=== PATIENT | male | born 1975 | race Caucasian/White ===

== ENCOUNTER 2020-05-14 18:03 | Inpatient (IN) | payer OTHER, SELFPAY ==
--- NOTE | ~2020-05-14 | US_ITS ---
EXAMINATION: US abdomen limited EXAM DATE: 05/15/2020 10:44 INDICATION: Abnormal CT scan. Elevated liver enzymes. TECHNIQUE: Multiple grayscale and Doppler images of the abdomen right upper quadrant were obtained (b y a technologist who performed the scan) and subsequently reviewed. Correlation is made to CT abdomen pelvis from 05/14/2020. FINDINGS: The pancreatic head and body are normal in appearance. The pancreatic tail is not visualized. There is hepatomegaly and hepatic steatosis. There are no focal liver lesions identified. There is no e vidence of intrahepatic biliary duct dilation. Portal venous flow was seen in the hepatopedal, andrae l direction and has normal Doppler waveform. No right-sided hydronephrosis. Common bile duct measures 4 mm, which is normal. The gallbladder wall is normal in thickness, with ex pected amount of distention. No sonographic evidence of pericholecystic fluid. There is no cholelit hiases. Technologist performing exam reports patient did not demonstrate sonographic Dickson's sign. Please note that this sign is less reliable in patients who have received pain medication. IMPRESSION: 1. Hepatomegaly. Hepatic steatosis. Reviewed, dictated and finalized at location B. F CRNA
--- NOTE | ~2020-05-14 | XR_ITS ---
EXAMINATION: XR chest 1V portable 05/14/2020 18:47 INDICATION: Shortness of breath, fever and Covid exposure PROCEDURE: AP portable chest COMPARISON: No prior studies for comparison. FINDINGS: The lungs are clear. The cardiomediastinal silhouette is within normal limits. There are no pleural effusions. There is no pneumothorax suspected. IMPRESSION: 1: NO ACUTE CARDIOPULMONARY DISEASE. Reviewed, dictated and finalized at location A. T SPRAYER
--- NOTE | ~2020-05-14 | XR_ITS ---
EXAMINATION: XR abdomen/kub 1V DATE: 05/15/2020 16:18 INDICATION: Abdominal pain and distention. TECHNIQUE: A supine view of the abdomen was obtained. COMPARISON: CT abdomen and pelvis 05/14/2020 FINDINGS: There are no dilated loops of bowel. There is a paucity of stool in the colon. IMPRESSION: 1. Normal bowel gas pattern. Reviewed, dictated and finalized at location A. OLOGY PHYSICIAN ASSISTANT
--- NOTE | ~2020-05-14 | CT_ITS ---
EXAMINATION: CT abdomen pelvis w con DATE: 05/14/2020 19:50 INDICATION: Abdomen pain. Dizziness. Fever. Weakness. TECHNIQUE: Computed tomography (CT) of the abdomen and pelvis was performed with 100 cc Omnipaque 350 intravenous contrast. The dose-length product was 838.13 mGy-cm. Automated exposure control and iterative reconstruction technique were employed. COMPARISON: None. FINDINGS: Lung bases are unremarkable. Heart size normal. No significant pleural or pericardial effus ion. There is hepatomegaly with fatty infiltration of the liver. The spleen, pancreas, adrenal glands and kidneys are unremarkable. Gallbladder is present. There is mild thickening of the sigmoid colon with adjacent mild inflammation, suspicious for acute d iverticulitis. No evidence for perforation or abscess. No significant vascular abnormality. No lympha denopathy. No free air or significant free fluid. No acute osseous abnormality. There is avascular ne crosis of the femoral heads bilaterally. IMPRESSION: 1. Probable mild acute uncomplicated sigmoid diverticulitis. 2: Hepatomegaly with fatty infiltration of the liver. 3: Bilateral avascular necrosis of the femoral heads. Reviewed, dictated and finalized at location A. TIONS OPERATOR
--- NOTE | ~2020-05-14 | XR_ITS ---
EXAMINATION: XR chest 1V portable EXAM DATE: 05/17/2020 11:00 INDICATION: Possible COVID pneumonia. Shortness of breath and fever. TECHNIQUE: Portable AP frontal chest x-ray was obtained. Comparison is made to prior examination from 05/14/2020. FINDINGS: Suspect small amount of ill-defined bibasilar acute airspace disease, new compared to previ ous study. Could be COVID pneumonia. No pneumothorax or pleural effusion. Cardiomediastinal silhouett e is normal. There are no osseous abnormalities identified. IMPRESSION: Probable developing small amount of ill-defined basilar pneumonia. Reviewed, dictated and finalized at location B. SPECIALIST
[2020-05-14 18:02] VITALS: BP 94/53; PULSE 92; RESP 18; TEMP 37.3; O2SAT 95
--- NOTE | 2020-05-14 18:13 | ECG_ITS ---
Measurements Intervals [place] Rate: 88 P: 51 [place]: 132 QRS: 43 QRSD: 96 T: 245 QT: 351 QTc: 426 Interpretive Statements SINUS RHYTHM POSSIBLE LEFT ATRIAL ENLARGEMENT ST-T WAVE ABNORMALITY IN DIFFUSE LEADS- CONSIDER ISCHEMIA BASELINE ARTIFACT- III, AVL ABNORMAL ECG Electronically Signed On 05-14-2020 18:59:15 [employer] by Alvino Draper D.O.
[2020-05-14 18:14] VITALS: PULSE 89
[2020-05-14 18:27] LABS: Basophils Percent Auto 0.2 % (0.2-1.2); Eosinophils Percent Auto 0.1 % (0-4.4); Hematocrit 29.3 % (42.0-52.0); Hemoglobin 10.3 g/dL (14.0-18.0); Immature Granulocyte Absolute 0.05 K/mm3 (0.00-0.031); Immature Granulocyte Percent A 0.6 % (0-0.5); Lymphocytes Absolute Auto 0.82 K/mm3 (0.9-3.2); Lymphocytes Percent Auto 9.7 % (18.3-44.2); Mean Corpuscular HGB Conc 35.2 g/dl (32-36); Mean Corpuscular Hemoglobin 34.6 pg (26-34); Mean Corpuscular Volume 98.3 fl (80-100); Mean Platelet Volume 9.5 fl (7.4-10.4); Monocytes Absolute Auto 0.3 K/mm3 (0.1-0.6); Monocytes Percent Auto 3.3 % (2.6-8.5); Neutrophils Absolute Auto 7.3 K/mm3 (1.3-6.7); Neutrophils Percent Auto 86.1 % (45.5-73.1); Nucleated Red Blood Cells Absolute Auto 0.1 K/mm3 (0.0-0.012); Nucleated Red Blood Cells Perc 0.6 % (0.0-0.2); Platelet Count Result 104 k/mm3 (150-375); Red Blood Count 2.98 M/mm3 (4.6-6.20); Red Cell Distribution Width 15.1 % (11.5-14.5); White Blood Count 8.5 K/mm3 (4.5-10.0)
[2020-05-14] MEDS: SODIUM CHLORIDE 0.9% IV 1,000 ML 999 ML IV CONT (18:33)
--- NOTE | 2020-05-14 18:35 | PC.NURSE ---
pt states unable to provide urine sample, fluids infusing, given urinal, pt declined straight cath at this time
[2020-05-14 18:45] LABS: Alanine Aminotransferase 39 U/L (4-50); Albumin Level 3.6 g/dL (3.5-5.1); Alkaline Phosphatase 163 U/L (38-126); Anion Gap 30 mmol/L (8-16); Aspartate Amino Transferase 87 U/L (17-59); Blood Urea Nitrogen 21 mg/dL (9-20); Carbon Dioxide 35 mmol/L (22-30); Chloride 67 mmol/L (98-107); Estimated CRCL calculation 75 ml/min; Estimated Glomerular Filt Rate > 60; Glucose 75 mg/dL (75-110); Potassium < 2.0 mmol/L (3.4-5.0); Sodium 132 mmol/L (137-145)
[2020-05-14 18:45] LABS: Alveolar/Arterial O2 Gradient 40.4 mmHg; Base Excess ABG 7.8 mEq/l (+/-2.0); Carboxyhemoglobin 8.2 % THb (0-2.0); Fractional Inspired Oxygen 21 %; Oxygen Saturation ABG 94.5 % (95.0-100.0); Oxyhemoglobin 84.7 % THb (90.0-100.0); PCO2 ABG 38.1 mmHg (35.0-45.0); PO2 ABG 63.7 mmHg (80.0-100.0); PO2 FiO2 Ratio Arterial Blood 3.03 %; Reduced Hemoglobin 7.1 %THb (0-5.0); Total Hemoglobin 10.9 g/dL (12.0-18.0)
[2020-05-14 18:47] LABS: Device ROOM AIR; Modified Allen's Test Pass; Site Drawn RIGHT RADIAL; pH ABG 7.528 (7.350-7.450)
--- NOTE | 2020-05-14 18:57 | ED.GENADULT ---
HPI - General Adult General Chief complaint: Weakness <SWETA Diaz Last Filed: 05/14/20 20:51> Stated complaint: SOB,Nausea <SWETA Diaz Last Filed: 05/14/20 20:51> Time Seen by Provider: 05/14/20 18:23 <SWETA Diaz Last Filed: 05/14/20 20:51> Source: patient and EMS <SWETA Diaz Last Filed: 05/14/20 20:51> Mode of arrival: EMS <SWETA Diaz Last Filed: 05/14/20 20:51> Limitations: no limitations <SWETA Diaz Last Filed: 05/14/20 20:51> History of Present Illness HPI narrative: Patient is a 45-year-old male who presents to emergency department for evaluation of multiple complaints that have been present for 1 week patient has had a cough shortness of breath chest pain headache coupled with multiple episodes of liquid stool and emesis that have worsened over the last several days patient denies sick contacts at home patient has not taken anything for his symptoms patient presents today due to not improving and worsening through the course of the illness denies similar occurrence in the past has not been seen for this complaint denies rectal bleeding or melena. Patient notes that his symptoms began with GI upset which has been the persistent symptom. Patient notes that his cough seems like a smoker's cough despite that it is not productive like it normally is. Patient notes chest discomfort intermittently with shortness of breath with activity for the last 2 days. Patient notes rectal pain and irritation from all of the diarrhea that he has had. Patient also notes multiple episodes of emesis over the last 4 days and has been unable to tolerate p.o. intake at this point <SWETA Diaz Last Filed: 05/14/20 20:51> Related Data Home medications: Home Medications Medication Instructions Recorded Confirmed albuterol mcg INHALATION 05/14/20 05/14/20 fluticasone furoate [Arnuity 1 inh INHALATION DAILY 05/14/20 05/14/20 Ellipta] gabapentin 400 mg PO TID 05/14/20 05/14/20 losartan 50 mg PO DAILY 05/14/20 05/14/20 metoprolol tartrate 25 mg PO DAILY 05/14/20 05/14/20 sertraline 25 mg PO DAILY 05/14/20 05/14/20 <Howard Quevedo PA-C - Last Filed: 05/14/20 20:51> Allergies/adverse reactions: Allergies Allergy/AdvReac Type Severity Reaction Status Date / Time salmeterol Allergy Hives Verified 05/14/20 18:09 <Howard Quevedo PA-C - Last Filed: 05/14/20 20:51> Review of Systems Review of Systems: All systems reviewed & are unremarkable except as noted in HPI and below <Howard Quevedo PA-C - Last Filed: 05/14/20 20:51> PMFSH Past Medical History Medical History: Medical History (Updated 05/14/20 @ 21:17 by Felipe Ryder MD) Asthma H/O: HTN (hypertension) Peripheral neuropathy <SWETA Diaz Last Filed: 05/14/20 20:51> Social History Social History: Social History Smoking status: Current every day smoker Gender identity (if verbalized by the patient): Female <Howard Quevedo PA-C - Last Filed: 05/14/20 20:51> Exam Narrative: Exam Narrative: GENERAL: Well-appearing, well-nourished, and in no acute distress. HEAD: Normocephalic, atraumatic. EYES: PERRLA and EOMI. scleral icterus ENT: Nares clear, no rhinorrhea or epistaxis. Mucous membranes moist. CHEST: Clear to auscultation. No respiratory distress. No wheezes rales or rhonchi HEART: Regular rate and rhythm. No murmur heard. Normal peripheral pulses. ABDOMEN: Soft, generalized tenderness of the abdomen no rebound or guarding,distended, normal active bowel sounds. Patient with perirectal irritation EXTREMITIES: Normal range of motion. No edema. SKIN: Warm, dry, no rash. NEURO: No focal deficits. Alert and oriented x3. Cranial nerves II through XII grossly intact PSYCH: Normal mood and affect. <Howard Quevedo PA-C - Last Filed:
[2020-05-14] MEDS: FAMOTIDINE 20 MG/2 ML VIAL IV PUSH (19:25)
[2020-05-14] MEDS: ONDANSETRON INJ 4 MG/2 ML VIAL IV PUSH (19:28)
[2020-05-14] MEDS: LACTATED RINGERS 1,000 ML 999 ML IV CONT (19:28)
[2020-05-14] MEDS: PANTOPRAZOLE SODIUM IV 40 MG VIAL IV PUSH (19:29)
[2020-05-14 19:30] VITALS: BP 140/62; PULSE 91; RESP 12; O2SAT 94
--- NOTE | 2020-05-14 19:46 | PC.NURSE ---
Assumed care of Pt. Report from LINO Wilson
[2020-05-14 19:50] LABS: Lipase 414 U/L (23-300); Magnesium 1.7 mg/dL (1.6-2.3)
[2020-05-14 19:52] LABS: Prothrombin Time 13.4 Seconds (11.1-14.7)
[2020-05-14 19:55] LABS: Partial Thromboplastin Time 28.1 SECONDS (22.3-36.8)
[2020-05-14 19:59] LABS: Troponin I 0.016 ng/mL (0.000-0.034)
[2020-05-14 20:05] LABS: Alanine Aminotransferase 40 U/L (4-50); Albumin Level 3.5 g/dL (3.5-5.1); Alkaline Phosphatase 158 U/L (38-126); Anion Gap 28 mmol/L (8-16); Aspartate Amino Transferase 88 U/L (17-59); Bilirubin,Total 4.9 mg/dL (0.2-1.3); Blood Urea Nitrogen 21 mg/dL (9-20); CRP 7.8 mg/dL (<1.0); Calcium 7.8 mg/dL (8.4-10.2); Carbon Dioxide 35 mmol/L (22-30); Chloride 68 mmol/L (98-107); Estimated CRCL calculation 75 ml/min; Estimated Glomerular Filt Rate > 60; Glucose 68 mg/dL (75-110); Potassium < 2.0 mmol/L (3.4-5.0); Sodium 131 mmol/L (137-145)
--- NOTE | 2020-05-14 20:15 | ECG_ITS ---
Measurements Intervals [place] Rate: 93 P: 74 [place]: 139 QRS: 42 QRSD: 100 T: 177 QT: 385 QTc: 480 Interpretive Statements SINUS RHYTHM POSSIBLE LEFT ATRIAL ENLARGEMENT BORDERLINE ST-T WAVE ABNORMALITY- DIFFUSE LEADS BORDERLINE ECG Electronically Signed On 05-15-2020 6:52:58 [employer]IC[employer] by Alvino Draper D.O.
[2020-05-14] MEDS: POTASSIUM CHLORIDE 20 MEQ PACKET (FOR LIQUID) 40 MEQ PO (20:23)
[2020-05-14 20:24] LABS: Lactic Acid Reflex 14.8 mmol/L (0.7-2.1)
--- NOTE | 2020-05-14 20:30 | PC.NURSE ---
Pt. states he cannot urinate at this time.
--- NOTE | 2020-05-14 20:42 | PM.IMHP ---
H&P: HPI History of Present Illness Date/Time: 05/14/20 20:42 Chief Complaint: Nausea and vomiting for over a week. Narrative: This is a 45 year old male with known history of HTN and peripheral neuropathy who presented to the hospital with a complaint of 1.5 weeks of feeling sick. He describes having LLQ abdominal pain, nausea, vomiting, and diarrhea. Over the past 4 days his nausea and vomting has become severe and he hasn't been able to keep down any food or fluids. He has had a poorly productive cough which he believes is attributed to his smoking. Associated symptoms included exertional chest discomfort and dyspnea. His girlfiend had contact with someone who was COVID-19 positive. The patient underwent evaluation in the ER and found to have a serum potassium < 2.0. He was also found to be severely septic with a lactic acid of 14.8, anion gap of 28, and dehydrated. CT Abd/pelvis demonstrated mild acute uncomplicated sigmoid diverticulitis. The patient was swabbed for COVID-19, treated with IV fluids and IV antibiotics in the ER. On my encounter with him he is only complaining of dull LLQ abd pain. He tolerated oral potassium replacement. No other complaints. Review of Systems Review of Systems: All systems reviewed & are unremarkable except as noted in HPI and below PMFSH Past Medical History Medical History Asthma H/O: HTN (hypertension) Peripheral neuropathy Family History Family History Other Unknown family medical history Social History Social History Smoking packs per day: 1 Smoking cigarettes per day: 20.0 Years smoked: 30 Smoking pack-years: 30.00 Smoking status: Current every day smoker Tobacco type: cigarettes Alcohol intake: never Substance use: never Gender identity (if verbalized by the patient): Male Spiritual care concerns: No Comments Past surgical history is reviewed and noncontributory. Meds Home Medications and Allergies Home Medications Medication Instructions Recorded Confirmed Type albuterol 90 mcg INHALATION Q4-6H 05/14/20 05/14/20 History fluticasone furoate [Arnuity 1 inh INHALATION DAILY 05/14/20 05/14/20 History Ellipta] gabapentin 400 mg PO QID 05/14/20 05/14/20 History losartan 25 mg PO DAILY 05/14/20 05/14/20 History metoprolol tartrate 25 mg PO DAILY 05/14/20 05/14/20 History sertraline 25 mg PO DAILY 05/14/20 05/14/20 History Allergies Allergy/AdvReac Type Severity Reaction Status Date / Time salmeterol Allergy Hives Verified 05/14/20 18:09 Vital Signs Vital Signs - 24 hr 05/14/20 18:02 05/14/20 18:14 05/14/20 19:30 Temperature 37.3 C Pulse Rate 92 89 91 Respiratory Rate 18 12 Blood Pressure 94/53 L 140/62 Pulse Oximetry 95 94 Exam Const: General: cooperative, no acute distress, alert and awake Nutritional Appearance: well nourished Orientation/consciousness: patient oriented x3 HENMT: Head: normal to inspection General nose exam: Normal external nose present Face and sinus: normal facial exam Mouth: Yes Normal oral and palatal mucosa present and Yes oropharynx normal Eyes: Pupils: Equal, round and reactive pupils present EOM: EOMs intact bilaterally Neck: Neck: supple and no JVD Thyroid: thyroid normal Lymphatic: lymphadenopathy not noted Chest: Other: No chest wall tenderness Resp: Effort & Inspection: normal respiratory effort Auscultation: clear to auscultation bilaterally Cardio: Rate: regular rate Rhythm: regular rhythm Heart sounds: no murmurs GI: Inspection: normal to inspection GI Palp: Yes abdominal tenderness (LLQ++ ) Auscultation: normal bowel sounds Skin: General skin exam: normal color and no rashes or lesions noted Neuro: General: patient oriented x3 Cranial nerves: Yes CN's II-XII intact bilaterally and Yes Equal, round
[2020-05-14] MEDS: SODIUM CHLORIDE 0.9% IV 1,000 ML 100 ML IV CONT (21:18)
[2020-05-14 21:20] LABS: Immature Reticulocyte Fraction 5.3 % (3.0-15.9); Reticulocyte Hemoglobin Conten 36.7 pg (28.2-35.7); Reticulocyte Percent 0.84 % (0.7-4.3); Reticulocytes Absolute 0.03 B/L (32.2-175.7)
[2020-05-14 21:47] LABS: Add Urine Microscopic? YES; Appearance Urine Clear (Clear); Bacteria Urine Trace /hpf; Bilirubin Urine Negative (Negative); Blood Urine Negative (Negative); Color Urine Amber (Yellow); Glucose Urine UA Negative (Negative); Hyaline Casts Urine 20-29 /lpf; Ketones Urine 1+ mg/dL (Negative); Leukocyte Esterase Ur Negative LEU/UL (Negative); Mucus Urine Rare /lpf; Nitrate Urine Negative (Negative); Protein Urine 2+ mg/dL (Negative); RBC Urine 0-2 /hpf (0-2); Squamous Epithelial Cell Urine Rare /hpf (Few); WBC Urine 0-3 /hpf
[2020-05-14 21:51] LABS: Specific Grav Ur 1.036 (1.001-1.035)
[2020-05-14 22:00] VITALS: BP 124/57; PULSE 88; RESP 12; O2SAT 94
[2020-05-14 22:06] LABS: Reflex Lactic Acid Yes or No Add Lactic
[2020-05-14 22:30] VITALS: BP 112/62; PULSE 95; RESP 20; TEMP 37.1; O2SAT 97; BMI 27.6
[2020-05-14 22:49] VITALS: BMI 27.6
[2020-05-14 23:12] LABS: Glucose Point of Care 100 (65-105)
[2020-05-14 23:52] LABS: Lactic Acid 8.9 mmol/L (0.7-2.1)
[2020-05-14 23:53] LABS: Iron 174 ug/dL (49-181)
[2020-05-14 23:55] LABS: Troponin I 0.014 ng/mL (0.000-0.034)
[2020-05-14 23:56] LABS: Bilirubin Direct 1.3 mg/dL (0-0.3); Lactate Dehydrogenase 739 U/L (313-618)
[2020-05-15] VITALS (17 sets, daily range): BP systolic 138–159; BP diastolic 43–73; PULSE 82–97; RESP 18–23; TEMP 36.2–36.9; O2SAT 90–98; BMI 27.6
[2020-05-15 00:02] LABS: Percent Iron Saturation 87 % (20-50)
[2020-05-15 00:04] LABS: Transferrin 134 mg/dL (206-381)
[2020-05-15] MEDS: SODIUM CHLORIDE 0.9% IV 1,000 ML 125 ML IV CONT ×3 (00:08→16:07)
[2020-05-15 00:25] LABS: Thyroid Stimulating Hormone Reflex 0.994 uIU/mL (0.465-4.68)
[2020-05-15 00:47] LABS: Folic Acid 3.6 ng/mL (2.76->20)
[2020-05-15 02:18] LABS: Troponin I 0.012 ng/mL (0.000-0.034)
[2020-05-15 03:16] LABS: Ferritin > 2000.00 ng/mL (17.9-464)
[2020-05-15 04:49] LABS: Basophils Percent Auto 0.2 % (0.2-1.2); Eosinophils Percent Auto 0.2 % (0-4.4); Hematocrit 25.7 % (42.0-52.0); Hemoglobin 8.9 g/dL (14.0-18.0); Immature Granulocyte Absolute 0.06 K/mm3 (0.00-0.031); Immature Granulocyte Percent A 0.9 % (0-0.5); Lymphocytes Absolute Auto 1.14 K/mm3 (0.9-3.2); Lymphocytes Percent Auto 17.4 % (18.3-44.2); Mean Corpuscular HGB Conc 34.6 g/dl (32-36); Mean Corpuscular Hemoglobin 34.5 pg (26-34); Mean Corpuscular Volume 99.6 fl (80-100); Mean Platelet Volume 10.4 fl (7.4-10.4); Monocytes Absolute Auto 0.2 K/mm3 (0.1-0.6); Monocytes Percent Auto 3.7 % (2.6-8.5); Neutrophils Absolute Auto 5.1 K/mm3 (1.3-6.7); Neutrophils Percent Auto 77.6 % (45.5-73.1); Nucleated Red Blood Cells Perc 0.5 % (0.0-0.2); Platelet Count Result 78 k/mm3 (150-375); Red Blood Count 2.58 M/mm3 (4.6-6.20); White Blood Count 6.5 K/mm3 (4.5-10.0)
[2020-05-15 05:15] LABS: Anion Gap 14 mmol/L (8-16); Blood Urea Nitrogen 20 mg/dL (9-20); Carbon Dioxide 39 mmol/L (22-30); Chloride 79 mmol/L (98-107); Estimated CRCL calculation 82 ml/min; Estimated Glomerular Filt Rate > 60; Glucose 88 mg/dL (75-110); Magnesium 1.6 mg/dL (1.6-2.3); Potassium < 2.0 mmol/L (3.4-5.0); Sodium 132 mmol/L (137-145)
[2020-05-15 05:50] LABS: Hepatitis B Surface Antigen Negative (Negative)
[2020-05-15 05:56] LABS: HAV RESULT Negative (Negative); Hepatitis B Core IgM Result Negative (Negative)
[2020-05-15 06:07] LABS: Hepatitis C Virus Antibody Negative (Negative)
[2020-05-15 06:26] LABS: Prothrombin Time 13.7 Seconds (11.1-14.7)
[2020-05-15 06:28] LABS: Partial Thromboplastin Time 24.1 SECONDS (22.3-36.8)
[2020-05-15] MEDS: PANTOPRAZOLE SODIUM IV 40 MG VIAL IV PUSH ×2 (08:03→21:59)
[2020-05-15] MEDS: FAMOTIDINE 20 MG/2 ML VIAL IV PUSH ×2 (08:03→21:59)
[2020-05-15 09:20] LABS: Hematocrit 25.1 % (42.0-52.0); Hemoglobin 8.6 g/dL (14.0-18.0)
[2020-05-15] MEDS: POTASSIUM CHLORIDE 20 MEQ PACKET (FOR LIQUID) 40 MEQ PO (10:24)
[2020-05-15 13:16] LABS: Hematocrit 27.2 % (42.0-52.0); Hemoglobin 9.5 g/dL (14.0-18.0)
[2020-05-15 13:37] LABS: Magnesium 1.7 mg/dL (1.6-2.3); Potassium 2.2 mmol/L (3.4-5.0)
[2020-05-15] MEDS: ALBUTEROL SULFATE (*SP) AEROSOL 1 PUFF 2 PUFF INHALATION ×2 (14:22→22:00)
[2020-05-15 15:14] LABS: Hematocrit 26.4 % (42.0-52.0); Hemoglobin 9.1 g/dL (14.0-18.0)
--- NOTE | 2020-05-15 15:54 | PM.IMPN ---
Progress Note: A&P Assessment and Plan (1) Severe sepsis: Code(s): A41.9 - Sepsis, unspecified organism; R65.20 - Severe sepsis without septic shock Status: Acute Assessment and Plan: Patient meets criteria for severe sepsis in the setting of acute diverticulitis with elevated lactic acid, hypotension 94/53, low-grade fever at 99.1 on arrival, and hypoxia requiring 2 L of oxygen via nasal cannula. Blood cultures were taken and pending Started IV antibiotics for diverticulitis Vital signs are much improved today Continue monitoring vitals. (2) Diverticulitis: Code(s): K57.92 - Diverticulitis of intestine, part unspecified, without perforation or abscess without bleeding Status: Acute Assessment and Plan: Acute diverticulitis to the sigmoid colon as stated on CT scan of abdomen which is most likely the cause of his nausea/vomiting/diarrhea Patient's pain is improving today Continue with IV antibiotics P.r.n. pain control Continue monitoring patient's symptoms (3) Metabolic alkalosis: Code(s): E87.3 - Alkalosis Status: Acute Assessment and Plan: Patient had acute metabolic alkalosis pH of 7.528, elevated HC03, and normal CO2 -cause could be from severe sepsis, versus dehydration versus hypochloremic alkalosis from vomiting and diarrhea. Patient is well compensated at this time We are giving him IV fluids for hydration and replenishing his electrolytes Continue monitoring his electrolytes (4) Acute dehydration: Code(s): E86.0 - Dehydration Status: Acute Assessment and Plan: The patient was noted to be acutely dehydrated on arrival due to sepsis criteria from acute diverticulitis and symptoms of nausea/vomiting/diarrhea Patient has been given IV fluids with improvement of his blood pressure and symptoms. Continue monitoring his volume status and slowly advance diet as tolerated. (5) Normocytic anemia: Code(s): D64.9 - Anemia, unspecified Status: Acute Assessment and Plan: The patient came in with Normocytic anemia, unsure of his baseline labs in the past. Could be secondary to possible COVID, patients often have pancytopenia. Will do further workup. He received IV fluid hydration due to severe dehydration which brought his H&H slightly ill lower today. He has no acute signs of GI bleeding but will check a stool occult since he has diverticulitis Patient had normal vitamin B12 and folic acid levels. Continue monitoring H&H. Transfuse as needed. (6) Thrombocytopenia: Code(s): D69.6 - Thrombocytopenia, unspecified Status: Acute Assessment and Plan: Patient came in with thrombocytopenia with a platelet count of 104. Could be secondary to COVID will do further workup. Platelets decreased again today to 78. Monitor platelets, transfuse prn. (7) Hypokalemia: Code(s): E87.6 - Hypokalemia Status: Acute Assessment and Plan: Severe hypokalemia likely secondary to vomiting and diarrhea for the past 4 days. This morning was 2.0. Someone today moody being given. Repeat this afternoon was 2.2, will give another 60 mEq of potassium. Continue potassium replacement. Monitor potassium. (8) Hypoglycemia: Code(s): E16.2 - Hypoglycemia, unspecified Status: Acute Assessment and Plan: Glucose was 68 on arrival. Glucose has been stable but he has been NPO. He has no history of diabetes. Will continue checking Accuchecks ACHS, hypoglycemic protocol. (9) Hyperbilirubinemia: Code(s): E80.6 - Other disorders of
[2020-05-15] MEDS: POTASSIUM CHLORIDE 20 MEQ PACKET (FOR LIQUID) 60 MEQ PO (16:04)
[2020-05-15 19:18] LABS: SARS-CoV-2 RNA PCR Negative
[2020-05-15 20:01] LABS: Hematocrit 25.7 % (42.0-52.0); Hemoglobin 8.9 g/dL (14.0-18.0)
[2020-05-15 20:22] LABS: Magnesium 1.6 mg/dL (1.6-2.3); Potassium 2.2 mmol/L (3.4-5.0)
[2020-05-15] MEDS: MELATONIN 3 MG TABLET PO (21:59)
[2020-05-15] MEDS: NICOTINE (*PBKC) 21 MG PATCH 1 PATCH TRANSDERM (21:59)
[2020-05-15] MEDS: FLUTICASONE PROP 44 MCG (*SP) 10.6 GM 2 PUFF INHALATION (22:00)
[2020-05-16] VITALS (20 sets, daily range): BP systolic 125–163; BP diastolic 57–78; PULSE 88–107; RESP 18–24; TEMP 35.8–36.6; O2SAT 88–98
[2020-05-16 04:43] LABS: Basophils Percent Auto 0.2 % (0.2-1.2); Eosinophils Percent Auto 0.2 % (0-4.4); Hematocrit 23.6 % (42.0-52.0); Hemoglobin 8.2 g/dL (14.0-18.0); Immature Granulocyte Absolute 0.03 K/mm3 (0.00-0.031); Immature Granulocyte Percent A 0.6 % (0-0.5); Immature Platelet Fraction Pct 4.6 % (0.9-11.2); Lymphocytes Absolute Auto 0.87 K/mm3 (0.9-3.2); Lymphocytes Percent Auto 18.6 % (18.3-44.2); Mean Corpuscular HGB Conc 34.7 g/dl (32-36); Mean Corpuscular Hemoglobin 34.7 pg (26-34); Monocytes Absolute Auto 0.1 K/mm3 (0.1-0.6); Monocytes Percent Auto 2.1 % (2.6-8.5); Neutrophils Absolute Auto 3.7 K/mm3 (1.3-6.7); Neutrophils Percent Auto 78.3 % (45.5-73.1); Nucleated Red Blood Cells Perc 0.4 % (0.0-0.2); Platelet Count Result 65 k/mm3 (150-375); Red Blood Count 2.36 M/mm3 (4.6-6.20); Red Cell Distribution Width 14.7 % (11.5-14.5); White Blood Count 4.7 K/mm3 (4.5-10.0)
[2020-05-16 05:14] LABS: Lactic Acid Reflex 4.9 mmol/L (0.7-2.1)
[2020-05-16 05:17] LABS: Alanine Aminotransferase 43 U/L (4-50); Albumin Level 2.8 g/dL (3.5-5.1); Alkaline Phosphatase 125 U/L (38-126); Anion Gap 8 mmol/L (8-16); Aspartate Amino Transferase 104 U/L (17-59); Bilirubin Direct 1.7 mg/dL (0-0.3); Bilirubin,Total 4.2 mg/dL (0.2-1.3); Blood Urea Nitrogen 14 mg/dL (9-20); CRP 8.3 mg/dL (<1.0); Calcium 7.4 mg/dL (8.4-10.2); Carbon Dioxide 38 mmol/L (22-30); Chloride 87 mmol/L (98-107); Estimated CRCL calculation 156 ml/min; Estimated Glomerular Filt Rate > 60; Glucose 105 mg/dL (75-110); Lactate Dehydrogenase 984 U/L (313-618); Lipase 844 U/L (23-300); Magnesium 1.6 mg/dL (1.6-2.3); Potassium 2.3 mmol/L (3.4-5.0); Sodium 133 mmol/L (137-145)
[2020-05-16] MEDS: SODIUM CHLORIDE 0.9% IV 1,000 ML 100 ML IV CONT (05:27)
[2020-05-16 07:38] LABS: Reflex Lactic Acid Yes or No Add Lactic
[2020-05-16] MEDS: FAMOTIDINE 20 MG/2 ML VIAL IV PUSH ×2 (08:17→21:01)
[2020-05-16] MEDS: ENOXAPARIN 40 MG/0.4 ML SYRINGE SUB-Q (08:17)
[2020-05-16] MEDS: PANTOPRAZOLE SODIUM IV 40 MG VIAL IV PUSH ×2 (08:17→21:01)
[2020-05-16] MEDS: NICOTINE (*PBKC) 21 MG PATCH 1 PATCH TRANSDERM (08:19)
[2020-05-16] MEDS: FLUTICASONE PROP 44 MCG (*SP) 10.6 GM 2 PUFF INHALATION ×2 (08:21→21:00)
[2020-05-16] MEDS: MAGNESIUM SULF 2 GM/WATER 50ML 2 GM/50 ML BAG IVPB (08:49)
[2020-05-16] MEDS: POTASSIUM CHLORIDE 20 MEQ PACKET (FOR LIQUID) 60 MEQ PO ×2 (08:50→14:45)
[2020-05-16 09:40] LABS: Influenza Control Positive
[2020-05-16 09:46] LABS: Lactic Acid 4.9 mmol/L (0.7-2.1)
[2020-05-16 13:23] LABS: Potassium 2.6 mmol/L (3.4-5.0)
--- NOTE | 2020-05-16 13:55 | PM.DS ---
DS: Summary Time Spent with Patient Time attestation: Total time spent providing and/or coordinating discharge services: DS: Data Data Completed and Pending Completed studies during hospitalization: Pending at discharge 05/14/20 21:06 Consult to Pathologist [PTH] Routine Labs on day of discharge: Labs from last 24 hours 05/16/20 05/16/20 05/16/20 12:49 09:15 09:04 WBC RBC Hgb Hct MCV MCH MCHC RDW Plt Count MPV Immature Gran % (Auto) Neut % (Auto) Lymph % (Auto) [place] % (Auto) Eos % (Auto) Baso % (Auto) Lymph # (Auto) [place] # (Auto) Eos # (Auto) Baso # (Auto) Abs Immat Gran (auto) Absolute Neuts (auto) Absolute Nucleated RBC Nucleated RBC % % Immature Plt Fraction Sodium Potassium 2.6 L* Chloride Carbon Dioxide Anion Gap BUN Creatinine Estim Creat Clear Calc Estimated GFR Glucose Lactic Acid 4.9 H* Calcium Magnesium 2.0 Ferritin Total Bilirubin Direct Bilirubin AST ALT Alkaline Phosphatase Lactate Dehydrogenase C-Reactive Protein Total Protein Albumin Lipase Influenza Types A,B Ag SARS-CoV-2 RNA (RT-PCR) Pending 05/16/20 05/16/20 05/16/20 09:04 04:31 04:31 WBC RBC Hgb Hct MCV MCH MCHC RDW Plt Count MPV Immature Gran % (Auto) Neut % (Auto) Lymph % (Auto) [place] % (Auto) Eos % (Auto) Baso % (Auto) Lymph # (Auto) [place] # (Auto) Eos # (Auto) Baso # (Auto) Abs Immat Gran (auto) Absolute Neuts (auto) Absolute Nucleated RBC Nucleated RBC % % Immature Plt Fraction Sodium Potassium Chloride Carbon Dioxide Anion Gap BUN Creatinine Estim Creat Clear Calc Estimated GFR Glucose Lactic Acid 4.9 H* Calcium Magnesium Ferritin 1900.00 H Total Bilirubin Direct Bilirubin AST ALT Alkaline Phosphatase Lactate Dehydrogenase C-Reactive Protein Total Protein Albumin Lipase Influenza Types A,B Ag Negative SARS-CoV-2 RNA (RT-PCR) 05/16/20 05/16/20 05/15/20 04:31 04:31 19:55 WBC 4.7 RBC 2.36 L Hgb 8.2 L Hct 23.6 L MCV 100.0 MCH 34.7 H MCHC 34.7 RDW 14.7 H Plt Count 65 L MPV 9.0 Immature Gran % (Auto) 0.6 H Neut % (Auto) 78.3 H Lymph % (Auto) 18.6 [place] % (Auto) 2.1 L Eos % (Auto) 0.2 Baso % (Auto) 0.2 Lymph # (Auto) 0.87 L [place] # (Auto) 0.1 Eos # (Auto) 0.0 Baso # (Auto) 0.0 Abs Immat Gran (auto) 0.03 Absolute Neuts (auto) 3.7 Absolute Nucleated RBC 0.0 Nucleated RBC % 0.4 H % Immature Plt Fraction 4.6 Sodium 133 L Potassium 2.3 L* 2.2 L* Chloride 87 L Carbon Dioxide 38 H Anion Gap 8 BUN 14 D Creatinine 0.50 L Estim Creat Clear Calc 156 Estimated GFR > 60 Glucose 105 Lactic Acid Calcium 7.4 L Magnesium 1.6 1.6 Ferritin Total Bilirubin 4.2 H Direct Bilirubin 1.7 H AST 104 H ALT 43 Alkaline Phosphatase 125 Lactate Dehydrogenase 984 H C-Reactive Protein 8.3 H Total Protein 5.0 L Albumin 2.8 L Lipase 844 H Influenza Types A,B Ag SARS-CoV-2 RNA (RT-PCR) 05/15/20 05/15/20 05/14/20 19:55 15:07 18:37 WBC RBC Hgb 8.9 L 9.1 L Hct 25.7 L 26.4 L MCV MCH MCHC RDW Plt Count MPV Immature Gran % (Auto) Neut % (Auto) Lymph % (Auto) [place] % (Auto) Eos % (Auto) Baso % (Auto) Lymph # (Auto) [place] # (Auto) Eos # (Auto) Baso # (Auto) Abs Immat Gran (auto) Absolute Neuts (auto) Absolute Nucleated RBC Nucleated RBC % % Immature Plt Fraction Sodium Potassium Chloride Carbon Dioxide Anion Gap BUN Creatinine Estim Creat Clear Calc Estimated GFR Glucose Lactic Acid Calcium Magnesium
--- NOTE | 2020-05-16 13:57 | PM.IMPN ---
Progress Note: A&P Assessment and Plan (1) Severe sepsis: Code(s): A41.9 - Sepsis, unspecified organism; R65.20 - Severe sepsis without septic shock Status: Acute Assessment and Plan: Patient meets criteria for severe sepsis in the setting of acute diverticulitis with elevated lactic acid, hypotension 94/53, low-grade fever at 99.1 on arrival, and hypoxia requiring 2 L of oxygen via nasal cannula. Blood cultures were taken and are negative to date. Continue IV antibiotics for diverticulitis Vital signs are much improved today Continue monitoring vitals. (2) Diverticulitis: Code(s): K57.92 - Diverticulitis of intestine, part unspecified, without perforation or abscess without bleeding Status: Acute Assessment and Plan: Acute diverticulitis to the sigmoid colon as stated on CT scan of abdomen which is most likely the cause of his nausea/vomiting/diarrhea Patient's pain is improving today Continue with IV antibiotics P.r.n. pain control Continue monitoring patient's symptoms (3) Acute dehydration: Code(s): E86.0 - Dehydration Status: Acute Assessment and Plan: The patient was noted to be acutely dehydrated on arrival due to sepsis criteria from acute diverticulitis and symptoms of nausea/vomiting/diarrhea Patient has been given IV fluids with improvement of his blood pressure and symptoms. Vitals are stable but his lactic acid is still elevated at 4.9. Continue IV fluid hydration. Continue monitoring his volume status and slowly advance diet as tolerated. (4) Normocytic anemia: Code(s): D64.9 - Anemia, unspecified Status: Acute Assessment and Plan: Likely multifactorial. r/o hemolysis, ETOH related, nutritional. The patient came in with Normocytic anemia, unsure of his baseline labs in the past. Could be secondary to possible COVID, patients often have pancytopenia. He received IV fluid hydration due to severe dehydration which brought his H&H slightly ill lower today. He has no acute signs of GI bleeding but will check a stool occult since he has diverticulitis Patient had normal vitamin B12 and folic acid levels. Continue monitoring H&H. Transfuse as needed. (5) Thrombocytopenia: Code(s): D69.6 - Thrombocytopenia, unspecified Status: Acute Assessment and Plan: Monitor platelets, transfuse prn. Consider that this may be secondary to chronic alcoholism. Patient came in with thrombocytopenia with a platelet count of 104. Could be secondary to COVID will do further workup. Platelets decreased again today to 65,000. Monitor platelets, transfuse prn. (6) Hypokalemia: Code(s): E87.6 - Hypokalemia Status: Acute Assessment and Plan: Severe hypokalemia likely secondary to vomiting and diarrhea for the past 4 days. Continue potassium replacement. Monitor potassium. Telemetry. Severe hypokalemia likely secondary to vomiting and diarrhea for the past 4 days. This morning was 2.2. Replacement given and improved to 2.6. Continue replacing until within normal range. Mag is normal today. Continue potassium replacement. Monitor potassium. (7) Hypoglycemia: Code(s): E16.2 - Hypoglycemia, unspecified Status: Acute Assessment and Plan: Accuchecks, hypoglycemic protocol. Glucose was 105 on arrival. Glucose has been stable but he has been NPO. He has no history of diabetes. Will continue checking Accuchecks ACHS, hypoglycemic protocol. (8) Hyperbilirubinemia: Code(s): E80.6 - Other disorders of bilirubin metabolism Status: Acute Assessment
[2020-05-16] MEDS: MAG HYDROX/AL HYDROX/SIMETH 30 ML UDC PO (14:35)
[2020-05-16 17:00] LABS: Glucose Point of Care 141 (65-105)
[2020-05-16 17:16] LABS: SARS-CoV-2 RNA PCR Negative
[2020-05-16] MEDS: GABAPENTIN 400 MG CAPSULE PO ×2 (17:25→20:59)
[2020-05-16 19:10] LABS: Hematocrit 25.2 % (42.0-52.0); Hemoglobin 8.9 g/dL (14.0-18.0)
[2020-05-16 19:17] LABS: Potassium 3.3 mmol/L (3.4-5.0)
[2020-05-16] MEDS: MELATONIN 3 MG TABLET PO (20:59)
[2020-05-16] MEDS: ALBUTEROL SULFATE (*SP) AEROSOL 1 PUFF 2 PUFF INHALATION (21:04)
[2020-05-16] MEDS: PHENYLEPH/SHARK OIL/MO/PETROL CREAM 26 GM 1 APPLIC RECTAL (21:09)
[2020-05-16] MEDS: SODIUM CHLORIDE NASAL GEL 14.1 GM 1 APPLIC NASAL (21:09)
[2020-05-16 21:13] LABS: IFOB Positive Control Positive; Immunochemical Fecal Occult Bl Negative (N)
[2020-05-16] MEDS: SODIUM CHLORIDE 0.9% IV 1,000 ML 70 ML IV CONT (21:42)
[2020-05-17] VITALS (17 sets, daily range): BP systolic 113–144; BP diastolic 52–71; PULSE 2–97; RESP 12–22; TEMP 35.8–36.6; O2SAT 91–99
[2020-05-17] MEDS: ALBUTEROL SULFATE (*SP) AEROSOL 1 PUFF 2 PUFF INHALATION ×2 (04:28→20:50)
[2020-05-17 05:21] LABS: Basophils Percent Auto 0.2 % (0.2-1.2); Eosinophils Percent Auto 0.6 % (0-4.4); Hematocrit 23.9 % (42.0-52.0); Hemoglobin 8.3 g/dL (14.0-18.0); Immature Granulocyte Absolute 0.05 K/mm3 (0.00-0.031); Immature Granulocyte Percent A 1.1 % (0-0.5); Immature Platelet Fraction Pct 6.9 % (0.9-11.2); Lymphocytes Absolute Auto 0.93 K/mm3 (0.9-3.2); Lymphocytes Percent Auto 19.9 % (18.3-44.2); Mean Corpuscular HGB Conc 34.7 g/dl (32-36); Mean Corpuscular Hemoglobin 33.6 pg (26-34); Mean Corpuscular Volume 96.8 fl (80-100); Mean Platelet Volume 9.9 fl (7.4-10.4); Monocytes Absolute Auto 0.1 K/mm3 (0.1-0.6); Monocytes Percent Auto 1.3 % (2.6-8.5); Neutrophils Absolute Auto 3.6 K/mm3 (1.3-6.7); Neutrophils Percent Auto 76.9 % (45.5-73.1); Nucleated Red Blood Cells Perc 0.4 % (0.0-0.2); Platelet Count Result 56 k/mm3 (150-375); Red Blood Count 2.47 M/mm3 (4.6-6.20); Red Cell Distribution Width 14.5 % (11.5-14.5); White Blood Count 4.7 K/mm3 (4.5-10.0)
[2020-05-17 06:11] LABS: Alanine Aminotransferase 58 U/L (4-50); Albumin Level 3.2 g/dL (3.5-5.1); Alkaline Phosphatase 177 U/L (38-126); Anion Gap 5 mmol/L (8-16); Aspartate Amino Transferase 145 U/L (17-59); Bilirubin,Total 4.7 mg/dL (0.2-1.3); Blood Urea Nitrogen 8 mg/dL (9-20); CRP 8.1 mg/dL (<1.0); Calcium 8.1 mg/dL (8.4-10.2); Carbon Dioxide 39 mmol/L (22-30); Chloride 89 mmol/L (98-107); Estimated CRCL calculation 189 ml/min; Estimated Glomerular Filt Rate > 60; Glucose 122 mg/dL (75-110); Lactate Dehydrogenase 1188 U/L (313-618); Lipase 939 U/L (23-300); Magnesium 1.9 mg/dL (1.6-2.3); Sodium 133 mmol/L (137-145)
[2020-05-17 06:13] LABS: Potassium 2.7 mmol/L (3.4-5.0)
[2020-05-17] MEDS: GABAPENTIN 400 MG CAPSULE PO ×4 (08:21→20:50)
[2020-05-17] MEDS: FAMOTIDINE 20 MG/2 ML VIAL IV PUSH ×2 (08:22→20:49)
[2020-05-17] MEDS: PANTOPRAZOLE SODIUM IV 40 MG VIAL IV PUSH ×2 (08:24→20:49)
[2020-05-17 09:30] LABS: Ferritin > 2000.00 ng/mL (17.9-464)
[2020-05-17] MEDS: POTASSIUM CHLORIDE 20 MEQ PACKET (FOR LIQUID) 40 MEQ PO ×2 (10:20→16:11)
[2020-05-17] MEDS: METOPROLOL TARTRATE 25 MG TABLET PO (10:20)
[2020-05-17] MEDS: NICOTINE (*PBKC) 21 MG PATCH 1 PATCH TRANSDERM (10:21)
[2020-05-17] MEDS: FLUTICASONE PROP 44 MCG (*SP) 10.6 GM 2 PUFF INHALATION ×2 (10:21→20:50)
[2020-05-17] MEDS: SALINE 0.65% NAS SOLN 44 ML BTL 1 SPRAY NASAL (14:47)
[2020-05-17 15:36] LABS: Magnesium 1.9 mg/dL (1.6-2.3); Potassium 3.4 mmol/L (3.4-5.0)
--- NOTE | 2020-05-17 16:31 | PM.IMPN ---
Progress Note: A&P Assessment and Plan (1) Suspected COVID-19 virus infection: Code(s): Z20.822 - Contact with and (suspected) exposure to COVID-19 Status: Acute Assessment and Plan: The patient's girlfriend who he lives with tested positive for COVID 05/10/20 and he lives with her. He then began developing symptoms of dry cough, congestion, shortness of breath, body aches. Patient's COVID test has been negative x2 Patient has been hypoxic since arrival requiring 2 L of oxygen and he is down to 1 L of oxygen here. He tried to take his oxygen off for about 30 minutes and he became hypoxic 84% and so he has remained on 1 L of oxygen. Repeat chest x-ray on 05/17/2020 shows possible bibasilar pneumonia. The patient's labs that are normally obtained for COVID, ferritin, LDH, CRP have all been elevated but he also has an acute infection with diverticulitis. The patient is otherwise feeling better today and will continue monitoring his symptoms. Due to his hypoxia I will start him on dexamethasone Continue monitoring.Continue supportive care. Continue droplet isolation. (2) Severe sepsis: Code(s): A41.9 - Sepsis, unspecified organism; R65.20 - Severe sepsis without septic shock Status: Acute Assessment and Plan: Patient meets criteria for severe sepsis in the setting of acute diverticulitis with elevated lactic acid, hypotension 94/53, low-grade fever at 99.1 on arrival, and hypoxia requiring 2 L of oxygen via nasal cannula. Blood cultures were taken and are negative to date. Continue IV antibiotics for diverticulitis Vital signs are much improved today, still on 1 L via nasal cannula due to most likely COVID Continue monitoring vitals. (3) Diverticulitis: Code(s): K57.92 - Diverticulitis of intestine, part unspecified, without perforation or abscess without bleeding Status: Acute Assessment and Plan: Acute diverticulitis to the sigmoid colon as stated on CT scan of abdomen which is most likely the cause of his nausea/vomiting/diarrhea Patient's pain is improving today Continue with IV antibiotics P.r.n. pain control Continue monitoring patient's symptoms (4) Acute dehydration: Code(s): E86.0 - Dehydration Status: Acute Assessment and Plan: The patient was noted to be acutely dehydrated on arrival due to sepsis criteria from acute diverticulitis and symptoms of nausea/vomiting/diarrhea Patient has been given IV fluids with improvement of his blood pressure and symptoms. Vitals are stable but his lactic acid is still elevated at 4.9. Will recheck again. Continue IV fluid hydration. Continue monitoring his volume status and slowly advance diet as tolerated. (5) Normocytic anemia: Code(s): D64.9 - Anemia, unspecified Status: Acute Assessment and Plan: Likely multifactorial. r/o hemolysis, ETOH related, nutritional. The patient came in with Normocytic anemia, unsure of his baseline labs in the past. Could be secondary to possible COVID, patients often have pancytopenia. He received IV fluid hydration due to severe dehydration which brought his H&H slightly ill lower today. He has no acute signs of GI bleeding but will check a stool occult since he has diverticulitis Patient had normal vitamin B12 and folic acid levels. Continue monitoring H&H. Transfuse as needed. (6) Thrombocytopenia: Code(s): D69.6 - Thrombocytopenia, unspecified Status: Acute Assessment and Plan: Monitor platelets, transfuse prn. Consider that this may be secondary to chronic liver issues from alcoholism versus viral from COVID. Patient came in with thrombocytopenia with a platelet count of 104. Could be se
[2020-05-17] MEDS: DEXAMETHASONE SOD PHOS INJ 4 MG/ML VIAL 6 MG IV PUSH (17:47)
[2020-05-17] MEDS: SODIUM CHLORIDE 0.9% IV 1,000 ML 70 ML IV CONT (17:47)
[2020-05-17] MEDS: SERTRALINE HCL 25 MG TABLET PO (20:49)
[2020-05-17] MEDS: MELATONIN 3 MG TABLET PO (20:49)
[2020-05-17] MEDS: PHENYLEPH/SHARK OIL/MO/PETROL CREAM 26 GM 1 APPLIC RECTAL (20:50)
[2020-05-17] MEDS: SODIUM CHLORIDE NASAL GEL 14.1 GM 1 APPLIC NASAL (20:50)
[2020-05-17] MEDS: LOSARTAN POTASSIUM 25 MG TABLET PO (20:50)
[2020-05-18] VITALS (15 sets, daily range): BP systolic 120–146; BP diastolic 53–73; PULSE 85–110; RESP 18–20; TEMP 35.8–36.5; O2SAT 92–100
[2020-05-18 04:54] LABS: Hemoglobin 7.2 g/dL (14.0-18.0); Immature Platelet Fraction Pct 9.1 % (0.9-11.2); Mean Corpuscular HGB Conc 34.8 g/dl (32-36); Mean Corpuscular Hemoglobin 34.4 pg (26-34); Mean Platelet Volume 10.4 fl (7.4-10.4); Platelet Count Result 44 k/mm3 (150-375); Red Blood Count 2.09 M/mm3 (4.6-6.20); Red Cell Distribution Width 15.1 % (11.5-14.5); White Blood Count 3.5 K/mm3 (4.5-10.0)
[2020-05-18 05:08] LABS: Lactic Acid Reflex 2.8 mmol/L (0.7-2.1)
[2020-05-18 05:10] LABS: Alanine Aminotransferase 55 U/L (4-50); Albumin Level 2.8 g/dL (3.5-5.1); Alkaline Phosphatase 169 U/L (38-126); Anion Gap 4 mmol/L (8-16); Aspartate Amino Transferase 111 U/L (17-59); Bilirubin,Total 3.6 mg/dL (0.2-1.3); Blood Urea Nitrogen 8 mg/dL (9-20); Calcium 8.1 mg/dL (8.4-10.2); Carbon Dioxide 36 mmol/L (22-30); Chloride 93 mmol/L (98-107); Estimated CRCL calculation 189 ml/min; Estimated Glomerular Filt Rate > 60; Glucose 201 mg/dL (75-110); Lactate Dehydrogenase 1011 U/L (313-618); Lipase 783 U/L (23-300); Magnesium 1.6 mg/dL (1.6-2.3); Potassium 3.7 mmol/L (3.4-5.0); Sodium 133 mmol/L (137-145)
[2020-05-18 05:30] LABS: Hematocrit 20.7 % (42.0-52.0)
[2020-05-18] MEDS: POTASSIUM CHLORIDE 20 MEQ PACKET (FOR LIQUID) 40 MEQ PO (06:47)
[2020-05-18 07:50] LABS: Reflex Lactic Acid Yes or No Add Lactic
[2020-05-18] MEDS: GABAPENTIN 400 MG CAPSULE PO ×4 (08:49→20:50)
[2020-05-18] MEDS: FAMOTIDINE 20 MG/2 ML VIAL IV PUSH ×2 (08:49→20:50)
[2020-05-18] MEDS: DEXAMETHASONE SOD PHOS INJ 4 MG/ML VIAL 6 MG IV PUSH (08:49)
[2020-05-18] MEDS: NICOTINE (*PBKC) 21 MG PATCH 1 PATCH TRANSDERM (08:49)
[2020-05-18] MEDS: METOPROLOL SUCCINATE EXT REL 25 MG TABCR PO (08:49)
[2020-05-18] MEDS: FLUTICASONE PROP 44 MCG (*SP) 10.6 GM 2 PUFF INHALATION ×2 (08:49→20:58)
[2020-05-18] MEDS: PANTOPRAZOLE SODIUM IV 40 MG VIAL IV PUSH ×2 (08:49→20:49)
--- NOTE | 2020-05-18 13:23 | PCDIET ---
Nutrition Follow-Up Complete: Nutrition Diagnosis: Inadequate oral intake related to diverticulitis as evidenced by NPO. Nutrition Goal: Patient to meet estimated nutritional needs. Goal in progress. Patient consuming 50-100% of meals on regular diet. Spoke with patient via phone due to COVID precautions. Patient requesting information on diverticulitis and diet. See Nutritional Teaching for additional details. Patient declines nutritional supplements at this time but c/o feeling like food is being regurgitated. Suggested small, frequent, low fat, low fiber meals. If medically appropriate, would obtain GI consult. Last recorded weight is 85.6 kg which is increased from last review. Bowel Motility: Patient reports loose stools with 2 documented BM today. Labs Reviewed: Hgb (7.2), Hct (20.7), Glu (201), Cr (0.4), Na (133), Alb (2.8) Meds Noted: Albuterol, Decadron, Pepcid, Cozaar, Toprol XL, Protonix, Zosyn, KCl Additional Notes: No documented skin breakdown. Will continue to monitor with same goal. Nutrition Monitoring and Evaluation: Follow up every 5 days.
[2020-05-18] MEDS: NYSTATIN 100,000 UNITS/ML SUSP 5 ML ORAL.SUSP PO ×3 (14:14→20:50)
[2020-05-18] MEDS: ALBUTEROL SULFATE (*SP) INHALER 2 PUFF INHALATION ×2 (16:51→20:50)
[2020-05-18] MEDS: MELATONIN 3 MG TABLET PO (20:50)
[2020-05-18] MEDS: SERTRALINE HCL 25 MG TABLET PO (20:50)
[2020-05-18] MEDS: LOSARTAN POTASSIUM 25 MG TABLET PO (20:50)
[2020-05-18] MEDS: PHENYLEPH/SHARK OIL/MO/PETROL CREAM 26 GM 1 APPLIC RECTAL (20:59)
--- NOTE | 2020-05-18 22:03 | PM.IMPN ---
Progress Note: A&P Assessment and Plan (1) Suspected COVID-19 virus infection: Code(s): Z20.822 - Contact with and (suspected) exposure to COVID-19 Status: Acute Assessment and Plan: The patient's girlfriend who he lives with tested positive for COVID 05/10/20 and he lives with her. He then began developing symptoms of dry cough, congestion, shortness of breath, body aches. Patient's COVID test has been negative x2 Patient is on room air today with normal saturations at rest and with exertion Repeat chest x-ray on 05/17/2020 shows possible bibasilar pneumonia. The patient's labs that are normally obtained for COVID, ferritin, LDH, CRP have all been elevated but he also has an acute infection with diverticulitis. The patient is otherwise feeling better today and will continue monitoring his symptoms. Due to his hypoxia I will start him on dexamethasone Continue monitoring.Continue supportive care. Continue droplet isolation. (2) Severe sepsis: Code(s): A41.9 - Sepsis, unspecified organism; R65.20 - Severe sepsis without septic shock Status: Acute Assessment and Plan: Patient meets criteria for severe sepsis in the setting of acute diverticulitis with elevated lactic acid, hypotension 94/53, low-grade fever at 99.1 on arrival, and hypoxia requiring 2 L of oxygen via nasal cannula. Blood cultures were taken and are negative Continue IV antibiotics for diverticulitis Vital signs are much improved today Continue monitoring vitals. (3) Diverticulitis: Code(s): K57.92 - Diverticulitis of intestine, part unspecified, without perforation or abscess without bleeding Status: Acute Assessment and Plan: Acute diverticulitis to the sigmoid colon as stated on CT scan of abdomen which is most likely the cause of his nausea/vomiting/diarrhea Patient's pain is improving today Continue with IV antibiotics P.r.n. pain control Continue monitoring patient's symptoms (4) Acute dehydration: Code(s): E86.0 - Dehydration Status: Acute Assessment and Plan: The patient was noted to be acutely dehydrated on arrival due tosepsis criteria from acute diverticulitis and symptoms of nausea/vomiting/diarrhea Patient has been given IV fluids with improvement of his blood pressure and symptoms. Vitals are stable but his lactic acid is still elevated at 2.8. Continue IV fluid hydration. Continue monitoring his volume status and slowly advance diet as tolerated. (5) Normocytic anemia: Code(s): D64.9 - Anemia, unspecified Status: Acute Assessment and Plan: Likely multifactorial. r/o hemolysis, ETOH related, nutritional. The patient came in with Normocytic anemia, unsure of his baseline labs in the past. Could be secondary to possible COVID, patients often have pancytopenia. He received IV fluid hydration due to severe dehydration which brought his H&H slightly ill lower today. He has no acute signs of GI bleeding but will check a stool occult since he has diverticulitis Patient had normal vitamin B12 and folic acid levels. Continue monitoring H&H. Transfuse as needed. (6) Thrombocytopenia: Code(s): D69.6 - Thrombocytopenia, unspecified Status: Acute Assessment and Plan: Monitor platelets, transfuse prn. Consider that this may be secondary to chronic liver issues from alcoholism versus viral from COVID. Patient came in with thrombocytopenia with a platelet count of 104. Could be secondary to COVID will do further workup. Platelets decreased again today to 44,000. Monitor platelets, transfuse prn. (7) Hypokalemia: Code(s): E87.6 - Hypokalemia
[2020-05-18 22:49] LABS: Hematocrit 21.4 % (42.0-52.0); Hemoglobin 7.7 g/dL (14.0-18.0)
[2020-05-19] VITALS (10 sets, daily range): BP systolic 127–154; BP diastolic 56–83; PULSE 67–95; RESP 12–23; TEMP 36.3–36.8; O2SAT 93–98
[2020-05-19 05:51] LABS: Basophils Percent Auto 0.2 % (0.2-1.2); Hematocrit 22.1 % (42.0-52.0); Hemoglobin 7.7 g/dL (14.0-18.0); Immature Granulocyte Percent A 1.9 % (0-0.5); Immature Platelet Fraction Pct 10.6 % (0.9-11.2); Lymphocytes Absolute Auto 1.18 K/mm3 (0.9-3.2); Lymphocytes Percent Auto 22.6 % (18.3-44.2); Mean Corpuscular HGB Conc 34.8 g/dl (32-36); Mean Corpuscular Hemoglobin 34.5 pg (26-34); Mean Corpuscular Volume 99.1 fl (80-100); Mean Platelet Volume 10.5 fl (7.4-10.4); Monocytes Absolute Auto 0.1 K/mm3 (0.1-0.6); Monocytes Percent Auto 2.5 % (2.6-8.5); Neutrophils Absolute Auto 3.8 K/mm3 (1.3-6.7); Neutrophils Percent Auto 72.8 % (45.5-73.1); Platelet Count Result 50 k/mm3 (150-375); Red Blood Count 2.23 M/mm3 (4.6-6.20); Red Cell Distribution Width 15.3 % (11.5-14.5); White Blood Count 5.2 K/mm3 (4.5-10.0)
[2020-05-19 06:29] LABS: Lactic Acid Reflex 2.2 mmol/L (0.7-2.1)
[2020-05-19 07:12] LABS: Platelet Estimate Decreased (Adequate)
[2020-05-19 07:13] LABS: Hypochromasia 2+ (NORMAL); Stomatocytes 2+ (NORMAL); Target Cells 1+ (NORMAL)
[2020-05-19] MEDS: FAMOTIDINE 20 MG/2 ML VIAL IV PUSH ×2 (08:10→21:12)
[2020-05-19] MEDS: PANTOPRAZOLE SODIUM IV 40 MG VIAL IV PUSH (08:10)
[2020-05-19] MEDS: DEXAMETHASONE SOD PHOS INJ 4 MG/ML VIAL 6 MG IV PUSH (08:10)
[2020-05-19] MEDS: METOPROLOL SUCCINATE EXT REL 25 MG TABCR PO (08:11)
[2020-05-19] MEDS: NYSTATIN 100,000 UNITS/ML SUSP 5 ML ORAL.SUSP PO ×4 (08:11→21:13)
[2020-05-19] MEDS: NICOTINE (*PBKC) 21 MG PATCH 1 PATCH TRANSDERM (08:11)
[2020-05-19] MEDS: GABAPENTIN 400 MG CAPSULE PO ×3 (08:11→21:12)
[2020-05-19] MEDS: ALBUTEROL SULFATE (*SP) INHALER 2 PUFF INHALATION ×3 (08:19→21:17)
[2020-05-19] MEDS: FLUTICASONE PROP 44 MCG (*SP) 10.6 GM 2 PUFF INHALATION ×2 (08:19→21:19)
[2020-05-19 08:40] LABS: Reflex Lactic Acid Yes or No Add Lactic
[2020-05-19 09:25] LABS: Lactic Acid 3.2 mmol/L (0.7-2.1)
--- NOTE | 2020-05-19 09:32 | PM.IMPN ---
Progress Note: A&P Assessment and Plan (1) Suspected COVID-19 virus infection: Code(s): Z20.822 - Contact with and (suspected) exposure to COVID-19 Status: Acute Assessment and Plan: patient tells me that his GF did not have symptomatic COVID-19; she was exposed to a coworker who had COVID-19 his cough and wheezing are chronic (he has asthma and is a smoker) and are no worse than usual COVID-19 rt-PCR negative 05/14 & 05/16 D/c droplet isolation (2) Severe sepsis: Code(s): A41.9 - Sepsis, unspecified organism; R65.20 - Severe sepsis without septic shock Status: Acute Assessment and Plan: Resolved Patient met criteria for severe sepsis in the setting of acute diverticulitis with elevated lactic acid, hypotension 94/53, low-grade fever at 99.1 on arrival, and hypoxia requiring 2 L of oxygen via nasal cannula. Blood cultures were taken and are negative Continue IV Zosyn for diverticulitis (3) Diverticulitis: Code(s): K57.92 - Diverticulitis of intestine, part unspecified, without perforation or abscess without bleeding Status: Acute Assessment and Plan: Acute diverticulitis to the sigmoid colon as stated on CT scan of abdomen which is most likely the cause of his nausea/vomiting/diarrhea Likely home soon Continue with IV Zosyn (4) Acute dehydration: Code(s): E86.0 - Dehydration Status: Acute Assessment and Plan: resolved (5) Normocytic anemia: Code(s): D64.9 - Anemia, unspecified Status: Acute Assessment and Plan: Likely related to sepsis, EtOH intake, phlebotomies, dilution No s/sx acute blood loss Monitor (6) Thrombocytopenia: Code(s): D69.6 - Thrombocytopenia, unspecified Status: Acute Assessment and Plan: 2/ plt 50k Likely due to sepsis and alcohol Patient was receiving enoxaparin 40mg daily, so 2/ d/c'd and ordered SCDs Monitor (7) Hypokalemia: Code(s): E87.6 - Hypokalemia Status: Acute Assessment and Plan: resolved as of 05/17 (8) Hypoglycemia: Code(s): E16.2 - Hypoglycemia, unspecified Status: Acute Assessment and Plan: resolved (9) Hyperbilirubinemia: Code(s): E80.6 - Other disorders of bilirubin metabolism Status: Acute Assessment and Plan: likely due to sepsis, alcoholic hepatitis (10) Transaminitis: Code(s): R74.01 - Elevation of levels of liver transaminase levels Status: Acute Assessment and Plan: Likely due to sepsis, alcoholic liver disease (11) Tobacco dependence: Code(s): F17.200 - Nicotine dependence, unspecified, uncomplicated Status: Chronic Assessment and Plan: Continue with nicotine patch (12) H/O: HTN (hypertension): Code(s): Z86.79 - Personal history of other diseases of the circulatory system Status: Chronic Assessment and Plan: BP stable Continue to monitor (13) Peripheral neuropathy: Code(s): G62.9 - Polyneuropathy, unspecified Status: Chronic Assessment and Plan: Continue gabapentin (14) Metabolic alkalosis: Code(s): E87.3 - Alkalosis Status: Acute Assessment and Plan: Likely due to dehydration, sepsis resolved (15) COPD (chronic obstructive p
[2020-05-19 12:24] LABS: Alanine Aminotransferase 57 U/L (4-50); Alkaline Phosphatase 195 U/L (38-126); Anion Gap 4 mmol/L (8-16); Aspartate Amino Transferase 88 U/L (17-59); Bilirubin,Total 4.2 mg/dL (0.2-1.3); Blood Urea Nitrogen 11 mg/dL (9-20); CRP 6.4 mg/dL (<1.0); Calcium 8.7 mg/dL (8.4-10.2); Carbon Dioxide 35 mmol/L (22-30); Chloride 94 mmol/L (98-107); Estimated CRCL calculation 218 ml/min; Estimated Glomerular Filt Rate > 60; Glucose 147 mg/dL (75-110); Lactate Dehydrogenase 1029 U/L (313-618); Magnesium 1.6 mg/dL (1.6-2.3); Potassium 3.9 mmol/L (3.4-5.0); Sodium 133 mmol/L (137-145)
[2020-05-19] MEDS: LOSARTAN POTASSIUM 25 MG TABLET PO (21:13)
[2020-05-19] MEDS: SERTRALINE HCL 25 MG TABLET PO (21:13)
[2020-05-19] MEDS: PHENYLEPH/SHARK OIL/MO/PETROL CREAM 26 GM 1 APPLIC RECTAL (21:20)
[2020-05-19] MEDS: MELATONIN 3 MG TABLET PO (22:59)
[2020-05-20] VITALS: BP 146/82; PULSE 86; RESP 20; TEMP 36.6; O2SAT 98
[2020-05-20 02:50] VITALS: PULSE 86; RESP 20; O2SAT 98
[2020-05-20 04:50] LABS: Hemoglobin 7.1 g/dL (14.0-18.0); Immature Platelet Fraction Pct 8.4 % (0.9-11.2); Mean Corpuscular HGB Conc 35.7 g/dl (32-36); Mean Platelet Volume 10.5 fl (7.4-10.4); Platelet Count Result 51 k/mm3 (150-375); Red Blood Count 2.03 M/mm3 (4.6-6.20); Red Cell Distribution Width 15.5 % (11.5-14.5); White Blood Count 4.8 K/mm3 (4.5-10.0)
[2020-05-20 05:04] LABS: Alanine Aminotransferase 51 U/L (4-50); Albumin Level 2.8 g/dL (3.5-5.1); Alkaline Phosphatase 229 U/L (38-126); Anion Gap 2 mmol/L (8-16); Aspartate Amino Transferase 69 U/L (17-59); Bilirubin,Total 3.3 mg/dL (0.2-1.3); Blood Urea Nitrogen 9 mg/dL (9-20); CRP 6.6 mg/dL (<1.0); Calcium 8.4 mg/dL (8.4-10.2); Carbon Dioxide 33 mmol/L (22-30); Chloride 97 mmol/L (98-107); Estimated CRCL calculation 214 ml/min; Estimated Glomerular Filt Rate > 60; Glucose 148 mg/dL (75-110); Potassium 3.7 mmol/L (3.4-5.0); Sodium 132 mmol/L (137-145)
[2020-05-20 05:06] LABS: Hematocrit 19.9 % (42.0-52.0)
[2020-05-20 07:59] LABS: Glucose Point of Care 161 (65-105)
[2020-05-20 08:00] VITALS: BP 138/63; PULSE 76; RESP 18; TEMP 36.8; O2SAT 98
[2020-05-20 09:52] VITALS: PULSE 76
[2020-05-20] MEDS: NYSTATIN 100,000 UNITS/ML SUSP 5 ML ORAL.SUSP PO ×3 (09:52→20:22)
[2020-05-20] MEDS: METOPROLOL SUCCINATE EXT REL 25 MG TABCR PO (09:52)
[2020-05-20] MEDS: FAMOTIDINE 20 MG/2 ML VIAL IV PUSH ×2 (09:52→20:21)
[2020-05-20] MEDS: ACETAMINOPHEN 325 MG TABLET 650 MG PO (09:52)
[2020-05-20] MEDS: ALBUTEROL SULFATE (*SP) INHALER 2 PUFF INHALATION ×4 (09:52→23:47)
[2020-05-20] MEDS: GABAPENTIN 400 MG CAPSULE PO ×4 (09:52→20:21)
[2020-05-20] MEDS: NICOTINE (*PBKC) 21 MG PATCH 1 PATCH TRANSDERM (09:52)
[2020-05-20] MEDS: predniSONE 20 MG TABLET PO (09:52)
[2020-05-20] MEDS: FLUTICASONE PROP 44 MCG (*SP) 10.6 GM 2 PUFF INHALATION ×2 (09:53→20:20)
--- NOTE | 2020-05-20 12:07 | PM.IMPN ---
Progress Note: A&P Assessment and Plan (1) Suspected COVID-19 virus infection: Code(s): Z20.822 - Contact with and (suspected) exposure to COVID-19 Status: Acute Assessment and Plan: Patient tested negative (2) COPD (chronic obstructive pulmonary disease): Code(s): J44.9 - Chronic obstructive pulmonary disease, unspecified Status: Acute Assessment and Plan: Stable Does not appear to be exacerbated (3) Tobacco dependence: Code(s): F17.200 - Nicotine dependence, unspecified, uncomplicated Status: Chronic Assessment and Plan: Nicotine patch as needed (4) Transaminitis: Code(s): R74.01 - Elevation of levels of liver transaminase levels Status: Acute Assessment and Plan: Likely secondary to ETOH intake Liver US reviewed (5) Hypokalemia: Code(s): E87.6 - Hypokalemia Status: Acute Assessment and Plan: Replace as needed (6) Thrombocytopenia: Code(s): D69.6 - Thrombocytopenia, unspecified Status: Acute Assessment and Plan: Likely multifactorial patient's baseline is low worsened by sepsis Live disease No heparin products Continue to monitor (7) Normocytic anemia: Code(s): D64.9 - Anemia, unspecified Status: Acute Assessment and Plan: Patient is anemic at baseline Now worsened suspect hemodilution and blood draws MCV is on the higher end Suspect anemia of chronic disease at baseline ETOH intake Poor oral intake Liver disease Will continue to monitor (8) Peripheral neuropathy: Code(s): G62.9 - Polyneuropathy, unspecified Status: Chronic Assessment and Plan: Gabapentin (9) Acute hyponatremia: Code(s): E87.1 - Hypo-osmolality and hyponatremia Status: Acute Assessment and Plan: Patient is positive inn his I/O's balance Will try lasix Daily BMP (10) Diverticulitis: Code(s): K57.92 - Diverticulitis of intestine, part unspecified, without perforation or abscess without bleeding Status: Acute Assessment and Plan: Improved Tolerating po (11) Fluid overload: Code(s): E87.70 - Fluid overload, unspecified Status: Acute Assessment and Plan: Will try lasix Subjective Date/time seen: 05/20/20 12:07 States that he feels well but his feet are hurting and swollen. Review of Systems Review of Systems: Narrative: Hurting on his feet and swelling Eyes: Comments: no fevers, no rigors, no chills. Cardiovascular: Comments: no chest pain, no orthopnea. Respiratory: Comments: no sob, no cough, no sputum production Gastrointestinal: Comments: no n/v/abdominal pain Musculoskeletal: Comments: B/L ankle swelling and pain when bearing weight Integumentary/Breasts: Comments: no rashes Neurologic: Comments: neuropathic pain Exam Narrative: Exam Narrative: Chronically ill looking, sitting by the edge of the bed. Const: General: cooperative, comfortable, no acute distress, alert, awake, Physically active and other (Chronically ill looking.) Nutritional Appearance: average body habitus Orientation/consciousness: patient oriented x3 HENMT: Head: normocephalic Ears: hearing grossly normal bilaterally General nose exam: Normal external nose present Face and sinus: normal facial exam Eyes: General: appearance normal, both eyes and all related structures Pupils: Equal, round and reactive pupils present EOM: EOMs intact bilaterally Neck: Neck: no lymphadenopathy, supple and no JVD Resp: Effort & Inspection: able to speak in complete sentences Auscultation: clear to auscultation bilaterally Cardio: Jugular venous distension: no JVD Rate: regular rate Rhythm: regular rhythm GI: GI Palp: Yes Soft to palpation and Yes No hepatosplenomegaly present Skin: Wounds: no wounds Neuro: General: patient oriented x3 and CN's II-XI intact bilaterally Cranial nerves: Yes CN's II-XII intact bilaterally and Yes Equal, r
[2020-05-20 14:35] LABS: Haptoglobin 151 mg/dL (43-212)
[2020-05-20] MEDS: traMADol HCL (*CRX) 50 MG TABLET PO ×2 (14:40→22:12)
[2020-05-20 15:53] VITALS: BP 123/71; PULSE 79; RESP 16; TEMP 36.8; O2SAT 100
[2020-05-20] MEDS: FUROSEMIDE INJ 40 MG/4 ML VIAL IV PUSH (16:44)
--- NOTE | 2020-05-20 17:33 | PC.NURSE ---
This patient, Yobani Cornejo, was transferred to [[address] [place] [address] ] on 05/20/20 at 1733. Personal belongings sent with patient. Report given to [kerline childs ]. Appropriate documentation sent with patient.
--- NOTE | 2020-05-20 18:08 | PC.NURSE ---
This patient, Yobani Cornejo, was [facility] from [facility] on 05/[facility]20 at 1730. Patient/family oriented to unit policies and routines
[2020-05-20] MEDS: PHENYLEPH/SHARK OIL/MO/PETROL CREAM 26 GM 1 APPLIC RECTAL (20:22)
[2020-05-20] MEDS: LOSARTAN POTASSIUM 25 MG TABLET PO (20:22)
[2020-05-20] MEDS: MELATONIN 3 MG TABLET PO (20:22)
[2020-05-20] MEDS: SODIUM CHLORIDE NASAL GEL 14.1 GM 1 APPLIC NASAL (20:23)
[2020-05-20] MEDS: SERTRALINE HCL 25 MG TABLET PO (20:23)
[2020-05-20 21:47] LABS: Pneumococcal Antigen Urine Not Detected (Not Detected)
[2020-05-20 22:00] VITALS: BP 127/74; PULSE 77; RESP 18; TEMP 36.3; O2SAT 96
[2020-05-21] MEDS: ALBUTEROL SULFATE (*SP) INHALER 2 PUFF INHALATION ×5 (05:53→23:35)
[2020-05-21 06:21] VITALS: BP 142/72; PULSE 76; RESP 16; TEMP 36.6; O2SAT 95
[2020-05-21 08:33] VITALS: PULSE 76
[2020-05-21] MEDS: NICOTINE (*PBKC) 21 MG PATCH 1 PATCH TRANSDERM (08:33)
[2020-05-21] MEDS: GABAPENTIN 400 MG CAPSULE PO ×4 (08:33→20:25)
[2020-05-21] MEDS: METOPROLOL SUCCINATE EXT REL 25 MG TABCR PO (08:33)
[2020-05-21] MEDS: predniSONE 20 MG TABLET PO (08:33)
[2020-05-21] MEDS: FAMOTIDINE 20 MG TABLET PO ×2 (08:34→20:25)
[2020-05-21] MEDS: FLUTICASONE PROP 44 MCG (*SP) 10.6 GM 2 PUFF INHALATION (08:41)
[2020-05-21] MEDS: traMADol HCL (*CRX) 50 MG TABLET PO ×2 (08:54→23:34)
[2020-05-21] MEDS: NYSTATIN 100,000 UNITS/ML SUSP 5 ML ORAL.SUSP PO ×3 (10:51→20:25)
[2020-05-21] MEDS: FUROSEMIDE INJ 40 MG/4 ML VIAL IV PUSH (10:51)
--- NOTE | 2020-05-21 13:42 | PM.IMPN ---
Progress Note: A&P Assessment and Plan (1) Fluid overload: Code(s): E87.70 - Fluid overload, unspecified Status: Acute Assessment and Plan: Patient with Liver disease which is further compounding his problem gently diuresis as neede but not of much help as aptient is mainly third spacing IVEV is not optimal patient only puting out small amounts of urine Will discontinue Lasix. (2) COPD (chronic obstructive pulmonary disease): Code(s): J44.9 - Chronic obstructive pulmonary disease, unspecified Status: Acute Assessment and Plan: Improved Continue breathing treatments as needed (3) Tobacco dependence: Code(s): F17.200 - Nicotine dependence, unspecified, uncomplicated Status: Chronic Assessment and Plan: Nicotine patch as needed (4) Transaminitis: Code(s): R74.01 - Elevation of levels of liver transaminase levels Status: Acute Assessment and Plan: Continue to monitor Patient has Hepatic Cirrhosis (5) Hyperbilirubinemia: Code(s): E80.6 - Other disorders of bilirubin metabolism Status: Acute Assessment and Plan: Improved Continue to monitor Likely secondary to Hepatic Cirrhosis (6) Thrombocytopenia: Code(s): D69.6 - Thrombocytopenia, unspecified Status: Acute Assessment and Plan: No heparin products Likely secondary to Liver disease Continue to monitor (7) Peripheral neuropathy: Code(s): G62.9 - Polyneuropathy, unspecified Status: Chronic Assessment and Plan: Continue Gabapentin (8) Acute hyponatremia: Code(s): E87.1 - Hypo-osmolality and hyponatremia Status: Acute Assessment and Plan: Likely secondary to Liver disease and Aldactone secretion. Continue to monitor Will likely benefit form freee water fluid restriction Subjective Date/time seen: 05/21/20 13:42 Patient states that he feels much better. Review of Systems Review of Systems: Narrative: B/L LE swelling. Constitutional: Comments: no fevers, no rigors, no chills Cardiovascular: Comments: no chest pain, no pnd, no orthopnea. Respiratory: Comments: no sob, no cough, no sputum production. Gastrointestinal: Comments: no n/v/abdominl pain. Musculoskeletal: Comments: B/L LE swelling. Integumentary/Breasts: Comments: no rashes. Neurologic: Comments: no sensory motor deficit Exam Narrative: Exam Narrative: Lying in bed. Const: General: ill appearing Nutritional Appearance: average body habitus Orientation/consciousness: patient oriented x3 HENMT: Head: normocephalic Ears: hearing grossly normal bilaterally General nose exam: Normal external nose present Face and sinus: normal facial exam Eyes: Pupils: Equal, round and reactive pupils present EOM: EOMs intact bilaterally Neck: Neck: no lymphadenopathy, supple and no JVD Resp: Auscultation: clear to auscultation bilaterally Cardio: Rate: regular rate Rhythm: regular rhythm GI: GI Palp: Yes Soft to palpation and Yes No hepatosplenomegaly present Skin: Rashes: no rashes Neuro: General: patient oriented x3 and CN's II-XI intact bilaterally Cranial nerves: Yes CN's II-XII intact bilaterally Cognition (Neuro): normal cognition Speech: normal speech Motor exam (neuro): 5/5 motor strength present throughout Extrem: General: pedal edema bilaterally Objective Data Vital Signs Vital Signs: Vital Signs - 24 hr 05/20/20 15:53 05/20/20 22:00 05/21/20 06:21 Temperature 98.2 F 97.4 F L 97.8 F Pulse Rate 79 77 76 Respiratory Rate 16 18 16 Blood Pressure 123/71 127/74 142/72 H Pulse Oximetry 100 96 95 05/21/20 08:33 Temperature Pulse Rate 76 Respiratory Rate Blood Pressure Pulse Oximetry Intake/Output Intake/Output: Intake & Output 05/18/20 05/19/20 05/20/20 05/21/20 23:59 23:59 23:59 23:59 Intake Total 1314 680 1480 760 Output Total 250 2 Balance 7066 181 1471 760 Meds/Results Medications: Active Medi
[2020-05-21 16:00] VITALS: BP 140/79; PULSE 75; RESP 18; TEMP 36.3; O2SAT 96
[2020-05-21 16:10] LABS: Hemoglobin 7.1 g/dL (14.0-18.0); Immature Platelet Fraction Pct 9.9 % (0.9-11.2); Mean Corpuscular HGB Conc 34.8 g/dl (32-36); Mean Corpuscular Hemoglobin 34.5 pg (26-34); Platelet Count Result 63 k/mm3 (150-375); Red Blood Count 2.06 M/mm3 (4.6-6.20); Red Cell Distribution Width 15.9 % (11.5-14.5); White Blood Count 5.4 K/mm3 (4.5-10.0)
[2020-05-21 16:12] LABS: Hematocrit 20.4 % (42.0-52.0)
[2020-05-21 16:59] LABS: Anion Gap 5 mmol/L (8-16); Blood Urea Nitrogen 8 mg/dL (9-20); Carbon Dioxide 30 mmol/L (22-30); Chloride 99 mmol/L (98-107); Estimated CRCL calculation 176 ml/min; Estimated Glomerular Filt Rate > 60; Glucose 194 mg/dL (75-110); Potassium 3.5 mmol/L (3.4-5.0); Sodium 134 mmol/L (137-145)
[2020-05-21 20:00] VITALS: PULSE 89; RESP 16; O2SAT 95
[2020-05-21] MEDS: LOSARTAN POTASSIUM 25 MG TABLET PO (20:25)
[2020-05-21] MEDS: SERTRALINE HCL 25 MG TABLET PO (20:25)
[2020-05-21] MEDS: MELATONIN 3 MG TABLET PO (20:26)
[2020-05-21 22:00] VITALS: BP 131/69; PULSE 89; RESP 16; TEMP 36.6; O2SAT 95
[2020-05-22] MEDS: FLUTICASONE PROP 44 MCG (*SP) 10.6 GM 2 PUFF INHALATION ×3 (00:11→20:35)
[2020-05-22 04:55] VITALS: BP 127/50; PULSE 89; RESP 18; TEMP 36.9; O2SAT 92
[2020-05-22] MEDS: ALBUTEROL SULFATE (*SP) INHALER 2 PUFF INHALATION ×6 (06:27→23:43)
[2020-05-22] MEDS: FAMOTIDINE 20 MG TABLET PO ×2 (07:31→20:35)
[2020-05-22] MEDS: predniSONE 20 MG TABLET PO (07:31)
[2020-05-22 07:32] VITALS: PULSE 88
[2020-05-22] MEDS: GABAPENTIN 400 MG CAPSULE PO ×4 (07:32→20:35)
[2020-05-22] MEDS: NICOTINE (*PBKC) 21 MG PATCH 1 PATCH TRANSDERM (07:32)
[2020-05-22] MEDS: METOPROLOL SUCCINATE EXT REL 25 MG TABCR PO (07:32)
[2020-05-22] MEDS: traMADol HCL (*CRX) 50 MG TABLET PO ×2 (09:20→22:40)
[2020-05-22] MEDS: NYSTATIN 100,000 UNITS/ML SUSP 5 ML ORAL.SUSP PO ×3 (09:20→20:35)
[2020-05-22 10:46] LABS: Legionella pneumophila Ag Ur Not Detected (Not Detected)
--- NOTE | 2020-05-22 12:34 | PM.IMPN ---
Progress Note: A&P Assessment and Plan (1) Fluid overload: Code(s): E87.70 - Fluid overload, unspecified Status: Acute Assessment and Plan: Patient with Liver disease history of alcholism (2) COPD (chronic obstructive pulmonary disease): Code(s): J44.9 - Chronic obstructive pulmonary disease, unspecified Status: Acute Assessment and Plan: Improved Continue breathing treatments as needed (3) Tobacco dependence: Code(s): F17.200 - Nicotine dependence, unspecified, uncomplicated Status: Chronic Assessment and Plan: Nicotine patch as needed (4) Transaminitis: Code(s): R74.01 - Elevation of levels of liver transaminase levels Status: Acute Assessment and Plan: Secondary to liver cirrhosis. (5) Hyperbilirubinemia: Code(s): E80.6 - Other disorders of bilirubin metabolism Status: Acute Assessment and Plan: Likely secondary to Hepatic Cirrhosis (6) Thrombocytopenia: Code(s): D69.6 - Thrombocytopenia, unspecified Status: Acute Assessment and Plan: Secondary to liver disease (7) Peripheral neuropathy: Code(s): G62.9 - Polyneuropathy, unspecified Status: Chronic Assessment and Plan: Continue Gabapentin (8) Acute hyponatremia: Code(s): E87.1 - Hypo-osmolality and hyponatremia Status: Acute Assessment and Plan: Likely secondary to Liver disease (9) Anemia: Code(s): D64.9 - Anemia, unspecified Status: Acute Assessment and Plan: Pt will benefit from blood transfusion pt denies any blood loss from melena or hematemesis will consult hematology jacinta as pts has low plts, high lfts and bilirubin levels Subjective Date/time seen: 05/22/20 12:34 Interval history: 45 year old male with known history of HTN, copd, smoker and peripheral neuropathy. Admitted with diverticulitis, n/v, loose stools. Pt was swabbed for covid found to be negative. Pt having some leg swelling. Pt appears anemic hb is 7, plts are 63, sodium is 134. lfts are high. I will consult hematology. Review of Systems Review of Systems: All systems reviewed & are unremarkable except as noted in HPI and below Exam Const: General: other (Chronically ill looking.) Resp: Effort & Inspection: normal respiratory effort and able to speak in complete sentences Auscultation: clear to auscultation bilaterally Cardio: Jugular venous distension: no JVD Rate: regular rate Rhythm: regular rhythm Heart sounds: no murmurs GI: Inspection: normal to inspection Auscultation: normal bowel sounds Skin: General skin exam: normal color and no rashes or lesions noted Rashes: no rashes Wounds: no wounds Neuro: General: patient oriented x3 and CN's II-XI intact bilaterally Cranial nerves: Yes CN's II-XII intact bilaterally and Yes Equal, round and reactive pupils present Cognition (Neuro): normal cognition Speech: normal speech Motor exam (neuro): 5/5 motor strength present throughout Sensory Exam: normal sensation Extrem: General: normal to inspection, no edema and pedal edema bilaterally 1+ Psych: Mental Status: mental status grossly normal Affect: normal affect Objective Data Vital Signs Vital Signs: Vital Signs - 24 hr 05/21/20 16:00 05/21/20 20:00 05/21/20 22:00 Temperature 36.3 C L 36.6 C Pulse Rate 75 89 89 Respiratory Rate 18 16 16 Blood Pressure 140/79 131/69 Pulse Oximetry 96 95 95 05/22/20 04:55 05/22/20 07:32 Temperature 36.9 C Pulse Rate 89 88 Respiratory Rate 18 Blood Pressure 127/50 L Pulse Oximetry 92 Intake/Output Intake/Output: Intake & Output 05/19/20 05/20/20 05/21/20 05/22/20 23:59 23:59 23:59 23:59 Intake Total 680 1480 2530 800 Output Total 2 1500 Balance 680 1478 1030 800 Meds/Results Medications: Active Medications Generic Name Dose Route Start Last Admin Trade Name Freq PRN Reason Stop Dose Admin Al Hydrox/Mg Hydrox
[2020-05-22 14:00] VITALS: BP 128/67; PULSE 79; RESP 18; TEMP 36.9; O2SAT 95
[2020-05-22 20:00] VITALS: PULSE 85; RESP 16; O2SAT 96
[2020-05-22] MEDS: SERTRALINE HCL 25 MG TABLET PO (20:34)
[2020-05-22] MEDS: MELATONIN 3 MG TABLET PO (20:35)
[2020-05-22] MEDS: LOSARTAN POTASSIUM 25 MG TABLET PO (20:35)
[2020-05-22 20:42] VITALS: BP 138/67; PULSE 85; RESP 16; TEMP 36.8; O2SAT 96
[2020-05-23] VITALS (16 sets, daily range): BP systolic 121–146; BP diastolic 51–74; PULSE 71–91; RESP 14–20; TEMP 36.4–37.1; O2SAT 91–98
[2020-05-23 06:04] LABS: Potassium 2.9 mmol/L (3.4-5.0)
[2020-05-23 06:06] LABS: Immature Platelet Fraction Pct 12.7 % (0.9-11.2); Mean Corpuscular HGB Conc 33.7 g/dl (32-36); Mean Corpuscular Hemoglobin 34.4 pg (26-34); Mean Corpuscular Volume 102.1 fl (80-100); Platelet Count Result 76 k/mm3 (150-375); Red Blood Count 1.95 M/mm3 (4.6-6.20); Red Cell Distribution Width 17.9 % (11.5-14.5); White Blood Count 9.9 K/mm3 (4.5-10.0)
[2020-05-23 06:17] LABS: Anion Gap 4 mmol/L (8-16); Blood Urea Nitrogen 10 mg/dL (9-20); Calcium 7.3 mg/dL (8.4-10.2); Carbon Dioxide 31 mmol/L (22-30); Chloride 101 mmol/L (98-107); Estimated CRCL calculation 174 ml/min; Estimated Glomerular Filt Rate > 60; Glucose 146 mg/dL (75-110); Sodium 136 mmol/L (137-145)
[2020-05-23 06:25] LABS: Hematocrit 19.9 % (42.0-52.0); Hemoglobin 6.7 g/dL (14.0-18.0)
[2020-05-23] MEDS: METOPROLOL SUCCINATE EXT REL 25 MG TABCR PO (06:44)
[2020-05-23] MEDS: GABAPENTIN 400 MG CAPSULE PO ×4 (06:44→20:59)
[2020-05-23] MEDS: predniSONE 20 MG TABLET PO (06:44)
[2020-05-23] MEDS: FAMOTIDINE 20 MG TABLET PO ×2 (06:45→20:59)
[2020-05-23] MEDS: NYSTATIN 100,000 UNITS/ML SUSP 5 ML ORAL.SUSP PO ×4 (09:04→21:01)
[2020-05-23] MEDS: NICOTINE (*PBKC) 21 MG PATCH 1 PATCH TRANSDERM (09:04)
[2020-05-23] MEDS: SODIUM CHLORIDE 0.9% IV 250 ML 30 ML ×2 (09:05→14:35)
[2020-05-23] MEDS: traMADol HCL (*CRX) 50 MG TABLET PO ×3 (09:45→23:06)
--- NOTE | 2020-05-23 11:14 | PCNFU ---
Nutrition Follow-Up Complete: Inadequate oral intake related to diverticulitis as evidenced by NPO. Goal: Patient to meet estimated nutritional needs. Patient is working towards goal. No new goal at this time. Pt current nutrition is Regular Diet. Last recorded weight is 92.1 kg. Bowel Motility: + BM 05/19 Labs Reviewed: Hgb 6.7, Hct 19.9, Na 136, K 2.9, Cr 0.5, Glu 146 Meds Noted: Mylanta, Pepcid, Flovent, Neurontin, Cozaar, Toprol XL, Nystatin, Prednisone, Zoloft, Ultram, Additional Notes: Spoke with patient. Patient said he has a great appetite consuming 60%-100% of all meals and loves the food. Patient has no interest in trying any type of supplement. Follow up every 7 days.
--- NOTE | 2020-05-23 11:15 | PM.IMPN ---
Progress Note: A&P Assessment and Plan (1) Fluid overload: Code(s): E87.70 - Fluid overload, unspecified Status: Acute Assessment and Plan: Patient with Liver disease history of alcholism (2) COPD (chronic obstructive pulmonary disease): Code(s): J44.9 - Chronic obstructive pulmonary disease, unspecified Status: Acute Assessment and Plan: Improved Continue breathing treatments as needed (3) Tobacco dependence: Code(s): F17.200 - Nicotine dependence, unspecified, uncomplicated Status: Chronic Assessment and Plan: Nicotine patch as needed (4) Transaminitis: Code(s): R74.01 - Elevation of levels of liver transaminase levels Status: Acute Assessment and Plan: Secondary to liver cirrhosis. (5) Hyperbilirubinemia: Code(s): E80.6 - Other disorders of bilirubin metabolism Status: Acute Assessment and Plan: Likely secondary to Hepatic Cirrhosis, consult GI (6) Thrombocytopenia: Code(s): D69.6 - Thrombocytopenia, unspecified Status: Acute Assessment and Plan: Secondary to liver disease (7) Peripheral neuropathy: Code(s): G62.9 - Polyneuropathy, unspecified Status: Chronic Assessment and Plan: Continue Gabapentin (8) Acute hyponatremia: Code(s): E87.1 - Hypo-osmolality and hyponatremia Status: Acute Assessment and Plan: Likely secondary to Liver disease (9) Anemia: Code(s): D64.9 - Anemia, unspecified Status: Acute Assessment and Plan: Pt will benefit from blood transfusion pt denies any blood loss from melena or hematemesis will consult hematology jacinta as pts has low plts, high lfts and bilirubin levels Subjective Date/time seen: 05/23/20 11:15 Interval history: 45 year old male with known history of HTN, copd, smoker and peripheral neuropathy. Admitted with diverticulitis, n/v, loose stools. Pt was swabbed for covid found to be negative. Pt having some leg swelling. Pt appears anemic hb is 6.7, plts are 63, sodium is 134. lfts are high. I will consult hematology. And Gi Pt denies any blood in the stools, improving from diverticultis Review of Systems Review of Systems: All systems reviewed & are unremarkable except as noted in HPI and below Exam Narrative: Exam Narrative: Lying in bed. Const: General: other (Chronically ill looking.) Nutritional Appearance: average body habitus and well nourished Orientation/consciousness: patient oriented x3 HENMT: Head: normal to inspection and normocephalic Ears: hearing grossly normal bilaterally General nose exam: Normal external nose present Face and sinus: normal facial exam Mouth: Yes oropharynx normal Resp: Effort & Inspection: normal respiratory effort and able to speak in complete sentences Auscultation: clear to auscultation bilaterally Cardio: Jugular venous distension: no JVD Rate: regular rate Rhythm: regular rhythm Heart sounds: no murmurs GI: Inspection: normal to inspection Auscultation: normal bowel sounds Skin: General skin exam: normal color and no rashes or lesions noted Rashes: no rashes Wounds: no wounds Neuro: General: patient oriented x3 and CN's II-XI intact bilaterally Cranial nerves: Yes CN's II-XII intact bilaterally and Yes Equal, round and reactive pupils present Cognition (Neuro): normal cognition Speech: normal speech Motor exam (neuro): 5/5 motor strength present throughout Sensory Exam: normal sensation Extrem: General: normal to inspection, no edema and pedal edema bilaterally 1+ Psych: Mental Status: mental status grossly normal Affect: normal affect Objective Data Vital Signs Vital Signs: Vital Signs - 24 hr 05/22/20 14:00 05/22/20 20:00 05/22/20 20:42 Temperature 36.9 C 36.8 C Pulse Rate 79 85 85 Respiratory Rate 18 16 16 Blood Pressure 128/67 138/67 Pulse Oximetry 95 96 96 05/23/20 04:41 05/23/20 06:44 05/23/20 09:04
--- NOTE | 2020-05-23 12:13 | PCNSR ---
On 05/23/20, the student,Silvia Palacios, provided care and completed [facility] documentation on this patient. I have reviewed the student's documentation and agree with the findings.
[2020-05-23] MEDS: FUROSEMIDE INJ 40 MG/4 ML VIAL 20 MG IV PUSH (13:28)
[2020-05-23] MEDS: metroNIDAZOLE 250 MG TABLET 500 MG PO ×2 (13:29→21:01)
--- NOTE | 2020-05-23 16:56 | WPDGICN ---
Assessment and Plan Assessment and plan (1) Acute on chronic blood loss anemia: Code(s): D62 - Acute posthemorrhagic anemia Status: Acute Assessment and Plan: denies overt gib but he has cirrhosis and never had egd will proceed with egd tomorrow, check if ulcers, varices, PHG, etc (2) Cirrhosis, alcoholic: Code(s): K70.30 - Alcoholic cirrhosis of liver without ascites Status: Acute Assessment and Plan: he is hardly drinking now, he has to be completely abstinent and follow up in office, will need liver imaging every 6 months to assess for hcc and eventually follow-up with hepatology get labs in am to calculate MELD score hepatitis panel negative most likely alcohol related but will rule out other chronic liver conditions (3) Diverticulitis: Code(s): K57.92 - Diverticulitis of intestine, part unspecified, without perforation or abscess without bleeding Status: Acute Assessment and Plan: on admission and improving on iv antibiotics will need colonoscopy in 6 weeks after acute infection resolved (4) Acute dehydration: Code(s): E86.0 - Dehydration Status: Acute Assessment and Plan: resolved after treatment (5) Nausea and vomiting in adult: Code(s): R11.2 - Nausea with vomiting, unspecified Status: Acute Assessment and Plan: improved, tolerating diet egd in am (6) Hyperbilirubinemia: Code(s): E80.6 - Other disorders of bilirubin metabolism Status: Acute (7) Thrombocytopenia: Code(s): D69.6 - Thrombocytopenia, unspecified Status: Acute Assessment and Plan: from cirrhosis (8) Metabolic acidosis with increased anion gap and accumulation of organic acids: Code(s): E87.2 - Acidosis Status: Acute Assessment and Plan: resolved (9) Severe sepsis: Code(s): A41.9 - Sepsis, unspecified organism; R65.20 - Severe sepsis without septic shock Status: Acute GI Consult Note Consult date/time: 05/23/20 16:56 Reason for consult: cirrhosis, acute on chronic blood loss anemia HPI: Yobani Cornejo is a 45 year old male with history of HTN, peripheral neuropathy and alcoholic hepatitis with last admission 06/2019 with alcoholic hepatitis at another facility. He says that used to drink one fifth vodka daily for 8 years, since that hospitalization he is hardly drinking. He was admitted with 2 weeks of intermittent moderate LLQ abdominal pain with nausea, vomiting, and diarrhea. It got to the point where he was unable to keep anyhing down, finally came to ER on 05/14/20. He was dehydrated, potassium < 2.0, also lactic acid of 14.8 down to 3 after medical treatment, anion gap of 28. CT Abd/pelvis demonstrated mild acute uncomplicated sigmoid diverticulitis. COVID-19 negative. Also has thrombocytopenia, hb 8.5 but slowly trending down to 6.8 and now he is getting blood transfusion. Bili 3.3 Denies overt gib but never had scopes. Review of Systems Constitutional: Constitutional: Reports fatigue Eyes: Eyes: Reports no additional eye complaints ENT: Reports system reviewed and no additional complaints, except as documented Cardiovascular: Cardiovascular: Denies chest pain Respiratory: Respiratory: Reports cough Gastrointestinal: Gastrointestinal: Reports abdominal pain, Reports diarrhea, Reports nausea and Reports vomiting Genitourinary: Genitourinary: Denies dysuria Musculoskeletal: Musculoskeletal: Reports arthralgias (chronic) Integumentary/Breasts: Skin/Breast: Denies dry skin Neurologic: Denies numbness Psychiatric: Psychiatric: Reports anxiety [facility] Past Medical History Medical History Asthma H/O: HTN (hypertension) Peripheral neuropathy Family History Family History Other Unknown family medical history Social History Social History (Reviewed 05/16/20 @ 06:4
--- NOTE | 2020-05-23 17:21 | PDONCCN ---
HPI - Date of Consult Date/Time: 05/23/20 17:21 Requesting Physician: Livia Morgan MD Primary Care Provider: Elie Cartagena, - Consult Narrative Reason for consult: Anemia and thrombocytopenia. Narrative: Yobani Corenjo is a 45 year old male history of alcohol abuse in the past but quit drinking in June of 2019. He also has a history of peripheral neuropathy and hypertension. According to patient he started having nausea vomiting and diarrhea for about 2-3 weeks duration. He was not able to keep any food down. He was hardly eating anything for last 4 days prior to admission. He denies any fevers and chills. He was tested negative for COVID-19 infection twice. He denies any bleeding including melena hematochezia. 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 Patient was diagnosed with sepsis with elevated lactic acid and hypotension. He was started on Zosyn. His hemoglobin was 10.3 on admission now dropped down to 6.7. He received 2 unit of packed red blood cell. His platelet count was 337385 on admission and now dropped down to 76,000. He denies any bleeding. Review of Systems - Review of Systems All systems reviewed & are unremarkable except as noted in HPI and bel - Neurologic Denies numbness PMFSH Medical History: Medical History (Last Updated 05/23/20 @ 17:03 by Lobo Douglas MD) Acute on chronic blood loss anemia Asthma Cirrhosis, alcoholic H/O: HTN (hypertension) Nausea and vomiting in adult Peripheral neuropathy Family History: Family History (Last Reviewed 05/16/20 @ 06:47 by Felipe Ryder MD) Other Unknown family medical history - Social History Social History: Social History (Last Reviewed 05/16/20 @ 06:47 by Felipe Ryder MD) Gender Identity: Gender identity (if verbalized by the patient): Male Alcohol Use: Alcohol intake: never Substance Use: Substance use: never Others: Spiritual care concerns: No Smoking Status: Smoking status: Current every day smoker Tobacco type: cigarettes Smoking Pack-years: Smoking packs per day: 1 Smoking cigarettes per day: 20.0 Years smoked: 30 Smoking pack-years: 30.00 Meds Home Medications Medication Instructions Recorded Confirmed Type albuterol 90 mcg INHALATION Q4-6H 05/14/20 05/14/20 History fluticasone furoate [Arnuity 1 inh INHALATION DAILY 05/14/20 05/14/20 History Ellipta] gabapentin 400 mg PO QID 05/14/20 05/14/20 History losartan 25 mg PO HS 05/14/20 05/17/20 History sertraline 25 mg PO HS 05/14/20 05/17/20 History metoprolol succinate 25 mg PO DAILY 05/17/20 05/17/20 History Allergies Allergy/AdvReac Type Severity Reaction Status Date / Time salmeterol Allergy Hives Verified 05/14/20 18:09 Results - Labs CBC & Chem 7: 05/23/20 05:26 05/23/20 05:26 Labs: Short CBC 05/23/20 Range/Units 05:26 WBC 9.9 (4.5-10.0) K/mm3 Hgb 6.7 L* (14.0-18.0) g/dL Hct 19.9 L* (42.0-52.0) % Plt Count 76 L (150-375) k/mm3 [facility] 05/23/20 05:26 Sodium 136 L Potassium 2.9 L Chloride 101 Carbon Dioxide 31 H BUN 10 Creatinine 0.50 L Glucose 146 H Calcium 7.3 L Assessment and Plan - Additional Plan Thrombocytopenia and macrocytic anemia. Patient has a history of alcohol abuse but quit drinking in June of 2019. He came into the hospital with 2-3 weeks history of nausea vomiting diarrhea with extreme lethargic and fatigued. He was tested negative for COVID-[address] scan showed diverticulitis and avascular necrosis of the femoral head. His lactic acid was elevated and found to be hypotensive. He was treated for sepsis. He received Zosyn. His anemia could be multifactorial. I am concerned about hemolytic anemia
[2020-05-23] MEDS: MELATONIN 3 MG TABLET PO (20:59)
[2020-05-23] MEDS: LOSARTAN POTASSIUM 25 MG TABLET PO (20:59)
[2020-05-23] MEDS: SERTRALINE HCL 25 MG TABLET PO (21:02)
[2020-05-23] MEDS: PHENYLEPH/SHARK OIL/MO/PETROL CREAM 26 GM 1 APPLIC RECTAL (21:02)
[2020-05-23] MEDS: FLUTICASONE PROP 44 MCG (*SP) 10.6 GM 2 PUFF INHALATION (21:05)
[2020-05-24] VITALS (9 sets, daily range): BP systolic 117–149; BP diastolic 53–72; PULSE 74–86; RESP 15–20; TEMP 36.4–37.3; O2SAT 94–98
[2020-05-24 05:57] LABS: Hematocrit 25.2 % (42.0-52.0); Hemoglobin 8.5 g/dL (14.0-18.0); Mean Corpuscular HGB Conc 33.7 g/dl (32-36); Mean Corpuscular Hemoglobin 31.8 pg (26-34); Mean Corpuscular Volume 94.4 fl (80-100); Mean Platelet Volume 11.4 fl (7.4-10.4); Platelet Count Result 82 k/mm3 (150-375); Red Blood Count 2.67 M/mm3 (4.6-6.20); White Blood Count 9.3 K/mm3 (4.5-10.0)
[2020-05-24 06:10] LABS: INR 0.9
[2020-05-24 06:12] LABS: Alanine Aminotransferase 102 U/L (4-50); Albumin Level 2.7 g/dL (3.5-5.1); Alkaline Phosphatase 254 U/L (38-126); Anion Gap 2 mmol/L (8-16); Aspartate Amino Transferase 102 U/L (17-59); Bilirubin,Total 2.2 mg/dL (0.2-1.3); Blood Urea Nitrogen 10 mg/dL (9-20); Calcium 6.8 mg/dL (8.4-10.2); Carbon Dioxide 34 mmol/L (22-30); Chloride 101 mmol/L (98-107); Estimated CRCL calculation 175 ml/min; Estimated Glomerular Filt Rate > 60; Glucose 112 mg/dL (75-110); Potassium 2.7 mmol/L (3.4-5.0); Sodium 137 mmol/L (137-145)
[2020-05-24] MEDS: metroNIDAZOLE 250 MG TABLET 500 MG PO ×3 (06:36→20:25)
[2020-05-24] MEDS: FLUTICASONE PROP 44 MCG (*SP) 10.6 GM 2 PUFF INHALATION ×2 (08:31→20:24)
[2020-05-24] MEDS: NICOTINE (*PBKC) 21 MG PATCH 1 PATCH TRANSDERM (08:32)
[2020-05-24] MEDS: NYSTATIN 100,000 UNITS/ML SUSP 5 ML ORAL.SUSP PO ×3 (08:39→20:25)
--- NOTE | 2020-05-24 09:59 | WPDANESEPPF ---
Anes - Initial Pre Proc Eval Procedure: Operation Date: 05/24/20 15:45 Proposed Procedures p Esophagogastroduodenoscopy - Lobo Douglas MD Date/Time: 05/24/20 09:59 Surgeon: Livia Morgan MD Pre Op Diagnosis: hyponatremia, dehydration, sepsis, diverticulitis Patient Data Age: 45 Gender: M Height: 1.75 m Weight: 92.3 kg Last Vital Signs Temp 36.8 C 05/24/20 04:49 Pulse 74 05/24/20 04:49 Resp 18 05/24/20 04:49 BP 149/72 H 05/24/20 04:49 Pulse Ox 95 05/24/20 04:49 Allergies Allergy/AdvReac Type Severity Reaction Status Date / Time salmeterol Allergy Hives Verified 05/24/20 13:49 Home Medications Medication Instructions Recorded Confirmed Type albuterol 90 mcg INHALATION Q4-6H 05/14/20 05/14/20 History fluticasone furoate [Arnuity 1 inh INHALATION DAILY 05/14/20 05/14/20 History Ellipta] gabapentin 400 mg PO QID 05/14/20 05/14/20 History losartan 25 mg PO HS 05/14/20 05/17/20 History sertraline 25 mg PO HS 05/14/20 05/17/20 History metoprolol succinate 25 mg PO DAILY 05/17/20 05/17/20 History Laboratory Tests 05/22/20 05/22/20 05/23/20 12:50 13:25 13:57 WBC RBC Hgb Hct MCV MCH MCHC RDW Plt Count MPV Haptoglobin Pending PT INR Sodium Potassium Chloride Carbon Dioxide Anion Gap BUN Creatinine Estim Creat Clear Calc Estimated GFR Glucose Calcium Total Bilirubin AST ALT Alkaline Phosphatase Total Protein Albumin Alpha-1-AT Phenotype Ceruloplasmin HE Screen Mitochondria M2 IgG Ab Her Hemochromatosis PCR Blood Type A Positive Antibody Screen Negative TRISTAN, IgG Interpret Negative TRISTAN, Poly Interpret Positive TRISTAN, Complement Interp Negative Crossmatch See Detail 05/24/20 05/24/20 05/24/20 05:43 05:43 05:43 WBC RBC Hgb Hct MCV MCH MCHC RDW Plt Count MPV Haptoglobin PT 13.0 Seconds Seconds (11.1-14.7) INR 0.9 Sodium 137 mmol/L mmol/L (137-145) Potassium 2.7 mmol/L L* mmol/L (3.4-5.0) Chloride 101 mmol/L mmol/L (98-107) Carbon Dioxide 34 mmol/L H mmol/L (22-30) Anion Gap 2 mmol/L L mmol/L (8-16) BUN 10 mg/dL mg/dL (9-20) Creatinine 0.50 mg/dL L mg/dL (0.7-1.3) Estim Creat Clear Calc 175 ml/min ml/min Estimated GFR > 60 (59 - ) Glucose 112 mg/dL H mg/dL (75-110) Calcium 6.8 mg/dL L mg/dL (8.4-10.2) Total Bilirubin 2.2 mg/dL H mg/dL (0.2-1.3) AST 102 U/L H U/L (17-59) ALT 102 U/L H U/L (4-50) Alkaline Phosphatase 254 U/L H U/L (38-126) Total Protein 6.0 g/dL L g/dL (6.3-8.2) Albumin 2.7 g/dL L g/dL (3.5-5.1) Alpha-1-AT Phenotype Pending Ceruloplasmin Pending HE Screen Mitochondria M2 IgG Ab Her Hemochromatosis PCR Pending Blood Type Antibody Screen TRISTAN, IgG Interpret TRISTAN, Poly Interpret TRISTAN, Complement Interp Crossmatch 05/24/20 05/24/20 05/24/20 05:43 05:43 05:43 WBC 9.3 K/mm3 K/mm3 (4.5-10.0) RBC 2.67 M/mm3 L M/mm3 (4.6-6.20) Hgb 8.5 g/dL L g/dL (14.0-18.0) Hct 25.2 % L % (42.0-52.0) MCV 94.4 fl D fl (80-
--- NOTE | 2020-05-24 12:06 | PM.IMPN ---
Progress Note: A&P Assessment and Plan (1) Fluid overload: Code(s): E87.70 - Fluid overload, unspecified Status: Acute Assessment and Plan: Patient with Liver disease history of alcholism, legs much improved cut back diuretics (2) COPD (chronic obstructive pulmonary disease): Code(s): J44.9 - Chronic obstructive pulmonary disease, unspecified Status: Acute Assessment and Plan: Improved Continue breathing treatments if needed (3) Tobacco dependence: Code(s): F17.200 - Nicotine dependence, unspecified, uncomplicated Status: Chronic Assessment and Plan: Nicotine patch as needed (4) Transaminitis: Code(s): R74.01 - Elevation of levels of liver transaminase levels Status: Acute Assessment and Plan: Secondary to liver cirrhosis. (5) Hyperbilirubinemia: Code(s): E80.6 - Other disorders of bilirubin metabolism Status: Acute Assessment and Plan: Likely secondary to Hepatic Cirrhosis, consult GI (6) Thrombocytopenia: Code(s): D69.6 - Thrombocytopenia, unspecified Status: Acute Assessment and Plan: Secondary to liver disease (7) Peripheral neuropathy: Code(s): G62.9 - Polyneuropathy, unspecified Status: Chronic Assessment and Plan: Continue Gabapentin (8) Acute hyponatremia: Code(s): E87.1 - Hypo-osmolality and hyponatremia Status: Acute Assessment and Plan: Likely secondary to Liver disease (9) Anemia: Code(s): D64.9 - Anemia, unspecified Status: Acute Assessment and Plan: Pt will benefit from blood transfusion, hb improved to 8.5, pt denies any blood loss from melena or hematemesis will consult hematology pt will need scope. Pt seen hematology anemia likely secondary to chronic alcoholism Additional Plan Subjective Date/time seen: 05/24/20 12:06 Interval history: 45 year old male with known history of HTN, copd, smoker and peripheral neuropathy. Admitted with diverticulitis, n/v, loose stools. Pt was swabbed for covid found to be negative. Pt having some leg swelling. Pt appears anemic sp blood transfusion pt is going for EGD today. Review of Systems Review of Systems: All systems reviewed & are unremarkable except as noted in HPI and below Exam Const: General: other (Chronically ill looking.) Nutritional Appearance: average body habitus and well nourished Orientation/consciousness: patient oriented x3 HENMT: Head: normocephalic Resp: Effort & Inspection: normal respiratory effort Auscultation: clear to auscultation bilaterally Cardio: Jugular venous distension: no JVD Rate: regular rate Rhythm: regular rhythm Heart sounds: no murmurs GI: Inspection: normal to inspection Auscultation: normal bowel sounds Skin: General skin exam: normal color and no rashes or lesions noted Rashes: no rashes Wounds: no wounds Neuro: General: patient oriented x3 and CN's II-XI intact bilaterally Cranial nerves: Yes CN's II-XII intact bilaterally and Yes Equal, round and reactive pupils present Cognition (Neuro): normal cognition Speech: normal speech Motor exam (neuro): 5/5 motor strength present throughout Sensory Exam: normal sensation Extrem: General: normal to inspection, no edema and pedal edema bilaterally 1+ Psych: Mental Status: mental status grossly normal Affect: normal affect Objective Data Vital Signs Vital Signs: Vital Signs - 24 hr 05/23/20 12:35 05/23/20 13:20 05/23/20 14:35 Temperature 37.1 C 36.7 C 36.7 C Pulse Rate 84 86 88 Respiratory Rate 18 18 18 Blood Pressure 143/66 H 135/66 121/57 L Pulse Oximetry 95 93 92 05/23/20 14:50 05/23/20 15:50 05/23/20 16:50 Temperature 36.9 C 37.1 C 36.8 C Pulse Rate 77 79 90 Respiratory Rate 18 20 20 Blood Pressure 131/58 L 146/66 H 146/74 H Pulse Oximetry 98 94 92 05/23/20 17:50 05/23/20 18:10 05/23/20 22:00 Temperature 36.7 C 36.8 C 36.4 C L Pulse
--- NOTE | 2020-05-24 12:41 | WPDONCPN ---
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 LDH and bilirubin was also found to be elevated. Will start him on prednisone 60 mg twice a day and taper 10 mg every 4th day. I will follow up in my office. Patient is going to have EGD today for history of nausea vomiting and diarrhea. Thrombocytopenia. Likely secondary to liver cirrhosis and infection. Platelet count is stable. - Time Spent With Patient Total time spent is greater than 50% in coordination of care (as documented) at patient's floor/unit and/or counseling patient: 15 - 25 minutes Subjective Interval history: Autoimmune hemolytic anemia with Cesilia test positive Review of Systems - Review of Systems All systems reviewed & are unremarkable except as noted in HPI and bel - Neurologic Denies numbness Exam Vital signs: Temp Pulse Resp BP Pulse Ox 36.8 C 74 18 149/72 H 95 05/24/20 04:49 05/24/20 04:49 05/24/20 04:49 05/24/20 04:49 05/24/20 04:49 Narrative: Lungs are clear to auscultation bilaterally Cardiovascular regular rate rhythm no murmurs Abdomen soft nontender nondistended bowel sounds are positive Extremities no edema PN: Objective Data - Labs CBC & Chem 7: 05/24/20 05:43 05/24/20 05:43 Labs: Laboratory Results - last 24 hr 05/22/20 05/22/20 05/24/20 12:50 13:25 05:43 WBC RBC Hgb Hct MCV MCH MCHC RDW Plt Count MPV PT 13.0 INR 0.9 Sodium Potassium Chloride Carbon Dioxide Anion Gap BUN Creatinine Estim Creat Clear Calc Estimated GFR Glucose Calcium Total Bilirubin AST ALT Alkaline Phosphatase Total Protein Albumin Blood Type A Positive Antibody Screen Negative TRISTAN, IgG Interpret Negative TRISTAN, Poly Interpret Positive TRISTAN, Complement Interp Negative Crossmatch See Detail 05/24/20 05/24/20 05:43 05:43 WBC 9.3 RBC 2.67 L Hgb 8.5 L Hct 25.2 L MCV 94.4 D MCH 31.8 D MCHC 33.7 RDW 19.0 H Plt Count 82 L MPV 11.4 H PT INR Sodium 137 Potassium 2.7 L* Chloride 101 Carbon Dioxide 34 H Anion Gap 2 L BUN 10 Creatinine 0.50 L Estim Creat Clear Calc 175 Estimated GFR > 60 Glucose 112 H Calcium 6.8 L Total Bilirubin 2.2 H AST 102 H ALT 102 H Alkaline Phosphatase 254 H Total Protein 6.0 L Albumin 2.7 L Blood Type Antibody Screen TRISTAN, IgG Interpret TRISTAN, Poly Interpret TRISTAN, Complement Interp Crossmatch
--- NOTE | 2020-05-24 13:40 | PC.NURSE ---
To GI lab per wheelchair 05/24/20 [id number].
[2020-05-24] MEDS: LACTATED RINGERS 1,000 ML 150 ML IV CONT ×2 (13:48→15:23)
[2020-05-24] MEDS: BENZOCAINE (*SP) 60 ML SPRAY CAN (HURRICAINE) 1 SPRAY MUCOUS MEM (15:14)
[2020-05-24] MEDS: GABAPENTIN 400 MG CAPSULE PO ×2 (16:08→20:25)
[2020-05-24] MEDS: METOPROLOL SUCCINATE EXT REL 25 MG TABCR PO (16:08)
[2020-05-24] MEDS: predniSONE 20 MG TABLET 60 MG PO (16:09)
[2020-05-24] MEDS: traMADol HCL (*CRX) 50 MG TABLET PO ×2 (16:17→22:55)
--- NOTE | 2020-05-24 16:26 | PC.NURSE ---
return from GI lab 05/24/20 [id number].
[2020-05-24] MEDS: LOSARTAN POTASSIUM 25 MG TABLET PO (20:25)
[2020-05-24] MEDS: SERTRALINE HCL 25 MG TABLET PO (20:25)
[2020-05-24] MEDS: MELATONIN 3 MG TABLET PO (20:25)
[2020-05-24] MEDS: PANTOPRAZOLE 40 MG TABLET PO (22:56)
[2020-05-25 06:00] VITALS: BP 160/85; PULSE 78; RESP 20; TEMP 36.3; O2SAT 98
[2020-05-25] MEDS: metroNIDAZOLE 250 MG TABLET 500 MG PO ×2 (06:04→14:19)
--- NOTE | 2020-05-25 08:50 | PM.DS ---
DS: Admitting Diagnosis Admitting Diagnosis Admitting Diagnosis: Nausea and vomiting DS: Discharge Diagnosis Discharge Diagnosis (1) Fluid overload: Code(s): E87.70 - Fluid overload, unspecified Status: Acute Assessment and Plan: Patient with Liver disease history of alcholism, legs much improved cut back diuretics, and continue spironolactone on discharge, pt to follow with GI on discharge for liver cirrhois and hpylori test result. (2) COPD (chronic obstructive pulmonary disease): Code(s): J44.9 - Chronic obstructive pulmonary disease, unspecified Status: Acute Assessment and Plan: Discharge on inhalers (3) Tobacco dependence: Code(s): F17.200 - Nicotine dependence, unspecified, uncomplicated Status: Chronic Assessment and Plan: Nicotine patch as needed, advanced to quit smoking (4) Transaminitis: Code(s): R74.01 - Elevation of levels of liver transaminase levels Status: Acute Assessment and Plan: Secondary to liver cirrhosis. (5) Hyperbilirubinemia: Code(s): E80.6 - Other disorders of bilirubin metabolism Status: Acute Assessment and Plan: Likely secondary to Hepatic Cirrhosis, consult GI (6) Thrombocytopenia: Code(s): D69.6 - Thrombocytopenia, unspecified Status: Acute Assessment and Plan: Secondary to hemolytic anaemia pt is sal positive will continue on prednisone 60mg on discharge -pt needs to follow with Hematology (7) Peripheral neuropathy: Code(s): G62.9 - Polyneuropathy, unspecified Status: Chronic Assessment and Plan: Continue Gabapentin (8) Acute hyponatremia: Code(s): E87.1 - Hypo-osmolality and hyponatremia Status: Acute Assessment and Plan: Likely secondary to Liver disease (9) Anemia: Code(s): D64.9 - Anemia, unspecified Status: Acute Assessment and Plan: Pt will benefit from blood transfusion, hb improved to 8.5, pt denies any blood loss from melena or hematemesis will consult hematology. Pt had scope showed gastritis non specific gastric ulcer and hiatal hernia. Pt to follow with GI MD DS: Summary Hospital Course Hospital Course: 45 year old male with known history of HTN, copd, smoker and peripheral neuropathy. Admitted with diverticulitis, n/v, loose stools. Pt was swabbed for covid found to be negative. Pt having some leg swelling resolved now. Pt appears anemic sp blood transfusion Pt had egd in hospital. Pt found to have gastric ulcer, gastritis and hiatial hernia. Pt had consult with hematology found to be sal positive and has hemolytic anemia. Time Spent with Patient Time attestation: Total time spent providing and/or coordinating discharge services:40 minutes on day of discharge Exam Const: General: other (Chronically ill looking.) Nutritional Appearance: average body habitus and well nourished Orientation/consciousness: patient oriented x3 Resp: Effort & Inspection: normal respiratory effort Auscultation: clear to auscultation bilaterally Cardio: Jugular venous distension: no JVD Rate: regular rate Rhythm: regular rhythm Heart sounds: no murmurs GI: Inspection: normal to inspection Auscultation: normal bowel sounds Skin: General skin exam: normal color and no rashes or lesions noted Rashes: no rashes Wounds: no wounds Neuro: General: patient oriented x3 and CN's II-XI intact bilaterally Cranial nerves: Yes CN's II-XII intact bilaterally and Yes Equal, round and reactive pupils present Cognition (Neuro): normal cognition Speech: normal speech Motor exam (neuro): 5/5 motor strength present throughout Sensory Exam: normal sensation Extrem: General: normal to inspection, no edema and pedal edema bilaterally 1+ Psych: Mental Status: mental status grossly normal Affect: normal affect DS: Data Data Completed and Pending Completed studies during hospitalization: Pending at discharg
[2020-05-25] MEDS: FLUTICASONE PROP 44 MCG (*SP) 10.6 GM 2 PUFF INHALATION (08:55)
[2020-05-25] MEDS: GABAPENTIN 400 MG CAPSULE PO ×2 (08:57→12:28)
[2020-05-25] MEDS: predniSONE 20 MG TABLET 60 MG PO (08:57)
[2020-05-25 08:58] VITALS: PULSE 78
[2020-05-25] MEDS: METOPROLOL SUCCINATE EXT REL 25 MG TABCR PO (08:58)
[2020-05-25] MEDS: NICOTINE (*PBKC) 21 MG PATCH 1 PATCH TRANSDERM (08:58)
[2020-05-25] MEDS: PANTOPRAZOLE 40 MG TABLET PO (08:58)
[2020-05-25] MEDS: traMADol HCL (*CRX) 50 MG TABLET PO ×2 (09:05→15:06)
[2020-05-25 09:17] LABS: Anion Gap 3 mmol/L (8-16); Blood Urea Nitrogen 9 mg/dL (9-20); Calcium 6.8 mg/dL (8.4-10.2); Carbon Dioxide 31 mmol/L (22-30); Chloride 104 mmol/L (98-107); Estimated CRCL calculation 212 ml/min; Estimated Glomerular Filt Rate > 60; Glucose 135 mg/dL (75-110); Potassium 3.3 mmol/L (3.4-5.0); Sodium 138 mmol/L (137-145)
[2020-05-25] MEDS: POTASSIUM CHLORIDE 20 MEQ PACKET (FOR LIQUID) 40 MEQ PO (10:19)
[2020-05-25] MEDS: NYSTATIN 100,000 UNITS/ML SUSP 5 ML ORAL.SUSP PO ×2 (10:19→12:28)
--- NOTE | 2020-05-25 10:58 | WPDANESPN ---
Anes - Prog Note Post-Op Date/Time: 05/25/20 10:58 Cardiovascular status: normal Respiratory status: normal Airway patency: baseline Mental status: baseline Post-Op hydration status: normal Vital Signs: Last Vital Signs Temp 36.3 C L 05/25/20 06:00 Pulse 78 05/25/20 08:58 Resp 20 05/25/20 06:00 BP 160/85 H 05/25/20 06:00 Pulse Ox 98 05/25/20 06:00 Pain Score (VAS): 04/22 I/O: Intake & Output 05/24/20 05/25/20 05/25/20 23:59 07:59 15:59 Intake Total 440 740 Output Total 650 Balance 440 90 Laboratory Tests 05/24/20 05:43 05/25/20 08:53 05/25/20 08:53 Sodium 138 Potassium 3.3 L Chloride 104 Carbon Dioxide 31 H Anion Gap 3 L BUN 9 Creatinine 0.40 L Estim Creat Clear Calc 212 Estimated GFR > 60 Glucose 135 H Calcium 6.8 L Post-procedural complaints: none Patient Feedback: Patient satisfied with anesthetic care.
[2020-05-25 13:36] VITALS: BP 128/73; PULSE 70; RESP 18; TEMP 36.7; O2SAT 98
[2020-05-27 13:30] LABS: Haptoglobin 284 mg/dL (43-212)
[2020-05-27 21:22] LABS: Ceruloplasmin 31 mg/dL (18-36)
[2020-05-29 22:29] LABS: Mitochondrial (M2) Ab (IgG) <=20.0 U (<=20.0)
== END 2020-05-25 15:45 | disposition home or self-care (01) | DRG 720 ==
LOC: ANHED 20:51 → ANHIMU 05-15 04:24 → ANH2MED 05-24 07:46 → ANHIMU 05-29 16:23
PROVIDERS: Emergency Medicine Emergency Medical Services; Family Medicine; Internal Medicine; Internal Medicine Gastroenterology; Internal Medicine Hematology & Oncology; Physician Assistant; Admitting Provider Family Medicine; Emergency Provider Emergency Medicine; PCP Internal Medicine; Visit Provider Internal Medicine
PROC: 0DJ08ZZ Inspection of Upper Intestinal Tract, Via Natural or Artificial Opening Endoscopic (ICD-10-PCS; CPT 43235; principal; 2020-05-24 15:45)
DX: A41.9 Sepsis, unspecified organism (principal); E87.3 Alkalosis; E87.2 Acidosis; R65.20 Severe sepsis without septic shock; K57.32 Diverticulitis of large intestine without perforation or abscess without bleeding; Z20.822 Contact with and (suspected) exposure to COVID-19; K21.00 Gastro-esophageal reflux disease with esophagitis, without bleeding; K44.9 Diaphragmatic hernia without obstruction or gangrene; K29.70 Gastritis, unspecified, without bleeding; K25.9 Gastric ulcer, unspecified as acute or chronic, without hemorrhage or perforation; D59.10 Autoimmune hemolytic anemia, unspecified; D69.6 Thrombocytopenia, unspecified; E87.70 Fluid overload, unspecified; E86.0 Dehydration; K70.30 Alcoholic cirrhosis of liver without ascites; F10.21 Alcohol dependence, in remission; J44.9 Chronic obstructive pulmonary disease, unspecified; F17.210 Nicotine dependence, cigarettes, uncomplicated; I10 Essential (primary) hypertension; G62.9 Polyneuropathy, unspecified; E87.1 Hypo-osmolality and hyponatremia; E87.6 Hypokalemia; E16.2 Hypoglycemia, unspecified; E80.6 Other disorders of bilirubin metabolism; Z23 Encounter for immunization; Z79.899 Other long term (current) drug therapy
CPT/HCPCS: 36415; 36430; 36600; 71045; 74018; 74177; 76705; 80048; 80053; 80074; 81001; 81256; 82104; 82248; 82274; 82375; 82390; 82533; 82607; 82728; 82746; 82805; 82948; 83010; 83050; 83520; 83540; 83550; 83605; 83615; 83690; 83735; 84100; 84132; 84443; 84466; 84484; 85014; 85018; 85025; 85027; 85046; 85055; 85610; 85730; 86038; 86140; 86850; 86880; 86900; 86901; 86923; 87040; 87081; 87449; 87804; 87899; 88305; 90471; 90653; 93005; 94640; 96361; 96365; 96368; 96375; 99285; A9270; C9113; C9803; G0008; J1100; J1650; J1940; J2405; J2543; J2704; J3475; J3480; J7030; J7050; J7120; J7512; P9016; Q9967; U0003; U0005

== ENCOUNTER 2020-05-30 14:19 | Inpatient (IN) | payer OTHER, SELFPAY ==
[2020-05-30] VITALS (9 sets, daily range): BP systolic 143–185; BP diastolic 73–93; PULSE 67–92; RESP 16–18; TEMP 36.7–37.1; O2SAT 95–98
--- NOTE | ~2020-05-30 | US_ITS ---
EXAMINATION: US venous doppler [facility] DATE: 05/30/2020 14:44 INDICATION: Bilateral lower limb swelling TECHNIQUE: Xiao scale images without and with compression and Doppler images of the bilateral lower e xtremity veins were obtained. COMPARISON: None FINDINGS: The right common femoral vein, profunda femoral vein, femoral vein, popliteal vein, peroneal trunk, p osterior tibial veins, and greater saphenous vein are patent. The left common femoral vein, profunda femoral vein, femoral vein, popliteal vein, peroneal trunk, po sterior tibial veins, and greater saphenous vein are patent. IMPRESSION: 1. Patent bilateral lower extremity veins. No evidence of deep venous thrombosis. Reviewed, dictated and finalized at location A. ETCAR STARTER IMPRESSION: 1. Patent bilateral lower extremity veins. No evidence of deep venous thrombosi s.
--- NOTE | ~2020-05-30 | CT_ITS ---
EXAMINATION: CTA chest PE protocol DATE: 05/30/2020 16:25 INDICATION: Shortness of breath TECHNIQUE: Computed tomography (CT) pulmonary angiogram of the chest was performed with 100 mL Omnipa que-350 intravenous contrast. Additional 3D reconstructions utilizing coronal maximum intensity proje ction (MIP) were performed. Automated exposure control and iterative reconstruction technique were em ployed. The dose-length product was 617.30 mGy-cm. COMPARISON: None FINDINGS: Good but suboptimal contrast opacification of the pulmonary arteries. There is mild streak artifact f rom dense contrast in the superior vena cava and right atrium. Mild scattered respiratory motion rogers fact only mildly decreases sensitivity in some of the smaller subsegmental pulmonary arteries. No pul monary embolism. There are multiple regions demonstrating septal line thickening and small centrilobu lar solid and subsolid nodules which are positioned in the mid basilar segments of the bilateral lowe r lobes, the right middle lobe and anterior segment of the right upper lobe and to a lesser degree at the lingula. No pleural effusion or pneumothorax. Heart size is normal. No pericardial effusion. Tho racic aorta is normal in caliber with no dissection. No pathologically enlarged thoracic lymphadenopa thy. Hepatomegaly particularly left hepatic lobe with diffuse hepatic steatosis. Nodular liver surfac e most notable at the right hepatic lobe suggestive of cirrhosis. Mild thoracic spondylosis. IMPRESSION: 1. No pulmonary embolism. 2. Scattered bilateral geographic regions of smooth septal line thickening and small centrilobular so lid and subsolid nodules most likely infectious/inflammatory in etiology with associated mild pulmona ry edema. 3. Hepatomegaly, diffuse hepatic steatosis and possible cirrhosis. Reviewed, dictated and finalized at location A. AL LABORATORY SUPERVISOR IMPRESSION: 1. No pulmonary embolism. 2. Scattered bilateral geographic regions of smooth septal line thickening and small centrilobular solid and subsolid nodules most likely infectious/inflammat ory in etiology with associated mild pulmonary edema. 3. Hepatomegaly, diffuse hepatic steatosis and possible cirrhosis.
--- NOTE | ~2020-05-30 | XR_ITS ---
XR chest 1V DATE: 05/30/2020 14:49 INDICATION: Shortness of breath, extremity swelling TECHNIQUE: AP chest COMPARISON: May 17, 2020 portable AP chest May 14, 2020 portable AP chest FINDINGS: Normal heart size. No hilar or mediastinal enlargement. No pulmonary infiltrate or consolid ation, pleural effusion or pneumothorax. There are bilateral Todd B-lines best identified in the la teral lower lung zones, new since 05/14/2020, suggesting pulmonary interstitial edema. IMPRESSION: Interval Todd B-lines suggesting pulmonary interstitial edema Reviewed, dictated and finalized at location B. CHECKER
--- NOTE | ~2020-05-30 | MR_ITS ---
EXAMINATION: MR hand LT wo con, MR forearm LT wo con DATE: 06/02/2020 08:06 INDICATION: Left hand and forearm pain with abduction and holding a cup. TECHNIQUE: 1. Magnetic resonance imaging (MRI) of the left hand was performed without intravenous contrast to in clude the metacarpals and digits. Sequences included axial, sagittal and coronal T1-weighted FSE and T2-weighted FS FSE. 2. MRI of the left forearm was obtained without intravenous contrast. COMPARISON: None FINDINGS: Bone alignment is normal from the left elbow through the left hand. There is a geographic region of m ildly decreased T1 marrow fat signal in the proximal radial diaphysis as well as in the distal metaph yseal region of the humerus which remains hyperintense to skeletal muscle and with mildly increased f luid signal. No evident fracture line. Small focus of likely degenerative subarticular edema along th e proximal articular surface of the proximal pole of the scaphoid. Marrow signal is otherwise normal throughout. Mild osteoarthritis with tiny marginal osteophytes at the first carpometacarpal joint. There is mild increased fluid signal extending along the tendons of the first dorsal compartment at t he distal forearm which could be seen with de Quervain's tenosynovitis. Remaining flexor and extensor tendons appear unremarkable. Intrinsic musculature of the left hand and forearm appear normal. Physi ologic amount fluid in the joint spaces. No joint effusions or other abnormal fluid collections. IMPRESSION: 1. Mild tenosynovitis along the proximal aspect of the first dorsal compartment consistent with de Qu ervain's tenosynovitis. 2. Nonspecific mild increased marrow fluid signal along the proximal diaphysis of the radius without evident fracture line or loss of T1 marrow fat signal to suggest a marrow replacing process. Differen tial would include reactive edema of indeterminate etiology or red marrow reexpansion which could be related to reported history of anemia. Reviewed, dictated and finalized at location A. HING MACHINE OPERATOR IMPRESSION: 1. Mild tenosynovitis along the proximal aspect of the first dorsal compartment consistent with de Quervain's tenosynovitis. 2. Nonspecific mild increased marrow fluid signal along the proximal diaphysis of the radius without evident fracture line or loss of T1 marrow fat signal to suggest a marrow replacing process. Differential would include reactive edema o f indeterminate etiology or red marrow reexpansion which could be related to re ported history of anemia.
--- NOTE | 2020-05-30 14:28 | PC.NURSE ---
Pt taken to ultrasound at this time, EKG not done prior to patient being taken
--- NOTE | 2020-05-30 14:30 | ED.GENADULT ---
HPI - General Adult General Chief complaint: Extremity Injury, Lower Stated complaint: bilat LE swelling Source: patient and old records reviewed Mode of arrival: EMS Limitations: no limitations History of Present Illness HPI narrative: Patient is a 45-year-old male who presents to emergency department for evaluation of bilateral lower extremity swelling patient was diagnosed on the 12th after being managed in the hospital for perforated bowel secondary to diverticulitis fluid overload anemia patient has been home taking steroids and other prescribed medications but notes that he continues to have swelling in the bilateral lower extremities patient notes his abdomen has returned to normal and that he is having normal bowel movements and denies any hematemesis rectal bleeding melena chest pain shortness of breath patient was diuresed in the hospital after being fluid overloaded. Patient notes that he has not followed with primary care does have an existing primary care but notes his doctor almost $200 to see him. Patient did not follow with Dr. Zurita office this week but needs to set up an appointment to see him nor has he set up appointment with GI. Patient's primary complaint is difficulty tolerating the pain in the lower extremities secondary to edema. Patient notes that he has been compliant with the spironolactone but it is not helping Related Data Home Medications Medication Instructions Recorded Confirmed Arnuity Ellipta 1 inh INHALATION DAILY 05/14/20 05/14/20 gabapentin 400 mg PO QID 05/14/20 05/14/20 losartan 25 mg PO HS 05/14/20 05/17/20 sertraline 25 mg PO HS 05/14/20 05/17/20 metoprolol succinate 25 mg PO DAILY 05/17/20 05/17/20 Allergies Allergy/AdvReac Type Severity Reaction Status Date / Time salmeterol Allergy Hives Verified 05/30/20 14:26 Review of Systems Review of Systems: All systems reviewed & are unremarkable except as noted in HPI and below PMFSH Past Medical History Medical History (Updated 05/30/20 @ 17:45 by Howard Quevedo PA-C) Acute dehydration Acute on chronic blood loss anemia Asthma Cirrhosis, alcoholic Diverticulitis Fluid overload H/O: HTN (hypertension) Nausea and vomiting in adult Peripheral neuropathy Family History Family History Other Unknown family medical history Social History Social History Smoking packs per day: 1 Smoking cigarettes per day: 20.0 Years smoked: 30 Smoking pack-years: 30.00 Smoking status: Current every day smoker Tobacco type: cigarettes Alcohol intake: never Substance use: never Gender identity (if verbalized by the patient): Male Spiritual care concerns: No Exam Narrative: Exam Narrative: GENERAL: Ill-appearing, well-nourished, and in no acute distress. HEAD: Normocephalic, atraumatic. EYES: PERRLA and EOMI. ENT: Nares clear, no rhinorrhea or epistaxis. Mucous membranes moist. NECK: Supple. No adenopathy or masses. No carotid bruits or JVD CHEST: Clear to auscultation. No respiratory distress. No wheezes rales or rhonchi HEART: Regular rate and rhythm. No murmur heard. Normal peripheral pulses. ABDOMEN: Soft, nontender,distended EXTREMITIES: Normal range of motion. 4+ edema lower extremities SKIN: Warm, dry, no rash. NEURO: No focal deficits. Alert and oriented x3. Cranial nerves II through XII grossly intact. Neurovascularly intact. Capillary refill less than 2-second PSYCH: Normal mood and affect. Course Course Emergency Course: Patient presented with lower extremity edema is currently on spironolactone but is having difficulty diuresing the fluid patient has not followed up as instructed. Patient's blood sugars are elevated at this time will be hydrated and placed on sliding scale brought into the hospital for further evaluation will be seen by heme-onc while in the hospital. Consultations Consulta
--- NOTE | 2020-05-30 14:54 | ECG_ITS ---
Measurements Intervals [place] Rate: 69 P: 40 ND: 112 QRS: 38 QRSD: 76 T: 38 QT: 394 QTc: 423 Interpretive Statements SINUS RHYTHM WITH SHORT ND INTERVAL ATRIAL PREMATURE COMPLEX BORDERLINE ECG Electronically Signed On 05-31-2020 7:06:56 [employer] by Alvino Draper D.O.
[2020-05-30 15:10] LABS: Basophils Percent Auto 0.2 % (0.2-1.2); Hematocrit 33.1 % (42.0-52.0); Hemoglobin 10.6 g/dL (14.0-18.0); Immature Granulocyte Absolute 0.24 K/mm3 (0.00-0.031); Immature Granulocyte Percent A 1.4 % (0-0.5); Lymphocytes Absolute Auto 0.71 K/mm3 (0.9-3.2); Mean Corpuscular Hemoglobin 32.4 pg (26-34); Mean Corpuscular Volume 101.2 fl (80-100); Mean Platelet Volume 9.7 fl (7.4-10.4); Monocytes Absolute Auto 0.6 K/mm3 (0.1-0.6); Monocytes Percent Auto 3.1 % (2.6-8.5); Neutrophils Absolute Auto 16.2 K/mm3 (1.3-6.7); Neutrophils Percent Auto 91.3 % (45.5-73.1); Platelet Count Result 347 k/mm3 (150-375); Red Blood Count 3.27 M/mm3 (4.6-6.20); Red Cell Distribution Width 18.3 % (11.5-14.5); White Blood Count 17.7 K/mm3 (4.5-10.0)
[2020-05-30 15:19] LABS: INR 0.9; Prothrombin Time 12.6 Seconds (11.1-14.7)
[2020-05-30 15:20] LABS: Lactic Acid Reflex 3.2 mmol/L (0.7-2.1); Partial Thromboplastin Time 23.5 SECONDS (22.3-36.8)
[2020-05-30 15:22] LABS: D Dimer 0.61 ug/mL (<0.48)
[2020-05-30 15:27] LABS: Lipase 284 U/L (23-300); Magnesium 1.6 mg/dL (1.6-2.3)
[2020-05-30 15:41] LABS: Troponin I < 0.012 ng/mL (0.000-0.034)
[2020-05-30 15:45] LABS: Add Urine Microscopic? YES; Appearance Urine Clear (Clear); Bilirubin Urine Negative (Negative); Blood Urine Negative (Negative); Color Urine Yellow (Yellow); Glucose Urine UA 3+ mg/dL (Negative); Ketones Urine Negative (Negative); Leukocyte Esterase Ur Negative LEU/UL (Negative); Nitrate Urine Negative (Negative); Protein Urine Negative (Negative); RBC Urine 0-2 /hpf (0-2); Specific Grav Ur 1.028 (1.001-1.035); Squamous Epithelial Cell Urine Rare /hpf (Few); Urobilinogen Urine Negative mg/dL (<2.0); WBC Urine 0-3 /hpf
[2020-05-30 15:49] LABS: Alanine Aminotransferase 75 U/L (4-50); Albumin Level 3.3 g/dL (3.5-5.1); Alkaline Phosphatase 195 U/L (38-126); Anion Gap 5 mmol/L (8-16); Aspartate Amino Transferase 70 U/L (17-59); Bilirubin,Total 1.3 mg/dL (0.2-1.3); Blood Urea Nitrogen 10 mg/dL (9-20); Calcium 8.7 mg/dL (8.4-10.2); Carbon Dioxide 30 mmol/L (22-30); Chloride 97 mmol/L (98-107); Estimated CRCL calculation 276 ml/min; Estimated Glomerular Filt Rate > 60; Glucose 355 mg/dL (75-110); Potassium 4.5 mmol/L (3.4-5.0); Sodium 132 mmol/L (137-145)
[2020-05-30 15:55] LABS: NT Pro B Type Natriuretic Pept 1820 PG/ML (5-100)
--- NOTE | 2020-05-30 16:24 | PC.NURSE ---
Pt to CT scan via stretcher.
[2020-05-30] MEDS: FUROSEMIDE INJ 40 MG/4 ML VIAL IV PUSH (16:36)
[2020-05-30 17:27] LABS: Beta-Hydroxybutyrate/Acetoacetate 0.06 mmol/L (0.02-0.27)
[2020-05-30 18:06] LABS: Reflex Lactic Acid Yes or No Add Lactic
[2020-05-30 18:09] LABS: Hemoglobin A1C 5.5 % (<5.7)
--- NOTE | 2020-05-30 18:17 | PC.NURSE ---
called dietary, spoke to rachell, ordered pt a food tray at this time
[2020-05-30 19:15] LABS: Lactic Acid 2.7 mmol/L (0.7-2.1)
--- NOTE | 2020-05-30 20:22 | PM.IMHP ---
H&P: HPI History of Present Illness Date/Time: 05/30/20 20:22 Chief Complaint: Increased lower extremity swelling and weakness since recent discharge+ Narrative: This is a 45-year-old male whom I recently admitted to the hospital after he was found to be fluid overloaded and known to have liver cirrhosis due to chronic alcoholism. During the patient's last hospitalization he was also found to have autoimmune hemolytic anemia and is currently being treated by Dr. Zurita, hematology with high-dose steroids for same. The patient states that he was initially doing well when he was discharged home but starting this past weekend he started to have increased lower extremity swelling and difficulty getting around. The patient is also known to have COPD as he is a chronic smoker and states that he has not been able to sleep flat and has had increased exertional shortness of breath over the past few days. He denies any fevers, chills, worsening cough, chest pain, palpitations, abdominal pain, nausea, vomiting, diarrhea, dark black stools, or rectal bleeding. The patient has been taking his oral Lasix that was prescribed on discharge although he states that it is not working anymore. He also complains of having associated anxiety and oral lesions which she believes may be thrush. The patient was evaluated emergency room this afternoon and found to have a blood glucose of 355 mg/dl as well as a lactic acidosis of 3.2. We been asked to admit the patient to the hospital to help him with his fluid overloaded state and hyperglycemia. The patient has no other complaints at this time. Review of Systems Review of Systems: All systems reviewed & are unremarkable except as noted in HPI and below PMFSH Past Medical History Medical History Acute dehydration Acute on chronic blood loss anemia Asthma Cirrhosis, alcoholic Diverticulitis Fluid overload H/O: HTN (hypertension) Nausea and vomiting in adult Peripheral neuropathy Family History Family History Other Unknown family medical history Social History Social History Smoking packs per day: 0.5 Smoking cigarettes per day: 10.0 Years smoked: 30 Smoking pack-years: 15.00 Smoking status: Current every day smoker Tobacco type: cigarettes Alcohol intake: former Drinks per week: 8 Substance use: never Substance use type: does not use Gender identity (if verbalized by the patient): Male Spiritual care concerns: No Comments Past surgical history is reviewed and noncontributory. Meds Home Medications and Allergies Home Medications Medication Instructions Recorded Confirmed Type Arnuity Ellipta 1 inh INHALATION DAILY 05/14/20 05/30/20 History gabapentin 400 mg PO QID 05/14/20 05/30/20 History losartan 25 mg PO HS 05/14/20 05/30/20 History sertraline 25 mg PO HS 05/14/20 05/30/20 History metoprolol succinate 25 mg PO DAILY 05/17/20 05/17/20 History fluticasone propionate [Flovent 2 puff INHALATION Q12HRT #1 inh 05/25/20 05/30/20 Rx HFA] nicotine [Nicoderm CQ] 1 patch TRANSDERMAL QAM #7 ea 05/25/20 05/30/20 Rx pantoprazole 40 mg PO Q12HR #60 tablet 05/25/20 05/30/20 Rx spironolactone 25 mg PO DAILY #30 tablet 05/25/20 05/30/20 Rx nystatin 1 ml PO QID 10 Days #40 ml 05/28/20 05/30/20 Rx prednisone 50 mg PO BID 05/30/20 05/30/20 History prednisone 60 mg PO DAILY 05/30/20 05/30/20 History Allergies Allergy/AdvReac Type Severity Reaction Status Date / Time salmeterol Allergy Hives Verified 05/30/20 23:23 Vital Signs Vital Signs - 24 hr 05/30/20 14:17 05/30/20 15:01 05/30/20 16:35 Temperature 37.1 C Pulse Rate 71 67 73 Respiratory Rate 18 17 16 Blood Pressure 185/77 H 145/73 H Pulse Oximetry 98 98 97 05/30/20 18:04 Temperature Pulse Rate 67 Respiratory Rate 17 Blood Pressure
--- NOTE | 2020-05-30 20:30 | ADMGEN ---
This patient, Yobani Linton, was admitted to Medical Room 255-. Patient/family oriented to hospital policies and general routines including ID bracelet, bed and alarms, visiting hours, pain management, procedures, bathroom and other care routines, personal items, smoking policy, room service/diet, and visiting hours. Information on how to activate the Rapid Response Team has been discussed. Patient/Family are encouraged to report perceived risks to care and to ask questions if they do not understand what they are told or what they should do.
[2020-05-30] MEDS: ALBUTEROL SULFATE NEB 2.5 MG/0.5 ML INH 5 MG INHALATION (21:37)
[2020-05-30] MEDS: FLUTICASONE PROP 44 MCG (*SP) 10.6 GM 2 PUFF INHALATION (21:43)
[2020-05-30] MEDS: FAMOTIDINE 20 MG/2 ML VIAL IV PUSH (22:29)
[2020-05-30] MEDS: LORazepam (*CRX) 0.5 MG TABLET PO (22:30)
[2020-05-30] MEDS: SERTRALINE HCL 25 MG TABLET PO (22:30)
[2020-05-30] MEDS: LOSARTAN POTASSIUM 25 MG TABLET PO (22:30)
[2020-05-30] MEDS: PANTOPRAZOLE 40 MG TABLET PO (22:31)
[2020-05-30] MEDS: GABAPENTIN 400 MG CAPSULE PO (22:31)
[2020-05-30 22:40] LABS: Glucose Point of Care 201 (65-105)
[2020-05-31] VITALS (15 sets, daily range): BP systolic 118–163; BP diastolic 62–89; PULSE 68–96; RESP 16–18; TEMP 35.9–36.7; O2SAT 94–98; BMI 31.3
[2020-05-31] MEDS: NYSTATIN 100,000 UNITS/ML SUSP 5 ML ORAL.SUSP PO ×4 (00:57→17:26)
[2020-05-31 05:47] LABS: Basophils Percent Auto 0.1 % (0.2-1.2); Eosinophils Percent Auto 0.3 % (0-4.4); Hematocrit 30.5 % (42.0-52.0); Hemoglobin 9.9 g/dL (14.0-18.0); Immature Granulocyte Absolute 0.11 K/mm3 (0.00-0.031); Immature Granulocyte Percent A 0.8 % (0-0.5); Lymphocytes Absolute Auto 2.32 K/mm3 (0.9-3.2); Mean Corpuscular HGB Conc 32.5 g/dl (32-36); Mean Corpuscular Hemoglobin 32.1 pg (26-34); Mean Platelet Volume 9.3 fl (7.4-10.4); Monocytes Absolute Auto 0.6 K/mm3 (0.1-0.6); Monocytes Percent Auto 4.4 % (2.6-8.5); Neutrophils Absolute Auto 10.6 K/mm3 (1.3-6.7); Neutrophils Percent Auto 77.4 % (45.5-73.1); Nucleated Red Blood Cells Perc 0.2 % (0.0-0.2); Platelet Count Result 336 k/mm3 (150-375); Red Blood Count 3.08 M/mm3 (4.6-6.20); Red Cell Distribution Width 18.3 % (11.5-14.5); White Blood Count 13.7 K/mm3 (4.5-10.0)
[2020-05-31 06:07] LABS: Alanine Aminotransferase 68 U/L (4-50); Albumin Level 2.9 g/dL (3.5-5.1); Alkaline Phosphatase 174 U/L (38-126); Anion Gap 2 mmol/L (8-16); Aspartate Amino Transferase 55 U/L (17-59); Bilirubin,Total 1.4 mg/dL (0.2-1.3); Blood Urea Nitrogen 11 mg/dL (9-20); Calcium 8.1 mg/dL (8.4-10.2); Carbon Dioxide 36 mmol/L (22-30); Chloride 98 mmol/L (98-107); Estimated CRCL calculation 151 ml/min; Estimated Glomerular Filt Rate > 60; Glucose 128 mg/dL (75-110); Sodium 136 mmol/L (137-145)
[2020-05-31 07:51] LABS: Glucose Point of Care 131 (65-105)
[2020-05-31] MEDS: GABAPENTIN 400 MG CAPSULE PO ×4 (08:23→20:57)
[2020-05-31] MEDS: FAMOTIDINE 20 MG/2 ML VIAL IV PUSH ×2 (08:23→20:56)
[2020-05-31] MEDS: SPIRONOLACTONE 25 MG TABLET PO (08:24)
[2020-05-31] MEDS: PANTOPRAZOLE 40 MG TABLET PO ×2 (08:25→20:57)
[2020-05-31] MEDS: ALBUTEROL SULFATE NEB 2.5 MG/0.5 ML INH 5 MG INHALATION ×3 (08:45→22:00)
[2020-05-31] MEDS: FLUTICASONE PROP 44 MCG (*SP) 10.6 GM 2 PUFF INHALATION ×2 (08:45→20:58)
--- NOTE | 2020-05-31 10:44 | PC.NURSE ---
Signaling Project Engineer spoke with Dr. Morgan regarding pt having episode of sinus tach and previously takes metoprolol. Pt c/o pain refuses to take Tylenol, and is very upset about mediations and would like to speak with her. She will see pt.
[2020-05-31] MEDS: MORPHINE SULFATE (*CRX) 2 MG/ML INJ 1 MG IV PUSH (11:04)
[2020-05-31 12:08] LABS: Glucose Point of Care 161 (65-105)
[2020-05-31] MEDS: METOPROLOL SUCCINATE EXT REL 25 MG TABCR PO (12:22)
[2020-05-31] MEDS: predniSONE 20 MG TABLET 60 MG PO (14:33)
[2020-05-31] MEDS: NICOTINE (*PBKC) 21 MG PATCH 1 PATCH TRANSDERM (14:34)
--- NOTE | 2020-05-31 16:51 | PDONCCN ---
HPI - Date of Consult Date/Time: 05/31/20 16:51 Requesting Physician: Livia Morgan MD Primary Care Provider: Elie Cartagena, - Consult Narrative Reason for consult: Autoimmune hemolytic anemia Narrative: Yobani Linton is a 45 year old male who was recently diagnosed with autoimmune hemolytic anemia and was started on steroid. He was discharged home on 60 mg twice a day steroid dosage with taper of 10 mg every 4th day. He now came into the hospital with generalized swelling and facial edema. He was taking spironolactone without much improvement in the swelling. He was having some shortness of breath but denies any chest pain and cough. Denies any fevers and chills. His glucose was elevated at 355 and lactic acid was 3.2. He was admitted to hospital due to fluid overloaded state and hyperglycemia. He received IV Lasix with improvement in the swelling in already feeling better. Review of Systems - Review of Systems All systems reviewed & are unremarkable except as noted in [facility] and [facility] Medical History: Medical History (Last Reviewed 05/31/20 @ 05:38 by Felipe Ryder MD) Acute dehydration Acute on chronic blood loss anemia Asthma Cirrhosis, alcoholic Diverticulitis Fluid overload H/O: HTN (hypertension) Nausea and vomiting in adult Peripheral neuropathy Family History: Family History (Last Reviewed 05/31/20 @ 05:38 by Felipe Ryder MD) Other Unknown family medical history - Social History Social History: Social History (Last Reviewed 05/31/20 @ 05:38 by Felipe Ryder MD) Gender Identity: Gender identity (if verbalized by the patient): Male Alcohol Use: Alcohol intake: former Drinks per week: 8 Substance Use: Substance use: never Substance use type: does not use Others: Spiritual care concerns: No Smoking Status: Smoking status: Current every day smoker Tobacco type: cigarettes Smoking Pack-years: Smoking packs per day: 0.5 Smoking cigarettes per day: 10.0 Years smoked: 30 Smoking pack-years: 15.00 Meds Home Medications Medication Instructions Recorded Confirmed Type Arnuity Ellipta 1 inh INHALATION DAILY 05/14/20 05/30/20 History gabapentin 400 mg PO QID 05/14/20 05/30/20 History losartan 25 mg PO HS 05/14/20 05/30/20 History sertraline 25 mg PO HS 05/14/20 05/30/20 History metoprolol succinate 25 mg PO DAILY 05/17/20 05/31/20 History fluticasone propionate [Flovent 2 puff INHALATION Q12HRT #1 inh 05/25/20 05/30/20 Rx HFA] nicotine [Nicoderm CQ] 1 patch TRANSDERMAL QAM #7 ea 05/25/20 05/30/20 Rx pantoprazole 40 mg PO Q12HR #60 tablet 05/25/20 05/30/20 Rx spironolactone 25 mg PO DAILY #30 tablet 05/25/20 05/30/20 Rx nystatin 1 ml PO QID 10 Days #40 ml 05/28/20 05/30/20 Rx prednisone 50 mg PO BID 05/30/20 05/30/20 History prednisone 60 mg PO DAILY 05/30/20 05/30/20 History Allergies Allergy/AdvReac Type Severity Reaction Status Date / Time salmeterol Allergy Hives Verified 05/30/20 23:23 Results - Labs CBC & Chem 7: 05/31/20 05:22 05/31/20 05:22 Labs: Short CBC 05/31/20 Range/Units 05:22 WBC 13.7 H (4.5-10.0) K/mm3 Hgb 9.9 L (14.0-18.0) g/dL Hct 30.5 L (42.0-52.0) % Plt Count 336 (150-375) k/mm3 [facility] 05/31/20 05:22 Sodium 136 L Potassium 4.0 Chloride 98 Carbon Dioxide 36 H BUN 11 Creatinine 0.60 L Glucose 128 H Calcium 8.1 L Liver Function 05/31/20 Range/Units 05:22 Total Bilirubin 1.4 H (0.2-1.3) mg/dL AST 55 (17-59) U/L ALT 68 H (4-50) U/L Alkaline Phosphatase 174 H (38-126) U/L Albumin 2.9 L (3.5-5.1) g/dL Assessment and Plan - Additional Plan Autoimmune hemolytic anemia. Patient was diagnosed with bone positive autoimmune hemolytic anemia during the last hospital stage in last month and was started on prednisone 60 mg twice a day. His hemoglobin has significantly improved. Pat
[2020-05-31] MEDS: FUROSEMIDE 20 MG TABLET PO (17:26)
[2020-05-31 17:29] LABS: Glucose Point of Care 206 (65-105)
[2020-05-31] MEDS: INSULIN ASPART (*BKC) 100 UNITS/ML SUB-Q (18:24)
[2020-05-31] MEDS: predniSONE 10 MG TABLET 40 MG PO (18:56)
--- NOTE | 2020-05-31 19:18 | PM.IMPN ---
Progress Note: A&P Assessment and Plan (1) Generalized edema due to fluid overload: Code(s): E87.70 - Fluid overload, unspecified; R60.1 - Generalized edema Status: Acute Assessment and Plan: Likely secondary to liver disease Diuresis Daily BMP Fluid restriction I/O's (2) Cirrhosis, alcoholic: Qualifiers: Ascites presence: with ascites Qualified Code(s): K70.31 - Alcoholic cirrhosis of liver with ascites Code(s): K70.30 - Alcoholic cirrhosis of liver without ascites Status: Acute Assessment and Plan: Stable Continue to monitor Will add Lactulose (3) Tobacco dependence: Code(s): F17.200 - Nicotine dependence, unspecified, uncomplicated Status: Chronic Assessment and Plan: Nicotine patch as needed (4) Transaminitis: Code(s): R74.01 - Elevation of levels of liver transaminase levels Status: Acute Assessment and Plan: Likely secondary to liver disease Will continue to monitor (5) Acute hyponatremia: Code(s): E87.1 - Hypo-osmolality and hyponatremia Status: Acute Assessment and Plan: Hypervolemic hyponatremia. Limit free water intake Diuresing Daily BMP (6) Thrombocytopenia: Code(s): D69.6 - Thrombocytopenia, unspecified Status: Acute Assessment and Plan: Likely secondary to liver disease Continue to monitor Avoid heparin products (7) Normocytic anemia: Code(s): D64.9 - Anemia, unspecified Status: Acute Assessment and Plan: Likely secondary to chronic disease Immune hemolytic anemia On Prednisone taper Follow up in the outpatient therapy (8) Peripheral neuropathy: Code(s): G62.9 - Polyneuropathy, unspecified Status: Chronic Assessment and Plan: Continue Gbapentin. (9) Hemolytic anemia: Qualifiers: Hemolytic anemia type: acquired, autoimmune, other Qualified Code(s): D59.19 - Other autoimmune hemolytic anemia Code(s): D58.9 - Hereditary hemolytic anemia, unspecified Status: Acute Assessment and Plan: On Prednisone taper. (10) Thrush: Code(s): B37.0 - Candidal stomatitis Status: Acute Assessment and Plan: Diflucan 100 mg po daily Discontinued Nystatin. Subjective Date/time seen: 05/31/20 19:18 Patient states that he feels fine. Review of Systems Review of Systems: Narrative: B/L leg swelling Constitutional: Comments: no fevers, no rigors, no chills. ENT: Comments: no nasal congestion. Cardiovascular: Comments: no pnd, no orthopnea, no chest pain. Respiratory: Comments: no cough, no sputum production, no sob. Gastrointestinal: Comments: Abdominal bloating, oral thrush. Genitourinary: Comments: decreased urine output Musculoskeletal: Comments: B/L LE cramps, swelling. Integumentary/Breasts: Comments: no rashes. Neurologic: Comments: no sensory motor deficit. Exam Narrative: Exam Narrative: Lying in bed. Const: General: comfortable, no acute distress, alert, awake, Physically active and other (Chronically ill looking.) Nutritional Appearance: average body habitus Orientation/consciousness: patient oriented x3 HENMT: Head: normocephalic Ears: hearing grossly normal bilaterally General nose exam: Normal external nose present Face and sinus: normal facial exam Eyes: General: appearance normal, both eyes and all related structures Pupils: Equal, round and reactive pupils present EOM: EOMs intact bilaterally Neck: Neck: no lymphadenopathy, supple and no JVD Lymphatic: no lymphadenopathy noted Resp: Effort & Inspection: normal respiratory effort and able to speak in complete sentences Auscultation: clear to auscultation bilaterally Cardio: Jugular venous distension: no JVD Rate: regular rate Rhythm: regular rhythm GI: Inspection: distended GI Palp: Yes Soft to palpation and Yes No hepatosplenomegaly present Percussion: Yes Fluid wave present Skin: Rashes:
[2020-05-31] MEDS: LOSARTAN POTASSIUM 25 MG TABLET PO (20:56)
[2020-05-31] MEDS: SERTRALINE HCL 25 MG TABLET PO (20:56)
[2020-06-01] VITALS (15 sets, daily range): BP systolic 150–163; BP diastolic 55–79; PULSE 71–98; RESP 16–22; TEMP 36.6–36.8; O2SAT 94–100
[2020-06-01] MEDS: NYSTATIN 100,000 UNITS/ML SUSP 5 ML ORAL.SUSP PO ×5 (00:05→23:15)
[2020-06-01 01:29] LABS: Glucose Point of Care 253 (65-105)
[2020-06-01 01:31] LABS: Glucose Point of Care 314 (65-105)
[2020-06-01] MEDS: ALBUTEROL SULFATE NEB 2.5 MG/0.5 ML INH 5 MG INHALATION ×3 (02:56→22:02)
[2020-06-01] MEDS: INSULIN ASPART (*BKC) 100 UNITS/ML SUB-Q ×3 (08:00→17:23)
[2020-06-01] MEDS: FAMOTIDINE 20 MG/2 ML VIAL IV PUSH ×2 (08:03→20:00)
[2020-06-01] MEDS: GABAPENTIN 400 MG CAPSULE PO ×4 (08:04→20:00)
[2020-06-01] MEDS: METOPROLOL SUCCINATE EXT REL 25 MG TABCR PO (08:04)
[2020-06-01] MEDS: FUROSEMIDE 20 MG TABLET PO ×2 (08:04→17:24)
[2020-06-01] MEDS: predniSONE 20 MG TABLET 60 MG PO (08:05)
[2020-06-01] MEDS: SPIRONOLACTONE 25 MG TABLET PO (08:05)
[2020-06-01] MEDS: PANTOPRAZOLE 40 MG TABLET PO ×2 (08:05→20:01)
[2020-06-01] MEDS: NICOTINE (*PBKC) 21 MG PATCH 1 PATCH TRANSDERM (08:05)
[2020-06-01 08:07] LABS: Glucose Point of Care 243 (65-105)
[2020-06-01] MEDS: FLUTICASONE PROP 44 MCG (*SP) 10.6 GM 2 PUFF INHALATION ×2 (09:13→22:02)
[2020-06-01 13:24] LABS: Glucose Point of Care 267 (65-105)
[2020-06-01 17:21] LABS: Glucose Point of Care 316 (65-105)
[2020-06-01] MEDS: predniSONE 10 MG TABLET 40 MG PO (17:26)
[2020-06-01] MEDS: LOSARTAN POTASSIUM 25 MG TABLET PO (20:00)
[2020-06-01] MEDS: SERTRALINE HCL 25 MG TABLET PO (20:01)
[2020-06-01 20:51] LABS: Glucose Point of Care 255 (65-105)
[2020-06-01] MEDS: LORazepam (*CRX) 0.5 MG TABLET PO (23:15)
--- NOTE | 2020-06-01 23:44 | PC.NURSE ---
At 2330 Pt received from IMU in bed. IV intact, supplies sent with pt.
[2020-06-02] VITALS (16 sets, daily range): BP systolic 139–166; BP diastolic 53–86; PULSE 67–774; RESP 16–20; TEMP 36.2–37.2; O2SAT 96–99
[2020-06-02] MEDS: ALBUTEROL SULFATE NEB 2.5 MG/0.5 ML INH 5 MG INHALATION ×4 (03:35→21:26)
[2020-06-02] MEDS: NYSTATIN 100,000 UNITS/ML SUSP 5 ML ORAL.SUSP PO ×2 (05:10→11:47)
[2020-06-02 08:25] LABS: Glucose Point of Care 255 (65-105)
[2020-06-02] MEDS: FAMOTIDINE 20 MG/2 ML VIAL IV PUSH ×2 (08:31→20:14)
[2020-06-02] MEDS: FUROSEMIDE INJ 40 MG/4 ML VIAL IV PUSH ×2 (08:31→17:07)
[2020-06-02] MEDS: GABAPENTIN 400 MG CAPSULE PO ×4 (08:33→20:14)
[2020-06-02] MEDS: PANTOPRAZOLE 40 MG TABLET PO ×2 (08:34→20:14)
[2020-06-02] MEDS: SPIRONOLACTONE 25 MG TABLET PO (08:34)
[2020-06-02] MEDS: predniSONE 20 MG TABLET 60 MG PO (08:36)
[2020-06-02] MEDS: METOPROLOL SUCCINATE EXT REL 25 MG TABCR PO (08:36)
[2020-06-02] MEDS: NICOTINE (*PBKC) 21 MG PATCH 1 PATCH TRANSDERM (08:36)
[2020-06-02] MEDS: INSULIN ASPART (*BKC) 100 UNITS/ML SUB-Q ×3 (08:37→17:07)
[2020-06-02 09:00] LABS: Basophils Percent Auto 0.2 % (0.2-1.2); Hematocrit 34.8 % (42.0-52.0); Hemoglobin 11.3 g/dL (14.0-18.0); Immature Granulocyte Absolute 0.33 K/mm3 (0.00-0.031); Immature Granulocyte Percent A 1.8 % (0-0.5); Lymphocytes Absolute Auto 1.14 K/mm3 (0.9-3.2); Lymphocytes Percent Auto 6.2 % (18.3-44.2); Mean Corpuscular HGB Conc 32.5 g/dl (32-36); Mean Corpuscular Hemoglobin 31.7 pg (26-34); Mean Corpuscular Volume 97.5 fl (80-100); Mean Platelet Volume 9.3 fl (7.4-10.4); Monocytes Absolute Auto 0.8 K/mm3 (0.1-0.6); Monocytes Percent Auto 4.4 % (2.6-8.5); Neutrophils Absolute Auto 16.2 K/mm3 (1.3-6.7); Neutrophils Percent Auto 87.4 % (45.5-73.1); Platelet Count Result 365 k/mm3 (150-375); Red Blood Count 3.57 M/mm3 (4.6-6.20); Red Cell Distribution Width 17.2 % (11.5-14.5); White Blood Count 18.5 K/mm3 (4.5-10.0)
[2020-06-02 09:20] LABS: Anion Gap 7 mmol/L (8-16); Blood Urea Nitrogen 16 mg/dL (9-20); Carbon Dioxide 27 mmol/L (22-30); Chloride 98 mmol/L (98-107); Estimated CRCL calculation 178 ml/min; Estimated Glomerular Filt Rate > 60; Glucose 247 mg/dL (75-110); Magnesium 1.9 mg/dL (1.6-2.3); Phosphorus 3.8 mg/dL (2.5-4.5); Potassium 4.4 mmol/L (3.4-5.0); Sodium 132 mmol/L (137-145)
--- NOTE | 2020-06-02 09:35 | PC.NURSE ---
Received in report from LINO Ricardo that this patient was escorted back to room by security last night 06/01/20 due to walking off of the unit. Reinforced education to patient that he can not leave the floor. Patient may walk the halls, but cannot leave the unit. Patient states he understands this and agrees to not leaving the floor.
[2020-06-02] MEDS: FLUTICASONE PROP 44 MCG (*SP) 10.6 GM 2 PUFF INHALATION ×2 (10:33→21:28)
[2020-06-02 11:46] LABS: Glucose Point of Care 272 (65-105)
[2020-06-02] MEDS: FLUCONAZOLE 100 MG TABLET PO (14:18)
[2020-06-02] MEDS: ALBUMIN HUMAN 25% 25 GM/100 ML 200 ML IVPB ×2 (14:18→21:27)
--- NOTE | 2020-06-02 14:47 | PM.IMPN ---
Progress Note: A&P Assessment and Plan (1) Generalized edema due to fluid overload: Code(s): E87.70 - Fluid overload, unspecified; R60.1 - Generalized edema Status: Acute Assessment and Plan: Diuresing well Fluid restriction I/O's Daily BMP (2) Cirrhosis, alcoholic: Qualifiers: Ascites presence: with ascites Qualified Code(s): K70.31 - Alcoholic cirrhosis of liver with ascites Code(s): K70.30 - Alcoholic cirrhosis of liver without ascites Status: Acute Assessment and Plan: Spironolactone Lactulose (3) Acute hyponatremia: Code(s): E87.1 - Hypo-osmolality and hyponatremia Status: Acute Assessment and Plan: Free water restriction Continue to monitor (4) Thrombocytopenia: Code(s): D69.6 - Thrombocytopenia, unspecified Status: Acute Assessment and Plan: Likely secondary to liver disease. (5) Hemolytic anemia: Qualifiers: Hemolytic anemia type: acquired, autoimmune, other Qualified Code(s): D59.19 - Other autoimmune hemolytic anemia Code(s): D58.9 - Hereditary hemolytic anemia, unspecified Status: Acute Assessment and Plan: On Prednisone taper Will follow up with Hem/Onc in the outpatient setting. (6) Thrush: Code(s): B37.0 - Candidal stomatitis Status: Acute Assessment and Plan: Started Diflucan. (7) Acute hyperglycemia: Code(s): R73.9 - Hyperglycemia, unspecified Status: Acute Assessment and Plan: Likely secondary to oral steroid ISS as needed (8) Peripheral neuropathy: Code(s): G62.9 - Polyneuropathy, unspecified Status: Chronic Assessment and Plan: On Gabapentin. (9) COPD (chronic obstructive pulmonary disease): Qualifiers: COPD type: unspecified COPD Qualified Code(s): J44.9 - Chronic obstructive pulmonary disease, unspecified Code(s): J44.9 - Chronic obstructive pulmonary disease, unspecified Status: Acute Assessment and Plan: Not exacerbated. (10) Tobacco dependence: Code(s): F17.200 - Nicotine dependence, unspecified, uncomplicated Status: Chronic Assessment and Plan: Nicotine patch as needed Subjective Date/time seen: 06/01/20 14:47 States that swelling has improved Patient seen and examined on 06/01/20 Late entry note Review of Systems Review of Systems: Narrative: B/L LE swelling. Constitutional: Comments: no fevers, no rigors, no chills. Cardiovascular: Comments: no chest pain, no pnd, no orthopnea. Respiratory: Comments: no sob, no cough, no sputum production Gastrointestinal: Comments: abdominal bloating. Genitourinary: Comments: urinated large volumes. Musculoskeletal: Comments: b/l le swelling. Integumentary/Breasts: Comments: no rashes Neurologic: Comments: no sensory motor deficit. Exam Narrative: Exam Narrative: Sitting in bed. Const: General: no acute distress, alert, awake and other (Chronically ill looking.) Nutritional Appearance: average body habitus Orientation/consciousness: patient oriented x3 HENMT: Head: normal to inspection and normocephalic Ears: hearing grossly normal bilaterally Face and sinus: normal facial exam Eyes: General: appearance normal, both eyes and all related structures Pupils: Equal, round and reactive pupils present EOM: EOMs intact bilaterally Neck: Neck: no lymphadenopathy, supple and no JVD Resp: Effort & Inspection: normal respiratory effort Auscultation: clear to auscultation bilaterally Cardio: Jugular venous distension: no JVD Rate: regular rate Rhythm: regular rhythm GI: Inspection: distended GI Palp: Yes Soft to palpation and Yes No hepatosplenomegaly present Percussion: Yes Fluid wave present Skin: Rashes: no rashes Neuro: General: patient oriented x3 and CN's II-XI intact bilaterally Cranial nerves: Yes CN's II-XII intact bilaterally and Yes Bilaterally intact EOM present C
--- NOTE | 2020-06-02 15:05 | PM.IMPN ---
Progress Note: A&P Assessment and Plan (1) Generalized edema due to fluid overload: Code(s): E87.70 - Fluid overload, unspecified; R60.1 - Generalized edema Status: Acute Assessment and Plan: Will give Albumin infusion Continue Lasix Free water restriction I/O's (2) Cirrhosis, alcoholic: Qualifiers: Ascites presence: with ascites Qualified Code(s): K70.31 - Alcoholic cirrhosis of liver with ascites Code(s): K70.30 - Alcoholic cirrhosis of liver without ascites Status: Acute Assessment and Plan: Spironolactone Lactulose Continue to monitor (3) Acute hyponatremia: Code(s): E87.1 - Hypo-osmolality and hyponatremia Status: Acute Assessment and Plan: Hypervolemic hyponatremia Free fluid restriction (4) Thrush: Code(s): B37.0 - Candidal stomatitis Status: Acute Assessment and Plan: Diflucan. (5) Hemolytic anemia: Qualifiers: Hemolytic anemia type: acquired, autoimmune, other Qualified Code(s): D59.19 - Other autoimmune hemolytic anemia Code(s): D58.9 - Hereditary hemolytic anemia, unspecified Status: Acute Assessment and Plan: On Prednisone taper. (6) Thrombocytopenia: Code(s): D69.6 - Thrombocytopenia, unspecified Status: Acute Assessment and Plan: Likely secondary to liver disease (7) Acute hyperglycemia: Code(s): R73.9 - Hyperglycemia, unspecified Status: Acute Assessment and Plan: ISS as needed Likely secondary to oral Prednisone (8) Tobacco dependence: Code(s): F17.200 - Nicotine dependence, unspecified, uncomplicated Status: Chronic Assessment and Plan: Nicotine patch as needed (9) Normocytic anemia: Code(s): D64.9 - Anemia, unspecified Status: Acute Assessment and Plan: Anemia of chronic disease (10) Peripheral neuropathy: Code(s): G62.9 - Polyneuropathy, unspecified Status: Chronic Assessment and Plan: On Gabapentin. Subjective Date/time seen: 06/02/20 15:05 Patient states that his legs are almost back to normal Review of Systems Review of Systems: Narrative: No new issues. Constitutional: Comments: no fevers, no rigors, no chills. ENT: Comments: no nasal congestion. Cardiovascular: Comments: no chest pain, no pnd, no orthopnea. Respiratory: Comments: no cough, no sputum production, no sob. Gastrointestinal: Comments: abdominal bloating. Musculoskeletal: Comments: B/L LE swelling. Integumentary/Breasts: Comments: no rashes Neurologic: Comments: no sensory motor deficit. Exam Narrative: Exam Narrative: Sitting in bed. Const: General: cooperative, comfortable, no acute distress, alert, awake and Physically active Nutritional Appearance: average body habitus Orientation/consciousness: patient oriented x3 HENMT: Head: normal to inspection and normocephalic Ears: hearing grossly normal bilaterally General nose exam: Normal external nose present Face and sinus: normal facial exam Eyes: General: appearance normal, both eyes and all related structures Pupils: Equal, round and reactive pupils present EOM: EOMs intact bilaterally Neck: Neck: no lymphadenopathy, supple and no JVD Resp: Effort & Inspection: normal respiratory effort and able to speak in complete sentences Auscultation: clear to auscultation bilaterally Cardio: Jugular venous distension: no JVD Rate: regular rate Rhythm: regular rhythm GI: GI Palp: Yes Soft to palpation and Yes No hepatosplenomegaly present Percussion: Yes Fluid wave present Skin: Rashes: no rashes Neuro: General: patient oriented x3 and CN's II-XI intact bilaterally Cranial nerves: Yes CN's II-XII intact bilaterally and Yes Bilaterally intact EOM present Cognition (Neuro): normal cognition Speech: normal speech Motor exam (neuro): 5/5 motor strength present throughout Extrem: General: pedal edema Objective Data V
[2020-06-02 17:03] LABS: Glucose Point of Care 279 (65-105)
[2020-06-02] MEDS: predniSONE 10 MG TABLET 40 MG PO (17:07)
--- NOTE | 2020-06-02 19:35 | PC.NURSE ---
During hand off report, this patient was found to not be in room or in halls on [facility]. Security called. Patient was found in ICU waiting room getting a soda from the vending machine. Patient returns to room 255 and states he does not care about our rules . Patient is keeping his soda against his fluid restriction.
[2020-06-02] MEDS: LOSARTAN POTASSIUM 25 MG TABLET PO (20:14)
[2020-06-02] MEDS: SERTRALINE HCL 25 MG TABLET PO (20:14)
[2020-06-02] MEDS: LORazepam (*CRX) 0.5 MG TABLET PO (23:38)
[2020-06-02 23:48] LABS: Glucose Point of Care 394 (65-105)
[2020-06-03] MEDS: INSULIN ASPART (*BKC) 100 UNITS/ML SUB-Q ×2 (00:33→12:11)
[2020-06-03 04:00] VITALS: BP 163/63; PULSE 82; RESP 18; TEMP 36.3; O2SAT 94
--- NOTE | 2020-06-03 05:18 | PC.NURSE ---
Started shift and pt left the floor and came back with a full regular soda in hand. I explained to pt he is still on a fluid restriction and he is on a diabetic diet. Pt stated he understood.
[2020-06-03] MEDS: ALBUMIN HUMAN 25% 25 GM/100 ML 200 ML IVPB (06:10)
[2020-06-03] MEDS: FUROSEMIDE INJ 40 MG/4 ML VIAL IV PUSH (08:00)
[2020-06-03] MEDS: FAMOTIDINE 20 MG/2 ML VIAL IV PUSH (08:00)
[2020-06-03 08:06] VITALS: PULSE 86; RESP 18; O2SAT 92
[2020-06-03] MEDS: ALBUTEROL SULFATE NEB 2.5 MG/0.5 ML INH 5 MG INHALATION (08:06)
[2020-06-03] MEDS: FLUTICASONE PROP 44 MCG (*SP) 10.6 GM 2 PUFF INHALATION (08:09)
[2020-06-03 08:13] VITALS: PULSE 86
[2020-06-03] MEDS: predniSONE 20 MG TABLET 60 MG PO (08:13)
[2020-06-03] MEDS: METOPROLOL SUCCINATE EXT REL 25 MG TABCR PO (08:13)
[2020-06-03] MEDS: LACTULOSE 20 GM/30 ML UDC PO (08:13)
[2020-06-03] MEDS: GABAPENTIN 400 MG CAPSULE PO ×2 (08:13→12:10)
[2020-06-03 08:14] VITALS: PULSE 89; RESP 18
[2020-06-03] MEDS: NICOTINE (*PBKC) 21 MG PATCH 1 PATCH TRANSDERM (08:14)
[2020-06-03] MEDS: SPIRONOLACTONE 25 MG TABLET PO (08:14)
[2020-06-03] MEDS: PANTOPRAZOLE 40 MG TABLET PO (08:14)
[2020-06-03] MEDS: FLUCONAZOLE 100 MG TABLET PO (08:14)
[2020-06-03 09:20] LABS: Glucose Point of Care 198 (65-105)
[2020-06-03 09:36] LABS: Anion Gap 12 mmol/L (8-16); Blood Urea Nitrogen 19 mg/dL (9-20); Calcium 10.4 mg/dL (8.4-10.2); Carbon Dioxide 27 mmol/L (22-30); Chloride 101 mmol/L (98-107); Estimated CRCL calculation 151 ml/min; Estimated Glomerular Filt Rate > 60; Glucose 221 mg/dL (75-110); Sodium 140 mmol/L (137-145)
[2020-06-03 10:00] VITALS: BP 148/58; PULSE 74; RESP 18; TEMP 36.3; O2SAT 98
[2020-06-03] MEDS: FUROSEMIDE 80 MG TABLET PO (13:12)
--- NOTE | 2020-06-03 13:36 | PM.DS ---
DS: Admitting Diagnosis Admitting Diagnosis Admitting Diagnosis: (1) Severe sepsis: (2) Diverticulitis: (3) Acute dehydration: (4) Metabolic acidosis with increased anion gap and accumulation of organic acids: (5) Normocytic anemia: (6) Thrombocytopenia: (7) Hypokalemia: (8) Hypoglycemia: (9) Hyperbilirubinemia: R74.01 - Elevation of levels of liver transaminase levels (11) Suspected 2019 novel coronavirus infection: (12) Tobacco dependence: F17.200 - Nicotine dependence, unspecified, uncomplicated Z86.79 - Personal history of other diseases of the circulatory system (14) Peripheral neuropathy: DS: Discharge Diagnosis Discharge Diagnosis (1) Acute hyperglycemia: Code(s): R73.9 - Hyperglycemia, unspecified Status: Acute Assessment and Plan: Likely secondary to steroid use. ISS as needed going home will follow up with her PCP for further decision making (2) Thrush: Code(s): B37.0 - Candidal stomatitis Status: Acute Assessment and Plan: Diflucan was given while inpatient Nystatin as needed in the outpatient setting. (3) Generalized edema due to fluid overload: Code(s): E87.70 - Fluid overload, unspecified; R60.1 - Generalized edema Status: Acute Assessment and Plan: Improved with Lasix and Albumin infusion. (4) Leukocytosis: Qualifiers: Leukocytosis type: unspecified Qualified Code(s): D72.829 - Elevated white blood cell count, unspecified Code(s): D72.829 - Elevated white blood cell count, unspecified Status: Acute Assessment and Plan: Thought to be reactive (5) Cirrhosis, alcoholic: Qualifiers: Ascites presence: with ascites Qualified Code(s): K70.31 - Alcoholic cirrhosis of liver with ascites Code(s): K70.30 - Alcoholic cirrhosis of liver without ascites Status: Acute Assessment and Plan: Will follow up in the outpatient setting. (6) COPD (chronic obstructive pulmonary disease): Qualifiers: COPD type: unspecified COPD Qualified Code(s): J44.9 - Chronic obstructive pulmonary disease, unspecified Code(s): J44.9 - Chronic obstructive pulmonary disease, unspecified Status: Acute Assessment and Plan: Stable Follow up in the outpatient setting. (7) Tobacco dependence: Code(s): F17.200 - Nicotine dependence, unspecified, uncomplicated Status: Chronic Assessment and Plan: Down in daily amount daily (8) Transaminitis: Code(s): R74.01 - Elevation of levels of liver transaminase levels Status: Acute Assessment and Plan: Liver disease Will follow up with GI in the outpatient setting. (9) Thrombocytopenia: Code(s): D69.6 - Thrombocytopenia, unspecified Status: Acute Assessment and Plan: On po steroids Continue to monitor (10) Peripheral neuropathy: Code(s): G62.9 - Polyneuropathy, unspecified Status: Chronic Assessment and Plan: Continue Gabapentin (11) Acute hyponatremia: Code(s): E87.1 - Hypo-osmolality and hyponatremia Status: Acute Assessment and Plan: Improved with free water restriction. (12) Sepsis: Code(s): A41.9 - Sepsis, unspecified organism Status: Acute Assessment and Plan: Ruled out More in line with liver disease process. (13) De Quervain's disease (tenosynovitis): Code(s): M65.4 - Radial styloid tenosynovitis [de Quervain] Status: Acute Assessment and Plan: Ice packs to the area. Avoid NSAID's Tylenol as needed but discretionary use. DS: Summary Hospital Course Hospital Course: A 45 year old male with known history of HTN and peripheral neuropathy who presented to the hospital with a complaint of 1.5 weeks of feeling sick. He describes having LLQ abdominal pain, nausea, vomiting, and diarrhea. Ov
[2020-06-03 14:00] VITALS: BP 163/80; PULSE 78; RESP 18; TEMP 36.9; O2SAT 99
[2020-06-03 14:05] LABS: Glucose Point of Care 259 (65-105)
--- NOTE | 2020-06-04 11:50 | PC.NURSE ---
Addendum entered by Michael Willett RN 06/05/20 10:23: At the beginning of phone call, patient requests to speak with Amaya and requesting to know when she works next. Original Note: Patient called from home to nurses station requesting prescription for insulin. Patient stated he was discharged a couple days ago and has had trouble getting his insulin filled. I reviewed discharge instructions/medications and instructed patient that no insulin was ordered for patient at discharge. It appears they had him on sliding scale insulin orders while hospitalized but no discharge orders for insulin. Patient seemed irritated on the phone and stated he had been in contact with his PCP to get insulin filled. However, his PCP is out of town this week so he needs help getting this taken care of. Yobani stated he was going to have his PCP front office manager call me to get information regarding insulin orders that he had while he was in the hospital. I told patient that I was willing to speak with her if she wanted to call nurses station. However, again repeated that there was no insulin ordered at time of discharge.
--- NOTE | 2020-06-04 12:01 | PC.NURSE ---
Spoke with Rona at Dr. Cartagena's office in regards to patients request for insulin orders. I gave her all the information regarding prednisone ordered at d/c, no insulin orders, etc.
--- NOTE | 2020-06-05 10:00 | PC.NURSE ---
Patient called to nurses station again requesting insulin orders. Reiterated to patient that no insulin was ordered from hospitalist at time of discharge. I personally spoke with LINO Rea from Dr. Cartagena's (his PCP) office yesterday who stated she would notify MD and have issue resolved. Patient states All he did was order me a damn pill and its not doing anything. My blood sugar is still in the 300's. Educated patient, again, that if he has issues regarding blood sugars, he needs to contact his PCP. Attempted to educate him in regards to the effect of steroids on blood sugar results. However, patient not receptive to education and is extremely argumentative on the phone, yelling at me. He requested to speak to Dr. Lopez, Dr. Lopez's occupational therapy manager, and my occupational therapy manager. Notified Parul Correa RN of situation. I reached out to Dr. Cartagena's office and spoke with LINO Rea again. She stated she would call patient and discuss issues with him. Dr. Cartagena ordered Metformin for him and pt is to have f/u appointment Thursday to review blood sugars, etc. Rona returned my phone call after speaking with Yobani and stated all issues were resolved and patient verbalized understanding in POC. At beginning of phone call, pt is requesting to speak to LINO Conde. Pt requesting to know when Amaya is working again.
== END 2020-06-03 14:39 | disposition home or self-care (01) | DRG 424 ==
LOC: ANHED 17:45 → ANH2MED 19:44
PROVIDERS: Emergency Medicine Emergency Medical Services; Admitting Provider Internal Medicine; Emergency Provider Emergency Medicine; PCP Internal Medicine; Visit Provider Internal Medicine
DX: R73.9 Hyperglycemia, unspecified (principal); T38.0X5A Adverse effect of glucocorticoids and synthetic analogues, initial encounter; K70.31 Alcoholic cirrhosis of liver with ascites; J44.9 Chronic obstructive pulmonary disease, unspecified; F17.210 Nicotine dependence, cigarettes, uncomplicated; B37.0 Candidal stomatitis; E87.70 Fluid overload, unspecified; E87.1 Hypo-osmolality and hyponatremia; G62.9 Polyneuropathy, unspecified
CPT/HCPCS: 36415; 71045; 71275; 73218; 80048; 80053; 81001; 82010; 82948; 83036; 83605; 83690; 83735; 83880; 84100; 84484; 85025; 85380; 85610; 85730; 86140; 87040; 93005; 93970; 94640; 96374; 96375; 96376; 97110; 97116; 97161; 97165; 99285; A9270; G0378; G0379; J1815; J1940; J2270; J7512; P9047; Q9967

== ENCOUNTER 2020-06-08 10:46 | Outpatient (CLI) | payer OTHER, SELFPAY ==
[2020-06-08 11:41] LABS: Alanine Aminotransferase 153 U/L (4-50); Albumin Level 4.2 g/dL (3.5-5.1); Alkaline Phosphatase 155 U/L (38-126); Anion Gap 8 mmol/L (8-16); Aspartate Amino Transferase 57 U/L (17-59); Bilirubin,Total 1.1 mg/dL (0.2-1.3); Blood Urea Nitrogen 23 mg/dL (9-20); Calcium 10.2 mg/dL (8.4-10.2); Carbon Dioxide 29 mmol/L (22-30); Chloride 96 mmol/L (98-107); Estimated Glomerular Filt Rate > 60; Glucose 259 mg/dL (75-110); Potassium 4.7 mmol/L (3.4-5.0); Sodium 133 mmol/L (137-145)
== END 2020-06-08 10:47 | disposition home or self-care (01) ==
PROVIDERS: PCP Internal Medicine; Visit Provider Internal Medicine
DX: R73.9 Hyperglycemia, unspecified (principal); R74.01 Elevation of levels of liver transaminase levels
CPT/HCPCS: 36415; 80053

== ENCOUNTER 2020-06-14 15:49 | Outpatient (CLI) | payer OTHER, SELFPAY ==
[2020-06-14 16:00] LABS: Hematocrit 37.8 % (42.0-52.0); Hemoglobin 12.5 g/dL (14.0-18.0); Mean Corpuscular HGB Conc 33.1 g/dl (32-36); Mean Corpuscular Hemoglobin 31.8 pg (26-34); Mean Corpuscular Volume 96.2 fl (80-100); Mean Platelet Volume 9.1 fl (7.4-10.4); Platelet Count Result 194 k/mm3 (150-375); Red Blood Count 3.93 M/mm3 (4.6-6.20); Red Cell Distribution Width 15.5 % (11.5-14.5)
[2020-06-14 17:04] LABS: Anion Gap 11 mmol/L (8-16); Blood Urea Nitrogen 25 mg/dL (9-20); Calcium 10.1 mg/dL (8.4-10.2); Carbon Dioxide 26 mmol/L (22-30); Chloride 92 mmol/L (98-107); Estimated Glomerular Filt Rate > 60; Glucose 310 mg/dL (75-110); Lactate Dehydrogenase 700 U/L (313-618); Potassium 5.6 mmol/L (3.4-5.0); Sodium 129 mmol/L (137-145)
== END 2020-06-14 15:50 | disposition home or self-care (01) ==
LOC: ANHLAB 15:50
PROVIDERS: PCP Internal Medicine; Visit Provider Internal Medicine Hematology & Oncology
DX: D69.3 Immune thrombocytopenic purpura (principal)
CPT/HCPCS: 36415; 80048; 83615; 85027

== ENCOUNTER → 2020-07-02 00:53 | Outpatient (CLI) | payer OTHER, SELFPAY ==
[2020-07-02 20:23] LABS: SARS-CoV-2 RNA PCR Negative
== END ==
PROVIDERS: PCP Internal Medicine; Visit Provider Nurse Practitioner Family
DX: Z01.812 Encounter for preprocedural laboratory examination (principal); Z20.822 Contact with and (suspected) exposure to COVID-19
CPT/HCPCS: C9803; U0003; U0005

== ENCOUNTER 2020-07-05 08:45 | Outpatient (CLI) | payer OTHER, SELFPAY ==
[2020-07-02 10:17] VITALS: BMI 29.5
--- NOTE | ~2020-07-05 | US_ITS ---
EXAMINATION: Consultation US DATE: 07/05/2020 11:06 INDICATION: Elevated liver transaminases. TECHNIQUE: Multiple grayscale ultrasound images of the liver were obtained in anticipation of a plann ed random liver biopsy. Vital signs were obtained of the standard preprocedure preparation which demo nstrated hypotension with blood pressure 90/60 and with tachycardia ranging from 118-129. I spoke wit h patient was in no apparent distress and described no symptoms. He did however relate that the blood pressures were significantly lower than is normal blood pressures with systolics pressures normally in the 130s-140s. The patient was recently diagnosed with diabetes and is newly on insulin. The blood glucose level was obtained which was 118. The patient was given a string of branches and smaller wit h persistent low blood pressures but with slight decrease in heart rate which was remained greater th an 100. The patient is also apparently currently on steroid taper as well as taking diuretics for sec ondary swelling. I suspect the decreased blood pressures and tachycardia may be related to preprocedu re fasting and diuretic use however interpretation is difficult given multiple new medications the ayse rees is taking. On discussion with the patient was elected to defer the procedure, potentially in 2 weeks following completion of the steroid taper. We will Wang to scheduling Time first thing in the mo rning to minimize the amount of daytime fasting and I counseled the patient to hydrate well on the ev ening prior to the procedure. FINDINGS/IMPRESSION: Unremarkable ultrasound images of the liver. As described above the planned and liver biopsy was defe rred due to hypotension and tachycardia for 2 patient remains otherwise asymptomatic. This is of inde terminate etiology but potentially related to dehydration/hypovolemia related to fasting and potentia lly patient's complex medication regime. Reviewed, dictated and finalized at location A.
[2020-07-05 09:57] LABS: INR 0.9; Prothrombin Time 13.2 Seconds (11.1-14.7)
[2020-07-05 10:32] LABS: Glucose Point of Care 119 (65-105)
== END 2020-07-05 08:46 ==
PROVIDERS: Radiology Diagnostic Radiology; PCP Internal Medicine; Visit Provider Nurse Practitioner Family
DX: R74.01 Elevation of levels of liver transaminase levels (principal); E83.110 Hereditary hemochromatosis; I95.9 Hypotension, unspecified; R00.0 Tachycardia, unspecified; E11.9 Type 2 diabetes mellitus without complications; Z79.4 Long term (current) use of insulin
CPT/HCPCS: 36415; 82948; 85610; 99199

== ENCOUNTER 2020-07-10 12:17 | Inpatient (IN) | payer OTHER, SELFPAY ==
[2020-07-10] VITALS (20 sets, daily range): BP systolic 94–130; BP diastolic 57–90; PULSE 90–119; RESP 15–22; TEMP 36.4–37.4; O2SAT 93–98; BMI 28.6
--- NOTE | ~2020-07-10 | CT_ITS ---
EXAMINATION: CTA chest PE protocol DATE: 07/10/2020 17:24 INDICATION: Dyspnea. TECHNIQUE: Computed tomography angiography (CTA) of the chest was performed with 100 mL Omnipaque-350 intravenous contrast timed to evaluate the pulmonary arteries. Coronal maximum intensity projection 3D-reconstructions were created by the technologist. Automated exposure control and iterative reconst ruction technique were employed. The dose-length product was 689.34 mGy-cm. COMPARISON: Chest CT 05/30/2020 FINDINGS: There is a 4 mm nodule in left lower lobe, likely benign. No pleural effusion. The heart si ze is normal. There are coronary artery calcifications. No pericardial effusion. There is no pulmonar y embolus. There is mild thoracic spondylosis. IMPRESSION: 1. No pulmonary embolus. Reviewed, dictated and finalized at location A. IMPRESSION: 1. No pulmonary embolus.
--- NOTE | ~2020-07-10 | XR_ITS ---
EXAMINATION: XR ankle LT min 3V DATE: 07/12/2020 17:59 INDICATION: Left ankle pain and edema. TECHNIQUE: 4 views of left ankle were obtained. COMPARISON: None. FINDINGS: Bone alignment is normal. No fracture. Joint spaces are well maintained. There is ankle sof t tissue swelling. IMPRESSION: 1. No fracture. Reviewed, dictated and finalized at location A. IMPRESSION: 1. No fracture.
--- NOTE | ~2020-07-10 | XR_ITS ---
EXAMINATION: XR chest 2V DATE: 07/10/2020 14:40 INDICATION: Dizziness and weakness TECHNIQUE: frontal view of the chest was obtained. COMPARISON: Chest radiograph dated 05/30/2020 FINDINGS: The lungs remain clear with no focal airspace opacities, pulmonary edema, pleural effusion or pneumot horax. The cardiomediastinal silhouette is normal. Visualized bones and soft tissues are unremarkable . IMPRESSION: 1. No acute cardiopulmonary disease. Reviewed, dictated and finalized at location A.
--- NOTE | ~2020-07-10 | XR_ITS ---
EXAMINATION: XR shoulder LT min 2V EXAM DATE: 07/13/2020 12:46 INDICATION: Chronic left shoulder pain. TECHNIQUE: The following left shoulder projections obtained: frontal projection with internal rotatio n, frontal projection with external rotation, Grashey, and scapular Y view (4+ views). There is no p rior study for comparison. FINDINGS: No evidence of left shoulder rotator cuff calcific tendinosis. There is mild glenohumera l and acromioclavicular joint primary osteoarthritis. There are no acute fractures or dislocations id entified. There is no subcutaneous gas. The soft tissue is unremarkable. There are no radiopaque foreign bodies. IMPRESSION: Mild left shoulder osteoarthritis. Reviewed, dictated and finalized at location A.
--- NOTE | ~2020-07-10 | US_ITS ---
EXAMINATION: US venous doppler [facility] DATE: 07/10/2020 16:56 INDICATION: Lower limb swelling. TECHNIQUE: Grayscale ultrasound images without and with compression and Doppler ultrasound images of the bilateral lower extremity veins were obtained. COMPARISON: Ultrasound 05/30/2020 FINDINGS: The visualized portions of right common femoral vein, profunda (deep) femoral vein, femoral vein, pop liteal vein, peroneal veins, posterior tibial veins, and greater saphenous vein outflow are patent. The visualized portions of left common femoral vein, profunda femoral vein, femoral vein, popliteal v ein, peroneal veins, posterior tibial veins, and greater saphenous vein outflow are patent. IMPRESSION: 1. No deep venous thrombosis. Reviewed, dictated and finalized at location A.
--- NOTE | ~2020-07-10 | XR_ITS ---
EXAMINATION: XR knee LT 3V DATE: 07/12/2020 18:00 INDICATION: Left knee pain. TECHNIQUE: 3 views of left knee were obtained. COMPARISON: None. FINDINGS: Bone alignment is normal. No fracture. There is mild osteoarthritis of lateral and patellof emoral compartments. There is a small knee joint effusion. IMPRESSION: 1. Mild left knee osteoarthritis. 2. Small left knee joint effusion. Reviewed, dictated and finalized at location A.
--- NOTE | ~2020-07-10 | CT_ITS ---
EXAMINATION: CT abdomen pelvis wo con EXAM DATE: 07/11/2020 13:14 INDICATION: Sepsis, recent diverticulitis. TECHNIQUE: Spiral CT of the abdomen and pelvis was performed without contrast. Axial, coronal and s agittal images were reviewed. The dose-length product (DLP) for this examination was 796.89 mGy-cm. The exposure was tailored according to patient size (auto mA exposure control), and iterative recons truction (ASIR) was used as additional dose reduction technique. Comparison is made to prior examinat ion from 05/14/2020. FINDINGS: There is hepatomegaly. Resolution of previously seen hepatic steatosis. Spleen is upper shukla its of normal in size. The pancreas and adrenal glands are unremarkable. Gallbladder is unremarkable. No biliary obstruction. There is no nephrolithiasis or hydronephrosis. The prostate is unremarka ble. Small left inguinal fat-containing hernia. The bladder is unremarkable. There is no retroperit kim or pelvic lymphadenopathy. There is mild scattered arteriosclerotic disease. There is mild sigmoid colonic wall thickening for about 5 cm segment, mild adjacent inflammation agai n noted, more likely uncomplicated diverticulitis than inflammatory cancer. There are mild to moderat e scattered sigmoid diverticula. No abscess or extraluminal gas. The appendix is normal. The stomach and small bowel are unremarkable. There is expected amount of colonic stool. No free intraperiton eal gas. The heart is normal in size. There are no pericardial or pleural effusions. The lung bas es are unremarkable. Chronic bilateral hip avascular necrosis without subchondral collapse. IMPRESSION: 1. Sigmoid diverticulosis with mild adjacent inflammation, uncomplicated diverticulitis more likely than inflammatory cancer. Consider follow-up colonoscopy when acute symptoms resolve. 2. Hepatosplenomegaly. 3. Chronic bilateral hip avascular necrosis. Reviewed, dictated and finalized at location A. IMPRESSION: 1. Sigmoid diverticulosis with mild adjacent inflammation, uncomplicated diver ticulitis more likely than inflammatory cancer. Consider follow-up colonoscopy when acute symptoms resolve. 2. Hepatosplenomegaly. 3. Chronic bilateral hip avascular necrosis.
--- NOTE | ~2020-07-10 | XR_ITS ---
EXAMINATION: XR chest 2V DATE: 07/11/2020 14:59 INDICATION: Hypoxia TECHNIQUE: frontal and lateral views of the chest were obtained. COMPARISON: Chest radiograph and CT dated 07/10/2020 FINDINGS: The lungs remain clear with no focal airspace opacities, pulmonary edema, pleural effusion or pneumot horax. The cardiomediastinal silhouette is normal. Mild thoracic spondylosis. IMPRESSION: 1. No acute cardiopulmonary disease. Reviewed, dictated and finalized at location A.
--- NOTE | 2020-07-10 13:59 | ECG_ITS ---
Measurements Intervals [place] Rate: 116 P: 46 CO: 110 QRS: 39 QRSD: 81 T: 62 QT: 284 QTc: 394 Interpretive Statements SINUS TACHYCARDIA WITH SHORT CO INTERVAL POSSIBLE LEFT ATRIAL ENLARGEMENT PEAKED T WAVES- CONSIDER HYPERKALEMIA OR ISCHEMIA BASELINE ARTIFACT- I, III, AVL, V2 ABNORMAL ECG Electronically Signed On 07-10-2020 14:19:28 CDT by Alvino Draper D.O.
[2020-07-10 14:23] LABS: Hematocrit 35.3 % (42.0-52.0); Mean Corpuscular HGB Conc 31.2 g/dl (32-36); Mean Corpuscular Hemoglobin 30.2 pg (26-34); Mean Platelet Volume 9.6 fl (7.4-10.4); Platelet Count Result 217 k/mm3 (150-375); Red Blood Count 3.64 M/mm3 (4.6-6.20); Red Cell Distribution Width 16.2 % (11.5-14.5); White Blood Count 10.5 K/mm3 (4.5-10.0)
[2020-07-10 14:33] LABS: Alanine Aminotransferase 41 U/L (4-50); Albumin Level 3.3 g/dL (3.5-5.1); Alkaline Phosphatase 205 U/L (38-126); Anion Gap 4 mmol/L (8-16); Aspartate Amino Transferase 31 U/L (17-59); Blood Urea Nitrogen 12 mg/dL (9-20); Calcium 8.7 mg/dL (8.4-10.2); Carbon Dioxide 28 mmol/L (22-30); Chloride 97 mmol/L (98-107); Estimated CRCL calculation 132 ml/min; Estimated Glomerular Filt Rate > 60; Glucose 255 mg/dL (75-110); Potassium 4.7 mmol/L (3.4-5.0); Sodium 129 mmol/L (137-145)
[2020-07-10 14:44] LABS: Band Neutrophils Percent 5 % (0-6); Lymphocytes Absolute Manual 1.05 K/mm3 (1.1-4.5); Lymphocytes Percent Manual 10 % (18-44); Metamyelocytes Percent 1 %; Monocytes Absolute Manual 0.52 K/mm3 (0.1-0.90); Monocytes Percent Manual 5 % (3-9); Neutrophils Absolute Manual 8.82 K/mm3 (1.3-6.7); Neutrophils Percent Manual 79 % (46-73); Platelet Estimate Adequate (Adequate); Stomatocytes 1+ (NORMAL); Total Cells Counted 100
--- NOTE | 2020-07-10 16:01 | ED.WEAKNESS ---
HPI - Weakness General Chief complaint: Weakness Stated complaint: low bp, dizziness, weakness Time Seen by Provider: 07/10/20 16:01 Source: patient Mode of arrival: wheelchair Limitations: no limitations History of Present Illness HPI Narrative: Patient is a 45-year-old male with a history of anemia, ascites secondary to alcohol use, transaminitis, recent diverticulitis with inpatient stay in the hospital who presented to the emergency department for evaluation of generalized weakness. Patient states he has had generalized weakness, shortness of breath and leg swelling over the past 72 hours. He states he has been so weak he has been unable to walk. He denies fever, he does report dry cough. He reports mild sore throat. No rhinorrhea. No recent known Covid contacts. States that he lives alone and has been unable to complete activities of daily living due to his weakness. He denies focal weakness or numbness. He reports leg swelling is greater in his left lower extremity with mild pain in his left foot. No redness. No recent falls or injury. He denies any current chest pain. Shortness of breath is worse with exertion. Patient states that he discontinued his Lasix 3 days ago at the advice of his physician because they will not reportedly do the liver biopsy with hypotension and they were attributing his low blood pressure measurements to the Lasix use. Related Data Home Medications Medication Instructions Recorded Confirmed gabapentin 400 mg PO QID 05/14/20 06/25/20 losartan 25 mg PO HS 05/14/20 06/25/20 sertraline 25 mg PO HS 05/14/20 06/25/20 metoprolol succinate 25 mg PO DAILY 05/17/20 06/25/20 prednisone 50 mg PO BID 05/30/20 06/25/20 albuterol sulfate [ProAir HFA] 2 inh INHALATION BID 06/25/20 06/25/20 furosemide [Lasix] 20 mg PO BID 07/02/20 07/02/20 insulin lispro 6 - 10 unit SUBCUT QID 07/02/20 07/02/20 tramadol 50 mg PO BID PRN 07/02/20 07/02/20 Allergies Allergy/AdvReac Type Severity Reaction Status Date / Time methylprednisolone Allergy Severe Hives Verified 07/10/20 14:06 [[facility]] Review of Systems Review of Systems: Narrative: CONSTITUTIONAL: Denies fever, chills EYES: Denies visual changes ENT: Denies rhinorrhea, congestion, reports sore throat CARDIOVASCULAR: Denies chest pain, palpitations, reports LLE edema RESPIRATORY: Reports dry cough and dyspnea GASTROINTESTINAL: Denies abdominal pain, nausea, vomiting, or diarrhea. GENITOURINARY: Denies dysuria or hematuria. SKIN: Denies rash or itching. MUSCULOSKELETAL: Denies back pain, reports left foot and leg pain NEUROLOGIC: Denies headache, numbness, generalized weakness PMFSH Past Medical History Medical History Acute dehydration Acute on chronic blood loss anemia Asthma Cirrhosis, alcoholic Diverticulitis Fluid overload H/O: HTN (hypertension) Nausea and vomiting in adult Peripheral neuropathy Family History Family History Other Unknown family medical history Social History Social History Smoking packs per day: 0.5 Smoking cigarettes per day: 10.0 Years smoked: 30 Smoking pack-years: 15.00 Smoking status: Current every day smoker Tobacco type: cigarettes Alcohol intake: former Drinks per week: 8 Substance use: never Substance use type: does not use Gender identity (if verbalized by the patient): Male Spiritual care concerns: No Exam Narrative: Exam Narrative: GENERAL: Awake, alert, conversant HEAD: Normocephalic, atraumatic. EYES: PERRLA and EOMI. ENT: Nares clear, no rhinorrhea or epistaxis. Mucous membranes moist. NECK: Supple. CHEST: No respiratory distress,coarse breath sounds bilaterally HEART: Regular rate, sinus rhythm ABDOMEN:Non distended, non tender throughout EXTREMITIES: Decreased ROM in the LLE, 2+ pitting edema LLE to
[2020-07-10 16:50] LABS: Creatine Kinase < 20 U/L (55-170)
[2020-07-10 16:51] LABS: INR 0.9; Lactic Acid Reflex 1.6 mmol/L (0.7-2.1); Prothrombin Time 12.8 Seconds (11.1-14.7)
[2020-07-10 16:52] LABS: Partial Thromboplastin Time 34.3 SECONDS (22.3-36.8)
[2020-07-10 17:01] LABS: D Dimer 3.46 ug/mL (<0.48)
[2020-07-10 17:04] LABS: NT Pro B Type Natriuretic Pept 138 PG/ML (5-100); Troponin I < 0.012 ng/mL (0.000-0.034)
--- NOTE | 2020-07-10 17:28 | PC.NURSE ---
Per Dr Alicia, we will hold on NS bolus d/t patient's hx of fluid overload and hx of CHF.
[2020-07-10] MEDS: oxyCODONE HCL (*CRX) 5 MG TAB IR PO (18:46)
[2020-07-10] MEDS: FUROSEMIDE INJ 40 MG/4 ML VIAL 20 MG IV PUSH (18:47)
[2020-07-10] MEDS: ONDANSETRON INJ 4 MG/2 ML VIAL IV PUSH (18:47)
[2020-07-10 19:06] LABS: Add Urine Microscopic? YES; Appearance Urine Clear (Clear); Bilirubin Urine Negative (Negative); Blood Urine Negative (Negative); Color Urine Amber (Yellow); Glucose Urine UA Negative (Negative); Ketones Urine Negative (Negative); Leukocyte Esterase Ur Negative LEU/UL (Negative); Nitrate Urine Negative (Negative); Protein Urine 1+ mg/dL (Negative); RBC Urine 0-2 /hpf (0-2); Squamous Epithelial Cell Urine Rare /hpf (Few); WBC Urine 0-3 /hpf
[2020-07-10 19:07] LABS: Specific Grav Ur 1.042 (1.001-1.035)
--- NOTE | 2020-07-10 19:11 | PC.NURSE ---
Report given to LINO Negron. Patient care to continue.
--- NOTE | 2020-07-10 21:01 | ADMGEN ---
This patient, Yobani Linton, was admitted to [facility] S[facility] Room 309-01. Patient/family oriented to hospital policies and general routines including ID bracelet, bed and alarms, visiting hours, pain management, procedures, bathroom and other care routines, personal items, smoking policy, room service/diet, and visiting hours. Information on how to activate the Rapid Response Team has been discussed. Patient/Family are encouraged to report perceived risks to care and to ask questions if they do not understand what they are told or what they should do.
--- NOTE | 2020-07-10 21:56 | PM.IMHP ---
H&P: HPI History of Present Illness Date/Time: 07/10/20 21:56 Chief Complaint: LLE swelling and pain+ Narrative: This is a 45-year-old diabetic male with known history chronic liver disease secondary to alcoholism who is currently being treated by Hematology for autoimmune hemolytic anemia and just recently discharged from our hospitalist service a little over a week ago after he was treated for acute diverticulitis as well as generalized edema. The patient reports that since he was discharged home he has been drinking lots of fluids and has noticed increased lower extremity swelling. He also reports that he was told to stop taking his Lasix therapy approximately 2 days ago. The patient complains that his blood pressure has been low in the mornings. He was supposed to have a liver biopsy done although this was canceled because of low blood pressure. Today the patient reported to the emergency room for evaluation of generalized weakness as well as left lower extremity swelling. While in the emergency room his blood pressure has been normal. The patient underwent ultrasound of his left lower extremity which did not demonstrate any acute DVT. Associated symptoms have been orthopnea and exertional shortness of breath. The patient continues to smoke about half a pack of cigarettes daily. Today in the emergency room he underwent CTA chest for PE protocol which was negative for acute pulmonary embolism. Patient was treated with IV Lasix and admitted to the hospital for his left lower extremity swelling. On my encounter with the patient tonight he denies any fevers, chills, shortness of breath other than while laying down, chest pain, abdominal pain, nausea, vomiting, dysuria, hematuria, diarrhea, or rectal bleeding. Patient complains that he has left lower extremity pain due to his swelling. The patient does remark that he was told that his low blood pressure may be secondary to Lasix use. In the emergency room this evening the patient was treated with 20 mg of IV Lasix, Zofran, and oxycodone. The patient continues to be on a prednisone taper as he is being treated for autoimmune hemolytic anemia by hematology. Review of Systems Review of Systems: All systems reviewed & are unremarkable except as noted in HPI and below PMFSH Past Medical History Medical History Acute dehydration Acute on chronic blood loss anemia Asthma Cirrhosis, alcoholic Diverticulitis Fluid overload H/O: HTN (hypertension) Nausea and vomiting in adult Peripheral neuropathy Family History Family History Other Unknown family medical history Social History Social History Smoking packs per day: 0.5 Smoking cigarettes per day: 10.0 Years smoked: 30 Smoking pack-years: 15.00 Smoking status: Light tobacco smoker Tobacco type: cigarettes Alcohol intake: former Drinks per week: 8 Substance use: former Substance use type: does not use Gender identity (if verbalized by the patient): Male Sexual Orientation (if Verbalized by the Patient): Straight or Heterosexual Spiritual care concerns: No Comments Surgical history is reviewed and noncontributory Meds Home Medications and Allergies Home Medications Medication Instructions Recorded Confirmed Type gabapentin 400 mg PO QID 05/14/20 06/25/20 History losartan 25 mg PO HS 05/14/20 06/25/20 History sertraline 25 mg PO HS 05/14/20 06/25/20 History metoprolol succinate 25 mg PO DAILY 05/17/20 06/25/20 History Flovent HFA 2 puff INHALATION Q12HRT #1 inh 05/25/20 06/25/20 Rx pantoprazole 40 mg PO Q12HR #60 tablet 05/25/20 06/25/20 Rx prednisone 50 mg PO BID 05/30/20 06/25/20 History lactulose 20 g PO QAM 99 Days #2970 ml 06/03/20 06/25/20 Rx albuterol sulfate [ProAir HFA] 2 inh INHALATION BID 06/25/20 06/25/20 History furosemide [Lasix] 20 mg
[2020-07-10 22:33] LABS: Glucose Point of Care 208 (65-105)
[2020-07-11] VITALS: BP 103/62; PULSE 112; RESP 20; TEMP 37.8; O2SAT 95
[2020-07-11] MEDS: GABAPENTIN 400 MG CAPSULE PO ×5 (00:13→20:14)
[2020-07-11 00:53] LABS: SARS-CoV-2 RNA PCR Negative
[2020-07-11] MEDS: SERTRALINE HCL 25 MG TABLET PO ×2 (01:08→20:14)
[2020-07-11 04:00] VITALS: BP 98/56; PULSE 138; RESP 20; TEMP 38.6; O2SAT 91
[2020-07-11] MEDS: KETOROLAC 30 MG/ML VIAL (*BKC) IV PUSH (04:22)
[2020-07-11 08:11] LABS: Glucose Point of Care 158 (65-105)
[2020-07-11] MEDS: FLUTICASONE PROP 44 MCG (*SP) 10.6 GM 2 PUFF INHALATION ×2 (08:12→20:18)
[2020-07-11] MEDS: ALBUTEROL SULFATE (*SP) INHALER 2 PUFF INHALATION ×2 (08:12→20:17)
[2020-07-11 08:56] LABS: Basophils Absolute Auto 0.1 K/mm3 (0.0-0.1); Basophils Percent Auto 0.7 % (0.2-1.2); Eosinophils Percent Auto 0.2 % (0-4.4); Hematocrit 34.9 % (42.0-52.0); Hemoglobin 10.8 g/dL (14.0-18.0); Immature Granulocyte Absolute 0.55 K/mm3 (0.00-0.031); Immature Granulocyte Percent A 3.9 % (0-0.5); Lymphocytes Absolute Auto 1.72 K/mm3 (0.9-3.2); Mean Corpuscular HGB Conc 30.9 g/dl (32-36); Mean Corpuscular Hemoglobin 29.8 pg (26-34); Mean Corpuscular Volume 96.1 fl (80-100); Mean Platelet Volume 9.5 fl (7.4-10.4); Monocytes Absolute Auto 0.9 K/mm3 (0.1-0.6); Monocytes Percent Auto 6.6 % (2.6-8.5); Neutrophils Absolute Auto 10.9 K/mm3 (1.3-6.7); Neutrophils Percent Auto 76.6 % (45.5-73.1); Nucleated Red Blood Cells Perc 0.1 % (0.0-0.2); Platelet Count Result 216 k/mm3 (150-375); Red Blood Count 3.63 M/mm3 (4.6-6.20); Red Cell Distribution Width 16.3 % (11.5-14.5); White Blood Count 14.3 K/mm3 (4.5-10.0)
[2020-07-11 09:12] LABS: Alanine Aminotransferase 38 U/L (4-50); Albumin Level 3.2 g/dL (3.5-5.1); Alkaline Phosphatase 191 U/L (38-126); Anion Gap 4 mmol/L (8-16); Aspartate Amino Transferase 42 U/L (17-59); Bilirubin,Total 1.3 mg/dL (0.2-1.3); Blood Urea Nitrogen 18 mg/dL (9-20); Calcium 8.4 mg/dL (8.4-10.2); Carbon Dioxide 28 mmol/L (22-30); Chloride 98 mmol/L (98-107); Estimated CRCL calculation 75 ml/min; Estimated Glomerular Filt Rate > 60; Glucose 164 mg/dL (75-110); Potassium 4.2 mmol/L (3.4-5.0); Sodium 130 mmol/L (137-145)
[2020-07-11 09:25] VITALS: BP 90/60; PULSE 138; PULSE 139; RESP 20; RESP 28; O2SAT 83
[2020-07-11] MEDS: LACTULOSE 20 GM/30 ML UDC PO (09:26)
[2020-07-11] MEDS: PANTOPRAZOLE 40 MG TABLET PO ×2 (09:27→20:14)
[2020-07-11] MEDS: predniSONE 20 MG TABLET PO ×2 (09:27→18:06)
[2020-07-11 09:28] VITALS: BMI 28.6
[2020-07-11] MEDS: FUROSEMIDE INJ 40 MG/4 ML VIAL IV PUSH (09:28)
[2020-07-11 09:55] VITALS: BP 108/57; PULSE 118; RESP 20; TEMP 37.6; O2SAT 3
--- NOTE | 2020-07-11 10:49 | PCPTNOTE ---
Attempted PT evalma. Teresa RN, stated to hold therapy due to low BP. Will try again at later time.
[2020-07-11 12:03] LABS: Glucose Point of Care 245 (65-105)
[2020-07-11] MEDS: INSULIN ASPART (*BKC) 100 UNITS/ML SUB-Q ×2 (13:45→18:11)
[2020-07-11 14:00] VITALS: BP 114/66; PULSE 102; RESP 20; TEMP 37.1; O2SAT 96
--- NOTE | 2020-07-11 14:31 | PM.IMPN ---
Progress Note: A&P Assessment and Plan (1) Septicemia: Code(s): A41.9 - Sepsis, unspecified organism Status: Acute Assessment and Plan: Patient meets criteria for sepsis based on tachycardia, tachypnea, fever, and leukocytosis. Lactic upon presentation was 1.6. Preliminary blood cultures are conflicting with 1/2 bottles with growth of Gram-negative bacilli and 1/2 bottles with growth of Gram-positive bacilli. I spoke with territory account representative from [employer] who states further information should be available this evening. Suspected source of infection is diverticulitis. Begin IV vancomycin and IV Zosyn for both Gram-negative and Gram-positive coverage. Will await further results and narrow antibiotic spectrum appropriately. Begin IV fluids. Check lactic acid Monitor vital signs closely. Acetaminophen as needed for fever Will transfer to IMU for closer monitoring (2) Acute respiratory failure with hypoxia: Code(s): J96.01 - Acute respiratory failure with hypoxia Status: Acute Assessment and Plan: Patient presented with acute dyspnea that was felt to be related to volume overload, however there was no evidence of pulmonary edema on CXR or CTA upon presentation. CTA negative for pulmonary embolism. Upon my initial encounter, he does appear euvolemic with the exception of unilateral lower extremity edema. He developed hypoxia at 83% this morning which resolved with 3 L supplemental O2. Repeat CXR again shows clear lung [place] with no focal opacities, pulmonary edema, pleural effusion, or pneumothorax. Continue supplemental oxygen with goal saturation 90% or above. Wean to goal. Obtain ABG Continue bronchodilators (3) Diverticulitis: Code(s): K57.92 - Diverticulitis of intestine, part unspecified, without perforation or abscess without bleeding Status: Acute Assessment and Plan: He was treated for acute uncomplicated diverticulitis at last hospitalization in May 2020. Repeat CT abdomen/pelvis performed today showed sigmoid diverticulitis with mild adjacent inflammation with uncomplicated diverticulitis as likely cause. This is the suspected source of septicemia. He denies abdominal pain. Continue IV antibiotics as above Consultation to Gastroenterology. Input is appreciated (4) Leg edema, left: Code(s): R60.0 - Localized edema Status: Acute Assessment and Plan: Approximately 1 week ago, patient had bilateral lower extremity edema. Right leg edema improved, however left lower extremity edema persists. He has 2+ pitting edema. No discoloration. Venous Doppler negative for DVT. Cellulitis not suspected. May be secondary to liver disease and hypoalbuminemia. Venous compression considered, however no evidence on exam or imaging to suggest this. Echo reviewed. Elevate extremity Apply med hose Continue low sodium diet. Will hold off on diuresis in light of hypotension and sepsis. (5) Hypoalbuminemia: Code(s): E88.09 - Other disorders of plasma-protein metabolism, not elsewhere classified Status: Acute Assessment and Plan: Likely secondary to chronic liver disease. Albumin levels seem consistent with prior labs Monitor albumin levels Consider IV albumin infusion (6) Hemolytic anemia: Qualifiers: Hemolytic anemia type: acquired, autoimmune, other Qualified Code(s): D59.19 - Other autoimmune hemolytic anemia Code(s): D58.9 - Hereditary hemolytic anemia, unspecified Status: Chronic Assessment and Plan: He follows with hold worker Dr. Zurita. He has been on a steroid taper since May 2020. Continue prednisone taper based on hematology recommendations (7) Hyperglycemia: Code(s): R73.9 - Hyperglycemia, unspecified Status: Chronic Assessment and Plan: Secondary to chronic steroid use. Patient's last hemoglobin A1c was 5.5 (05/30/20). Glucose rev
[2020-07-11 14:53] LABS: Alveolar/Arterial O2 Gradient 36.5 mmHg; Base Excess ABG 1.1 mEq/l (+/-2.0); Fractional Inspired Oxygen 21 %; HCO3 ABG 24.6 mEq/l (22.0-26.0); Oxygen Content ABG 15.1 %vol (16.0-22.0); Oxygen Saturation ABG 95.1 % (95.0-100.0); Oxyhemoglobin 93.3 % THb (90.0-100.0); PCO2 ABG 35.4 mmHg (35.0-45.0); PO2 ABG 70.8 mmHg (80.0-100.0); PO2 FiO2 Ratio Arterial Blood 3.37 %; Total Hemoglobin 11.5 g/dL (12.0-18.0)
[2020-07-11 14:54] LABS: Device ROOM AIR; Modified Allen's Test Pass; Site Drawn LEFT RADIAL
[2020-07-11 15:41] LABS: Lactic Acid Reflex 1.9 mmol/L (0.7-2.1)
[2020-07-11] MEDS: SODIUM CHLORIDE 0.9% IV 1,000 ML 100 ML IV CONT (16:42)
[2020-07-11 18:12] LABS: Glucose Point of Care 290 (65-105)
[2020-07-11 20:00] VITALS: BP 113/56; PULSE 87; PULSE 92; RESP 20; TEMP 36.4; O2SAT 98
--- NOTE | 2020-07-11 20:05 | PC.NURSE ---
This patient, Yobani Linton, was transferred to [IMU ] on 07/11/20 at 1900. [id number] belongings sent with patient. Report given toBILLY [ ]. Appropriate documentation sent with patient.
[2020-07-11 20:14] LABS: Glucose Point of Care 299 (65-105)
[2020-07-11] MEDS: INSULIN GLARGINE (*BKC) 100 UNITS/ML 10 UNITS SUB-Q (20:15)
--- NOTE | 2020-07-11 22:07 | ECHO_ITS ---
Patient Info Name: Yobani Linton Age: 45 years : 1975 Gender: Male Ht: 69 in Wt: 194 lbs BSA: 2.09 m2 HR: 98 bpm BP: 98 / 56 mmHg Heart Rhythm: Sinus Rhythm Exam Date: 07/11/2020 11:24 AM Exam Location: [facility] Pulmonary Exam Room: 309 Patient Status: Inpatient Admit Date: 07/10/2020 Staff Ordering Physician: Felipe Ryder MD Bead Cutter: Treva Alejandra RDCS Attending Provider: Deepika Lees PA-C Referring Physician: Britni GROVE; Exam Type: CA echo doppler color flow Study Info Indications - peripheral edema Complete two-dimensional, color flow and Doppler transthoracic echocardiogram is performed. Summary 1. Complete two-dimensional, color flow and Doppler transthoracic echocardiogram is performed. 2. Left ventricular chamber dimension is mildly enlarged. 3. Left ventricular systolic function is normal, estimated at 60-65%. 4. There is mildly increased left ventricular wall thickness. 5. The left ventricular diastolic function is grade I diastolic dysfunction. 6. There is mild tricuspid valve regurgitation. 7. Mild pulmonary hypertension, estimated pulmonary arterial systolic pressure is 38 mmHg. Left Ventricle Left ventricular chamber dimension is mildly enlarged. Left ventricular systolic function is normal, estimated at 60-65%. There is mildly increased left ventricular wall thickness. The left ventricular diastolic function is grade I diastolic dysfunction. Right Ventricle Right ventricular chamber dimension is normal. Right ventricular systolic function is normal. Left Atria Left atrial chamber dimension is normal. Right Atria Right atrial chamber dimension is normal. Atrial Septum Intact interatrial septum visualized by color flow imaging. Aortic Valve The aortic valve is trileaflet. There is no aortic valve sclerosis. There is no aortic valve stenosis. There is trace aortic valve regurgitation. Pulmonic Valve The pulmonic valve is normal. There is no pulmonic valve stenosis. There is trace pulmonic regurgitation. Mitral Valve The mitral valve has normal leaflets. There is no mitral valve stenosis. There is trace mitral valve regurgitation. Tricuspid Valve The tricuspid valve leaflets are normal. There is no significant tricuspid valve stenosis. There is mild tricuspid valve regurgitation. Mild pulmonary hypertension, estimated pulmonary arterial systolic pressure is 38 mmHg. Pericardium/Pleural The pericardium appears normal. There is no pericardial effusion. Inferior Vena Cava Normal inferior vena cava with >50% collapse upon inspiration consistent with normal right atrial pressure, 10 mmHg. Aorta The aortic root size at the sinus of Valsalva is normal. The prox ascending aorta size is normal. Left Ventricular Outflow Tract Name Value Normal LVOT 2D LVOT Diameter 2.1 cm LVOT Doppler LVOT Peak Velocity 128 cm/s LVOT Peak Gradient 7 mmHg LVOT Mean Gradient 5 mmHg LVOT VTI 22 cm LVOT VT
[2020-07-12] VITALS (14 sets, daily range): BP systolic 120–160; BP diastolic 59–69; PULSE 9–105; RESP 16–20; TEMP 36.4–36.9; O2SAT 92–100
[2020-07-12] MEDS: SODIUM CHLORIDE 0.9% IV 1,000 ML 100 ML IV CONT ×2 (05:20→20:50)
[2020-07-12 05:59] LABS: Basophils Percent Auto 0.4 % (0.2-1.2); Hemoglobin 9.4 g/dL (14.0-18.0); Immature Granulocyte Absolute 0.41 K/mm3 (0.00-0.031); Lymphocytes Absolute Auto 1.58 K/mm3 (0.9-3.2); Lymphocytes Percent Auto 15.4 % (18.3-44.2); Mean Corpuscular HGB Conc 31.3 g/dl (32-36); Mean Corpuscular Hemoglobin 29.7 pg (26-34); Mean Corpuscular Volume 94.9 fl (80-100); Mean Platelet Volume 9.4 fl (7.4-10.4); Monocytes Percent Auto 9.9 % (2.6-8.5); Neutrophils Absolute Auto 7.2 K/mm3 (1.3-6.7); Neutrophils Percent Auto 70.3 % (45.5-73.1); Platelet Count Result 237 k/mm3 (150-375); Red Blood Count 3.16 M/mm3 (4.6-6.20); Red Cell Distribution Width 15.7 % (11.5-14.5); White Blood Count 10.3 K/mm3 (4.5-10.0)
[2020-07-12 06:03] LABS: Alanine Aminotransferase 37 U/L (4-50); Alkaline Phosphatase 157 U/L (38-126); Anion Gap 2 mmol/L (8-16); Aspartate Amino Transferase 30 U/L (17-59); Bilirubin,Total 0.6 mg/dL (0.2-1.3); Blood Urea Nitrogen 18 mg/dL (9-20); Calcium 8.4 mg/dL (8.4-10.2); Carbon Dioxide 30 mmol/L (22-30); Chloride 101 mmol/L (98-107); Estimated CRCL calculation 115 ml/min; Estimated Glomerular Filt Rate > 60; Glucose 195 mg/dL (75-110); Potassium 4.2 mmol/L (3.4-5.0); Sodium 133 mmol/L (137-145)
[2020-07-12] MEDS: predniSONE 20 MG TABLET PO ×2 (07:59→18:20)
[2020-07-12] MEDS: GABAPENTIN 400 MG CAPSULE PO ×4 (08:00→20:28)
[2020-07-12] MEDS: LACTULOSE 20 GM/30 ML UDC PO (08:00)
[2020-07-12] MEDS: FLUTICASONE PROP 44 MCG (*SP) 10.6 GM 2 PUFF INHALATION ×2 (08:02→20:27)
[2020-07-12] MEDS: ALBUTEROL SULFATE (*SP) INHALER 2 PUFF INHALATION ×2 (08:02→20:27)
[2020-07-12 08:34] LABS: Glucose Point of Care 153 (65-105)
[2020-07-12 12:10] LABS: Glucose Point of Care 259 (65-105)
[2020-07-12] MEDS: PANTOPRAZOLE 40 MG TABLET PO ×2 (12:48→20:28)
[2020-07-12] MEDS: INSULIN ASPART (*BKC) 100 UNITS/ML SUB-Q (12:49)
[2020-07-12 16:56] LABS: Glucose Point of Care 172 (65-105)
--- NOTE | 2020-07-12 17:39 | PM.IMPN ---
Progress Note: A&P Assessment and Plan (1) Septicemia: Code(s): A41.9 - Sepsis, unspecified organism Status: Acute Assessment and Plan: Patient meets criteria for sepsis based on tachycardia, tachypnea, fever, and leukocytosis. Lactic was 1.6. BCx growing Proteus 1/2 bottles and Clostridium 1/2 bottles. Suspected source of infection is enteric from diverticulitis. Continue IV Vancomycin. Change Zosyn to Unasyn. (2) Acute respiratory failure with hypoxia: Code(s): J96.01 - Acute respiratory failure with hypoxia Status: Acute Assessment and Plan: Patient presented with acute dyspnea that was felt to be related to volume overload, however there was no evidence of pulmonary edema on CXR or CTA upon presentation. CTA negative for pulmonary embolism. He does appear euvolemic with the exception of mild unilateral lower extremity edema. BLE venous Doppler negative for DVT. He developed hypoxia at 83% yesterday morning which resolved with 3 L supplemental O2. Repeat CXR 07/11 shows clear lung newton. Continue Albuterol. (3) Diverticulitis: Code(s): K57.92 - Diverticulitis of intestine, part unspecified, without perforation or abscess without bleeding Status: Acute Assessment and Plan: He was treated for acute uncomplicated diverticulitis at last hospitalization in May 2020. Repeat CT abdomen/pelvis performed 07/11 showing sigmoid diverticulitis with mild adjacent inflammation with uncomplicated diverticulitis as likely cause. This is the suspected source of septicemia. He denies abdominal pain and exam benign. Check stool cultures. Appreciate GI input. (4) Leg edema, left: Code(s): R60.0 - Localized edema Status: Acute Assessment and Plan: Approximately 1 week ago, patient had bilateral lower extremity edema. Right leg edema improved, however left lower extremity edema persists albeit mild. No discoloration. Venous Doppler negative for DVT. Cellulitis not suspected. Consider septic arthritis given his positive BCx. Order xrays. Ortho consult and consider arthrocentesis. (5) Cirrhosis, alcoholic: Qualifiers: Ascites presence: with ascites Qualified Code(s): K70.31 - Alcoholic cirrhosis of liver with ascites Code(s): K70.30 - Alcoholic cirrhosis of liver without ascites Status: Acute Assessment and Plan: Patietn with chronic liver disease. Albumin levels good at 3. Posibly hemochromatosis related to iron studies. Biopsy being considered but on hold now given the bacteremia. Follow. (6) Hemolytic anemia: Qualifiers: Hemolytic anemia type: acquired, autoimmune, other Qualified Code(s): D59.19 - Other autoimmune hemolytic anemia Code(s): D58.9 - Hereditary hemolytic anemia, unspecified Status: Chronic Assessment and Plan: He follows with logging crew supervisor Dr. Zurita. He has been on a steroid taper since May 2020. Continue prednisone taper based on hematology recommendations (7) Hyperglycemia: Code(s): R73.9 - Hyperglycemia, unspecified Status: Chronic Assessment and Plan: Secondary to chronic steroid use. Patient's last hemoglobin A1c was 5.5 (05/30/20). Glucose reviewed on 07/12. Lantus has been added. Glucose better controlled. Continue AccuCheks covering with sliding scale. Hypoglycemia protocol available as needed. (8) H/O: HTN (hypertension): Code(s): Z86.79 - Personal history of other diseases of the circulatory system Status: Chronic Assessment and Plan: Patient's blood pressure was reviewed on 07/12 Blood pressure remains well controlled. Currently off all antiHTN medications. Continue to monitor BP. (9) Tobacco dependence: Code(s): F17.200 - Nicotine dependence, unspecified, uncomplicated Status: Chronic Assessment and Plan: He smokes about half pack per day. He is in the process of
--- NOTE | 2020-07-12 17:51 | WPDGICN ---
Assessment and Plan Assessment and plan (1) Clostridium perfringens: Code(s): B96.7 - Clostridium perfringens [C. perfringens] as the cause of diseases classified elsewhere Status: Acute Assessment and Plan: bacteremia, ? source- knee pain, pending XR, ask orthopedics to evaluate and may need ID evaluation already on antibiotics he is immunocompromised (cirrhosis, also has been on high dose steroids because autoimmune hemolytic anemia) (2) Cirrhosis, alcoholic: Qualifiers: Ascites presence: with ascites Qualified Code(s): K70.31 - Alcoholic cirrhosis of liver with ascites Code(s): K70.30 - Alcoholic cirrhosis of liver without ascites Status: Acute Assessment and Plan: had egd last hospitalization, had erosive gastritis, no varices supportive care he never had liver biopsy (3) Hemochromatosis associated with mutation in HFE gene: Code(s): E83.110 - Hereditary hemochromatosis Status: Acute Assessment and Plan: noted high ferritin (could be from infection) but also abnormal HFE, he was supposed to get liver biopsy but cancelled after he got sick he will need follow-up with hematology, will consult (4) Elevated ferritin level: Code(s): R79.89 - Other specified abnormal findings of blood chemistry Status: Acute (5) Hemolytic anemia: Qualifiers: Hemolytic anemia type: acquired, autoimmune, other Qualified Code(s): D59.19 - Other autoimmune hemolytic anemia Code(s): D58.9 - Hereditary hemolytic anemia, unspecified Status: Chronic Assessment and Plan: tapering steroids (6) Left knee pain: Code(s): M25.562 - Pain in left knee Status: Acute Assessment and Plan: ? septic arthritis, ortho to evaluate GI Consult Note Consult date/time: 07/12/20 17:51 Reason for consult: cirrhosis HPI: Yobani Linton is a 45 year old male with history of HTN, peripheral neuropathy and alcoholic hepatitis 06/2019, used to drink one fifth vodka daily for 8 years but discontinued over a year ago. I met him during recent hospitalization with diverticulitis and also new diagnosis of cirrhosis. Blood work revealed hemolytic anemia treated by hematology with prednisone taper, work up for cirrhosis also revealed ferritin ~2000, HFE gen C282Y and H63 D, he was supposed to get liver biopsy but cancelled after not feeling well. Also noted more pain in left knee with edema and admitted here. He had ultrasound of his left lower extremity which did not demonstrate any acute DVT. Also had CTA chest for PE protocol which was negative for acute pulmonary embolism. Blood cultures positive for C perfringes and he is on antibiotics. Review of Systems Constitutional: Constitutional: Reports fatigue Eyes: Eyes: Reports no additional eye complaints ENT: Reports Normal hearing present Cardiovascular: Cardiovascular: Denies chest pain Respiratory: Respiratory: Denies dyspnea Gastrointestinal: Gastrointestinal: Denies abdominal pain Genitourinary: Genitourinary: Denies dysuria Musculoskeletal: Musculoskeletal: Reports arthralgias and Reports joint swelling Integumentary/Breasts: Skin/Breast: Denies dry skin Neurologic: Reports system reviewed and no additional complaints, except as documented Psychiatric: Psychiatric: Reports no additional psychiatric complaints [facility] Past Medical History Medical History (Updated 07/12/20 @ 18:04 by Lobo Douglas MD) Acute dehydration Acute on chronic blood loss anemia Asthma Cirrhosis, alcoholic Clostridium perfringens Diverticulitis Elevated ferritin level Fluid overload H/O: HTN (hypertension) Hemochromatosis associated with mutation in HFE gene Left knee pain Nausea and vomiting in adult Peripheral neuropathy Family History Family History Other Unknown family medical history Social History Social History (
[2020-07-12] MEDS: AMPICILLIN SULB 3 GM/NS 100 ML 3 GM/100 ML VIAL IVPB (19:15)
[2020-07-12] MEDS: SERTRALINE HCL 25 MG TABLET PO (20:28)
[2020-07-12] MEDS: INSULIN GLARGINE (*BKC) 100 UNITS/ML 10 UNITS SUB-Q (20:42)
[2020-07-12 21:08] LABS: Glucose Point of Care 213 (65-105)
[2020-07-13] VITALS (15 sets, daily range): BP systolic 141–154; BP diastolic 58–74; PULSE 76–115; RESP 16–20; TEMP 36–37.3; O2SAT 97–100
[2020-07-13] MEDS: AMPICILLIN SULB 3 GM/NS 100 ML 3 GM/100 ML VIAL IVPB ×4 (00:07→17:59)
[2020-07-13 05:09] LABS: Basophils Percent Auto 0.4 % (0.2-1.2); Hematocrit 29.5 % (42.0-52.0); Immature Granulocyte Absolute 0.22 K/mm3 (0.00-0.031); Immature Granulocyte Percent A 2.5 % (0-0.5); Lymphocytes Absolute Auto 1.33 K/mm3 (0.9-3.2); Mean Corpuscular HGB Conc 30.5 g/dl (32-36); Mean Corpuscular Hemoglobin 29.2 pg (26-34); Mean Corpuscular Volume 95.8 fl (80-100); Mean Platelet Volume 9.4 fl (7.4-10.4); Monocytes Absolute Auto 0.8 K/mm3 (0.1-0.6); Monocytes Percent Auto 9.1 % (2.6-8.5); Neutrophils Absolute Auto 6.5 K/mm3 (1.3-6.7); Platelet Count Result 274 k/mm3 (150-375); Red Blood Count 3.08 M/mm3 (4.6-6.20); Red Cell Distribution Width 15.3 % (11.5-14.5); White Blood Count 8.9 K/mm3 (4.5-10.0)
[2020-07-13 05:27] LABS: Alanine Aminotransferase 39 U/L (4-50); Albumin Level 2.9 g/dL (3.5-5.1); Alkaline Phosphatase 155 U/L (38-126); Anion Gap 0 mmol/L (8-16); Aspartate Amino Transferase 42 U/L (17-59); Bilirubin,Total 0.3 mg/dL (0.2-1.3); Blood Urea Nitrogen 14 mg/dL (9-20); Calcium 8.1 mg/dL (8.4-10.2); Carbon Dioxide 29 mmol/L (22-30); Chloride 105 mmol/L (98-107); Estimated CRCL calculation 132 ml/min; Estimated Glomerular Filt Rate > 60; Glucose 135 mg/dL (75-110); Magnesium 1.8 mg/dL (1.6-2.3); Phosphorus 3.2 mg/dL (2.5-4.5); Potassium 3.9 mmol/L (3.4-5.0); Sodium 134 mmol/L (137-145); Uric Acid 4.3 mg/dL (3.5-8.5)
[2020-07-13 08:20] LABS: Glucose Point of Care 126 (65-105)
[2020-07-13] MEDS: PANTOPRAZOLE 40 MG TABLET PO ×2 (08:31→21:48)
[2020-07-13] MEDS: GABAPENTIN 400 MG CAPSULE PO ×4 (08:31→21:48)
[2020-07-13] MEDS: predniSONE 20 MG TABLET PO ×2 (08:31→17:57)
[2020-07-13] MEDS: LACTULOSE 20 GM/30 ML UDC PO (08:32)
[2020-07-13 09:28] LABS: Vancomycin Trough 10.5 ug/mL (10.0-20.0)
--- NOTE | 2020-07-13 11:26 | PM.IMPN ---
Progress Note: A&P Assessment and Plan (1) Septicemia: Code(s): A41.9 - Sepsis, unspecified organism Status: Acute Assessment and Plan: Patient meets criteria for sepsis based on tachycardia, tachypnea, fever, and leukocytosis. Lactic was 1.6. BCx growing Proteus 1/2 bottles and Clostridium 1/2 bottles. Suspected source of infection is enteric from diverticulitis. Continue IV Vancomycin and Unasyn. (2) Acute respiratory failure with hypoxia: Code(s): J96.01 - Acute respiratory failure with hypoxia Status: Acute Assessment and Plan: Patient presented with acute dyspnea that was felt to be related to volume overload, however there was no evidence of pulmonary edema on CXR or CTA upon presentation. CTA negative for pulmonary embolism. He does appear euvolemic with the exception of mild unilateral lower extremity edema. BLE venous Doppler negative for DVT. He developed hypoxia at 83% on 07/11 in the morning which resolved with 3 L supplemental O2. Repeat CXR 07/11 shows clear lung newton. Weaned to room air on 07/12. Continue Albuterol. (3) Diverticulitis: Code(s): K57.92 - Diverticulitis of intestine, part unspecified, without perforation or abscess without bleeding Status: Acute Assessment and Plan: He was treated for acute uncomplicated diverticulitis at last hospitalization in May 2020. Repeat CT abdomen/pelvis performed 07/11 showing sigmoid diverticulitis with mild adjacent inflammation with uncomplicated diverticulitis as likely cause. This is the suspected source of septicemia. He denies abdominal pain and exam benign. Now having diarrhea however but on lactulose which will stop. Stool cultures ordered. Appreciate GI input. Continue Unasyn and Vanco. (4) Leg edema, left: Code(s): R60.0 - Localized edema Status: Acute Assessment and Plan: Approximately 1 week ago, patient had bilateral lower extremity edema. Right leg edema improved, however left lower extremity edema persists albeit mild. No discoloration. Venous Doppler negative for DVT. Cellulitis not suspected. Consider septic arthritis given his positive BCx but good ROM. Uric acid okay. Left knee Xray showing small effusion and OA; left ankle showing edema but no fracture. Ortho consult. Consider arthrocentesis but do not want to introduce bacteria into the joint space since known bacteremia. Also complains of left shoulder pain. Suspect rotator cuff injury. Ortho to evaluate the patietn. (5) Cirrhosis, alcoholic: Qualifiers: Ascites presence: with ascites Qualified Code(s): K70.31 - Alcoholic cirrhosis of liver with ascites Code(s): K70.30 - Alcoholic cirrhosis of liver without ascites Status: Acute Assessment and Plan: Patietn with chronic liver disease. Albumin levels good at 3. Posibly hemochromatosis related to iron studies. Biopsy being considered but on hold now given the bacteremia. GI following. Follow. (6) Hemolytic anemia: Qualifiers: Hemolytic anemia type: acquired, autoimmune, other Qualified Code(s): D59.19 - Other autoimmune hemolytic anemia Code(s): D58.9 - Hereditary hemolytic anemia, unspecified Status: Chronic Assessment and Plan: He follows with certified pedorthotist Dr. Zurita. He has been on a steroid taper since May 2020. Continue prednisone but will hold taper for now since his BP had desean low due to the septicemia. Resume taper based on hematology recommendations closer to discahrge. Hematology consulted. (7) Hyperglycemia: Code(s): R73.9 - Hyperglycemia, unspecified Status: Chronic Assessment and Plan: Secondary to chronic steroid use. Patient's last hemoglobin A1c was 5.5 (05/30/20). Glucose reviewed on 07/13 Lantus has been added. Glucose better controlled. Continue AccuCheks covering with sliding scale. Hypoglycemia protocol available as n
[2020-07-13 12:14] LABS: Glucose Point of Care 208 (65-105)
[2020-07-13] MEDS: NICOTINE (*PBKC) 14 MG PATCH 1 PATCH TRANSDERM (12:27)
--- NOTE | 2020-07-13 12:31 | PM.CNOR ---
Assessment and Plan Assessment and plan (1) Left knee pain: Code(s): M25.562 - Pain in left knee Status: Acute (2) Septicemia: Code(s): A41.9 - Sepsis, unspecified organism Status: Acute (3) Cirrhosis, alcoholic: Qualifiers: Ascites presence: with ascites Qualified Code(s): K70.31 - Alcoholic cirrhosis of liver with ascites Code(s): K70.30 - Alcoholic cirrhosis of liver without ascites Status: Acute Assessment and Plan: I reviewed the radiographs which show mild lateral compartment patellofemoral degenerative changes with an effusion; the ankle joint appears normal. Discussed the care plan with Dr. Macdonald. Knee and leg pain differential includes septic knee, cellulitis, arthritis, pseudogout, gout. We both have concerns about introducing infection in the knee if aspiration is performed, given the sepsis and the soft tissue swelling. History and exam are not definite for infection. The organism has already been identified. Current treatment with antibiotics will cover the knee if infection is present. Effusion is mild thus aspiration is not required. He is on steroids which will treat other inflammatory arthropathies. Thank you for the consultation. Will follow along. History of Present Illness HPI Consult date: 07/13/20 Chief complaint: Peripheral edema, weakness Narrative: Patient complains of acute knee pain. multiple medical problems including diabetes and alcoholic liver cirrhosis. Complained of severe ascites and swelling several weeks ago. Began noticing persistent left knee pain and persistent of the left lower extremity. Denies prior knee pain. Comfortable at rest. History of painful neuropathy. Also complains tenderness in the ankle and foot. Blood cultures positive Proteus and Clostridium. Suspected source of infection is diverticulitis. Currently treated with Zosyn and Unasyn. Review of Systems Review of Systems: All systems reviewed & are unremarkable except as noted in HPI and below PMFSH Past Medical History Medical History Acute dehydration Acute on chronic blood loss anemia Asthma Cirrhosis, alcoholic Clostridium perfringens Diverticulitis Elevated ferritin level Fluid overload H/O: HTN (hypertension) Hemochromatosis associated with mutation in HFE gene Left knee pain Nausea and vomiting in adult Peripheral neuropathy Family History Family History Other Unknown family medical history Social History Social History Smoking packs per day: 0.5 Smoking cigarettes per day: 10.0 Years smoked: 30 Smoking pack-years: 15.00 Smoking status: Light tobacco smoker Tobacco type: cigarettes Alcohol intake: former Drinks per week: 8 Substance use: former Substance use type: does not use Gender identity (if verbalized by the patient): Male Sexual Orientation (if Verbalized by the Patient): Straight or Heterosexual Spiritual care concerns: No Meds Home Medications and Allergies Home Medications Medication Instructions Recorded Confirmed Type gabapentin 400 mg PO QID 05/14/20 07/10/20 History losartan 25 mg PO HS 05/14/20 07/10/20 History sertraline 25 mg PO HS 05/14/20 07/10/20 History metoprolol succinate 25 mg PO DAILY 05/17/20 07/10/20 History Flovent HFA 2 puff INHALATION Q12HRT #1 inh 05/25/20 07/10/20 Rx pantoprazole 40 mg PO Q12HR #60 tablet 05/25/20 07/10/20 Rx prednisone 20 mg PO BID 05/30/20 07/10/20 History lactulose 20 g PO QAM 99 Days #2970 ml 06/03/20 07/10/20 Rx albuterol sulfate [ProAir HFA] 2 inh INHALATION BID 06/25/20 07/10/20 History furosemide [Lasix] 40 mg PO DAILY 07/02/20 07/10/20 History insulin lispro 6 - 10 unit SUBCUT QID 07/02/20 07/10/20 History Klor-Con M20 20 meq PO DAILY 07/10/20 07/10/20 History
[2020-07-13] MEDS: INSULIN ASPART (*BKC) 100 UNITS/ML SUB-Q (12:37)
[2020-07-13] MEDS: METOPROLOL SUCCINATE EXT REL 25 MG TABCR PO (12:52)
[2020-07-13] MEDS: FLUTICASONE PROP 44 MCG (*SP) 10.6 GM 2 PUFF INHALATION ×2 (12:53→21:47)
[2020-07-13] MEDS: ALBUTEROL SULFATE (*SP) INHALER 2 PUFF INHALATION ×2 (12:53→21:47)
--- NOTE | 2020-07-13 15:54 | PCPTNOTE ---
The patient treatment was not able to be completed today. Will plan to continue treatment per plan of care.
[2020-07-13 16:50] LABS: Glucose Point of Care 174 (65-105)
--- NOTE | 2020-07-13 17:31 | WPDGIPROGNO ---
Progress Note: A&P Assessment and Plan (1) Septicemia: Code(s): A41.9 - Sepsis, unspecified organism Status: Acute Assessment and Plan: with C perfringens and now on antibiotics CT scan reviewed, sigmoid diverticulosis with mild adjacent inflammation, uncomplicated diverticulitis more likely than inflammatory cancer. He also was admitted with diverticulitis last month and he was already scheduled to have his colonoscopy in 12 more days as outpatient probably this is source of bacteremia ortho also has evaluated patient because knee pain (2) Clostridium perfringens: Code(s): B96.7 - Clostridium perfringens [C. perfringens] as the cause of diseases classified elsewhere Status: Acute (3) Cirrhosis, alcoholic: Qualifiers: Ascites presence: with ascites Qualified Code(s): K70.31 - Alcoholic cirrhosis of liver with ascites Code(s): K70.30 - Alcoholic cirrhosis of liver without ascites Status: Acute Assessment and Plan: quit months ago, work up also found abnormal HEF with high ferritin ? hemochromatosis he has not had liver biopsy (4) Diverticulitis: Code(s): K57.92 - Diverticulitis of intestine, part unspecified, without perforation or abscess without bleeding Status: Acute Assessment and Plan: denies any abdominal pain but he has diarrhea will need colonoscopy but will defer another 6 weeks to give time to heal (5) Elevated ferritin level: Code(s): R79.89 - Other specified abnormal findings of blood chemistry Status: Acute (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: Code(s): E83.110 - Hereditary hemochromatosis Status: Acute Assessment and Plan: hematology to assess (7) Left knee pain: Code(s): M25.562 - Pain in left knee Status: Acute (8) Leg edema, left: Code(s): R60.0 - Localized edema Status: Acute (9) Hemolytic anemia: Qualifiers: Hemolytic anemia type: acquired, autoimmune, other Qualified Code(s): D59.19 - Other autoimmune hemolytic anemia Code(s): D58.9 - Hereditary hemolytic anemia, unspecified Status: Chronic Assessment and Plan: on steroids by hematology also can follow up with hem-onc if indeed he has hemochromatosis Subjective Date/time seen: 07/13/20 17:31 Interval history: still with diarrhea and left knee pain, denies abdominal pain. Feels tired Review of Systems Review of Systems: All systems reviewed & are unremarkable except as noted in HPI and below Exam Const: General: no acute distress HENMT: General nose exam: Normal nares present Eyes: General: appearance normal, both eyes and all related structures Neck: Neck: supple Resp: Auscultation: clear to auscultation bilaterally Cardio: Rate: regular rate GI: GI Palp: Yes Soft to palpation and No Tenderness to palpation present (GI) Auscultation: normal bowel sounds Skin: General skin exam: normal color Neuro: Speech: normal speech Extrem: Other: left knee swollen, warmth and tender to palpation Psych: Affect: normal affect Objective Data Vital Signs Vital Signs: Vital Signs - 24 hr 07/12/20 18:00 07/12/20 20:00 07/12/20 22:00 Temperature 97.5 F L Pulse Rate 84 92 92 Respiratory Rate 18 Blood Pressure 137/69 Pulse Oximetry 98 07/12/20 23:35 07/13/20 00:00 07/13/20 02:00 Temperature 97.5 F L Pulse Rate 9 L 102 H 86 Respiratory Rate 16 Blood Pressure 160/67 H Pulse Oximetry 100 07/13/20 04:00 07/13/20 06:00 07/13/20 08:00 Temperature 97.2 F L 99.1 F Pulse Rate 91 84 102 H Respiratory Rate 16 18 Blood Pressure 146/74 H 142/71 H Pulse Oximetry 97 98 07/13/20 10:00 07/13/20 12:00 07/13/20 12:52 Temperature 97.9 F Pulse Rate 103 H 99 115 H Respiratory Rate 20 Blood Pressure 154/64 H Pulse Oximetry 100 07/13/20 14:40 07/13/20 16:00 Temperature 97 F L Pulse Rate 105 H 95 Respiratory
[2020-07-13] MEDS: HYDROcodone/acetaminophen (*CRX) 5-325 MG TABLET 1 TAB PO (17:40)
[2020-07-13 21:06] LABS: Glucose Point of Care 222 (65-105)
[2020-07-13] MEDS: SERTRALINE HCL 25 MG TABLET PO (21:48)
[2020-07-13] MEDS: INSULIN GLARGINE (*BKC) 100 UNITS/ML 10 UNITS SUB-Q (21:49)
[2020-07-14] VITALS (13 sets, daily range): BP systolic 125–176; BP diastolic 57–84; PULSE 67–112; RESP 16–20; TEMP 36.4–37.2; O2SAT 94–98
[2020-07-14] MEDS: AMPICILLIN SULB 3 GM/NS 100 ML 3 GM/100 ML VIAL IVPB ×3 (00:15→13:31)
[2020-07-14] MEDS: HYDROcodone/acetaminophen (*CRX) 5-325 MG TABLET 1 TAB PO ×3 (03:03→20:27)
[2020-07-14 05:11] LABS: Basophils Percent Auto 0.2 % (0.2-1.2); Hematocrit 30.8 % (42.0-52.0); Hemoglobin 9.6 g/dL (14.0-18.0); Immature Granulocyte Absolute 0.21 K/mm3 (0.00-0.031); Immature Granulocyte Percent A 2.5 % (0-0.5); Lymphocytes Absolute Auto 1.12 K/mm3 (0.9-3.2); Lymphocytes Percent Auto 13.5 % (18.3-44.2); Mean Corpuscular HGB Conc 31.2 g/dl (32-36); Mean Corpuscular Hemoglobin 30.1 pg (26-34); Mean Corpuscular Volume 96.6 fl (80-100); Monocytes Absolute Auto 0.5 K/mm3 (0.1-0.6); Monocytes Percent Auto 6.3 % (2.6-8.5); Neutrophils Absolute Auto 6.4 K/mm3 (1.3-6.7); Neutrophils Percent Auto 77.5 % (45.5-73.1); Platelet Count Result 271 k/mm3 (150-375); Red Blood Count 3.19 M/mm3 (4.6-6.20); Red Cell Distribution Width 15.3 % (11.5-14.5); White Blood Count 8.3 K/mm3 (4.5-10.0)
[2020-07-14 05:41] LABS: Anion Gap 4 mmol/L (8-16); Blood Urea Nitrogen 11 mg/dL (9-20); CRP 5.7 mg/dL (<1.0); Calcium 8.4 mg/dL (8.4-10.2); Carbon Dioxide 27 mmol/L (22-30); Chloride 104 mmol/L (98-107); Estimated CRCL calculation 156 ml/min; Estimated Glomerular Filt Rate > 60; Glucose 125 mg/dL (75-110); Magnesium 1.7 mg/dL (1.6-2.3); Phosphorus 4.3 mg/dL (2.5-4.5); Potassium 3.7 mmol/L (3.4-5.0); Sodium 135 mmol/L (137-145)
[2020-07-14 08:39] LABS: Glucose Point of Care 116 (65-105)
[2020-07-14] MEDS: predniSONE 20 MG TABLET PO ×2 (08:54→18:10)
[2020-07-14] MEDS: METOPROLOL SUCCINATE EXT REL 25 MG TABCR PO (08:54)
[2020-07-14] MEDS: PANTOPRAZOLE 40 MG TABLET PO ×2 (08:54→20:37)
[2020-07-14] MEDS: GABAPENTIN 400 MG CAPSULE PO ×4 (08:54→20:27)
[2020-07-14] MEDS: FUROSEMIDE 40 MG TABLET PO (08:54)
[2020-07-14] MEDS: POTASSIUM CHLORIDE 20 MEQ TABLET PO (08:55)
[2020-07-14] MEDS: ALBUTEROL SULFATE (*SP) INHALER 2 PUFF INHALATION ×2 (08:55→20:26)
[2020-07-14] MEDS: NICOTINE (*PBKC) 14 MG PATCH 1 PATCH TRANSDERM (08:55)
[2020-07-14] MEDS: FLUTICASONE PROP 44 MCG (*SP) 10.6 GM 2 PUFF INHALATION ×2 (08:56→20:26)
[2020-07-14 12:29] LABS: Glucose Point of Care 142 (65-105)
--- NOTE | 2020-07-14 14:21 | PM.IMPN ---
Progress Note: A&P Assessment and Plan (1) Septicemia: Code(s): A41.9 - Sepsis, unspecified organism Status: Acute Assessment and Plan: Patient meets criteria for sepsis based on tachycardia, tachypnea, fever, and leukocytosis with positive BCx. Lactic was 1.6. BCx growing Proteus 1/2 bottles and Clostridium 1/2 bottles. Suspected source of infection is enteric from diverticulitis. Continue IV Vancomycin and Unasyn. ID consult gived also the possibility of septic arthritis. (2) Acute respiratory failure with hypoxia: Code(s): J96.01 - Acute respiratory failure with hypoxia Status: Acute Assessment and Plan: Patient presented with acute dyspnea that was felt to be related to volume overload, however there was no evidence of pulmonary edema on CXR or CTA upon presentation. CTA negative for pulmonary embolism. He does appear euvolemic with the exception of mild unilateral lower extremity edema. BLE venous Doppler negative for DVT. He developed hypoxia at 83% on 07/11 in the morning which resolved with 3 L supplemental O2. Repeat CXR 07/11 shows clear lung newton. Weaned to room air on 07/12. Continue Albuterol. Lasix resumed and he is voiding well. (3) Diverticulitis: Code(s): K57.92 - Diverticulitis of intestine, part unspecified, without perforation or abscess without bleeding Status: Acute Assessment and Plan: He was treated for acute uncomplicated diverticulitis at last hospitalization in May 2020. Repeat CT abdomen/pelvis performed 07/11 showing sigmoid diverticulitis with mild adjacent inflammation with uncomplicated diverticulitis as likely cause. This is the suspected source of septicemia. He denies abdominal pain and exam benign. Now having diarrhea but was on lactulose which has been stopped. Appreciate GI input. Continue Unasyn and Vanco. (4) Leg edema, left: Code(s): R60.0 - Localized edema Status: Acute Assessment and Plan: Approximately 1 week ago, patient had bilateral lower extremity edema. Right leg edema improved, however left lower extremity edema persists albeit mild. No discoloration. Venous Doppler negative for DVT. Cellulitis not suspected. Uric acid okay. Left knee Xray showing small effusion and OA; left ankle showing edema but no fracture. Consider septic arthritis given his positive BCx. Ortho consulted and discussed. Consider arthrocentesis but do not want to introduce bacteria into the joint space since known bacteremia. Will consult ID for further recommendations. (5) Cirrhosis, alcoholic: Qualifiers: Ascites presence: with ascites Qualified Code(s): K70.31 - Alcoholic cirrhosis of liver with ascites Code(s): K70.30 - Alcoholic cirrhosis of liver without ascites Status: Acute Assessment and Plan: Patient with chronic liver disease. Albumin levels good at 3. Possibly hemochromatosis related to iron studies. Biopsy being considered but on hold now given the bacteremia. GI following. Follow. (6) Hemolytic anemia: Qualifiers: Hemolytic anemia type: acquired, autoimmune, other Qualified Code(s): D59.19 - Other autoimmune hemolytic anemia Code(s): D58.9 - Hereditary hemolytic anemia, unspecified Status: Chronic Assessment and Plan: He follows with granite block paver Dr. Zurita. He has been on a steroid taper since May 2020. Hgb 11 on admisison but dropped to the 9 range and has been stable. Continue prednisone but will hold taper for now since his BP had desean low due to the septicemia. Resume taper based on hematology recommendations closer to discharge. (7) Hyperglycemia: Code(s): R73.9 - Hyperglycemia, unspecified Status: Chronic Assessment and Plan: Secondary to chronic steroid use. Patient's last hemoglobin A1c was 5.5 (05/30/20). Glucose reviewed on 07/14 Lantus has been added. Glucose better controlled. Cont
--- NOTE | 2020-07-14 15:07 | PCPTNOTE ---
Patient refused treatment this session due to being to tired from taking his pain medicine.
--- NOTE | 2020-07-14 17:49 | WPDGIPROGNO ---
Progress Note: A&P Additional Plan GI Adolph lianne Stanford 14 Jul 2020 No AP, N, V, BRBPR, melena. Madelin po VSS soft/NT Hct 31. WBC 8 A. Recurrent/non-resolving diverticulitis: - Complicated by C. perfinges sepsis - Continue ABX - If patient fails to resolve long enough to get colonoscopy consider Hypaque LGI and Surgery B. Alcoholic cirrhosis with ascities: - Currently well compensated - May also have Hemochromatosis - Possible liver lab evaluation and biopsy per Dr. Stanford Further recommendations per Dr. Stanford. Thanks, [facility] [phone] Subjective Date/time seen: 07/14/20 17:49 Objective Data Vital Signs Vital Signs: Vital Signs - 24 hr 07/13/20 18:00 07/13/20 19:44 07/13/20 20:00 Temperature 36.0 C L Pulse Rate 77 78 76 Respiratory Rate 16 Blood Pressure 141/69 H Pulse Oximetry 98 07/13/20 22:00 07/13/20 23:20 07/14/20 00:00 Temperature 36.3 C L Pulse Rate 79 79 74 Respiratory Rate 18 Blood Pressure 153/71 H Pulse Oximetry 98 07/14/20 02:00 07/14/20 04:00 07/14/20 06:00 Temperature 36.4 C L Pulse Rate 79 79 80 Respiratory Rate 16 Blood Pressure 147/63 H Pulse Oximetry 94 07/14/20 08:00 07/14/20 08:54 07/14/20 10:00 Temperature 37.1 C Pulse Rate 93 112 H 97 Respiratory Rate 16 Blood Pressure 176/84 H Pulse Oximetry 96 07/14/20 11:58 07/14/20 12:00 07/14/20 14:00 Temperature 36.9 C Pulse Rate 91 94 98 Respiratory Rate 18 Blood Pressure 158/59 H Pulse Oximetry 94 07/14/20 16:00 Temperature 36.4 C L Pulse Rate 78 Respiratory Rate 16 Blood Pressure 125/57 L Pulse Oximetry 98 Intake/Output Intake/Output: Intake & Output 07/11/20 07/12/20 07/13/20 07/14/20 23:59 23:59 23:59 23:59 Intake Total 1320 5000 3831 930 Output Total 1100 2380 1400 4250 Balance 220 2620 2431 -3320 Meds/Results Medications: Active Medications Generic Name Dose Route Start Last Admin Trade Name Freq PRN Reason Stop Dose Admin Acetaminophen 650 mg 07/13/20 11:59 Acetaminophen 325 Mg Tablet PO Q6H PRN Pain Rated 5 or Less Hydrocodone Bitart/Acetaminophen 1 tab 07/13/20 11:59 07/14/20 14:18 Hydrocodone/Acetaminophen (*Crx) 5-325 Mg Tablet PO 1 tab Q6H PRN Administration Pain Rated 6 or Greater Albuterol 2 puff 07/11/20 08:00 07/14/20 08:55 Albuterol Sulfate (*Sp) Inhaler INHALATION 2 puff Q12HRT SINDI Administration Dextrose 12.5 gm 07/10/20 22:13 Dextrose 50% 25 Gm/50 Ml Syringe IV PUSH PRN PRN Hypoglycemia Protocol Fluticasone Propionate 2 puff 07/11/20 08:00 07/14/20 08:56 Fluticasone Prop 44 Mcg (*Sp) 10.6 Gm INHALATION 2 puff Q12HRT SINDI Administration Furosemide 40 mg 07/14/20 09:00 07/14/20 08:54 Furosemide 40 Mg Tablet PO 40 mg DAILY SINDI Administration Gabapentin 400 mg 07/10/20 22:25 07/14/20 13:32 Gabapentin 400 Mg Capsule PO 400 mg QID SINDI Administration Glucagon 1 mg 07/10/20 22:13 Glucagon For Inj 1 Mg Vial IM PRN PRN Hypoglycemia Protocol Glucose 15 gm 07/10/20 22:13 Glucose Oral Gel 15 Gm Of Glucse In 37.5 Gm Tube PO PRN PRN Hypoglycemia Protocol Dextrose 1,000 mls @ 100 mls/hr 07/10/20 22:13 Dextrose 5% 1,000 Ml IVPB PRN PRN Hypoglycemia Protocol Piperacillin Sod/Tazobactam Sod 4.5 gm in 100 mls @ 200 mls/hr 07/14/20 18:00 Zosyn 4.5 Gm/D5w 100 Ml IVPB Q8H [facility] Insulin Aspart 3 - 6 units 07/11/20 08:00 07/14/20 17:43 Insulin Aspart (*Bkc) 100 Units/Ml SUB-Q Not Given TIDWM [facility] Protocol Insulin Glargine 10 units 07/11/20 21:00 07/13/20 21:49 Insulin Glargine (*Bkc) 100 Units/Ml SUB-Q 10 units HS SINDI Administration Lactulose 20 gm 07/11/20 09:00 07/13/20 08:32 Lactulose 20 Gm/30 Ml Udc PO 20 gm QAM SINDI Administration Metoprolol Succinate 25 mg 07/15/20 09:00 Metoprolol Succinate Ext Rel 25 Mg Tabcr PO
[2020-07-14 18:52] LABS: Glucose Point of Care 167 (65-105)
--- NOTE | 2020-07-14 19:18 | WPDCN ---
Assessment and Plan Assessment and plan (1) Bacteremia: Code(s): R78.81 - Bacteremia Status: Acute Assessment and Plan: Diverticulitis (2) Diverticulitis: Code(s): K57.92 - Diverticulitis of intestine, part unspecified, without perforation or abscess without bleeding Status: Acute (3) Cirrhosis, alcoholic: Qualifiers: Ascites presence: with ascites Qualified Code(s): K70.31 - Alcoholic cirrhosis of liver with ascites Code(s): K70.30 - Alcoholic cirrhosis of liver without ascites Status: Acute Additional Plan 1. Bacteremia due to mixed organism including Proteus mirabilis and Clostridium perfringens. Source of infection most likely diverticulitis. CT scan of the abdomen and pelvis showed residual diverticulitis. On admission patient had an elevated white count and blood cultures showing Clostridium perfringens and Proteus mirabilis. Proteus mirabilis is pansensitive. Patient was being treated on ampicillin and vancomycin. Switch to Zosyn monotherapy. Repeat blood cultures x2 set in the next 24-48 hours. 2. Diverticulitis with residual inflammation on CT scan on this admission. Patient was recently treated for diverticulitis approximately a month ago. At that time patient was treated with conservative management of bowel rest and IV antibiotics therapy. 3. Cirrhosis of the liver secondary to heavy alcohol abuse. Patient has abstained from alcohol for the past 2 years. No decompensation. 4. Left knee swelling and pain. Patient has not had arthrocentesis done this admission. Patient stated that arthrocentesis was on hold due to his bacteremia. Differential diagnosis includes septic arthritis versus gouty arthritis. Patient is being empirically treated on antibiotics. HPI Data of Consult Date/Time: 07/14/20 19:18 Requesting Physician: Karl Macdonald MD Primary Care Provider: Elie CartagenaMD Consult Narrative Narrative: Yobani Linton is a 45 year old male with significant past medical history for recent diverticulitis treated approximately a month ago conservatively, cirrhosis of the liver, hemolytic anemia being treated by Hematology-Oncology was discharged home approximately a week prior to admission returns to the hospital complaining of left lower extremity/knee swelling and pain. [place] [id number] and at that time a CT scan of the abdomen and pelvis repeated showed residual diverticulitis. Blood cultures from the 10 July 2020 are showing Clostridium perfringens and Proteus mirabilis. Requested to see him for further evaluation. Currently white count had normalized. No abdominal pain. Still has significant left knee tenderness. Patient has been treated on ampicillin and vancomycin. Review of Systems Constitutional: Constitutional: Reports chills (History of chills prior to admission) Eyes: Eyes: Reports no additional eye complaints ENT: Reports system reviewed and no additional complaints, except as documented Cardiovascular: Cardiovascular: Reports no additional cardiovascular complaints Respiratory: Respiratory: Reports no additional respiratory complaints Gastrointestinal: Gastrointestinal: Reports no additional gastrointestinal complaints Genitourinary: Genitourinary: Reports no additional male genitourinary complaints Musculoskeletal: Musculoskeletal: Reports joint swelling (Left knee and joint pain) Integumentary/Breasts: Skin/Breast: Reports system reviewed and no additional complaints, except as docu Neurologic: Reports system reviewed and no additional complaints, except as documented Psychiatric: Psychiatric: Reports no additional psychiatric complaints Endocrine: Endocrine: Reports no additional endocrine complaints Hematologic/Lymphatic: Hematologic/Lymphatic: Reports no additional hematologic/lymphatic complaints Allergic/Immunologic: Allergic/Immunologic: Reports no additional
--- NOTE | 2020-07-14 19:32 | WPDCN ---
HPI Data of Consult Date/Time: 07/14/20 19:32 Requesting Physician: Karl Macdonald MD Primary Care Provider: Elie Cartagena, Consult Narrative Narrative: Yobani Linton is a 45 year old male presented to the hospital with left lower extremity pain PMFSH Past Medical History Medical History (Updated 07/14/20 @ 19:32 by Quincy Gamble MD) Acute dehydration Acute on chronic blood loss anemia Asthma Cirrhosis, alcoholic History of alcoholic cirrhosis currently abstain from alcohol x2 years. No history of complication or decompensation. Clostridium perfringens Diverticulitis History of acute diverticulitis recently treated. Repeat CT scan showed residual inflammatory changes. Currently no abdominal pain or fever. No diarrhea. May require colonoscopy in the future. Elevated ferritin level Fluid overload H/O: HTN (hypertension) Hemochromatosis associated with mutation in HFE gene Left knee pain Nausea and vomiting in adult Peripheral neuropathy Family History Family History Other Unknown family medical history Social History Social History Smoking packs per day: 0.5 Smoking cigarettes per day: 10.0 Years smoked: 30 Smoking pack-years: 15.00 Smoking status: Light tobacco smoker Tobacco type: cigarettes Alcohol intake: former Drinks per week: 8 Substance use: former Substance use type: does not use Gender identity (if verbalized by the patient): Male Sexual Orientation (if Verbalized by the Patient): Straight or Heterosexual Spiritual care concerns: No Meds Home Medications and Allergies Home Medications Medication Instructions Recorded Confirmed Type gabapentin 400 mg PO QID 05/14/20 07/10/20 History losartan 25 mg PO HS 05/14/20 07/10/20 History sertraline 25 mg PO HS 05/14/20 07/10/20 History metoprolol succinate 25 mg PO DAILY 05/17/20 07/10/20 History Flovent HFA 2 puff INHALATION Q12HRT #1 inh 05/25/20 07/10/20 Rx pantoprazole 40 mg PO Q12HR #60 tablet 05/25/20 07/10/20 Rx prednisone 20 mg PO BID 05/30/20 07/10/20 History lactulose 20 g PO QAM 99 Days #2970 ml 06/03/20 07/10/20 Rx albuterol sulfate [ProAir HFA] 2 inh INHALATION BID 06/25/20 07/10/20 History furosemide [Lasix] 40 mg PO DAILY 07/02/20 07/10/20 History insulin lispro 6 - 10 unit SUBCUT QID 07/02/20 07/10/20 History Klor-Con M20 20 meq PO DAILY 07/10/20 07/10/20 History Allergies Allergy/AdvReac Type Severity Reaction Status Date / Time methylprednisolone Allergy Severe Hives Verified 07/10/20 14:06 [[facility]] Vital Signs Vital Signs - 24 hr 07/13/20 19:44 07/13/20 20:00 07/13/20 22:00 Temperature 36.0 C L Pulse Rate 78 76 79 Respiratory Rate 16 Blood Pressure 141/69 H Pulse Oximetry 98 07/13/20 23:20 07/14/20 00:00 07/14/20 02:00 Temperature 36.3 C L Pulse Rate 79 74 79 Respiratory Rate 18 Blood Pressure 153/71 H Pulse Oximetry 98 07/14/20 04:00 07/14/20 06:00 07/14/20 08:00 Temperature 36.4 C L 37.1 C Pulse Rate 79 80 93 Respiratory Rate 16 16 Blood Pressure 147/63 H 176/84 H Pulse Oximetry 94 96 07/14/20 08:54 07/14/20 10:00 07/14/20 11:58 Temperature 36.9 C Pulse Rate 112 H 97 91 Respiratory Rate 18 Blood Pressure 158/59 H Pulse Oximetry 94 07/14/20 12:00 07/14/20 14:00 07/14/20 16:00 Temperature 36.4 C L Pulse Rate 94 98 78 Respiratory Rate 16 Blood Pressure 125/57 L Pulse Oximetry 98 Results Labs CBC & Chem 7: 07/14/20 04:29 07/14/20 04:29 Labs: Short CBC 07/14/20 Range/Units 04:29 WBC 8.3 (4.5-10.0) K/mm3 Hgb 9.6 L (14.0-18.0) g/dL Hct 30.8 L (42.0-52.0) % Plt Count 271 (150-375) k/mm3 BMP 07/14/20 04:29 Sodium 135 L Potassium 3.7 Chloride 104 Carbon Dioxide 27 BUN 11 Creatinine 0.50 L Glucose
[2020-07-14] MEDS: INSULIN GLARGINE (*BKC) 100 UNITS/ML 10 UNITS SUB-Q (20:28)
[2020-07-14] MEDS: SERTRALINE HCL 25 MG TABLET PO (20:37)
[2020-07-14 21:15] LABS: Glucose Point of Care 207 (65-105)
--- NOTE | 2020-07-14 22:44 | PC.NURSE ---
This patient, Yobani Linton, was admitted to [address] [place] [address] Room 328 @ 22:40 via wheelchair. Patient/family oriented to hospital policies and general routines including ID bracelet, bed and alarms, visiting hours, pain management, procedures, bathroom and other care routines, personal items, smoking policy, room service/diet, and visiting hours. Information on how to activate the Rapid Response Team has been discussed. Patient/Family are encouraged to report perceived risks to care and to ask questions if they do not understand what they are told or what they should do.
--- NOTE | 2020-07-14 23:10 | PC.NURSE ---
This patient, Yobani Linton, was transferred to [[id number] ] on 07/14/20 at 2240. Personal belongings sent with patient. Report given to [Janina ]. Appropriate documentation sent with patient.
[2020-07-15] MEDS: HYDROcodone/acetaminophen (*CRX) 5-325 MG TABLET 1 TAB PO ×3 (02:30→18:26)
[2020-07-15 04:00] VITALS: BP 136/64; PULSE 67; RESP 20; TEMP 36.2; O2SAT 95
[2020-07-15 06:08] LABS: Hematocrit 31.3 % (42.0-52.0); Hemoglobin 9.9 g/dL (14.0-18.0); Mean Corpuscular HGB Conc 31.6 g/dl (32-36); Mean Corpuscular Hemoglobin 29.7 pg (26-34); Mean Platelet Volume 8.9 fl (7.4-10.4); Platelet Count Result 313 k/mm3 (150-375); Red Blood Count 3.33 M/mm3 (4.6-6.20); Red Cell Distribution Width 15.2 % (11.5-14.5); White Blood Count 10.2 K/mm3 (4.5-10.0)
[2020-07-15 06:22] LABS: Anion Gap 2 mmol/L (8-16); Blood Urea Nitrogen 13 mg/dL (9-20); Calcium 8.5 mg/dL (8.4-10.2); Carbon Dioxide 32 mmol/L (22-30); Chloride 100 mmol/L (98-107); Estimated CRCL calculation 132 ml/min; Estimated Glomerular Filt Rate > 60; Glucose 143 mg/dL (75-110); Potassium 3.7 mmol/L (3.4-5.0); Sodium 134 mmol/L (137-145)
[2020-07-15 07:30] LABS: Glucose Point of Care 132 (65-105)
[2020-07-15] MEDS: PANTOPRAZOLE 40 MG TABLET PO ×2 (09:41→20:11)
[2020-07-15] MEDS: POTASSIUM CHLORIDE 20 MEQ TABLET PO (09:41)
[2020-07-15] MEDS: predniSONE 20 MG TABLET PO (09:41)
[2020-07-15] MEDS: GABAPENTIN 400 MG CAPSULE PO ×4 (09:41→20:11)
[2020-07-15] MEDS: FUROSEMIDE 40 MG TABLET PO (09:41)
[2020-07-15 09:42] VITALS: PULSE 67
[2020-07-15] MEDS: NICOTINE (*PBKC) 14 MG PATCH 1 PATCH TRANSDERM (09:42)
[2020-07-15] MEDS: METOPROLOL SUCCINATE EXT REL 25 MG TABCR PO (09:42)
[2020-07-15] MEDS: ALBUTEROL SULFATE (*SP) INHALER 2 PUFF INHALATION ×2 (09:43→20:11)
[2020-07-15] MEDS: FLUTICASONE PROP 44 MCG (*SP) 10.6 GM 2 PUFF INHALATION ×2 (09:43→20:11)
--- NOTE | 2020-07-15 10:02 | PCOTNOTE ---
Attempted to see patient this AM for skilled OT session. Patient in bed upon entry. When ALTMAN introduced self and attempt to see him for therapy, patient stated loudly, Gerard Lees, why do you people start so early? Could you please come back later? Patient refused treatment at this but will attempts to see patient for a second time this date. Continue per Plan of Care.
[2020-07-15 11:33] LABS: Glucose Point of Care 166 (65-105)
[2020-07-15 14:00] VITALS: BP 115/59; PULSE 96; RESP 16; TEMP 36.6; O2SAT 97
--- NOTE | 2020-07-15 14:35 | PM.IMPN ---
Progress Note: A&P Assessment and Plan (1) Septicemia: Code(s): A41.9 - Sepsis, unspecified organism Status: Acute Assessment and Plan: Patient meets criteria for sepsis based on tachycardia, tachypnea, fever, and leukocytosis with positive BCx. Lactic was 1.6. BCx growing Proteus 1/2 bottles and Clostridium 1/2 bottles. Suspected source of infection is enteric from diverticulitis. ID consulted and abx adjusted. Continue IV Zosyn. Appreciate ID input. (2) Acute respiratory failure with hypoxia: Code(s): J96.01 - Acute respiratory failure with hypoxia Status: Acute Assessment and Plan: Patient presented with acute dyspnea that was felt to be related to volume overload, however there was no evidence of pulmonary edema on CXR or CTA upon presentation. CTA negative for pulmonary embolism. He does appear euvolemic with the exception of mild unilateral lower extremity edema. BLE venous Doppler negative for DVT. He developed hypoxia at 83% on 07/11 in the morning which resolved with 3 L supplemental O2. Repeat CXR 07/11 shows clear lung newton. Weaned to room air on 07/12. Continue Albuterol. Lasix resumed and he is voiding well. (3) Diverticulitis: Code(s): K57.92 - Diverticulitis of intestine, part unspecified, without perforation or abscess without bleeding Status: Acute Assessment and Plan: He was treated for acute uncomplicated diverticulitis at last hospitalization in May 2020. Repeat CT abdomen/pelvis performed 07/11 showing sigmoid diverticulitis with mild adjacent inflammation with uncomplicated diverticulitis. This is the suspected source of septicemia. He denies abdominal pain and exam benign. Was having diarrhea but was on lactulose which has been stopped. Appreciate GI input. Continue Zosyn (4) Leg edema, left: Code(s): R60.0 - Localized edema Status: Acute Assessment and Plan: Approximately 1 week ago, patient had bilateral lower extremity edema. Right leg edema improved, however left lower extremity edema persists albeit mild. No discoloration. Venous Doppler negative for DVT. Cellulitis not suspected. Uric acid okay. Left knee Xray showing small effusion and OA; left ankle showing edema but no fracture. Consider septic knee arthritis given his positive BCx. Ortho consulted and discussed. Consider arthrocentesis but do not want to introduce bacteria into the joint space since known bacteremia. ID consult obtained and appreciate their input. (5) Cirrhosis, alcoholic: Qualifiers: Ascites presence: with ascites Qualified Code(s): K70.31 - Alcoholic cirrhosis of liver with ascites Code(s): K70.30 - Alcoholic cirrhosis of liver without ascites Status: Acute Assessment and Plan: Patient with chronic liver disease. Albumin levels good at 3. Possibly hemochromatosis related to iron studies. Biopsy being considered but on hold now given the bacteremia. GI following. 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 Zurita. He has been on a steroid taper since May 2020. Hgb 11 on admission but dropped to the 9-10 range and has been stable. Continue prednisone and will resume taper. Currently on Pred 20mg BID so will decrease to 20mg/10mg. (7) Hyperglycemia: Code(s): R73.9 - Hyperglycemia, unspecified Status: Chronic Assessment and Plan: Secondary to chronic steroid use. Patient's last hemoglobin A1c was 5.5 (05/30/20). Glucose reviewed on 07/15 Lantus has been added. Glucose better controlled. Continue AccuCheks covering with sliding scale. Hypoglycemia protocol available as needed. (8) H/O: HTN (hy
--- NOTE | 2020-07-15 16:00 | WPDGIPROGNO ---
Progress Note: A&P Additional Plan GI Adolphcyndee Stanford 15 Jul 2020 No AP, N, V, BRBPR, melena. Madelin po VSS soft/NT 07-14-2020 Hct 31. WBC 8 A. Recurrent/non-resolving diverticulitis: - Complicated by C. perfinges sepsis - Continue ABX - If patient fails to resolve long enough to get colonoscopy consider Hypaque LGI and Surgery - Appreciate ID input B. Alcoholic cirrhosis with ascites: - Currently well compensated - May also have Hemochromatosis - Possible liver lab evaluation and biopsy per Dr. Stanford Further recommendations per Dr. Stanford. Thanks, [facility] [phone] Subjective Date/time seen: 07/15/20 16:00 Objective Data Vital Signs Vital Signs: Vital Signs - 24 hr 07/14/20 19:53 07/14/20 23:39 07/15/20 04:00 Temperature 37.2 C 36.6 C 36.2 C L Pulse Rate 67 74 67 Respiratory Rate 16 20 20 Blood Pressure 137/77 133/61 136/64 Pulse Oximetry 98 97 95 07/15/20 09:42 07/15/20 14:00 Temperature 36.6 C Pulse Rate 67 96 Respiratory Rate 16 Blood Pressure 115/59 L Pulse Oximetry 97 Intake/Output Intake/Output: Intake & Output 07/12/20 07/13/20 07/14/20 07/15/20 23:59 23:59 23:59 23:59 Intake Total 5000 3831 1410 560 Output Total 2380 1400 4250 Balance 2620 2431 -2840 560 Meds/Results Medications: Active Medications Generic Name Dose Route Start Last Admin Trade Name Freq PRN Reason Stop Dose Admin Acetaminophen 650 mg 07/13/20 11:59 Acetaminophen 325 Mg Tablet PO Q6H PRN Pain Rated 5 or Less Hydrocodone Bitart/Acetaminophen 1 tab 07/13/20 11:59 07/15/20 09:50 Hydrocodone/Acetaminophen (*Crx) 5-325 Mg Tablet PO 1 tab Q6H PRN Administration Pain Rated 6 or Greater Albuterol 2 puff 07/11/20 08:00 07/15/20 09:43 Albuterol Sulfate (*Sp) Inhaler INHALATION 2 puff Q12HRT SINDI Administration Dextrose 12.5 gm 07/10/20 22:13 Dextrose 50% 25 Gm/50 Ml Syringe IV PUSH PRN PRN Hypoglycemia Protocol Fluticasone Propionate 2 puff 07/11/20 08:00 07/15/20 09:43 Fluticasone Prop 44 Mcg (*Sp) 10.6 Gm INHALATION 2 puff Q12HRT SINID Administration Furosemide 40 mg 07/14/20 09:00 07/15/20 09:41 Furosemide 40 Mg Tablet PO 40 mg DAILY SINDI Administration Gabapentin 400 mg 07/10/20 22:25 07/15/20 12:21 Gabapentin 400 Mg Capsule PO 400 mg QID SINDI Administration Glucagon 1 mg 07/10/20 22:13 Glucagon For Inj 1 Mg Vial IM PRN PRN Hypoglycemia Protocol Glucose 15 gm 07/10/20 22:13 Glucose Oral Gel 15 Gm Of Glucse In 37.5 Gm Tube PO PRN PRN Hypoglycemia Protocol Dextrose 1,000 mls @ 100 mls/hr 07/10/20 22:13 Dextrose 5% 1,000 Ml IVPB PRN PRN Hypoglycemia Protocol Piperacillin Sod/Tazobactam Sod 4.5 gm in 100 mls @ 200 mls/hr 07/14/20 18:00 07/15/20 09:40 Zosyn 4.5 Gm/D5w 100 Ml IVPB 100 mls/hr Q8H SINDI Administration Insulin Aspart 3 - 6 units 07/11/20 08:00 07/15/20 12:20 Insulin Aspart (*Bkc) 100 Units/Ml SUB-Q Not Given TIDWM SINDI Protocol Insulin Glargine 10 units 07/11/20 21:00 07/14/20 20:28 Insulin Glargine (*Bkc) 100 Units/Ml SUB-Q 10 units HS SINDI Administration Lactulose 20 gm 07/11/20 09:00 07/13/20 08:32 Lactulose 20 Gm/30 Ml Udc PO 20 gm QAM SINDI Administration Metoprolol Succinate 25 mg 07/15/20 09:00 07/15/20 09:42 Metoprolol Succinate Ext Rel 25 Mg Tabcr PO 25 mg QAM SINDI Administration Nicotine 1 patch 07/13/20 11:35 07/15/20 09:42 Nicotine (*Pbkc) 14 Mg Patch TRANSDERM 1 patch QAM SINDI Administration Ondansetron HCl 4 mg 07/10/20 18:23 07/10/20 18:47 Ondansetron Inj 4 Mg/2 Ml Vial IV PUSH 4 mg Q4H PRN Administration Nausea Pantoprazole Sodium 40 mg 07/11/20 09:00 07/15/20 09:41 Pantoprazole 40 Mg Tablet PO 40 mg Q12HR SINDI Administration Potassium Chloride 20 meq 07/14/20 09:00 07/15/20 09:41 Potassium Chloride 20 Meq Tablet
[2020-07-15 16:44] LABS: Glucose Point of Care 190 (65-105)
[2020-07-15] MEDS: predniSONE 10 MG TABLET PO (17:18)
[2020-07-15 20:00] VITALS: PULSE 90; RESP 15
[2020-07-15] MEDS: SERTRALINE HCL 25 MG TABLET PO (20:11)
[2020-07-15] MEDS: INSULIN GLARGINE (*BKC) 100 UNITS/ML 10 UNITS SUB-Q (20:17)
[2020-07-15 20:43] LABS: Glucose Point of Care 199 (65-105)
[2020-07-15 22:00] VITALS: BP 119/66; PULSE 83; RESP 18; TEMP 36.6; O2SAT 94
[2020-07-16] MEDS: HYDROcodone/acetaminophen (*CRX) 5-325 MG TABLET 1 TAB PO ×4 (01:30→21:05)
[2020-07-16 06:00] VITALS: BP 130/63; PULSE 73; RESP 20; TEMP 37.1; O2SAT 97
[2020-07-16 07:53] LABS: Glucose Point of Care 124 (65-105)
[2020-07-16] MEDS: NICOTINE (*PBKC) 14 MG PATCH 1 PATCH TRANSDERM (08:48)
[2020-07-16] MEDS: predniSONE 20 MG TABLET PO (08:48)
[2020-07-16] MEDS: GABAPENTIN 400 MG CAPSULE PO ×4 (08:48→20:17)
[2020-07-16] MEDS: FUROSEMIDE 40 MG TABLET PO (08:49)
[2020-07-16] MEDS: PANTOPRAZOLE 40 MG TABLET PO ×2 (08:49→20:18)
[2020-07-16] MEDS: POTASSIUM CHLORIDE 20 MEQ TABLET PO (08:49)
[2020-07-16 08:50] VITALS: PULSE 76
[2020-07-16] MEDS: METOPROLOL SUCCINATE EXT REL 25 MG TABCR PO (08:50)
[2020-07-16] MEDS: ALBUTEROL SULFATE (*SP) INHALER 2 PUFF INHALATION ×2 (08:51→20:22)
[2020-07-16] MEDS: FLUTICASONE PROP 44 MCG (*SP) 10.6 GM 2 PUFF INHALATION ×2 (08:51→20:23)
[2020-07-16 11:31] LABS: Glucose Point of Care 225 (65-105)
--- NOTE | 2020-07-16 12:32 | WPDGIPROGNO ---
Progress Note: A&P Assessment and Plan (1) Bacteremia: Code(s): R78.81 - Bacteremia Status: Acute Assessment and Plan: on antibiotics by ID he is immunocompromised (cirrhosis, use of steroids) (2) Diverticulitis: Code(s): K57.92 - Diverticulitis of intestine, part unspecified, without perforation or abscess without bleeding Status: Acute Assessment and Plan: denies any abdominal pain, he will need a colonoscopy probably 5-6 weeks (never had one) (3) Clostridium perfringens: Code(s): B96.7 - Clostridium perfringens [C. 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 Code(s): D58.9 - Hereditary hemolytic anemia, unspecified Status: Chronic Assessment and Plan: by hematology, he has been on steroids hb is stable (5) Cirrhosis, alcoholic: Qualifiers: Ascites presence: with ascites Qualified Code(s): K70.31 - Alcoholic cirrhosis of liver with ascites Code(s): K70.30 - Alcoholic cirrhosis of liver without ascites Status: Acute Assessment and Plan: he has cirrhosis, also could have hemochromatosis (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: Code(s): E83.110 - Hereditary hemochromatosis Status: Acute Assessment and Plan: he also will need follow up with hematology, abnormal HFE (7) Elevated ferritin level: Code(s): R79.89 - Other specified abnormal findings of blood chemistry Status: Acute Subjective Date/time seen: 07/16/20 12:32 Interval history: he says that diarrhea is better, denies any abdominal pain. Main complain still left leg pain but has improved, now able to walk Review of Systems Review of Systems: All systems reviewed & are unremarkable except as noted in HPI and below Exam Const: General: no acute distress HENMT: General nose exam: Normal nares present Eyes: General: appearance normal, both eyes and all related structures Neck: Neck: supple Resp: Auscultation: clear to auscultation bilaterally Cardio: Rate: regular rate GI: GI Palp: Yes Soft to palpation and No Tenderness to palpation present (GI) Auscultation: normal bowel sounds Skin: General skin exam: normal color Neuro: Speech: normal speech Extrem: Other: left knee swollen, tender to palpation, he is using AMOS wrap Psych: Affect: normal affect Objective Data Vital Signs Vital Signs: Vital Signs - 24 hr 07/15/20 14:00 07/15/20 20:00 07/15/20 22:00 Temperature 97.8 F 97.8 F Pulse Rate 96 90 83 Respiratory Rate 16 15 18 Blood Pressure 115/59 L 119/66 Pulse Oximetry 97 94 07/16/20 06:00 07/16/20 08:50 Temperature 98.8 F Pulse Rate 73 76 Respiratory Rate 20 Blood Pressure 130/63 Pulse Oximetry 97 Intake/Output Intake/Output: Intake & Output 07/13/20 07/14/20 07/15/20 07/16/20 23:59 23:59 23:59 23:59 Intake Total 3831 1410 1130 890 Output Total 1400 4250 500 900 Balance 9361 -9055 630 -10 Meds/Results Medications: Active Medications Generic Name Dose Route Start Last Admin Trade Name Freq PRN Reason Stop Dose Admin Acetaminophen 650 mg 07/13/20 11:59 Acetaminophen 325 Mg Tablet PO Q6H PRN Pain Rated 5 or Less Hydrocodone Bitart/Acetaminophen 1 tab 07/13/20 11:59 07/16/20 08:59 Hydrocodone/Acetaminophen (*Crx) 5-325 Mg Tablet PO 1 tab Q6H PRN Administration Pain Rated 6 or Greater Albuterol 2 puff 07/11/20 08:00 07/16/20 08:51 Albuterol Sulfate (*Sp) Inhaler INHALATION 2 puff Q12HRT SINDI Administration Dextrose 12.5 gm 07/10/20 22:13 Dextrose 50% 25 Gm/50 Ml Syringe IV PUSH PRN PRN Hypoglycemia Protocol Fluticasone Propionate
[2020-07-16] MEDS: INSULIN ASPART (*BKC) 100 UNITS/ML SUB-Q (12:35)
--- NOTE | 2020-07-16 13:07 | PM.IMPN ---
Progress Note: A&P Assessment and Plan (1) Septicemia: Code(s): A41.9 - Sepsis, unspecified organism Status: Acute Assessment and Plan: Patient meets criteria for sepsis based on tachycardia, tachypnea, fever, and leukocytosis with positive BCx. Lactic was 1.6. BCx growing Proteus 1/2 bottles and Clostridium 1/2 bottles. Suspected source of infection is enteric from diverticulitis. ID consulted and abx adjusted. Repeat BCx NGTD. Continue IV Zosyn. Appreciate ID input. (2) Acute respiratory failure with hypoxia: Code(s): J96.01 - Acute respiratory failure with hypoxia Status: Acute Assessment and Plan: Patient presented with acute dyspnea that was felt to be related to volume overload, however there was no evidence of pulmonary edema on CXR or CTA upon presentation. CTA negative for pulmonary embolism. BLE venous Doppler negative for DVT. He developed hypoxia at 83% on 07/11 in the morning which resolved with 3 L supplemental O2. Repeat CXR 07/11 shows clear lung new[place]. Weaned to room air on 07/12. Appears euvolemic now. Continue Albuterol. Lasix resumed and he is voiding well. (3) Diverticulitis: Code(s): K57.92 - Diverticulitis of intestine, part unspecified, without perforation or abscess without bleeding Status: Acute Assessment and Plan: He was treated for acute uncomplicated diverticulitis at last hospitalization in May 2020. Repeat CT abdomen/pelvis performed 07/11 showing sigmoid diverticulitis with mild adjacent inflammation with uncomplicated diverticulitis. This is the suspected source of septicemia. He denies abdominal pain and exam benign. Was having diarrhea but was on lactulose which has been stopped. Appreciate GI input. Continue Zosyn. (4) Leg edema, left: Code(s): R60.0 - Localized edema Status: Acute Assessment and Plan: Approximately 1 week ago, patient had bilateral lower extremity edema. Right leg edema improved, however left lower extremity edema persists albeit mild. No discoloration. Venous Doppler negative for DVT. Cellulitis not suspected. Uric acid okay. Left knee Xray showing small effusion and OA; left ankle showing edema but no fracture. Consider septic knee arthritis given his positive BCx. Ortho consulted and discussed. Considered arthrocentesis but do not want to introduce bacteria into the joint space since known bacteremia. ID consult obtained and appreciate their input. (5) Cirrhosis, alcoholic: Qualifiers: Ascites presence: with ascites Qualified Code(s): K70.31 - Alcoholic cirrhosis of liver with ascites Code(s): K70.30 - Alcoholic cirrhosis of liver without ascites Status: Acute Assessment and Plan: Patient with chronic liver disease. Albumin levels good at 3. Possibly hemochromatosis related to iron studies. Biopsy being considered but on hold now given the bacteremia. GI following. 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 Zurita. He has been on a steroid taper since May 2020. Hgb 11 on admission but dropped to the 9-10 range and has been stable. Continue prednisone with taper. Was on Pred 20mg BID but decrease to 20mg/10mg on 07/15/20 (taper steroid dosage with taper of 10 mg every 4th day). (7) Hyperglycemia: Code(s): R73.9 - Hyperglycemia, unspecified Status: Chronic Assessment and Plan: Secondary to chronic steroid use. Patient's last hemoglobin A1c was 5.5 (05/30/20). Glucose reviewed on 07/16 Lantus has been added. Glucose elevated at times but overall better controlled. Continue AccuCheks covering with sliding scale. Hypoglycemia protocol available as
[2020-07-16 14:00] VITALS: BP 139/68; PULSE 81; RESP 18; TEMP 36.1; O2SAT 94
--- NOTE | 2020-07-16 14:40 | PM.PNORT ---
Progress Note: A&P Assessment and Plan (1) Bacteremia: Code(s): R78.81 - Bacteremia Status: Acute (2) Left knee pain: Code(s): M25.562 - Pain in left knee Status: Acute Assessment and Plan: Cher 45-year-old male with acute left knee pain. Patient has a significant past medical history. Including alcoholic cirrhosis, diverticulitis, hypertension, peripheral neuropathy. Patient was admitted on 07/10/20 for weakness. Patient was diagnosed with septicemia. He has had positive blood cultures growing Proteus and Clostridium. Suspected source of infection is diverticulitis. He is currently on antibiotics. Radiographs showed mild lateral compartment patellofemoral degenerative changes with an effusion; normal ankle joint. Knee pain improving. Patient originally had bilateral knee swelling and pain however the right went down in the left did not. Patient states he is still having pain with ambulating with a walker. He feels like his knee is going to give out. This is an improvement. He was unable to put any weight on his knee before. He feels a lot of tightness. I suspect this is due to the effusion. Knee and leg pain differential includes septic knee, cellulitis, arthritis, pseudogout, gout. Concern about introducing infection in the knee if aspiration is performed, given the sepsis and the soft tissue swelling. History and exam are not definite for infection. The organism has already been identified. Current treatment with antibiotics will cover the knee if infection is present. Effusion is mild thus aspiration is not required. He is on steroids which will treat other inflammatory arthropathies. Subjective Subjective Date/Time Seen: 07/16/20 14:40 Patient complains of acute knee pain. He has been ambulating with a walker. Patient states that when walking he feels like his knee is going to give out. Pain is located at the patella. The knee feels very tight with flexion. Multiple medical problems including diabetes and alcoholic liver cirrhosis. Complained of severe ascites and swelling several weeks ago. Began noticing persistent left knee pain and persistent of the left lower extremity. Originally both legs were swollen. He notes that the right 1 went down but the left 1 did not. Denies prior knee pain. Comfortable at rest. History of painful neuropathy. Review of Systems Review of Systems: All systems reviewed & are unremarkable except as noted in HPI and below Exam Narrative: Exam Narrative: Cher overweight 45-year-old male. No acute distress. Alert and oriented x3. Lower extremity edema bilaterally is mild. Exquisite tenderness at the knee. Pain slightly worse at the patella. No deformity. Mild left knee effusion. No warmth or redness. No ecchymosis. Light touch sensation intact. Distal pulses palpable. Pain with flexion. Range of motion 0 to 90? limited to pain. Objective Data Vital Signs Vital Signs: Vital Signs - 24 hr 07/15/20 20:00 07/15/20 22:00 07/16/20 06:00 Temperature 97.8 F 98.8 F Pulse Rate 90 83 73 Respiratory Rate 15 18 20 Blood Pressure 119/66 130/63 Pulse Oximetry 94 97 07/16/20 08:50 Temperature Pulse Rate 76 Respiratory Rate Blood Pressure Pulse Oximetry Intake/Output Intake/Output: Intake & Output 07/13/20 07/14/20 07/15/20 07/16/20 23:59 23:59 23:59 23:59 Intake Total 3831 1410 1130 990 Output Total 1400 4250 500 900 Balance 2431 -2840 630 90 Meds/Results Medications: Active Medications Generic Name Dose Route Start Last Admin Trade Name Freq PRN Reason Stop Dose Admin Acetaminophen 650 mg 07/13/20 11:59 Acetaminophen 325 Mg Tablet PO Q6H PRN Pain Rated 5 or Less Hydrocodone Bitart/Acetaminophen 1 tab 07/13/20 11:59 07/16/20 08:59 Hydrocodone/Acetaminophen (*Crx) 5-325 Mg Tablet PO 1 tab Q6H PRN Administration Pain Rated 6 or Greater Albuterol 2
--- NOTE | 2020-07-16 15:04 | PCDIET ---
Nutrition Follow-Up Complete: Involuntary weight loss related to multiple medical issues as evidenced by reported weight loss of uncertain amount. Patient to consume 75% of meals or greater. Goal:goal met; continue goal Pt current nutrition is diabetic and fluid restricted Nutrition recommendation: agree Last recorded weight is 84.9 kg, down from 88kg on assessment Bowel Motility: 1 BM+ yesterday Labs Reviewed: Glucose 225 Meds Noted:Insulin, lactulose, prednisone, zofran, protonix Additional Notes: Pt eating well, 80-100% of last five meals. Bowels moving and diet appropriate. Glucose elevated ; pt on prednisone. Insulin provided. We will continue to monitor PO intake for adequacy every five days.
--- NOTE | 2020-07-16 16:34 | WPDINFPN2 ---
Progress Note: A&P Additional Plan 1. Bacteremia due to mixed organism including Proteus mirabilis and Clostridium perfringens. Source of infection most likely diverticulitis. 2. Diverticulitis with residual inflammation on CT scan on this admission. Patient was recently treated for diverticulitis approximately a month ago. At that time patient was treated with conservative management of bowel rest and IV antibiotics therapy. 3. Cirrhosis of the liver secondary to heavy alcohol abuse. Patient has abstained from alcohol for the past 2 years. No decompensation. 4. Left knee swelling and pain. Possible septic arthritis due to above, but unproven (no micro in process). 5. DM ---PipTaz same. In AM 4/7, if stable, switch to Augmentin 500 tid, and metronidazole 500 tid, both for 7 days. Venancio if Qs Subjective Date/time seen: 07/16/20 16:34 Interval history: loose bms since arrival. Knee slowly better. No abd pain Exam Narrative: Exam Narrative: afebrile Const: General: no acute distress Resp: Effort & Inspection: normal respiratory effort Auscultation: clear to auscultation bilaterally Cardio: Rate: regular rate Rhythm: regular rhythm Heart sounds: no gallops and no murmurs GI: Inspection: non-distended GI Palp: Yes Soft to palpation, No Tenderness to palpation present (GI) and No Guarding due to palpation present (GI) Percussion: Yes normal to percussion Auscultation: normal bowel sounds Skin: General skin exam: no rashes or lesions noted Extrem: Left lower extremity: abnormal ROM Objective Data Vital Signs Vital Signs: Vital Signs - 24 hr 07/15/20 20:00 07/15/20 22:00 07/16/20 06:00 Temperature 36.6 C 37.1 C Pulse Rate 90 83 73 Respiratory Rate 15 18 20 Blood Pressure 119/66 130/63 Pulse Oximetry 94 97 07/16/20 08:50 07/16/20 14:00 Temperature 36.1 C L Pulse Rate 76 81 Respiratory Rate 18 Blood Pressure 139/68 Pulse Oximetry 94 Intake/Output Intake/Output: Intake & Output 07/13/20 07/14/20 07/15/20 07/16/20 23:59 23:59 23:59 23:59 Intake Total 3831 1410 1130 1230 Output Total 1400 4250 500 900 Balance 2431 -2840 630 330 Meds/Results Medications: Active Medications Generic Name Dose Route Start Last Admin Trade Name Freq PRN Reason Stop Dose Admin Acetaminophen 650 mg 07/13/20 11:59 Acetaminophen 325 Mg Tablet PO Q6H PRN Pain Rated 5 or Less Hydrocodone Bitart/Acetaminophen 1 tab 07/13/20 11:59 07/16/20 15:07 Hydrocodone/Acetaminophen (*Crx) 5-325 Mg Tablet PO 1 tab Q6H PRN Administration Pain Rated 6 or Greater Albuterol 2 puff 07/11/20 08:00 07/16/20 08:51 Albuterol Sulfate (*Sp) Inhaler INHALATION 2 puff Q12HRT SINDI Administration Dextrose 12.5 gm 07/10/20 22:13 Dextrose 50% 25 Gm/50 Ml Syringe IV PUSH PRN PRN Hypoglycemia Protocol Fluticasone Propionate 2 puff 07/11/20 08:00 07/16/20 08:51 Fluticasone Prop 44 Mcg (*Sp) 10.6 Gm INHALATION 2 puff Q12HRT SINDI Administration Furosemide 40 mg 07/14/20 09:00 07/16/20 08:49 Furosemide 40 Mg Tablet PO 40 mg DAILY SINDI Administration Gabapentin 400 mg 07/10/20 22:25 07/16/20 12:36 Gabapentin 400 Mg Capsule PO 400 mg QID SINDI Administration Glucagon 1 mg 07/10/20 22:13 Glucagon For Inj 1 Mg Vial IM PRN PRN Hypoglycemia Protocol Glucose 15 gm 07/10/20 22:13 Glucose Oral Gel 15 Gm Of Glucse In 37.5 Gm Tube PO PRN PRN Hypoglycemia Protocol Dextrose 1,000 mls @ 100 mls/hr 07/10/20 22:13 Dextrose 5% 1,000 Ml IVPB PRN PRN Hypoglycemia Protocol Piperacillin Sod/Tazobactam Sod 4.5 gm in 100 mls @ 200 mls/hr 07/14/20 18:00 07/16/20 11:16 Zosyn 4.5 Gm/D5w 100 Ml IVPB Infused Q8H SINDI Infusion Insulin Aspart 3 - 6 units 07/11/20 08:00 07/16/20 12:35 Insulin Aspart (*Bkc) 100 Units/Ml SUB-Q 3 units TIDWM SINDI Administration Protocol Insulin Glargine 10 un
[2020-07-16 17:14] LABS: Glucose Point of Care 180 (65-105)
[2020-07-16] MEDS: predniSONE 10 MG TABLET PO (17:15)
[2020-07-16] MEDS: INSULIN GLARGINE (*BKC) 100 UNITS/ML 10 UNITS SUB-Q (20:16)
[2020-07-16] MEDS: SERTRALINE HCL 25 MG TABLET PO (20:18)
[2020-07-16 20:59] LABS: Glucose Point of Care 254 (65-105)
[2020-07-16 21:54] VITALS: BP 130/57; PULSE 75; RESP 20; TEMP 37.2; O2SAT 95
[2020-07-17] MEDS: HYDROcodone/acetaminophen (*CRX) 5-325 MG TABLET 1 TAB PO ×3 (03:03→17:10)
[2020-07-17 06:00] VITALS: BP 154/56; PULSE 75; RESP 20; TEMP 37.2; O2SAT 96
[2020-07-17 06:07] LABS: Hematocrit 32.3 % (42.0-52.0); Hemoglobin 10.1 g/dL (14.0-18.0); Mean Corpuscular HGB Conc 31.3 g/dl (32-36); Mean Corpuscular Hemoglobin 29.6 pg (26-34); Mean Corpuscular Volume 94.7 fl (80-100); Mean Platelet Volume 8.8 fl (7.4-10.4); Platelet Count Result 413 k/mm3 (150-375); Red Blood Count 3.41 M/mm3 (4.6-6.20); Red Cell Distribution Width 15.1 % (11.5-14.5); White Blood Count 8.8 K/mm3 (4.5-10.0)
[2020-07-17 06:27] LABS: Albumin Level 3.1 g/dL (3.5-5.1); Anion Gap 2 mmol/L (8-16); Blood Urea Nitrogen 13 mg/dL (9-20); Calcium 8.5 mg/dL (8.4-10.2); Carbon Dioxide 30 mmol/L (22-30); Chloride 101 mmol/L (98-107); Estimated CRCL calculation 156 ml/min; Estimated Glomerular Filt Rate > 60; Glucose 159 mg/dL (75-110); Magnesium 1.7 mg/dL (1.6-2.3); Phosphorus 3.2 mg/dL (2.5-4.5); Sodium 133 mmol/L (137-145)
[2020-07-17 07:51] LABS: Glucose Point of Care 145 (65-105)
[2020-07-17] MEDS: METOPROLOL SUCCINATE EXT REL 25 MG TABCR PO (09:22)
[2020-07-17] MEDS: GABAPENTIN 400 MG CAPSULE PO ×3 (09:22→20:52)
[2020-07-17] MEDS: PANTOPRAZOLE 40 MG TABLET PO ×2 (09:23→20:52)
[2020-07-17] MEDS: NICOTINE (*PBKC) 14 MG PATCH 1 PATCH TRANSDERM (09:23)
[2020-07-17] MEDS: predniSONE 20 MG TABLET PO (09:23)
[2020-07-17] MEDS: POTASSIUM CHLORIDE 20 MEQ TABLET PO (09:23)
[2020-07-17] MEDS: FUROSEMIDE 40 MG TABLET PO (09:23)
[2020-07-17] MEDS: ALBUTEROL SULFATE (*SP) INHALER 2 PUFF INHALATION ×2 (12:14→20:52)
[2020-07-17] MEDS: FLUTICASONE PROP 44 MCG (*SP) 10.6 GM 2 PUFF INHALATION ×2 (12:14→20:52)
[2020-07-17] MEDS: INSULIN ASPART (*BKC) 100 UNITS/ML SUB-Q (12:17)
[2020-07-17 14:00] VITALS: BP 156/62; PULSE 84; RESP 20; TEMP 36.2; O2SAT 95
[2020-07-17 15:28] LABS: Glucose Point of Care 218 (65-105)
--- NOTE | 2020-07-17 15:41 | PM.IMPN ---
Progress Note: A&P Assessment and Plan (1) Septicemia: Code(s): A41.9 - Sepsis, unspecified organism Status: Acute Assessment and Plan: Patient meets criteria for sepsis based on tachycardia, tachypnea, fever, and leukocytosis with positive BCx. Lactic was 1.6. BCx growing Proteus 1/2 bottles and Clostridium 1/2 bottles. Suspected source of infection is enteric from diverticulitis. ID consulted and abx adjusted. Repeat BCx NGTD. Continue IV Zosyn. Appreciate ID input. zosyn until 07/18 then swtich to oral (2) Acute respiratory failure with hypoxia: Code(s): J96.01 - Acute respiratory failure with hypoxia Status: Acute Assessment and Plan: Patient presented with acute dyspnea that was felt to be related to volume overload, however there was no evidence of pulmonary edema on CXR or CTA upon presentation. CTA negative for pulmonary embolism. BLE venous Doppler negative for DVT. He developed hypoxia at 83% on 07/11 in the morning which resolved with 3 L supplemental O2. Repeat CXR 07/11 shows clear lung [place]. Weaned to room air on 07/12. Appears euvolemic now. Continue Albuterol. Lasix resumed and he is voiding well. (3) Diverticulitis: Code(s): K57.92 - Diverticulitis of intestine, part unspecified, without perforation or abscess without bleeding Status: Acute Assessment and Plan: He was treated for acute uncomplicated diverticulitis at last hospitalization in May 2020. Repeat CT abdomen/pelvis performed 07/11 showing sigmoid diverticulitis with mild adjacent inflammation with uncomplicated diverticulitis. This is the suspected source of septicemia. He denies abdominal pain and exam benign. Was having diarrhea but was on lactulose which has been stopped. Appreciate GI input. Continue Zosyn. (4) Leg edema, left: Code(s): R60.0 - Localized edema Status: Acute Assessment and Plan: Approximately 1 week ago, patient had bilateral lower extremity edema. Right leg edema improved, however left lower extremity edema persists albeit mild. No discoloration. Venous Doppler negative for DVT. Cellulitis not suspected. Uric acid okay. Left knee Xray showing small effusion and OA; left ankle showing edema but no fracture. Consider septic knee arthritis given his positive BCx. Ortho consulted and discussed. Considered arthrocentesis but do not want to introduce bacteria into the joint space since known bacteremia. ID consult obtained and appreciate their input. (5) Cirrhosis, alcoholic: Qualifiers: Ascites presence: with ascites Qualified Code(s): K70.31 - Alcoholic cirrhosis of liver with ascites Code(s): K70.30 - Alcoholic cirrhosis of liver without ascites Status: Acute Assessment and Plan: Patient with chronic liver disease. Albumin levels good at 3. Possibly hemochromatosis related to iron studies. Biopsy being considered but on hold now given the bacteremia. GI following. 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 Zurita. He has been on a steroid taper since May 2020. Hgb 11 on admission but dropped to the 9-10 range and has been stable. Continue prednisone with taper. Was on Pred 20mg BID but decrease to 20mg/10mg on 07/15/20 (taper steroid dosage with taper of 10 mg every 4th day). (7) Hyperglycemia: Code(s): R73.9 - Hyperglycemia, unspecified Status: Chronic Assessment and Plan: Secondary to chronic steroid use. Patient's last hemoglobin A1c was 5.5 (05/30/20). Glucose reviewed on 07/16 Lantus has been added. Glucose elevated at times but overall better controlled. Continue AccuCheks covering with sliding scale
[2020-07-17 16:50] LABS: Glucose Point of Care 196 (65-105)
[2020-07-17] MEDS: predniSONE 10 MG TABLET PO (17:05)
--- NOTE | 2020-07-17 17:05 | WPDGIPROGNO ---
Progress Note: A&P Assessment and Plan (1) Bacteremia: Code(s): R78.81 - Bacteremia Status: Acute Assessment and Plan: on antibiotics by ID he is immunocompromised (cirrhosis, use of steroids) plan is to switch to oral antibiotics and go home tomorrow (2) Diverticulitis: Code(s): K57.92 - Diverticulitis of intestine, part unspecified, without perforation or abscess without bleeding Status: Acute Assessment and Plan: denies any abdominal pain, he will need a colonoscopy probably 4-6 weeks (never had one)- will arrange (3) Clostridium perfringens: Code(s): B96.7 - Clostridium perfringens [C. 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 Code(s): D58.9 - Hereditary hemolytic anemia, unspecified Status: Chronic Assessment and Plan: by hematology, he has been on steroids hb is stable (5) Cirrhosis, alcoholic: Qualifiers: Ascites presence: with ascites Qualified Code(s): K70.31 - Alcoholic cirrhosis of liver with ascites Code(s): K70.30 - Alcoholic cirrhosis of liver without ascites Status: Acute Assessment and Plan: he has cirrhosis, also could have hemochromatosis (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: Code(s): E83.110 - Hereditary hemochromatosis Status: Acute Assessment and Plan: he also will need follow up with hematology, abnormal HFE (7) Elevated ferritin level: Code(s): R79.89 - Other specified abnormal findings of blood chemistry Status: Acute Subjective Date/time seen: 07/17/20 17:05 Interval history: feeling better, no more diarrhea and never had abominal pain, knee is also improving Review of Systems Review of Systems: All systems reviewed & are unremarkable except as noted in HPI and below Exam Const: General: no acute distress HENMT: General nose exam: Normal nares present Eyes: General: appearance normal, both eyes and all related structures Neck: Neck: supple Resp: Auscultation: clear to auscultation bilaterally Cardio: Rate: regular rate GI: GI Palp: Yes Soft to palpation and No Tenderness to palpation present (GI) Auscultation: normal bowel sounds Skin: General skin exam: normal color Neuro: Speech: normal speech Extrem: Other: left knee less swollen, less tender to palpation Psych: Affect: normal affect Objective Data Vital Signs Vital Signs: Vital Signs - 24 hr 07/16/20 21:54 07/17/20 06:00 07/17/20 14:00 Temperature 98.9 F 99 F 97.1 F L Pulse Rate 75 75 84 Respiratory Rate 20 20 20 Blood Pressure 130/57 L 154/56 H 156/62 H Pulse Oximetry 95 96 95 Intake/Output Intake/Output: Intake & Output 07/14/20 07/15/20 07/16/20 07/17/20 23:59 23:59 23:59 23:59 Intake Total 1410 1130 2670 1070 Output Total 4250 500 1500 700 Balance -2840 630 1170 370 Meds/Results Medications: Active Medications Generic Name Dose Route Start Last Admin Trade Name Freq PRN Reason Stop Dose Admin Acetaminophen 650 mg 07/13/20 11:59 Acetaminophen 325 Mg Tablet PO Q6H PRN Pain Rated 5 or Less Hydrocodone Bitart/Acetaminophen 1 tab 07/13/20 11:59 07/17/20 09:28 Hydrocodone/Acetaminophen (*Crx) 5-325 Mg Tablet PO 1 tab Q6H PRN Administration Pain Rated 6 or Greater Albuterol 2 puff 07/11/20 08:00 07/17/20 12:14 Albuterol Sulfate (*Sp) Inhaler INHALATION 2 puff Q12HRT SINDI Administration Dextrose 12.5 gm 07/10/20 22:13 Dextrose 50% 25 Gm/50 Ml Syringe IV PUSH PRN PRN Hypoglycemia Protocol Fluticasone Propionate 2 puff 07/11/20 08:00 07/17/20 12:14 Fluticasone Prop 44 Mcg (*Sp) 10.6 Gm INHALATION 2 puff
[2020-07-17] MEDS: INSULIN GLARGINE (*BKC) 100 UNITS/ML 10 UNITS SUB-Q (20:50)
[2020-07-17] MEDS: SERTRALINE HCL 25 MG TABLET PO (20:53)
[2020-07-17 21:08] LABS: Glucose Point of Care 315 (65-105)
[2020-07-17 22:00] VITALS: BP 169/65; PULSE 69; RESP 20; TEMP 37; O2SAT 99
[2020-07-18] MEDS: HYDROcodone/acetaminophen (*CRX) 5-325 MG TABLET 1 TAB PO ×2 (01:55→09:36)
[2020-07-18 06:00] VITALS: BP 139/60; PULSE 72; RESP 20; TEMP 36.9; O2SAT 97
[2020-07-18 06:23] LABS: Basophils Percent Auto 0.3 % (0.2-1.2); Eosinophils Percent Auto 0.1 % (0-4.4); Hemoglobin 10.2 g/dL (14.0-18.0); Immature Granulocyte Absolute 0.41 K/mm3 (0.00-0.031); Immature Granulocyte Percent A 4.1 % (0-0.5); Lymphocytes Absolute Auto 2.44 K/mm3 (0.9-3.2); Lymphocytes Percent Auto 24.1 % (18.3-44.2); Mean Corpuscular HGB Conc 30.9 g/dl (32-36); Mean Corpuscular Hemoglobin 29.1 pg (26-34); Mean Corpuscular Volume 94.3 fl (80-100); Mean Platelet Volume 8.8 fl (7.4-10.4); Monocytes Absolute Auto 0.7 K/mm3 (0.1-0.6); Neutrophils Absolute Auto 6.5 K/mm3 (1.3-6.7); Neutrophils Percent Auto 64.4 % (45.5-73.1); Platelet Count Result 427 k/mm3 (150-375); Red Cell Distribution Width 15.1 % (11.5-14.5); White Blood Count 10.1 K/mm3 (4.5-10.0)
[2020-07-18 06:27] LABS: Alanine Aminotransferase 48 U/L (4-50); Albumin Level 3.2 g/dL (3.5-5.1); Alkaline Phosphatase 140 U/L (38-126); Anion Gap 3 mmol/L (8-16); Aspartate Amino Transferase 32 U/L (17-59); Bilirubin,Total 0.3 mg/dL (0.2-1.3); Blood Urea Nitrogen 11 mg/dL (9-20); Calcium 8.6 mg/dL (8.4-10.2); Carbon Dioxide 31 mmol/L (22-30); Chloride 101 mmol/L (98-107); Estimated CRCL calculation 156 ml/min; Estimated Glomerular Filt Rate > 60; Glucose 154 mg/dL (75-110); Potassium 3.9 mmol/L (3.4-5.0); Sodium 135 mmol/L (137-145)
[2020-07-18 07:56] LABS: Glucose Point of Care 159 (65-105)
[2020-07-18] MEDS: ALBUTEROL SULFATE (*SP) INHALER 2 PUFF INHALATION (09:34)
[2020-07-18] MEDS: predniSONE 20 MG TABLET PO (09:35)
[2020-07-18] MEDS: FLUTICASONE PROP 44 MCG (*SP) 10.6 GM 2 PUFF INHALATION (09:35)
[2020-07-18 09:36] VITALS: PULSE 73
[2020-07-18] MEDS: FUROSEMIDE 40 MG TABLET PO (09:36)
[2020-07-18] MEDS: METOPROLOL SUCCINATE EXT REL 25 MG TABCR PO (09:36)
[2020-07-18] MEDS: POTASSIUM CHLORIDE 20 MEQ TABLET PO (09:36)
[2020-07-18] MEDS: GABAPENTIN 400 MG CAPSULE PO (09:36)
[2020-07-18] MEDS: PANTOPRAZOLE 40 MG TABLET PO (09:37)
[2020-07-18] MEDS: NICOTINE (*PBKC) 14 MG PATCH 1 PATCH TRANSDERM (09:37)
--- NOTE | 2020-07-18 11:00 | PM.DS ---
DS: Admitting Diagnosis Admitting Diagnosis Admitting Diagnosis: bacteremia DS: Discharge Diagnosis Discharge Diagnosis (1) Bacteremia: Code(s): R78.81 - Bacteremia Status: Acute (2) Left knee pain: Code(s): M25.562 - Pain in left knee Status: Acute (3) Hemochromatosis associated with mutation in HFE gene: Code(s): E83.110 - Hereditary hemochromatosis Status: Acute (4) Elevated ferritin level: Code(s): R79.89 - Other specified abnormal findings of blood chemistry Status: Acute (5) Clostridium perfringens: Code(s): B96.7 - Clostridium perfringens [C. 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 Code(s): D58.9 - Hereditary hemolytic anemia, unspecified Status: Chronic (11) Cirrhosis, alcoholic: Qualifiers: Ascites presence: with ascites Qualified Code(s): K70.31 - Alcoholic cirrhosis of liver with ascites Code(s): K70.30 - Alcoholic cirrhosis of liver without ascites Status: Acute (12) H/O: HTN (hypertension): Code(s): Z86.79 - Personal history of other diseases of the circulatory system Status: Chronic (13) Asthma: Code(s): J45.909 - Unspecified asthma, uncomplicated Status: Acute DS: Summary Hospital Course Hospital Course: # Sepsis : Patient meets criteria for sepsis based on tachycardia, tachypnea, fever, and leukocytosis with positive BCx. Lactic was 1.6. BCx growing Proteus 1/2 bottles and Clostridium 1/2 bottles. Suspected source of infection is enteric from diverticulitis. ID consulted and abx adjusted. Repeat BCx NGTD. Continue IV Zosyn. Appreciate ID input. zosyn until 07/18 then swtich to oral per ID. he will cntinue augmentin and flagyl for a week. fu with pcp within 1 week and orthopedics # Acute respiratory failure with hypoxia: Patient presented with acute dyspnea that was felt to be related to volume overload, however there was no evidence of pulmonary edema on CXR or CTA upon presentation. CTA negative for pulmonary embolism. BLE venous Doppler negative for DVT. He developed hypoxia at 83% on 07/11 in the morning which resolved with 3 L supplemental O2. Repeat CXR 07/11 shows clear lung [place]. Weaned to room air on 07/12. Appears euvolemic now. Continue Albuterol. Lasix resumed and he is voiding well. off dirueiss now. # Diverticulitis: He was treated for acute uncomplicated diverticulitis at last hospitalization in May 2020. Repeat CT abdomen/pelvis performed 07/11 showing sigmoid diverticulitis with mild adjacent inflammation with uncomplicated diverticulitis. This is the suspected source of septicemia. He denies abdominal pain and exam benign. Was having diarrhea but was on lactulose which has been stopped. Appreciate GI input. Continue Zosyn. # Leg edema, left: Approximately 1 week ago [employer], patient had bilateral lower extremity edema. Right leg edema improved, however left lower extremity edema persists albeit mild. No discoloration. Venous Doppler negative for DVT. Cellulitis not suspected. Uric acid okay. Left knee Xray showing small effusion and OA; left ankle showing edema but no fracture. Consider septic knee arthritis given his positive BCx. Ortho consulted and discussed. Considered arthrocentesis but
[2020-07-18 11:46] LABS: Glucose Point of Care 230 (65-105)
== END 2020-07-18 12:30 | disposition home or self-care (01) | DRG 720 ==
LOC: ANHED 18:54 → ANH3MEDSUR 19:29 → ANHIMU 07-11 19:07 → ANH3MEDSUR 07-16 10:22 → ANHIMU 07-20 14:47
PROVIDERS: Emergency Medicine; Physician Assistant; Admitting Provider Internal Medicine; Emergency Provider Emergency Medicine; PCP Internal Medicine; Visit Provider Internal Medicine
DX: A41.9 Sepsis, unspecified organism (principal); K57.32 Diverticulitis of large intestine without perforation or abscess without bleeding; Z20.822 Contact with and (suspected) exposure to COVID-19; J96.01 Acute respiratory failure with hypoxia; B96.4 Proteus (mirabilis) (morganii) as the cause of diseases classified elsewhere; B96.7 Clostridium perfringens [C. perfringens] as the cause of diseases classified elsewhere; K70.30 Alcoholic cirrhosis of liver without ascites; D58.9 Hereditary hemolytic anemia, unspecified; R73.9 Hyperglycemia, unspecified; T38.0X5A Adverse effect of glucocorticoids and synthetic analogues, initial encounter; F17.210 Nicotine dependence, cigarettes, uncomplicated; G62.9 Polyneuropathy, unspecified; M00.9 Pyogenic arthritis, unspecified; M25.562 Pain in left knee; M25.462 Effusion, left knee; E87.1 Hypo-osmolality and hyponatremia
CPT/HCPCS: 36415; 36600; 71046; 71275; 73030; 73562; 73610; 74176; 80048; 80053; 80069; 80202; 81001; 82550; 82805; 82948; 83605; 83735; 83880; 84100; 84484; 84550; 85025; 85027; 85380; 85610; 85730; 86140; 87015; 87040; 87045; 87046; 87070; 87077; 87185; 87186; 87205; 87269; 87272; 87324; 87427; 87493; 93005; 93306; 93970; 94640; 96361; 96365; 96367; 96374; 96375; 97110; 97116; 97161; 97165; 97530; 97535; 99285; A9270; C9803; G0378; G0379; J0295; J1815; J1885; J1940; J2405; J2543; J3370; J7030; J7512; Q9967; U0003; U0005

== ENCOUNTER 2020-11-15 09:15 | Outpatient (RCR) | payer OTHER, SELFPAY ==
--- NOTE | 2020-10-11 10:02 | PTOPEVAL ---
PHYSICAL THERAPY EVALUATION AND PLAN OF CARE Thank you for referring Yobani Linton to [facility].? The patient is scheduled to be seen for therapy? 2-3x/week for 6 weeks. Please review, sign, date and return this plan of care ALEJO. I agree with and certify that the following plan of care is medically necessary. Referring Physician Date Attending Provider: Viktor Warner Evaluation Outpatient Past Medical History Neurological History Hx Other Neurological Disorders Yes: bilateral neuropathy Cardiovascular History Hx Hypertension Yes Hx Mitral Valve Prolapse Yes Respiratory History Hx Asthma Yes Hx Chronic Obstructive Pulmonary Disease Yes (COPD) Gastrointestinal History Hx Diverticulosis Yes Hx Irritable Bowel Yes Genitourinary History Hx Genitourinary Disorders No Significant History Musculoskeletal History Hx Back Pain Yes Hx Crutches or Walker Use Yes: WALKER Query Text:If Yes, Enter Crutches, Walker, or Both in the Comment Hx Orthopedic Surgery Yes: x4 left knee arthroscopy 05/2020-07/2020 Hx Osteomyelitis Yes Hematological History Hx Anemia Yes: AUTOIMMUNE HEMOLYTIC ANEMIA - STILL UNDERGOING [place] Hx Blood Transfusions Yes: 2020 Endocrine History Hx Diabetes Yes HEENT History Hx Tonsillectomy Yes Integumentary History Hx Other Skin Disorders Yes: dryness/winter Reproductive History Hx Reproductive Disorders No Significant History Psychosocial History Hx Anxiety Yes: mild Pain History History of Any Previous or Ongoing No Significant History Instance of Pain Anesthesia History Hx Anesthesia Reactions No Significant History Diagnosis left knee arthroscopy x4 Onset 08/07/20 Subjective Information Yobani is here after 4 Query Text:As Reported By Patient/ surgeries to assist in Family cleaning out left tibial osteomyelitis. He now has difficulty with pain, stiffness, difficulty walking, poor balance, and decreased strength. He was doing in home therapy. States that he is stuckk at 90deg of flexion and his girlfriend can assist in ROM, but it is very difficult for him to do it himself. reports bilateral hip pain increasing over the last several
--- NOTE | 2020-10-25 15:34 | PCPTNOTE ---
Patient did not show to appointment this date. Patient reports he did not know he had an appointment today. Discussed his appointment for 10/26/20 at 14:15. Patient reports he may not be able to make appointment because he is ride dependant. Patient reports he will call back if he needs to cancel is appointment for 10/26/20.
--- NOTE | 2020-10-31 15:41 | PCPTNOTE ---
Patient called to cancel appointment this date stating he was sick and could not make it.
--- NOTE | 2020-11-16 13:37 | PCPTNOTE ---
Returned Yobani's call regarding his knee and the pop he felt. He denies a fall of hitting the ground, but a LOB leaning into the wall. He has been experiencing increased popping of the knee with this weeks therapy treatments, but this was more intense than any of his other pops. He c/o difficulty moving the knee due to pain and weakness Explained pain science, guarding-protection mechanism associated with pain and movement and the learning of new movement patterns. Ed to contact his MD if concerned something was broken or torn, but to work on slow and gentle movement in a supine or seated position. His next visit is on Thursday.
--- NOTE | 2020-11-19 10:35 | PCPTNOTE ---
Addendum entered by Karlene Shi, PT, DPT 11/19/20 16:58: Patient called this afternoon to notify us that he has been in the ED all day and will likely be admitted so he needs to cancel his remaining appointments. He was informed that because of his hospitalization he will need a new physical therapy order. Original Note: Patient did not show up for scheduled appointment this date.
--- NOTE | 2020-12-03 15:57 | PCPTNOTE ---
PHYSICAL THERAPY DISCHARGE Attending Provider: Viktor Warner Patient:Yobani Linton Date of :1975 Patient has not returned for any further treatments since 11/15/2020, therefore will be discharged at this time. Patient?s initial visit was on 10/11/2020 and had a total of 4 visits. He did call to cancel any remaining appointments due to other medical conditions limiting his ability to come to therapy. Thank you for referring this patient to [facility]. Please review, sign, date and return this discharge summary ALEJO. I have been updated about the patient's current status and I agree with discharge from the above service at this time. Referring Physician Date
== END 2020-12-31 11:41 | disposition home or self-care (01) ==
LOC: ANHPT 09:15
PROVIDERS: PCP Internal Medicine
DX: M86.062 Acute hematogenous osteomyelitis, left tibia and fibula (principal); M00.862 Arthritis due to other bacteria, left knee
CPT/HCPCS: 97110; 97140; 97162

== ENCOUNTER 2020-11-16 01:51 | Day surgery (SDC) | payer OTHER, SELFPAY ==
[2020-11-02 14:11] VITALS: BMI 29.5
--- NOTE | 2020-11-16 10:02 | WPDANESEPPF ---
Anes - Initial Pre Proc Eval Procedure: Operation Date: 11/16/20 11:00 Proposed Procedures p Colonoscopy - Lobo Douglas MD Date/Time: 11/16/20 10:02 Surgeon: Lobo Douglas MD Pre Op Diagnosis: diverticulitis Patient Data Age: 45 Gender: M Height: 1.75 m Weight: 90.9 kg Allergies Allergy/AdvReac Type Severity Reaction Status Date / Time methylprednisolone Allergy Severe Hives Verified 11/02/20 14:04 [From Solu-Medrol] Home Medications Medication Instructions Recorded Confirmed Type sertraline 25 mg PO HS 05/14/20 11/02/20 History metoprolol succinate 25 mg PO DAILY 05/17/20 11/02/20 History Flovent HFA 2 puff INHALATION Q12HRT #1 inh 05/25/20 11/02/20 Rx pantoprazole 40 mg PO Q12HR #60 tablet 05/25/20 11/02/20 Rx lactulose 20 g PO QAM 99 Days #2970 ml 06/03/20 11/02/20 Rx albuterol sulfate [ProAir HFA] 2 inh INHALATION BID 06/25/20 11/02/20 History hydrocodone-acetaminophen 1 tablet PO Q8H PRN 7 Days #21 07/18/20 11/02/20 Rx tablet prednisone 20 mg PO DAILY@0800 #30 tablet 07/18/20 11/02/20 Rx benzonatate 100 mg PO TID 11/02/20 11/02/20 History methocarbamol 750 mg PO HS 11/02/20 11/02/20 History Patient hx anesthesia problems: none Family hx anesthesia problems: none [facility] Past Medical History Medical History (Updated 07/14/20 @ 19:32 by Quincy Gamble MD) Acute dehydration Acute on chronic blood loss anemia Asthma Cirrhosis, alcoholic History of alcoholic cirrhosis currently abstain from alcohol x2 years. No history of complication or decompensation. Clostridium perfringens Diverticulitis History of acute diverticulitis recently treated. Repeat CT scan showed residual inflammatory changes. Currently no abdominal pain or fever. No diarrhea. May require colonoscopy in the future. Elevated ferritin level Fluid overload H/O: HTN (hypertension) Hemochromatosis associated with mutation in HFE gene Left knee pain Nausea and vomiting in adult Peripheral neuropathy Family History Family History Other Unknown family medical history Social History Social History Smoking packs per day: 1 Smoking cigarettes per day: 20.0 Years smoked: 25 Smoking pack-years: 25.00 Smoking status: Current every day smoker Tobacco type: cigarettes Alcohol intake: former Drinks per week: 8 Substance use: former Substance use type: does not use Living arrangements: with family Gender identity (if verbalized by the patient): Male Spiritual care concerns: No Anes - Eval Final PreProcedure Day of Procedure 11/16/20 10:02 Patient weight: obese Heart: regular rate and rhythm Lungs: clear to auscultation and normal air movement Airway: Mallampati scale class II Neurological: alert and oriented Last oral intake: >/= 8 hours ASA classification: IV Emergent: no Anesthetic plan: proceed Anesthesia type and monitoring: general GIVS Informed Consent: The patient's anesthetic plan and its attendant risks and benefits were discussed with the patient/family/POA. Questions were solicited and answers provided to the satisfaction of the patient/family/POA.
[2020-11-16 10:40] VITALS: BP 142/55; PULSE 115; RESP 20; TEMP 36.1; O2SAT 100; BMI 26.6
[2020-11-16] MEDS: LACTATED RINGERS 1,000 ML 50 ML IV CONT (10:46)
--- NOTE | 2020-11-16 10:56 | PM.HPGS ---
History of Present Illness History of Present Illness Consent: Risks, benefits, and alternatives have been discussed and questions answered. Patient agrees to proceed with procedure. Chief complaint: diverticulitis Narrative: Yobani Linton is a 45 year old male with diverticulitis and knee infection, he was in the hospital with C perfringes bacteremia. Also history of cirrhosis. Denies abdominal pain. Never had a colonoscopy Review of Systems Constitutional: Constitutional: Denies headache(s) and Denies weakness Eyes: Eyes: Denies blurry vision ENT: Reports Normal hearing present, Denies headache(s) and Denies neck pain Cardiovascular: Cardiovascular: Denies chest pain and Denies dyspnea Respiratory: Respiratory: Denies dyspnea Gastrointestinal: Gastrointestinal: Reports no additional gastrointestinal complaints Genitourinary: Genitourinary: Denies dysuria Musculoskeletal: Musculoskeletal: Denies neck pain Integumentary/Breasts: Skin/Breast: Denies dry skin Neurologic: Reports Normal hearing present, Denies headache(s) and Denies weakness Psychiatric: Psychiatric: Denies anxiety Endocrine: Endocrine: Denies change in body appearance Hematologic/Lymphatic: Hematologic/Lymphatic: Denies easy bleeding Allergic/Immunologic: Allergic/Immunologic: Denies urticaria PMFSH Past Medical History Medical History (Updated 07/14/20 @ 19:32 by Quincy Gamble MD) Acute dehydration Acute on chronic blood loss anemia Asthma Cirrhosis, alcoholic History of alcoholic cirrhosis currently abstain from alcohol x2 years. No history of complication or decompensation. Clostridium perfringens Diverticulitis History of acute diverticulitis recently treated. Repeat CT scan showed residual inflammatory changes. Currently no abdominal pain or fever. No diarrhea. May require colonoscopy in the future. Elevated ferritin level Fluid overload H/O: HTN (hypertension) Hemochromatosis associated with mutation in HFE gene Left knee pain Nausea and vomiting in adult Peripheral neuropathy Family History Family History Other Unknown family medical history Social History Social History Smoking packs per day: 1 Smoking cigarettes per day: 20.0 Years smoked: 25 Smoking pack-years: 25.00 Smoking status: Current every day smoker Tobacco type: cigarettes Alcohol intake: former Drinks per week: 8 Substance use: former Substance use type: does not use Living arrangements: with family Gender identity (if verbalized by the patient): Male Spiritual care concerns: No Meds Home Medications and Allergies Home Medications Medication Instructions Recorded Confirmed Type sertraline 25 mg PO HS 05/14/20 11/16/20 History metoprolol succinate 25 mg PO DAILY 05/17/20 11/16/20 History Flovent HFA 2 puff INHALATION Q12HRT #1 inh 05/25/20 11/16/20 Rx pantoprazole 40 mg PO Q12HR #60 tablet 05/25/20 11/16/20 Rx lactulose 20 g PO QAM 99 Days #2970 ml 06/03/20 11/16/20 Rx albuterol sulfate [ProAir HFA] 2 inh INHALATION BID 06/25/20 11/16/20 History hydrocodone-acetaminophen 1 tablet PO Q8H PRN 7 Days #21 07/18/20 11/16/20 Rx tablet prednisone 20 mg PO DAILY@0800 #30 tablet 07/18/20 11/16/20 Rx benzonatate 100 mg PO TID 11/02/20 11/16/20 History methocarbamol 750 mg PO HS 11/02/20 11/16/20 History Allergies Allergy/AdvReac Type Severity Reaction Status Date / Time methylprednisolone Allergy Severe Hives Verified 11/16/20 10:49 [From Solu-Medrol] Vital Signs Vital Signs - 24 hr 11/16/20 10:40 Temperature 97 F L Pulse Rate 115 H Respiratory Rate 20 Blood Pressure 142/55 H Pulse Oximetry 100 Exam Const: General: comfortable and no acute distress HENMT: General nose exam: Normal nares present Eyes: General: appearance normal, both eyes and all related structures Neck: N
[2020-11-16 11:25] VITALS: BP 106/47; PULSE 107; RESP 25; O2SAT 96
[2020-11-16 11:35] VITALS: BP 114/63; PULSE 108; RESP 23; O2SAT 98
[2020-11-16 11:45] VITALS: BP 120/56; PULSE 107; RESP 25; O2SAT 97
== END 2020-11-16 12:21 | disposition home or self-care (01) ==
PROVIDERS: PCP Family Medicine; Visit Provider Internal Medicine Gastroenterology
PROC: 0DJD8ZZ Inspection of Lower Intestinal Tract, Via Natural or Artificial Opening Endoscopic (ICD-10-PCS; CPT 45378; principal; 2020-11-16 11:00)
DX: K57.32 Diverticulitis of large intestine without perforation or abscess without bleeding (principal); K57.30 Diverticulosis of large intestine without perforation or abscess without bleeding; K64.8 Other hemorrhoids; K70.30 Alcoholic cirrhosis of liver without ascites; I10 Essential (primary) hypertension; E83.110 Hereditary hemochromatosis; G62.9 Polyneuropathy, unspecified; B96.7 Clostridium perfringens [C. perfringens] as the cause of diseases classified elsewhere
CPT/HCPCS: 45378; J2704; J7120

== ENCOUNTER 2020-11-19 07:47 | Inpatient (IN) | payer OTHER, SELFPAY ==
[2020-11-19] VITALS (26 sets, daily range): BP systolic 86–134; BP diastolic 40–76; PULSE 98–108; RESP 16–32; TEMP 36.4–36.9; O2SAT 95–100; BMI 26.9
--- NOTE | ~2020-11-19 | XR_ITS ---
EXAMINATION: XR abdomen obstructive series DATE: 11/19/2020 08:08 INDICATION: Abdominal pain, recent surgery TECHNIQUE: Upright and supine views of the abdomen were obtained. COMPARISON: 05/15/2020 FINDINGS: The abdomen is relatively gasless. No free intraperitoneal gas is identified. Calcified ath erosclerosis is noted. There is advanced osteoarthritis of the right hip and mild osteoarthritis of t he left hip. IMPRESSION: 1. No free intraperitoneal gas identified. Reviewed, dictated and finalized at location B.
--- NOTE | ~2020-11-19 | XR_ITS ---
EXAMINATION: XR lg joint inject/asp w image DATE: 11/19/2020 10:38 INDICATION: Right hip septic arthritis. TECHNIQUE: A time-out was performed to verify the patient's name, date of , and procedure to b e performed. The procedure including the risks, benefits, and alternatives was discussed with the pat ient. Risks discussed included bleeding and infection. The patient understood the risks and agreed to proceed. The skin overlying the right hip joint was prepped and draped in usual sterile fashion. A nesthetic was administered with 1% lidocaine subcutaneously. An 18 G needle was advanced under fluor oscopic guidance into the joint. 8 mL saline was injected, and fluid was aspirated. The needle was re moved and the entry site was cleaned and dressed. There were no immediate complications. Fluoroscopy exposure time was 0.1 minutes. The total number of images was 1. FINDINGS: Real-time fluoroscopy demonstrates the needle in the right hip joint. IMPRESSION: 1. Fluoroscopy guided right hip joint aspiration yielding 4 mL serosanguineous fluid. Reviewed, dictated and finalized at location A.
--- NOTE | ~2020-11-19 | CT_ITS ---
EXAMINATION: CT abdomen pelvis wo con DATE: 11/19/2020 08:28 INDICATION: Abdominal pain TECHNIQUE: Computed tomography (CT) of the abdomen and pelvis was performed without intravenous contr ast. The dose-length product (DLP) was 825.39 mGy-cm. Automated exposure control and iterative recons truction technique were employed. COMPARISON: 07/11/2020 FINDINGS: There is smooth interlobular septal thickening of the visualized lung bases with mild groun dglass opacity. The heart size is normal. The liver is diffusely low in attenuation when compared wit h the spleen, consistent with hepatic steatosis. There is mild nodularity of the liver surface. The s pleen, pancreas, gallbladder, and adrenal glands are normal. The kidneys are unremarkable. No patholo gically enlarged abdominal or pelvic lymph nodes are identified. There is no free intraperitoneal gas or evidence of bowel obstruction. The appendix is normal. Colonic diverticulosis is noted. There is wall thickening and fat stranding adjacent to the sigmoid colon. There is mild lumbar spondylosis. A right hip joint effusion is present. There has been relatively rapid joint space narrowing on the rig ht since the comparison examination in association with erosions of the femoral head and acetabulum. There are findings of osteonecrosis in the left femoral head. IMPRESSION: 1. Acute sigmoid diverticulitis, uncomplicated. 2. Diffuse hepatic steatosis. 3. Findings consistent with septic arthritis of the right hip. Joint aspiration is recommended. 4. Cirrhosis. These findings and recommendations were discussed with Dr. Oscar Loo MD in the Emergency Dep artment at 0857 hours on 11/19/2020. Reviewed, dictated and finalized at location B. IMPRESSION: 1. Acute sigmoid diverticulitis, uncomplicated. 2. Diffuse hepatic steatosis. 3. Findings consistent with septic arthritis of the right hip. Joint aspiration is recommended. 4. Cirrhosis. These findings and recommendations were discussed with Harleen Brumfield in the Emergency Department at 0857 hours on 11/19/2020.
--- NOTE | ~2020-11-19 | XR_ITS ---
EXAMINATION: XR chest 1V portable INDICATION: Chest pain and shortness of breath TECHNIQUE: Portable AP chest at 0758 hours COMPARISON: 07/11/2020 FINDINGS: There are peripheral linear opacities of the lung bases. No acute airspace opacities are id entified. There is no pleural effusion or pneumothorax. The cardiomediastinal silhouette is normal. IMPRESSION: 1. Possible mild pulmonary edema in the lung bases. Reviewed, dictated and finalized at location B.
--- NOTE | ~2020-11-19 | MR_ITS ---
EXAMINATION: MR femur RT wo/w con DATE: 11/27/2020 16:58 INDICATION: Right hip septic arthritis. TECHNIQUE: Magnetic resonance imaging (MRI) of the right femur was performed without and with 18 mL M ultiHance intravenous contrast. Sequences included coronal, axial, and sagittal STIR FSE and T1-weigh med FSE, axial T1-weighted FS FSE, and postcontrast axial and coronal T1-weighted FS FSE. COMPARISON: CT abdomen and pelvis 11/19/2020, 07/11/20 FINDINGS: Bone alignment is normal. No fracture. There are areas of osteonecrosis in the bilateral fe moral heads, bilateral distal femoral condyles, and bilateral patellae. There is a small right knee j oint effusion. The right hip demonstrates severe arthritis with full-thickness cartilage loss and edis ma-like marrow signal intensity involving the femoral head and acetabulum. There is a small right hip joint effusion with synovitis. There are areas of increased T2-weighted signal intensity in the bila teral abductor muscles and bilateral thigh musculature. Subcutaneous edema is noted in the thighs. IMPRESSION: 1. Severe right hip arthritis, likely secondary to septic arthritis. 2. Small right hip joint effusion with synovitis. 3. Osteonecrosis of the bilateral femoral heads, bilateral distal femora, and bilateral patellae. 4. Small right knee joint effusion. 5. Diffuse abnormal signal intensity in the musculature of the thighs and hip adductors, consistent w ith nonspecific myositis. Reviewed, dictated and finalized at location B. IMPRESSION: 1. Severe right hip arthritis, likely secondary to septic arthritis. 2. Small right hip joint effusion with synovitis. 3. Osteonecrosis of the bilateral femoral heads, bilateral distal femora, and b ilateral patellae. 4. Small right knee joint effusion. 5. Diffuse abnormal signal intensity in the musculature of the thighs and hip a dductors, consistent with nonspecific myositis.
--- NOTE | 2020-11-19 07:57 | PC.NURSE ---
upon further assessment, pt reports chest pain has been going on since Thursday.
[2020-11-19 08:08] LABS: Basophils Absolute Auto 0.1 K/mm3 (0.0-0.1); Basophils Percent Auto 0.2 % (0.2-1.2); Immature Granulocyte Absolute 1.56 K/mm3 (0.00-0.031); Immature Granulocyte Percent A 4.4 % (0-0.5); Lymphocytes Absolute Auto 3.81 K/mm3 (0.9-3.2); Lymphocytes Percent Auto 10.7 % (18.3-44.2); Mean Corpuscular HGB Conc 26.2 g/dl (32-36); Mean Corpuscular Hemoglobin 26.6 pg (26-34); Mean Corpuscular Volume 101.4 fl (80-100); Mean Platelet Volume 9.3 fl (7.4-10.4); Monocytes Absolute Auto 2.4 K/mm3 (0.1-0.6); Monocytes Percent Auto 6.8 % (2.6-8.5); Neutrophils Absolute Auto 27.7 K/mm3 (1.3-6.7); Neutrophils Percent Auto 77.9 % (45.5-73.1); Nucleated Red Blood Cells Absolute Auto 0.3 K/mm3 (0.0-0.012); Nucleated Red Blood Cells Perc 0.9 % (0.0-0.2); Platelet Count Result 590 k/mm3 (150-375); Red Blood Count 1.39 M/mm3 (4.6-6.20); Red Cell Distribution Width 25.7 % (11.5-14.5); White Blood Count 35.5 K/mm3 (4.5-10.0)
--- NOTE | 2020-11-19 08:08 | ECG_ITS ---
Measurements Intervals Almo Rate: 102 P: 62 ID: 139 QRS: 42 QRSD: 94 T: 140 QT: 399 QTc: 520 Interpretive Statements SINUS TACHYCARDIA ST ABNORMALITY IN ANTEROLAT/INF LEADS- CONSIDER ISCHEMIA ABNORMAL ECG Electronically Signed On 11-19-2020 8:20:22 CDT by Alvino Draper D.O.
[2020-11-19] MEDS: MORPHINE SULFATE (*CRX) 2 MG/ML INJ IV PUSH (08:13)
[2020-11-19 08:20] LABS: Albumin Level 3.4 g/dL (3.5-5.1); Alkaline Phosphatase 311 U/L (38-126); Aspartate Amino Transferase 79 U/L (17-59); Bilirubin,Total 2.1 mg/dL (0.2-1.3); Blood Urea Nitrogen 7 mg/dL (9-20); Calcium 9.7 mg/dL (8.4-10.2); Carbon Dioxide < 5 mmol/L (22-30); Chloride 91 mmol/L (98-107); Estimated CRCL calculation 115 ml/min; Estimated Glomerular Filt Rate > 60; Glucose 150 mg/dL (65-110); Potassium 2.8 mmol/L (3.4-5.0); Sodium 133 mmol/L (137-145)
--- NOTE | 2020-11-19 08:23 | ED.CHESTPAIN ---
HPI - Chest Pain General Chief Complaint: Chest Pain Stated Complaint: CP Time Seen by Provider: 11/19/20 07:48 History of Present Illness HPI narrative: Patient is a 45-year-old male who presents ER with reports of chest pain. Reports that chest pain began 2 days ago and was 2/10. Pain increased yesterday to 6/10 is worse even today. It is pressure in the center of his chest that goes to his shoulder and back on the left side. Reports mild nausea and is too weak to walk. Patient underwent colonoscopy 3 days ago. Patient had a complex course in July where he had sepsis related to a perforated diverticulum. After that patient apparently had a infected left knee. He required multiple washouts at [facility]. Reports he had a PICC line that he received IV antibiotics through during the course of August. Reports he has right hip pain that is chronic and he thinks he may require surgery on that hip. At this time he is more concerned about his chest pain and has found no aggravating or alleviating factors. Patient reports that over the weekend he drank about a pint of vodka. Related Data Home Medications Medication Instructions Recorded Confirmed sertraline 25 mg PO HS 05/14/20 11/19/20 metoprolol succinate 25 mg PO DAILY 05/17/20 11/19/20 albuterol sulfate [ProAir HFA] 2 inh INHALATION BID 06/25/20 11/19/20 benzonatate 100 mg PO TID PRN 11/02/20 11/19/20 methocarbamol 750 mg PO Q6H PRN 11/02/20 11/19/20 pantoprazole 40 mg PO DAILY 11/19/20 11/19/20 Allergies Allergy/AdvReac Type Severity Reaction Status Date / Time methylprednisolone Allergy Severe Hives Verified 11/19/20 08:53 [From [facility]] Review of Systems Review of Systems: All systems reviewed & are unremarkable except as noted in HPI and below Constitutional: Constitutional: Denies chills, Reports fatigue, Denies fever(s) and Reports weakness ENT: Denies nasal congestion and Denies sore throat Cardiovascular: Cardiovascular: Reports chest pain, Denies rapid heart rate and Reports radiating jaw, neck or arm pain Respiratory: Respiratory: Denies cough, Reports dyspnea and Denies wheezing Gastrointestinal: Gastrointestinal: Denies abdominal pain, Denies diarrhea, Denies nausea and Denies vomiting Comments: Denies bloody stools. Musculoskeletal: Musculoskeletal: Denies back pain, Reports arthralgias and Denies joint swelling PMFSH Past Medical History Medical History (Updated 11/22/20 @ 17:56 by Lobo Douglas MD) Asthma Bacteremia (07/10/20) Proteus mirabilis and Clostridium perfringens. Chronic obstructive pulmonary disease Cirrhosis, alcoholic No history of complication or decompensation. Diarrhea Diverticulitis (05/2020) Hemochromatosis associated with mutation in HFE gene Hemolytic anemia (05/2020) Hypertension Peripheral neuropathy Septic joint of left knee joint (07/2020) Tobacco dependency Surgical History Surgical History (Updated 11/21/20 @ 13:03 by Morales Zurita MD) History of colonoscopy (11/16/20) Diverticulosis perforation hemorrhage. Internal hemorrhoids. History of left knee surgery (07/2020) Multiple washouts due to septic arthritis. History of tonsillectomy Family History Family History Other Unknown family medical history Social History Social History (Updated 11/19/20 @ 22:38 by Rosita Pisano PA-C) Social History: Surrogate decision maker: Claudiarossi Martínez, girlfriend. Code status: Full code. Smoking packs per day: 1 Smoking cigarettes per day: 20.0 Years smoked: 25 Smoking pack-years: 25.00 Smoking status: Current every day smoker Alcohol intake: current Drinks per week: 5 Substance use: never Substance use type: does not use Additional living arrangements comments: Patient lives in [place] with his girlfriend. Additional occupation/education comments: Works in [employer]. Exam Don
[2020-11-19 08:24] LABS: Hematocrit 14.1 % (42.0-52.0)
[2020-11-19 08:26] LABS: Hemoglobin 3.7 g/dL (14.0-18.0)
[2020-11-19 08:32] LABS: Alanine Aminotransferase 26 U/L (4-50); Troponin I 0.205 ng/mL (0.000-0.034)
[2020-11-19 08:34] LABS: INR 1.7; Prothrombin Time 19.8 Seconds (11.1-14.7)
[2020-11-19 08:35] LABS: Partial Thromboplastin Time 34.5 SECONDS (22.3-36.8)
--- NOTE | 2020-11-19 08:41 | PM.CNCAR ---
Assessment and Plan Additional Plan this is a 45-year-old man presenting to the hospital with a 2 day history of some chest pain he does have a significantly ischemic looking EKG. He has been found to be profoundly anemic and acidemic. His troponin level was slightly elevated at 0.2. This appears to be an obvious type 2 infarction due to profound anemia. Preparations are being made for emergency red cell transfusion and obviously would be completely inappropriate to discussed bringing this gentleman for emergency coronary angiogram in this setting. Anticipate this gentleman will be admitted to the ICU. Will follow him peripherally with you but the principal problems do not appear to be cardiac in my opinion Paul Jain MD [facility] History of Present Illness History of Present Illness Consult date/time: 11/19/20 08:41 Consult reason: chest pain Reason For Visit: CP Narrative: This is a 45-year-old patient I am seeing in the emergency room with the request of the ED physician who was concerned about acute coronary syndrome, possible acute ND with late presentation. Patient is not known to have any cardiac problems before this and started to experience chest pain on Thursday of this past weekend. He states that he had a mild left precordial pressure-like sensation that was there all day Thursday he did not find to be too problematic or upsetting so he did not seek any medical attention. He through the day yesterday it became worse it was moderate to severe in intensity by the time he notified friends that he was having the symptoms last night this morning it was determined that he should probably come into the hospital to be evaluated this of brought in for further assessment. In the emergency department the patient looks very pale. His 12 lead ECG shows sinus tachycardia with anterolateral ST segment depression. His 15 lead ECG does not show any ST elevation. The patient has a history of alcoholic liver disease and cirrhosis and a history in the past of some sort of bowel perforation. He was here in the hospital as an outpatient on Thursday having a follow-up colonoscopy for this. He did not have any lab data back when I was summoned to the ER to see him. During the course of the evaluation in the emergency room the laboratory data is returning a P showing the patient to be profoundly anemic with a hemoglobin level of 3.7 he has got a very high white count [id number] and he is severely acidemic. He is not reporting any overt hematemesis hematochezia. The chest x-ray does not show any evidence of pulmonary congestion cardiac silhouette looks essentially unremarkable. Review of Systems Review of Systems: ROS unobtainable: Yes unobtainable due to medical condition [facility] Past Medical History Medical History (Updated 07/14/20 @ 19:32 by Quincy Gamble MD) Acute dehydration Acute on chronic blood loss anemia Asthma Cirrhosis, alcoholic History of alcoholic cirrhosis currently abstain from alcohol x2 years. No history of complication or decompensation. Clostridium perfringens Diverticulitis History of acute diverticulitis recently treated. Repeat CT scan showed residual inflammatory changes. Currently no abdominal pain or fever. No diarrhea. May require colonoscopy in the future. Elevated ferritin level Fluid overload H/O: HTN (hypertension) Hemochromatosis associated with mutation in HFE gene Left knee pain Nausea and vomiting in adult Peripheral neuropathy Family History Family History Other Unknown family medical history Social History Social History Smoking packs per day: 1 Smoking cigarettes per day: 20.0 Years smoked: 25 Smoking pack-years: 25.00 Smoking status: Current every day smoker Tobacco type: cigarettes Alcohol intake: former Drinks per week: 8 Substance use: former Substance use t
[2020-11-19 08:48] LABS: Alveolar/Arterial O2 Gradient 2.2 mmHg; Base Excess ABG -26.4 mEq/l (+/-2.0); Carboxyhemoglobin 0.5 % THb (0-2.0); Fractional Inspired Oxygen 21 %; HCO3 ABG 2.4 mEq/l (22.0-26.0); Methemoglobin ABG 0.5 %THb (0-1.5); Oxygen Content ABG 5.8 %vol (16.0-22.0); Oxygen Saturation ABG 97.1 % (95.0-100.0); Oxyhemoglobin 94.5 % THb (90.0-100.0); PO2 ABG 135.3 mmHg (80.0-100.0); PO2 FiO2 Ratio Arterial Blood 6.44 %; Reduced Hemoglobin 4.5 %THb (0-5.0)
[2020-11-19 08:51] LABS: PCO2 ABG 10.2 mmHg (35.0-45.0); Total Hemoglobin 4.1 g/dL (12.0-18.0); pH ABG 6.987 (7.350-7.450)
[2020-11-19 08:52] LABS: Device ROOM AIR; Modified Allen's Test Unable to perform; Site Drawn RIGHT RADIAL
[2020-11-19 08:57] LABS: Immature Reticulocyte Fraction 6.3 % (3.0-15.9); Reticulocyte Hemoglobin Conten 22.5 pg (28.2-35.7); Reticulocyte Percent 0.53 % (0.7-4.3); Reticulocytes Absolute 0.01 B/L (32.2-175.7)
[2020-11-19] MEDS: SODIUM BICARBONATE 8.4% 50 MEQ/50 ML SYRINGE IV PUSH (09:11)
[2020-11-19] MEDS: SODIUM CHLORIDE 0.9% IV 250 ML 30 ML IV CONT (09:29)
[2020-11-19] MEDS: TUBING, BLOOD SET 1 EACH XX (09:29)
[2020-11-19] MEDS: SODIUM BICARBONATE 8.4% 150 MEQ in WATER, STERILE FOR INJECTION 950 ML 50 MEQ IV CONT (09:37)
[2020-11-19 09:42] LABS: Bilirubin Direct 0.2 mg/dL (0-0.3); Bilirubin Indirect 0.6 mg/dL (0-1.1); Lactate Dehydrogenase 537 U/L (313-618)
--- NOTE | 2020-11-19 09:50 | PC.NURSE ---
Pt out of department for procedure
[2020-11-19 09:53] LABS: Lactic Acid Reflex > 24.0 mmol/L (0.7-2.1)
[2020-11-19 11:13] LABS: Reflex Lactic Acid Yes or No Add Lactic
[2020-11-19 11:19] LABS: Hematocrit 21.6 % (42.0-52.0)
[2020-11-19 11:30] LABS: Source Synovial Fluid Synovial fluid
[2020-11-19 11:31] LABS: Appearance Synovial Fluid Cloudy (Clear); Color Synovial Fluid Red (Colorless); Lymphocytes Synovial Fluid 2 %; Neutrophils Synovial Fluid 98 % (0-25)
[2020-11-19 11:37] LABS: Crystals Synovial Fluid None Seen (None Seen)
[2020-11-19 12:00] LABS: Troponin I 0.664 ng/mL (0.000-0.034)
[2020-11-19 16:17] LABS: Alveolar/Arterial O2 Gradient 30.6 mmHg; Base Excess ABG -1.9 mEq/l (+/-2.0); Carboxyhemoglobin 0.5 % THb (0-2.0); Fractional Inspired Oxygen 21 %; HCO3 ABG 21.6 mEq/l (22.0-26.0); Methemoglobin ABG 0.2 %THb (0-1.5); Oxygen Saturation ABG 96.7 % (95.0-100.0); Oxyhemoglobin 94.5 % THb (90.0-100.0); Reduced Hemoglobin 4.8 %THb (0-5.0); pH ABG 7.461 (7.350-7.450)
[2020-11-19 16:18] LABS: Device ROOM AIR; Modified Allen's Test Pass; Site Drawn LEFT RADIAL; Total Hemoglobin 7.4 g/dL (12.0-18.0)
--- NOTE | 2020-11-19 18:51 | ADMGEN ---
This patient, Yobani Linton, was admitted to Intensive Care Unit-8. Patient/family oriented to hospital policies and general routines including ID bracelet, bed and alarms, visiting hours, pain management, procedures, bathroom and other care routines, personal items, smoking policy, room service/diet, and visiting hours. Information on how to activate the Rapid Response Team has been discussed. Patient/Family are encouraged to report perceived risks to care and to ask questions if they do not understand what they are told or what they should do.
--- NOTE | 2020-11-19 19:15 | PM.IMHP ---
H&P: HPI History of Present Illness Date/Time: 11/19/20 19:15 <Rosita Pisano PA-C - Last Filed: 11/20/20 12:59> Chief Complaint: Chest pain, shortness of breath, weakness. <Rosita Pisano PA-C - Last Filed: 11/20/20 12:59> Narrative: This is a 45-year-old male with a rather complicated medical history to include alcoholic cirrhosis, hemochromatosis, hypertension, diverticulitis in May 2020 complicated by bacteremia due to mixed organisms including Proteus mirabilis and Clostridium perfringens, hemolytic anemia in July 2020, and septic arthritis of the left knee requiring several washouts in August 2020 at [facility] who presented to the emergency department earlier today via EMS from home for evaluation of chest pain, shortness of breath, and weakness. He did a bowel prep on in anticipation for a routine colonoscopy which was done on Thursday11/16/[address] Douglas. He had difficulties with the bowel prep due to ongoing abdominal pain and bloating thus he did not finish the prep but it was apparently good enough with findings of diverticulosis without abscess or bleeding and internal hemorrhoids. Following his colonoscopy he had innumerable bouts of diarrhea for about 2 days and yesterday he developed nausea with a couple of episodes of emesis. He has been feeling weak due to the diarrhea and vomiting and has not gotten out of bed much in the last couple of days. This morning he felt short of breath ?my breathing was rapid but I could not control it or slow it down? as well as vague left-sided chest heaviness which brought him in for evaluation. He was found to be profoundly anemic on arrival to the emergency department with a hemoglobin and hematocrit of 3.7 and 14.1% respectively. ABG demonstrated profound acidosis with a pH of 6.987, pCO2 10.2, and bicarb 2.4. His lactic acid level was greater than 24 and he had several electrolyte abnormalities noted on chemistries. CT of the abdomen and pelvis showed acute, uncomplicated sigmoid diverticulitis and findings consistent with septic arthritis of the right hip. He underwent arthrocentesis per IR and transfer was initiated to [facility] given suspected septic arthritis, for continuity of care. He is currently receiving his 4th unit of packed red blood cells at the time my evaluation and reports feeling much better at this time. He denies fever, chills, and sweats. No melena, hematochezia, or hematemesis. He has had abdominal discomfort since he started his colon prep as detailed above, and that remains unchanged. He endorses pain in his right hip that has been ongoing for many weeks and in fact it started after he started physical therapy for his left knee pain. During his 2nd section of physical therapy he ?heard a pop in my right hip? and he has had progressive pain and debility related to the same since that time. In fact he is now ambulating with a walker and is only able to put a small amount await on the right leg to avoid pain. He has not had a fever to his knowledge. He is not currently having any chest pain. No pleuritic pain or shortness of breath at this time. He denies palpitations. No dysuria. He has not had any sick contacts and denies exposure to those positive for COVID-19. <Rosita Pisano PA-C - Last Filed: 11/20/20 12:59> Review of Systems Review of Systems: Twelve systems were reviewed with pertinent positives and negatives as per HPI. No headache. No syncope or near syncope. He denies recent cold and flu symptoms. No orthopnea, PND, or lower extremity edema. No history of venous thromboembolism. No history of malignancy. He reports having issues with both bladder and bowel incontinence since his hospitalizations earlier this year, for unclear reasons. No saddle anesthesia or lower extremity paresthesias. During my exam he took a drink of ice water and had a fairly impressive coughing jag and with further question
[2020-11-19 20:27] LABS: Magnesium 1.6 mg/dL (1.6-2.3)
[2020-11-19 20:28] LABS: Lactic Acid Reflex 6.7 mmol/L (0.7-2.1)
[2020-11-19 20:44] LABS: Alanine Aminotransferase 28 U/L (4-50); Albumin Level 2.8 g/dL (3.5-5.1); Alkaline Phosphatase 265 U/L (38-126); Anion Gap 11 mmol/L (8-16); Aspartate Amino Transferase 85 U/L (17-59); Bilirubin,Total 2.9 mg/dL (0.2-1.3); Blood Urea Nitrogen 11 mg/dL (9-20); CRP 8.7 mg/dL (<1.0); Calcium 8.9 mg/dL (8.4-10.2); Carbon Dioxide 26 mmol/L (22-30); Chloride 94 mmol/L (98-107); Estimated CRCL calculation 132 ml/min; Estimated Glomerular Filt Rate > 60; Glucose 176 mg/dL (65-110); Potassium 2.7 mmol/L (3.4-5.0); Sodium 131 mmol/L (137-145)
[2020-11-19] MEDS: HYDROcodone/acetaminophen (*CRX) 5-325 MG TABLET 1 TAB PO (21:53)
[2020-11-19] MEDS: SERTRALINE HCL 25 MG TABLET PO (21:54)
[2020-11-19] MEDS: methocarbamoL 750 MG TABLET PO (21:54)
[2020-11-19] MEDS: POTASSIUM CHLORIDE 20 MEQ TABLET 40 MEQ PO (23:39)
[2020-11-20] VITALS (18 sets, daily range): BP systolic 99–126; BP diastolic 43–65; PULSE 95–106; RESP 16–26; TEMP 36.1–37.1; O2SAT 92–100
[2020-11-20] MEDS: FLUTICASONE PROP 44 MCG (*SP) 10.6 GM 2 PUFF INHALATION ×3 (00:04→22:29)
[2020-11-20] MEDS: ALBUTEROL SULFATE (*SP) AEROSOL 1 PUFF 2 PUFF INHALATION ×3 (00:04→22:29)
[2020-11-20] MEDS: MORPHINE SULFATE (*CRX) 4 MG/ML INJ IV PUSH (00:30)
[2020-11-20 00:41] LABS: Hematocrit 22.8 % (42.0-52.0); Hemoglobin 7.4 g/dL (14.0-18.0); Mean Corpuscular HGB Conc 32.5 g/dl (32-36); Mean Corpuscular Hemoglobin 27.9 pg (26-34); Mean Platelet Volume 8.3 fl (7.4-10.4); Platelet Count Result 209 k/mm3 (150-375); Red Blood Count 2.65 M/mm3 (4.6-6.20); Red Cell Distribution Width 18.1 % (11.5-14.5); White Blood Count 10.8 K/mm3 (4.5-10.0)
[2020-11-20] MEDS: PANTOPRAZOLE 40 MG TABLET PO (08:27)
[2020-11-20] MEDS: methocarbamoL 750 MG TABLET PO ×3 (08:28→23:00)
[2020-11-20] MEDS: SODIUM BICARBONATE 8.4% 150 MEQ in WATER, STERILE FOR INJECTION 950 ML 50 MEQ IV CONT (08:45)
--- NOTE | 2020-11-20 09:32 | ECG_ITS ---
Measurements Intervals [place] Rate: 102 P: -9 [place]: 122 QRS: 44 QRSD: 96 T: 71 QT: 403 QTc: 526 Interpretive Statements SINUS TACHYCARDIA POSSIBLE LEFT ATRIAL ENLARGEMENT ST-T WAVE ABNORMALITY IN ANTEROLATERAL LEADS- CONSIDER ISCHEMIA ABNORMAL ECG Electronically Signed On 11-20-2020 12:23:27 CDT by Alvino Draper D.O.
--- NOTE | 2020-11-20 10:16 | PCSTNOTE ---
Patient was referred for a Modified Barium Swallow study. Nursing today reports patient is not having any evidence of difficulty swallowing both solids and liquids and that Modified Barium Swallow study is not appropriate or indicated for this patient. Therapist will discontinue the order at nursing request.
[2020-11-20 10:33] LABS: Alanine Aminotransferase 17 U/L (4-50); Albumin Level 2.5 g/dL (3.5-5.1); Alkaline Phosphatase 270 U/L (38-126); Anion Gap 6 mmol/L (8-16); Aspartate Amino Transferase 67 U/L (17-59); Bilirubin,Total 2.6 mg/dL (0.2-1.3); Blood Urea Nitrogen 11 mg/dL (9-20); Calcium 8.6 mg/dL (8.4-10.2); Carbon Dioxide 29 mmol/L (22-30); Chloride 94 mmol/L (98-107); Estimated CRCL calculation 156 ml/min; Estimated Glomerular Filt Rate > 60; Glucose 192 mg/dL (65-110); Magnesium 1.5 mg/dL (1.6-2.3); Potassium 2.9 mmol/L (3.4-5.0); Sodium 129 mmol/L (137-145)
[2020-11-20 10:51] LABS: Phosphorus < 1.0 mg/dL (2.5-4.5)
--- NOTE | 2020-11-20 13:14 | WPDCNINT ---
Assessment and Plan Assessment and plan (1) Profound anemia: Code(s): D64.9 - Anemia, unspecified Status: Acute Assessment and Plan: Patient presented with weakness, shortness of breath chest pain, was found to hemoglobin 3.7 in the ER -patient received a total of 4 units of packed RBCs -and is within normal limits, haptoglobin pending -total bilirubin 0.7, indirect bilirubin is 0.6 -will have DrDean should evaluate the patient who has been consulted by the hospitalist (2) Metabolic acidosis: Code(s): E87.2 - Acidosis Status: Acute Assessment and Plan: Resolved (3) Severe sepsis: Code(s): A41.9 - Sepsis, unspecified organism; R65.20 - Severe sepsis without septic shock Status: Acute Assessment and Plan: Patient with leukocytosis, elevated lactic acid Both of them a trending down, could be related to diverticulitis, septic knee or septic hip joint. Continue Zosyn and vancomycin -source could be related to right septic hip joint or left knee joint. -cultures have been obtained, right hip joint has been aspirated - (4) Tobacco dependency: Code(s): F17.200 - Nicotine dependence, unspecified, uncomplicated Status: Acute Assessment and Plan: Discussed with patient regarding cessation of smoking, currently once a nicotine patch. He stated that he has quit smoking 5 time his girlfriend continues to smokes when he goes back home he started smoking again. (5) Non-ST elevated myocardial infarction: Code(s): I21.4 - Non-ST elevation (NSTEMI) myocardial infarction Status: Acute Assessment and Plan: Patient presented with chest pain, weakness, shortness of breath, elevated troponins, no EKG changes, likely related to severe anemia Cardiology is following (6) Septic joint: Code(s): M00.9 - Pyogenic arthritis, unspecified Status: Acute Assessment and Plan: Negative (7) Diverticulitis: Code(s): K57.92 - Diverticulitis of intestine, part unspecified, without perforation or abscess without bleeding Status: Acute Assessment and Plan: Diverticulitis was seen on the CT scan of the abdomen and pelvis, continue Zosyn Additional Plan Discussed with patient updated with his condition plan of care. He is aware that he be transferred to [facility] once he has a bed available. I also discussed with the hospitalist at [facility] who has accepted her on the medical floor. The transfer line from [facility] will call us once the have a bed available Code status: Full code Critical care time spent: 47 minutes This dictation may have been done utilizing a voice recognition system. Attempts have been made to correct errors. However, there may be uncorrected grammatical, spelling, and recognition errors present. Due to a high probability of clinically significant, life threatening deterioration, the patient required my highest level of preparedness to intervene emergently and I personally spent this critical care time directly and personally managing the patient. This critical care time included obtaining a history; examining the patient; pulse oximetry; ordering and review of studies; arranging urgent treatment with development of a management plan; evaluation of patient's response to treatment; frequent reassessment; and discussions with other providers. It was exclusive of separately billable procedures and treating other patients and teaching time. 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
[2020-11-20] MEDS: NICOTINE (*PBKC) 14 MG PATCH 1 PATCH TRANSDERM (14:59)
[2020-11-20] MEDS: SODIUM CHLORIDE 0.9% IV 250 ML 30 ML IV CONT (14:59)
--- NOTE | 2020-11-20 14:59 | ECHO_ITS ---
Patient Info Name: Yobani Linton Age: 45 years : 1975 Gender: Male Ht: 69 in Wt: 184 lbs BSA: 2.03 m2 HR: 98 bpm BP: 114 / 73 mmHg Heart Rhythm: Sinus Rhythm Exam Date: 11/21/2020 9:44 AM Exam Location: [facility] Pulmonary Patient Status: Inpatient Admit Date: 11/20/2020 Staff Ordering Physician: Lei Duran MD President[employer] Experiences: Ziggy Dickson RDCS, RT Attending Provider: Lynda De La Torre MD Referring Physician: Roger HEATH; Exam Type: CA echo doppler color flow Study Info Indications I50.9 - Heart failure, unspecified Complete two-dimensional, color flow and Doppler transthoracic echocardiogram is performed. Strain analysis performed. Summary 1. Complete two-dimensional, color flow and Doppler transthoracic echocardiogram is performed. 2. Left ventricular chamber dimension is normal. 3. Left ventricular systolic function is normal, estimated at 55%. 4. There is mildly increased left ventricular wall thickness. 5. The left ventricular diastolic function is normal. 6. There is mild tricuspid valve regurgitation. 7. Unable to estimate PA systolic pressure due to poor spectral resolution of tricuspid regurgitant jet velocity. Left Ventricle Left ventricular chamber dimension is normal. Left ventricular systolic function is normal, estimated at 55%. There is mildly increased left ventricular wall thickness. The left ventricular diastolic function is normal. Global longitudinal strain is mildly elevated at -14 %. Right Ventricle Right ventricular chamber dimension is normal. Right ventricular systolic function is normal. Left Atria Left atrial chamber dimension is normal. Right Atria Right atrial chamber dimension is normal. Aortic Valve The aortic valve is not well visualized. There is no aortic valve stenosis. There is no aortic valve regurgitation. Pulmonic Valve The pulmonic valve is normal. There is trace pulmonic regurgitation. Mitral Valve The mitral valve has normal leaflets. There is trace mitral valve regurgitation. Tricuspid Valve The tricuspid valve leaflets are normal. There is mild tricuspid valve regurgitation. Unable to estimate PA systolic pressure due to poor spectral resolution of tricuspid regurgitant jet velocity. Pericardium/Pleural The pericardium appears normal. There is trivial pericardial effusion. Inferior Vena Cava Normal inferior vena cava with >50% collapse upon inspiration consistent with normal right atrial pressure, 5 mmHg. Aorta The aortic root size at the sinus of Valsalva is normal. Left Ventricular Outflow Tract Name Value Normal LVOT 2D LVOT Diameter 2.1 cm LVOT Doppler LVOT Peak Gradient 6 mmHg LVOT Mean Gradient 3 mmHg LVOT VTI 21 cm LVOT VTI/AV VTI Ratio 0.7 LVOT Stroke Volume 73 ml LVOT CO 6.9 l/min LVOT CI 3.4 l/min/m2 Mitral Valve
--- NOTE | 2020-11-20 16:39 | PM.IMPN ---
Progress Note: A&P Assessment and Plan (1) Profound anemia: Qualifiers: Iron deficiency anemia type: chronic blood loss Anemia type: iron deficiency Qualified Code(s): D50.0 - Iron deficiency anemia secondary to blood loss (chronic) Code(s): D64.9 - Anemia, unspecified Status: Acute Assessment and Plan: -History of hemolytic anemia, consulting Dr. Zurita -hemolysis labs pending, bilirubin is normal unclear as to where blood loss is going -last acute colonoscopy which showed diverticulosis no active bleeding (2) Severe sepsis: Code(s): A41.9 - Sepsis, unspecified organism; R65.20 - Severe sepsis without septic shock Status: Acute Assessment and Plan: Secondary to severe anemia, lactic acidosis likely from hypoperfusion from anemia (3) Metabolic acidosis: Code(s): E87.2 - Acidosis Status: Acute Assessment and Plan: -Severe electrolyte abnormalities, replacing phosphorus, potassium, magnesium -nausea: Zofran (4) Diverticulitis: Code(s): K57.92 - Diverticulitis of intestine, part unspecified, without perforation or abscess without bleeding Status: Acute Assessment and Plan: Treatment broad-spectrum antibiotics vanc and Zosyn (5) Elevated troponin: Code(s): R77.8 - Other specified abnormalities of plasma proteins Status: Acute Assessment and Plan: Secondary to profound anemia, cardiology consulted. echo pending (6) Septic joint: Qualifiers: Septic arthritis location: hip Septic arthritis organism: due to unspecified organism Laterality: right Qualified Code(s): M00.9 - Pyogenic arthritis, unspecified Code(s): M00.9 - Pyogenic arthritis, unspecified Status: Acute Assessment and Plan: -Cultures pending, right hip arthrocentesis. G stain does not show any organisms. -Will continue broad-spectrum antibiotics vanc and Zosyn. -pain control: [place] -unclear etiology of infection, lab abnormalities may all be from profound anemia (7) Electrolyte abnormality: Code(s): E87.8 - Other disorders of electrolyte and fluid balance, not elsewhere classified Status: Acute Assessment and Plan: Repleting magnesium, phosphorus, potassium Additional Plan # chronic conditions -continue Zoloft -nicotine abuse: Nicotine patch Diet: Heart healthy DVT prophylaxis: SCDs GI prophylaxis: Protonix Code status: Full code Disposition: Med tele, transferring to [facility] Time Spent With Patient Time with patient: 25 - 35 minutes Subjective Date/time seen: 11/20/20 16:39 Patient examined. he feels much better after multiple units blood transfusions. Hgb 3.7 at first. He will recieve 4-5 units RBC. He has history of autoimmune hemolytic anemia who he follows with Dr. Zurita. He states he did not complete treatment for his AIHA. He is receiving IV vanc/zosyn for infection which may be septic knee versus septic right hip versus diverticulitis. Patient denies fever, chills, nausea vomiting diarrhea chest, abdominal pain. Endorses pain in multiple joints. Review of Systems Review of Systems: All systems reviewed & are unremarkable except as noted in HPI and below Exam Narrative: - GENERAL: male in no acute distress breathing comfortably on room air - EYES: EOMI. Anicteric. - HENT: Moist mucous membranes. edentulous - LUNGS: Clear to auscultation bilaterally, no wheezing, rhonchi, or rales. - CARDIOVASCULAR: Regular rate and rhythm. No murmur. - ABDOMEN: Soft, non-tender and non-distended. No palpable masses. Hypoactive bowel sounds. - : [place] - EXTREMITIES: No edema. Peripheral pulses 2+. Tender with rotation of joint right hip - NEUROLOGIC: No focal neurological deficits. CN II-XII grossly intact. - PSYCHIATRIC: Awake, Alert and oriented x 3. Appropriate mood and affect. - SKIN: No rashes or lesions. Warm. - LYMPH: No cervical lymphadenopathy. Objective Data Vital Signs
[2020-11-20] MEDS: MAGNESIUM SULF 2 GM/WATER 50ML 2 GM/50 ML BAG IVPB (17:54)
[2020-11-20 18:01] LABS: EDCOVIDSCREEN Negative (Negative)
--- NOTE | 2020-11-20 18:26 | PC.NURSE ---
This patient, Yobani Linton, was transferred to [facility] on 11/20/20 at 1810. Personal belongings sent with patient. Report given to Veda HUYNH. Appropriate documentation sent with patient.
[2020-11-20] MEDS: SERTRALINE HCL 25 MG TABLET PO (20:15)
[2020-11-20] MEDS: HYDROcodone/acetaminophen (*CRX) 5-325 MG TABLET 1 TAB PO (22:18)
[2020-11-20 23:12] LABS: Vancomycin Trough 18.1 ug/mL (10.0-20.0)
[2020-11-21] VITALS: PULSE 101
[2020-11-21 04:00] VITALS: PULSE 103
[2020-11-21] MEDS: HYDROcodone/acetaminophen (*CRX) 5-325 MG TABLET 1 TAB PO ×3 (04:16→17:25)
[2020-11-21] MEDS: methocarbamoL 750 MG TABLET PO ×3 (04:16→23:57)
[2020-11-21 06:00] VITALS: BP 114/73; PULSE 98; RESP 18; TEMP 36.8; O2SAT 97
[2020-11-21 06:35] LABS: Basophils Percent Auto 0.3 % (0.2-1.2); Eosinophils Percent Auto 0.2 % (0-4.4); Hemoglobin 7.8 g/dL (14.0-18.0); Immature Granulocyte Absolute 0.03 K/mm3 (0.00-0.031); Immature Granulocyte Percent A 0.5 % (0-0.5); Lymphocytes Absolute Auto 1.39 K/mm3 (0.9-3.2); Lymphocytes Percent Auto 23.7 % (18.3-44.2); Mean Corpuscular HGB Conc 32.5 g/dl (32-36); Mean Corpuscular Hemoglobin 27.4 pg (26-34); Mean Corpuscular Volume 84.2 fl (80-100); Mean Platelet Volume 8.8 fl (7.4-10.4); Monocytes Absolute Auto 0.4 K/mm3 (0.1-0.6); Neutrophils Absolute Auto 4.1 K/mm3 (1.3-6.7); Neutrophils Percent Auto 69.3 % (45.5-73.1); Nucleated Red Blood Cells Perc 0.3 % (0.0-0.2); Platelet Count Result 150 k/mm3 (150-375); Red Blood Count 2.85 M/mm3 (4.6-6.20); Red Cell Distribution Width 17.7 % (11.5-14.5); White Blood Count 5.9 K/mm3 (4.5-10.0)
[2020-11-21 06:42] LABS: Lactic Acid Reflex 3.3 mmol/L (0.7-2.1)
[2020-11-21 07:02] LABS: Alanine Aminotransferase 17 U/L (4-50); Albumin Level 2.5 g/dL (3.5-5.1); Alkaline Phosphatase 315 U/L (38-126); Anion Gap 9 mmol/L (8-16); Aspartate Amino Transferase 79 U/L (17-59); Bilirubin,Total 1.8 mg/dL (0.2-1.3); Blood Urea Nitrogen 8 mg/dL (9-20); Calcium 7.7 mg/dL (8.4-10.2); Carbon Dioxide 27 mmol/L (22-30); Chloride 90 mmol/L (98-107); Estimated CRCL calculation 189 ml/min; Estimated Glomerular Filt Rate > 60; Glucose 144 mg/dL (65-110); Magnesium 1.6 mg/dL (1.6-2.3); Phosphorus 2.2 mg/dL (2.5-4.5); Potassium 2.7 mmol/L (3.4-5.0); Sodium 126 mmol/L (137-145)
[2020-11-21] MEDS: FLUTICASONE PROP 44 MCG (*SP) 10.6 GM 2 PUFF INHALATION ×2 (08:40→21:21)
[2020-11-21] MEDS: ALBUTEROL SULFATE (*SP) AEROSOL 1 PUFF 2 PUFF INHALATION ×2 (08:40→21:22)
[2020-11-21 09:31] LABS: Reflex Lactic Acid Yes or No Add Lactic
[2020-11-21 10:01] LABS: Lactic Acid 3.2 mmol/L (0.7-2.1)
[2020-11-21 10:18] LABS: Immature Reticulocyte Fraction 0.8 % (3.0-15.9); Reticulocyte Hemoglobin Conten 31.4 pg (28.2-35.7); Reticulocyte Percent 0.31 % (0.7-4.3); Reticulocytes Absolute 0.01 B/L (32.2-175.7)
[2020-11-21] MEDS: NICOTINE (*PBKC) 14 MG PATCH 1 PATCH TRANSDERM (10:19)
[2020-11-21] MEDS: PANTOPRAZOLE 40 MG TABLET PO (10:19)
[2020-11-21 10:33] LABS: Lactate Dehydrogenase 1024 U/L (313-618)
[2020-11-21] MEDS: POTASSIUM/PHOSPHORUS/SODIUM 1.5 GM PACKET 2 PACKET PO (10:33)
[2020-11-21 11:08] LABS: Troponin I 0.962 ng/mL (0.000-0.034)
[2020-11-21] MEDS: SODIUM CHLORIDE 0.9% IV 1,000 ML 125 ML IV CONT (11:32)
[2020-11-21] MEDS: MAGNESIUM CITRATE 300 ML BTL 150 ML PO (11:32)
--- NOTE | 2020-11-21 12:17 | PM.PNCARD ---
Progress Note: A&P Additional Plan 45-year-old man with: Severe profound symptomatic anemia on presentation patient is more stable as expected following improvement in his red cell volume with transfusion. At this point there is no reason to consider further cardiac workup or evaluation. Given his comorbidities expected especially the profound anemia he is not a safe candidate for invasive cardiac procedures. I am going to sign off this case as of today. If our input is necessary please let me know. Paul Jain MD [facility] Subjective Date/time seen: Date of service:11/21/20 12:17 Interval history: Follow-up visit in this 45-year-old man with severe profound anemia on presentation we were seeing the patient in the emergency room regarding the concern regarding acute myocardial infarction. In retrospect the principal problem was obviously profound anemia. He is still significantly anemic following transfusion but is now asymptomatic and clinically stable. Food Service Employee has been consulted to see him again that consult is pending. Exam Const: General: comfortable and no acute distress HENMT: Mouth: Yes moist mucous membranes Eyes: Sclera: sclerae normal Pupils: Equal, round and reactive pupils present Neck: Neck: supple and no JVD Resp: Effort & Inspection: normal respiratory effort Auscultation: clear to auscultation bilaterally Cardio: Rate: regular rate Rhythm: regular rhythm Other: No murmur no gallop GI: GI Palp: Yes Soft to palpation Auscultation: normal bowel sounds Skin: General skin exam: normal color Neuro: Cognition (Neuro): normal cognition Objective Data Vital Signs Vital Signs: Vital Signs - 24 hr 11/20/20 14:46 11/20/20 15:02 11/20/20 16:00 Temperature 36.1 C L 36.1 C L 36.1 C L Pulse Rate 99 95 101 H Respiratory Rate 18 18 22 H Blood Pressure 117/54 L 103/61 112/57 L Pulse Oximetry 96 98 99 11/20/20 16:02 11/20/20 17:02 11/20/20 17:26 Temperature 36.1 C L 36.2 C L 36.2 C L Pulse Rate 102 H 106 H 104 H Respiratory Rate 22 H 23 H 23 H Blood Pressure 112/57 L 111/57 L 113/61 Pulse Oximetry 99 98 98 11/20/20 18:20 11/20/20 20:00 11/20/20 22:00 Temperature 36.1 C L 36.3 C L Pulse Rate 100 100 104 H Respiratory Rate 16 16 20 Blood Pressure 117/58 L 110/65 Pulse Oximetry 100 100 98 11/21/20 00:00 11/21/20 04:00 11/21/20 06:00 Temperature 36.8 C Pulse Rate 101 H 103 H 98 Respiratory Rate 18 Blood Pressure 114/73 Pulse Oximetry 97 Intake/Output Intake/Output: Intake & Output 11/18/20 11/19/20 11/20/20 11/21/20 23:59 23:59 23:59 23:59 Intake Total 2130 1680 1040 Output Total 840 Balance 2130 840 1040 Meds/Results Medications: Active Medications Generic Name Dose Route Start Last Admin Trade Name Freq PRN Reason Stop Dose Admin Acetaminophen 650 mg 11/19/20 16:21 Acetaminophen 325 Mg Tablet PO Q4H PRN Mild Pain (1-3) or Fever Hydrocodone Bitart/Acetaminophen 1 tab 11/19/20 16:21 11/21/20 12:15 Hydrocodone/Acetaminophen (*Crx) 5-325 Mg Tablet PO 1 tab Q4H PRN Administration Pain Rated 4-6 Hydrocodone Bitart/Acetaminophen 1 tab 11/19/20 19:47 Hydrocodone/Acetaminophen (*Crx) 5-325 Mg Tablet PO Q8H PRN Pain Rated 7 Or Greater Albuterol 2 puff 11/19/20 20:00 11/21/20 08:40 Albuterol Sulfate (*Sp) Aerosol 1 Puff INHALATION 2 puff Q12HRT SINDI Administration Albuterol 2.5 mg 11/20/20 10:57 Albuterol Sulfate Neb 2.5 Mg/0.5 Ml Inh INHALATION Q6HRT PRN Shortness Of Breath Fluticasone Propionate 2 puff 11/19/20 20:00 11/21/20 08:40 Fluticasone Prop 44 Mcg (*Sp) 10.6 Gm INHALATION 2 puff Q12HRT SINDI Administration Piperacillin/Tazobactam/Dextrose 3.375 gm in 50 mls @ 100 mls/hr 11/19/20 19:00 11/21/20 07:35 Zosyn 3.375 Gm/D5w 50ml Pm IVPB 100 mls/hr Q6H SINDI Administration Vancomycin HCl 1,250 mg in 250 mls @ 200 mls/hr 08/11/21 05:00 11/21/20 05:22
--- NOTE | 2020-11-21 12:57 | PDONCCN ---
HPI - Date of Consult Date/Time: 11/21/20 12:57 Requesting Physician: Yamel Jack MD Primary Care Provider: Brock Tee, - Consult Narrative Reason for consult: Profound anemia Narrative: Yobani Linton is a 45 year old male with history with history of autoimmune hemolytic anemia was treated previously with steroid and discontinued about 4-6 months ago. Patient also has a history of left knee infection and completed course of antibiotic therapy. He started doing physical therapy. Three weeks ago he noticed a pop in the right hip area and started having significant pain that he when she became wheelchair-bound. He came into the hospital with profound weakness as well as right hip pain. Labs showed hemoglobin of 3.7. He denies any bleeding including melena and hematochezia. He denies any fevers and chills. He denies any other signs of infection other than right hip area pain. Patient received 5 units of packed red blood cell with improvement in hemoglobin to 7.8. CT abdomen and pelvis showed sigmoid diverticulitis hepatic steatosis and liver cirrhosis. There was finding consistent with septic arthritis of the right hip. Patient also had colonoscopy done on November 16 that showed diverticulosis without perforation or abscess. There was internal hemorrhoid. Right hip joint was aspirated and the synovial fluid only showed acute inflammation and negative for crystals. Labs showed elevated LDH of 1024. Reticulocyte count was low. Creatinine was normal at 0.4. Review of Systems - Review of Systems All systems reviewed & are unremarkable except as noted in HPI and bel - Neurologic Reports weakness [facility] Medical History: Medical History (Last Updated 11/19/20 @ 22:37 by Rosita Pisano PA-C) Asthma Bacteremia Onset Date: 07/10/20 Proteus mirabilis and Clostridium perfringens. Chronic obstructive pulmonary disease Cirrhosis, alcoholic No history of complication or decompensation. Diverticulitis Onset Date: 05/2020 Hemochromatosis associated with mutation in HFE gene Hemolytic anemia Onset Date: 05/2020 Hypertension Peripheral neuropathy Septic joint of left knee joint Onset Date: 07/2020 Tobacco dependency Surgical History: Surgical History (Last Updated 11/19/20 @ 22:37 by Rosita Pisano PA-C) History of colonoscopy Onset Date: 11/16/20 Diverticulosis perforation hemorrhage. Internal hemorrhoids. History of left knee surgery Onset Date: 07/2020 Multiple washouts due to septic arthritis. History of tonsillectomy Family History: Family History (Last Reviewed 11/19/20 @ 22:37 by Rosita Pisano PA-C) Other Unknown family medical history - Social History Social History: Social History (Last Updated 11/19/20 @ 22:38 by Rosita Pisano PA-C) Alcohol Use: Alcohol intake: current Drinks per week: 5 Substance Use: Substance use: never Substance use type: does not use Smoking Status: Smoking status: Current every day smoker Smoking Pack-years: Smoking packs per day: 1 Smoking cigarettes per day: 20.0 Years smoked: 25 Smoking pack-years: 25.00 Meds Home Medications Medication Instructions Recorded Confirmed Type RX: sertraline 25 mg PO HS 05/14/20 11/19/20 History RX: metoprolol succinate 25 mg PO DAILY 05/17/20 11/19/20 History RX: Flovent HFA 2 puff INHALATION Q12HRT #1 inh 05/25/20 11/19/20 Rx RX: albuterol sulfate [ProAir HFA] 2 inh INHALATION BID 06/25/20 11/19/20 History RX: hydrocodone-acetaminophen 1 tablet PO Q8H PRN 7 Days #21 07/18/20 11/19/20 Rx tablet RX: benzonatate 100 mg PO TID PRN 11/02/20 11/19/20 History RX: methocarbamol 750 mg PO Q6H PRN 11/02/20 11/19/20 History RX: pantoprazole 40 mg PO DAILY 11/19/20 11/19/20 History Allergies Allergy/AdvReac Type Severity Reaction Status Date / Time methylprednisolone Allergy Severe Hives Verified 11/19/20 08:53 [From S
[2020-11-21 14:00] VITALS: BP 119/71; PULSE 93; RESP 14; TEMP 36.2; O2SAT 98
[2020-11-21 15:10] LABS: Folic Acid 2.6 ng/mL (2.76->20); Vitamin B12 > 1000.0 pg/mL (239-931)
--- NOTE | 2020-11-21 15:30 | WPDGICN ---
Assessment and Plan Assessment and plan (1) Profound anemia: Qualifiers: Anemia type: iron deficiency Iron deficiency anemia type: chronic blood loss Qualified Code(s): D50.0 - Iron deficiency anemia secondary to blood loss (chronic) Code(s): D64.9 - Anemia, unspecified Status: Acute Assessment and Plan: work up consistent with hemolysis and hematology on board, will get immunoglobulin and holding steroids in setting of severe sepsis patient denies any overt gib (2) Severe sepsis: Code(s): A41.9 - Sepsis, unspecified organism; R65.20 - Severe sepsis without septic shock Status: Acute Assessment and Plan: most likely from septic joint, [facility] give complicated medical history on antibiotics (3) Diverticulitis: Code(s): K57.92 - Diverticulitis of intestine, part unspecified, without perforation or abscess without bleeding Status: Acute Assessment and Plan: colonoscopy last week only mild diverticulosis, no colitis, no polyps now denies any pain or nausea, feeling better (4) Cirrhosis, alcoholic: Qualifiers: Ascites presence: with ascites Qualified Code(s): K70.31 - Alcoholic cirrhosis of liver with ascites Code(s): K70.30 - Alcoholic cirrhosis of liver without ascites Status: Acute Assessment and Plan: stable, he is not longer drinking (5) Hemolytic anemia: Qualifiers: Hemolytic anemia type: acquired, autoimmune, other Qualified Code(s): D59.19 - Other autoimmune hemolytic anemia Code(s): D58.9 - Hereditary hemolytic anemia, unspecified Status: Chronic Assessment and Plan: monitor cbc, hematology on board, no signs of gib (6) Septic joint: Qualifiers: Laterality: right Septic arthritis location: hip Septic arthritis organism: due to unspecified organism Qualified Code(s): M00.9 - Pyogenic arthritis, unspecified Code(s): M00.9 - Pyogenic arthritis, unspecified Status: Acute (7) Non-ST elevated myocardial infarction: Code(s): I21.4 - Non-ST elevation (NSTEMI) myocardial infarction Status: Acute Assessment and Plan: in setting of severe sepsis with profound anemia (8) Metabolic acidosis: Code(s): E87.2 - Acidosis Status: Acute (9) Electrolyte abnormality: Code(s): E87.8 - Other disorders of electrolyte and fluid balance, not elsewhere classified Status: Acute GI Consult Note Consult date/time: 11/21/20 15:30 Reason for consult: cirrhosis, acute on chronic anemia with hemolysis HPI: Yobani Linton is a 45 year old male with history of HTN, peripheral neuropathy and alcoholic hepatitis 06/2019, used to drink one fifth vodka daily for 8 years but discontinued more than a year ago, hemolytic anemia treated by hematology with prednisone tape previously and work up for cirrhosis also ferritin ~2000, HFE gen C282Y and H63 D, also had septic arthritis of the left knee requiring several washouts in August 2020 at [facility]. He had previous hospitalization 07/2020 with diverticulitis, septic arthritis with proteus and C perfringes bacteremia. Finally he had his first colonoscopy last week as outpatient since never had one and only revealed mild sigmoid diverticulosis. This time he was admitted with generalized weakness, chills and just feeling unwell, also nausea and vomiting, had left lower abdominal pain and severe pain in right hip. He had severe anemia with hb 3.5 and admitted, LDH elevated c/w again with hemolysis, elevated lactic acid and wbc 35k and started on antibiotics and given blood transfusion. Also had CT scan reviewed and showed acute sigmoid diverticulitis, findings consistent with septic arthritis of the right hip, cirrhosis. He also had aspiration of right hip. Now better, no more nausea or abdominal pain, still pain in hip. Review of Systems Constitutional: Constit
--- NOTE | 2020-11-21 19:07 | PM.IMPN ---
Progress Note: A&P Assessment and Plan (1) Severe sepsis: Code(s): A41.9 - Sepsis, unspecified organism; R65.20 - Severe sepsis without septic shock Status: Acute (2) Electrolyte abnormality: Code(s): E87.8 - Other disorders of electrolyte and fluid balance, not elsewhere classified Status: Acute (3) Diverticulitis: Code(s): K57.92 - Diverticulitis of intestine, part unspecified, without perforation or abscess without bleeding Status: Acute (4) Metabolic acidosis: Code(s): E87.2 - Acidosis Status: Acute (5) Profound anemia: Qualifiers: Anemia type: iron deficiency Iron deficiency anemia type: chronic blood loss Qualified Code(s): D50.0 - Iron deficiency anemia secondary to blood loss (chronic) Code(s): D64.9 - Anemia, unspecified Status: Acute (6) Chronic obstructive pulmonary disease: Code(s): J44.9 - Chronic obstructive pulmonary disease, unspecified Status: Acute (7) Tobacco dependency: Code(s): F17.200 - Nicotine dependence, unspecified, uncomplicated Status: Acute (8) Hypertension: Code(s): I10 - Essential (primary) hypertension Status: Acute (9) Septic joint: Qualifiers: Laterality: right Septic arthritis location: hip Septic arthritis organism: due to unspecified organism Qualified Code(s): M00.9 - Pyogenic arthritis, unspecified Code(s): M00.9 - Pyogenic arthritis, unspecified Status: Acute (10) Anemia: Code(s): D64.9 - Anemia, unspecified Status: Acute (11) Non-ST elevated myocardial infarction: Code(s): I21.4 - Non-ST elevation (NSTEMI) myocardial infarction Status: Acute (12) Acute hypokalemia: Code(s): E87.6 - Hypokalemia Status: Acute (13) Hemochromatosis associated with mutation in HFE gene: Code(s): E83.110 - Hereditary hemochromatosis Status: Acute (14) Acute hyponatremia: Code(s): E87.1 - Hypo-osmolality and hyponatremia Status: Acute (15) Thrombocytopenia: Code(s): D69.6 - Thrombocytopenia, unspecified Status: Acute (16) Hypokalemia: Code(s): E87.6 - Hypokalemia Status: Acute (17) Lactic acidosis: Code(s): E87.2 - Acidosis Status: Acute (18) Hyperbilirubinemia: Code(s): E80.6 - Other disorders of bilirubin metabolism Status: Acute (19) Autoimmune hemolytic anemia: Code(s): D59.10 - Autoimmune hemolytic anemia, unspecified Status: Acute Additional Plan Continue IV vancomycin and Zosyn for sepsis secondary to septic arthritis Patient may require long-term antibiotics and further workup for repeated septic arthritis In keeping with the above-mentioned reasons an echo was performed that did not reveal any concerning findings of endocarditis Anemia was attributed to autoimmune hemolytic anemia for which reason Hematology-Oncology has been brought on board and patient has been started on IVIG The profound anemia is attributed to stress related exacerbation of autoimmune disease in light of current sepsis Continue IV antibiotics for diverticulitis Continue IV fluids for hyponatremia and continue to replace potassium Diarrhea is attributed to diverticulitis and resulting electrolyte deficiencies are because of the same Patient has been accepted to be transferred to [facility] where most of his care takes place, he is awaiting transfer Time Spent With Patient Time with patient: 25 - 35 minutes Subjective Date/time seen: 11/21/20 19:07 45-year-old male with past medical history significant for alcoholic cirrhosis, hemochromatosis, hypertension, hyperlipidemia, history of autoimmune hemolytic anemia, history of left knee septic arthritis status post several wash outs (last done August 2020 [facility]), 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
[2020-11-21 20:21] LABS: Haptoglobin 192 mg/dL (43-212)
[2020-11-21 21:26] VITALS: PULSE 97; O2SAT 97
[2020-11-21 22:00] VITALS: BP 112/69; PULSE 100; RESP 18; TEMP 37.9; O2SAT 97
[2020-11-21] MEDS: MORPHINE SULFATE (*CRX) 2 MG/ML INJ 0.5 MG IV PUSH (23:56)
[2020-11-21] MEDS: SERTRALINE HCL 25 MG TABLET PO (23:57)
[2020-11-22] VITALS (7 sets, daily range): BP systolic 112–143; BP diastolic 55–79; PULSE 76–100; RESP 18–20; TEMP 36.8–37.7; O2SAT 93–97
--- NOTE | 2020-11-22 05:38 | PC.NURSE ---
Telemetry strips will not print. Notified house superviour and work order has been put in.
[2020-11-22 07:10] LABS: Basophils Percent Auto 0.2 % (0.2-1.2); Eosinophils Percent Auto 0.4 % (0-4.4); Hematocrit 24.2 % (42.0-52.0); Hemoglobin 7.7 g/dL (14.0-18.0); Immature Granulocyte Absolute 0.02 K/mm3 (0.00-0.031); Immature Granulocyte Percent A 0.4 % (0-0.5); Lymphocytes Absolute Auto 1.17 K/mm3 (0.9-3.2); Lymphocytes Percent Auto 21.7 % (18.3-44.2); Mean Corpuscular HGB Conc 31.8 g/dl (32-36); Mean Corpuscular Hemoglobin 27.3 pg (26-34); Mean Corpuscular Volume 85.8 fl (80-100); Mean Platelet Volume 8.9 fl (7.4-10.4); Monocytes Absolute Auto 0.3 K/mm3 (0.1-0.6); Monocytes Percent Auto 5.9 % (2.6-8.5); Neutrophils Absolute Auto 3.8 K/mm3 (1.3-6.7); Neutrophils Percent Auto 71.4 % (45.5-73.1); Nucleated Red Blood Cells Perc 0.7 % (0.0-0.2); Platelet Count Result 129 k/mm3 (150-375); Red Blood Count 2.82 M/mm3 (4.6-6.20); Red Cell Distribution Width 17.9 % (11.5-14.5); White Blood Count 5.4 K/mm3 (4.5-10.0)
[2020-11-22 07:35] LABS: Alanine Aminotransferase 18 U/L (4-50); Albumin Level 2.5 g/dL (3.5-5.1); Alkaline Phosphatase 356 U/L (38-126); Anion Gap 6 mmol/L (8-16); Aspartate Amino Transferase 78 U/L (17-59); Bilirubin,Total 1.4 mg/dL (0.2-1.3); Blood Urea Nitrogen 6 mg/dL (9-20); CRP 5.6 mg/dL (<1.0); Calcium 7.7 mg/dL (8.4-10.2); Carbon Dioxide 30 mmol/L (22-30); Chloride 95 mmol/L (98-107); Creatine Kinase < 20 U/L (55-170); Estimated CRCL calculation 156 ml/min; Estimated Glomerular Filt Rate > 60; Glucose 115 mg/dL (65-110); Potassium 3.6 mmol/L (3.4-5.0); Sodium 131 mmol/L (137-145)
[2020-11-22] MEDS: NICOTINE (*PBKC) 14 MG PATCH 1 PATCH TRANSDERM (09:49)
[2020-11-22] MEDS: PANTOPRAZOLE 40 MG TABLET PO (09:50)
[2020-11-22] MEDS: POTASSIUM/PHOSPHORUS/SODIUM 1.5 GM PACKET 2 PACKET PO (09:50)
[2020-11-22 10:14] LABS: Lactic Acid Reflex 1.6 mmol/L (0.7-2.1)
[2020-11-22] MEDS: ALBUTEROL SULFATE (*SP) AEROSOL 1 PUFF 2 PUFF INHALATION ×2 (10:40→22:04)
[2020-11-22] MEDS: FLUTICASONE PROP 44 MCG (*SP) 10.6 GM 2 PUFF INHALATION ×2 (10:40→22:03)
[2020-11-22 13:51] LABS: Add Urine Microscopic? YES; Appearance Urine Clear (Clear); Bilirubin Urine Negative (Negative); Blood Urine Negative (Negative); Color Urine Amber (Yellow); Glucose Urine UA Negative (Negative); Ketones Urine Negative (Negative); Leukocyte Esterase Ur Negative LEU/UL (NEGATIVE); Nitrate Urine Negative (Negative); Protein Urine Negative (Negative); Specific Grav Ur 1.017 (1.001-1.035); Urobilinogen Urine Negative mg/dL (<2.0)
[2020-11-22] MEDS: methocarbamoL 750 MG TABLET PO ×2 (15:00→21:00)
[2020-11-22 16:56] LABS: Vancomycin Trough < 5.0 ug/mL (10.0-20.0)
--- NOTE | 2020-11-22 17:55 | WPDGIPROGNO ---
Progress Note: A&P Assessment and Plan (1) Autoimmune hemolytic anemia: Code(s): D59.10 - Autoimmune hemolytic anemia, unspecified Status: Acute Assessment and Plan: hb stable but low, on ivig. No steroids given ongoing infection no signs of gib (2) Severe sepsis: Code(s): A41.9 - Sepsis, unspecified organism; R65.20 - Severe sepsis without septic shock Status: Acute (3) Septic joint: Qualifiers: Laterality: right Septic arthritis location: hip Septic arthritis organism: due to unspecified organism Qualified Code(s): M00.9 - Pyogenic arthritis, unspecified Code(s): M00.9 - Pyogenic arthritis, unspecified Status: Acute Assessment and Plan: he has been accepted to [facility], on iv antibiotics (4) Diverticulitis: Code(s): K57.92 - Diverticulitis of intestine, part unspecified, without perforation or abscess without bleeding Status: Acute Assessment and Plan: clinically resolved, had colonoscopy last week and no acute findings (5) Diarrhea: Code(s): R19.7 - Diarrhea, unspecified Status: Acute Assessment and Plan: probably from use of antibiotics (6) Cirrhosis, alcoholic: Qualifiers: Ascites presence: with ascites Qualified Code(s): K70.31 - Alcoholic cirrhosis of liver with ascites Code(s): K70.30 - Alcoholic cirrhosis of liver without ascites Status: Acute Assessment and Plan: no acute issues. Subjective Date/time seen: 11/22/20 17:55 Interval history: no abdominal pain or nausea, tolerating diet. Still with diarrhea and pain in joint. Review of Systems Review of Systems: All systems reviewed & are unremarkable except as noted in HPI and below Exam Const: General: no acute distress and ill appearing chronically HENMT: General nose exam: Normal nares present Eyes: Sclera: sclerae normal Neck: Neck: supple Resp: Auscultation: clear to auscultation bilaterally Cardio: Rate: regular rate GI: Inspection: non-distended GI Palp: Yes Soft to palpation, No Tenderness to palpation present (GI) and No Guarding due to palpation present (GI) Auscultation: normal bowel sounds Skin: General skin exam: no rashes or lesions noted Neuro: Speech: normal speech Motor exam (neuro): Normal motor muscle tone present throughout Extrem: Other: pain right hip and knee Objective Data Vital Signs Vital Signs: Vital Signs - 24 hr 11/21/20 21:26 11/21/20 22:00 11/22/20 05:55 Temperature 100.3 F H 98.7 F Pulse Rate 97 100 100 Respiratory Rate 18 18 Blood Pressure 112/69 112/55 L Pulse Oximetry 97 97 93 11/22/20 10:41 11/22/20 14:00 Temperature 98.3 F Pulse Rate 76 Respiratory Rate 20 Blood Pressure 143/71 H Pulse Oximetry 96 97 Intake/Output Intake/Output: Intake & Output 11/19/20 11/20/20 11/21/20 11/22/20 23:59 23:59 23:59 23:59 Intake Total 2130 1680 2430 1230 Output Total 840 Balance 2130 840 2430 1230 Meds/Results Medications: Active Medications Generic Name Dose Route Start Last Admin Trade Name Freq PRN Reason Stop Dose Admin Acetaminophen 650 mg 11/19/20 16:21 Acetaminophen 325 Mg Tablet PO Q4H PRN Mild Pain (1-3) or Fever Hydrocodone Bitart/Acetaminophen 1 tab 11/19/20 19:47 Hydrocodone/Acetaminophen (*Crx) 5-325 Mg Tablet PO Q8H PRN Pain Rated 7 Or Greater Albuterol 2 puff 11/19/20 20:00 11/22/20 10:40 Albuterol Sulfate (*Sp) Aerosol 1 Puff INHALATION 2 puff Q12HRT SINDI Administration Albuterol 2.5 mg 11/20/20 10:57 Albuterol Sulfate Neb 2.5 Mg/0.5 Ml Inh INHALATION Q6HRT PRN Shortness Of Breath Fluticasone Propionate 2 puff 11/19/20 20:00 11/22/20 10:40 Fluticasone Prop 44 Mcg (*Sp) 10.6 Gm INHALATION 2 puff Q12HRT SINDI Administration Hydrocortisone Acetate 25 mg 11/21/20 19:21 Hydrocortisone Acetate 25 Mg Suppository RECTAL Q12HR PRN hemorrhoidal itch
--- NOTE | 2020-11-22 19:09 | PM.IMPN ---
Progress Note: A&P Assessment and Plan (1) Autoimmune hemolytic anemia: Code(s): D59.10 - Autoimmune hemolytic anemia, unspecified Status: Acute (2) Hyperbilirubinemia: Code(s): E80.6 - Other disorders of bilirubin metabolism Status: Acute (3) Lactic acidosis: Code(s): E87.2 - Acidosis Status: Acute (4) Elevated troponin: Code(s): R77.8 - Other specified abnormalities of plasma proteins Status: Acute (5) Severe sepsis: Code(s): A41.9 - Sepsis, unspecified organism; R65.20 - Severe sepsis without septic shock Status: Acute (6) Metabolic acidosis: Code(s): E87.2 - Acidosis Status: Acute (7) Profound anemia: Qualifiers: Anemia type: iron deficiency Iron deficiency anemia type: chronic blood loss Qualified Code(s): D50.0 - Iron deficiency anemia secondary to blood loss (chronic) Code(s): D64.9 - Anemia, unspecified Status: Acute (8) Chronic obstructive pulmonary disease: Code(s): J44.9 - Chronic obstructive pulmonary disease, unspecified Status: Acute (9) Tobacco dependency: Code(s): F17.200 - Nicotine dependence, unspecified, uncomplicated Status: Acute (10) Hypertension: Code(s): I10 - Essential (primary) hypertension Status: Acute (11) Septic joint: Qualifiers: Laterality: right Septic arthritis location: hip Septic arthritis organism: due to unspecified organism Qualified Code(s): M00.9 - Pyogenic arthritis, unspecified Code(s): M00.9 - Pyogenic arthritis, unspecified Status: Acute (12) Anemia: Code(s): D64.9 - Anemia, unspecified Status: Acute (13) Non-ST elevated myocardial infarction: Code(s): I21.4 - Non-ST elevation (NSTEMI) myocardial infarction Status: Acute (14) Acute hypokalemia: Code(s): E87.6 - Hypokalemia Status: Acute (15) Bacteremia: Code(s): R78.81 - Bacteremia Status: Acute (16) Elevated ferritin level: Code(s): R79.89 - Other specified abnormal findings of blood chemistry Status: Acute (17) Thrombocytopenia: Code(s): D69.6 - Thrombocytopenia, unspecified Status: Acute Additional Plan Continue IV vancomycin and Zosyn for sepsis secondary to septic arthritis Patient may require long-term antibiotics and further workup for repeated septic arthritis In keeping with the above-mentioned reasons an echo was performed that did not reveal any concerning findings of endocarditis Anemia was attributed to autoimmune hemolytic anemia for which reason Hematology-Oncology has been brought on board and patient has been started on IVIG The profound anemia is attributed to stress related exacerbation of autoimmune disease in light of current sepsis Continue IV antibiotics for diverticulitis Continue IV fluids for hyponatremia and continue to replace potassium Diarrhea is attributed to diverticulitis and resulting electrolyte deficiencies are because of the same Patient [facility], he is awaiting transfer Subjective Date/time seen: 11/22/20 19:09 45-year-old male with past medical history significant for alcoholic cirrhosis, hemochromatosis, hypertension, hyperlipidemia, history of autoimmune hemolytic anemia, history of left knee septic arthritis status post several wash outs (last done August 2020 [facility]), 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 He was managed as a case of acute on chronic anemia is a hemoglobin of 3.7, high anion gap metabolic acidosis, lactic acidosis and sepsis secondary to diverticulitis, septic arthritis of the right hip. He was started on broad-spectrum antibiotics and is continuing to receive the same. He has also been started on IVIG for autoimmune
[2020-11-22] MEDS: SODIUM CHLORIDE 0.9% IV 1,000 ML 125 ML IV CONT (21:05)
[2020-11-22] MEDS: SERTRALINE HCL 25 MG TABLET PO (21:07)
[2020-11-22] MEDS: MORPHINE SULFATE (*CRX) 2 MG/ML INJ 0.5 MG IV PUSH (23:29)
[2020-11-23] VITALS (11 sets, daily range): BP systolic 118–152; BP diastolic 51–83; PULSE 76–104; RESP 18–20; TEMP 37.1–37.8; O2SAT 96–100
[2020-11-23 06:27] LABS: Basophils Percent Auto 0.3 % (0.2-1.2); Eosinophils Percent Auto 0.4 % (0-4.4); Hematocrit 22.9 % (42.0-52.0); Hemoglobin 7.4 g/dL (14.0-18.0); Immature Granulocyte Absolute 0.03 K/mm3 (0.00-0.031); Immature Granulocyte Percent A 0.4 % (0-0.5); Lymphocytes Absolute Auto 1.43 K/mm3 (0.9-3.2); Lymphocytes Percent Auto 20.4 % (18.3-44.2); Mean Corpuscular HGB Conc 32.3 g/dl (32-36); Mean Corpuscular Hemoglobin 27.5 pg (26-34); Mean Corpuscular Volume 85.1 fl (80-100); Mean Platelet Volume 9.1 fl (7.4-10.4); Monocytes Absolute Auto 0.7 K/mm3 (0.1-0.6); Monocytes Percent Auto 9.7 % (2.6-8.5); Neutrophils Absolute Auto 4.8 K/mm3 (1.3-6.7); Neutrophils Percent Auto 68.8 % (45.5-73.1); Nucleated Red Blood Cells Perc 0.4 % (0.0-0.2); Platelet Count Result 144 k/mm3 (150-375); Red Blood Count 2.69 M/mm3 (4.6-6.20)
[2020-11-23 06:43] LABS: Alanine Aminotransferase 18 U/L (4-50); Albumin Level 2.4 g/dL (3.5-5.1); Alkaline Phosphatase 358 U/L (38-126); Anion Gap 5 mmol/L (8-16); Aspartate Amino Transferase 77 U/L (17-59); Bilirubin,Total 1.2 mg/dL (0.2-1.3); Blood Urea Nitrogen 5 mg/dL (9-20); Calcium 7.4 mg/dL (8.4-10.2); Carbon Dioxide 28 mmol/L (22-30); Chloride 95 mmol/L (98-107); Estimated CRCL calculation 189 ml/min; Estimated Glomerular Filt Rate > 60; Glucose 109 mg/dL (65-110); Potassium 3.4 mmol/L (3.4-5.0); Sodium 128 mmol/L (137-145)
[2020-11-23] MEDS: methocarbamoL 750 MG TABLET PO ×2 (08:13→20:30)
[2020-11-23] MEDS: PANTOPRAZOLE 40 MG TABLET PO (08:13)
[2020-11-23] MEDS: NICOTINE (*PBKC) 14 MG PATCH 1 PATCH TRANSDERM (08:14)
[2020-11-23] MEDS: POTASSIUM/PHOSPHORUS/SODIUM 1.5 GM PACKET 2 PACKET PO (08:14)
[2020-11-23 08:20] LABS: Hypochromasia 1+ (NORMAL); Platelet Estimate Adequate (Adequate)
[2020-11-23] MEDS: ALBUTEROL SULFATE (*SP) AEROSOL 1 PUFF 2 PUFF INHALATION ×2 (10:06→21:16)
[2020-11-23] MEDS: FLUTICASONE PROP 44 MCG (*SP) 10.6 GM 2 PUFF INHALATION ×2 (10:06→21:17)
[2020-11-23] MEDS: MORPHINE SULFATE (*CRX) 2 MG/ML INJ 0.5 MG IV PUSH (11:15)
--- NOTE | 2020-11-23 15:25 | WPDGIPROGNO ---
Progress Note: A&P Assessment and Plan (1) Autoimmune hemolytic anemia: Code(s): D59.10 - Autoimmune hemolytic anemia, unspecified Status: Acute Assessment and Plan: hb stable but low, on ivig. No steroids given ongoing infection no signs of gib (2) Diarrhea: Code(s): R19.7 - Diarrhea, unspecified Status: Acute Assessment and Plan: probably from use of antibiotics, still ongoing patient requesting treatment, will start questran bid (3) Severe sepsis: Code(s): A41.9 - Sepsis, unspecified organism; R65.20 - Severe sepsis without septic shock Status: Acute (4) Septic joint: Qualifiers: Laterality: right Septic arthritis location: hip Septic arthritis organism: due to unspecified organism Qualified Code(s): M00.9 - Pyogenic arthritis, unspecified Code(s): M00.9 - Pyogenic arthritis, unspecified Status: Acute Assessment and Plan: he has been accepted to [facility], on iv antibiotics (5) Diverticulitis: Code(s): K57.92 - Diverticulitis of intestine, part unspecified, without perforation or abscess without bleeding Status: Acute Assessment and Plan: clinically resolved, had colonoscopy last week and no acute findings (6) Cirrhosis, alcoholic: Qualifiers: Ascites presence: with ascites Qualified Code(s): K70.31 - Alcoholic cirrhosis of liver with ascites Code(s): K70.30 - Alcoholic cirrhosis of liver without ascites Status: Acute Assessment and Plan: no acute issues. Subjective Date/time seen: 11/23/20 15:25 Interval history: no changes, good appetite but still with diarrhea Review of Systems Review of Systems: All systems reviewed & are unremarkable except as noted in HPI and below Exam Const: General: no acute distress and ill appearing chronically HENMT: General nose exam: Normal nares present Eyes: Sclera: sclerae normal Neck: Neck: supple Resp: Auscultation: clear to auscultation bilaterally Cardio: Rate: regular rate GI: Inspection: non-distended GI Palp: Yes Soft to palpation, No Tenderness to palpation present (GI) and No Guarding due to palpation present (GI) Auscultation: normal bowel sounds Skin: General skin exam: no rashes or lesions noted Neuro: Speech: normal speech Motor exam (neuro): Normal motor muscle tone present throughout Extrem: Other: pain right hip and knee Objective Data Vital Signs Vital Signs: Vital Signs - 24 hr 11/22/20 16:00 11/22/20 20:00 11/22/20 21:57 Temperature 99.8 F H Pulse Rate 99 97 97 Respiratory Rate 18 18 Blood Pressure 133/79 Pulse Oximetry 97 95 11/22/20 22:09 11/23/20 00:00 11/23/20 04:00 Temperature Pulse Rate 101 H 104 H Respiratory Rate Blood Pressure Pulse Oximetry 97 11/23/20 05:45 11/23/20 10:11 11/23/20 14:00 Temperature 99.8 F H 100.1 F H Pulse Rate 76 95 Respiratory Rate 20 18 Blood Pressure 118/63 123/51 L Pulse Oximetry 96 97 99 Intake/Output Intake/Output: Intake & Output 11/20/20 11/21/20 11/22/20 11/23/20 23:59 23:59 23:59 23:59 Intake Total 1680 2430 3130 949 Output Total 840 600 400 Balance 840 2430 2530 549 Meds/Results Medications: Active Medications Generic Name Dose Route Start Last Admin Trade Name Freq PRN Reason Stop Dose Admin Acetaminophen 650 mg 11/19/20 16:21 Acetaminophen 325 Mg Tablet PO Q4H PRN Mild Pain (1-3) or Fever Hydrocodone Bitart/Acetaminophen 1 tab 11/19/20 19:47 Hydrocodone/Acetaminophen (*Crx) 5-325 Mg Tablet PO Q8H PRN Pain Rated 7 Or Greater Albuterol 2 puff 11/19/20 20:00 11/23/20 10:06 Albuterol Sulfate (*Sp) Aerosol 1 Puff INHALATION 2 puff Q12HRT SINDI Administration Albuterol 2.5 mg 11/20/20 10:57 Albuterol Sulfate Neb 2.5 Mg/0.5 Ml Inh INHALATION Q6HRT PRN Shortness Of Breath Cholestyramine Resin 4 gm 11/23/20 18:00 Cholestyramine Light 4 Gm Po
[2020-11-23] MEDS: SODIUM CHLORIDE 0.9% IV 1,000 ML 125 ML IV CONT (17:14)
[2020-11-23] MEDS: CHOLESTYRAMINE LIGHT 4 GM POWD.PACK PO (17:15)
[2020-11-23] MEDS: ACETAMINOPHEN 325 MG TABLET 650 MG PO (19:06)
--- NOTE | 2020-11-23 19:21 | PM.IMPN ---
Progress Note: A&P Assessment and Plan (1) Autoimmune hemolytic anemia: Code(s): D59.10 - Autoimmune hemolytic anemia, unspecified Status: Acute (2) Hyperbilirubinemia: Code(s): E80.6 - Other disorders of bilirubin metabolism Status: Acute (3) Lactic acidosis: Code(s): E87.2 - Acidosis Status: Acute (4) Elevated troponin: Code(s): R77.8 - Other specified abnormalities of plasma proteins Status: Acute (5) Dysphagia: Code(s): R13.10 - Dysphagia, unspecified Status: Acute (6) Severe sepsis: Code(s): A41.9 - Sepsis, unspecified organism; R65.20 - Severe sepsis without septic shock Status: Acute (7) Electrolyte abnormality: Code(s): E87.8 - Other disorders of electrolyte and fluid balance, not elsewhere classified Status: Acute (8) Diverticulitis: Code(s): K57.92 - Diverticulitis of intestine, part unspecified, without perforation or abscess without bleeding Status: Acute (9) Metabolic acidosis: Code(s): E87.2 - Acidosis Status: Acute (10) Profound anemia: Qualifiers: Anemia type: iron deficiency Iron deficiency anemia type: chronic blood loss Qualified Code(s): D50.0 - Iron deficiency anemia secondary to blood loss (chronic) Code(s): D64.9 - Anemia, unspecified Status: Acute (11) Chronic obstructive pulmonary disease: Code(s): J44.9 - Chronic obstructive pulmonary disease, unspecified Status: Acute (12) Tobacco dependency: Code(s): F17.200 - Nicotine dependence, unspecified, uncomplicated Status: Acute (13) Hypertension: Code(s): I10 - Essential (primary) hypertension Status: Acute (14) Septic joint: Qualifiers: Laterality: right Septic arthritis location: hip Septic arthritis organism: due to unspecified organism Qualified Code(s): M00.9 - Pyogenic arthritis, unspecified Code(s): M00.9 - Pyogenic arthritis, unspecified Status: Acute (15) Sepsis: Code(s): A41.9 - Sepsis, unspecified organism Status: Acute (16) Anemia: Code(s): D64.9 - Anemia, unspecified Status: Acute (17) Non-ST elevated myocardial infarction: Code(s): I21.4 - Non-ST elevation (NSTEMI) myocardial infarction Status: Acute (18) Acute hypokalemia: Code(s): E87.6 - Hypokalemia Status: Acute (19) Diverticulitis: Code(s): K57.92 - Diverticulitis of intestine, part unspecified, without perforation or abscess without bleeding Status: Acute (20) Bacteremia: Code(s): R78.81 - Bacteremia Status: Acute (21) DVT prophylaxis: Code(s): Z29.9 - Encounter for prophylactic measures, unspecified Status: Acute (22) Left knee pain: Code(s): M25.562 - Pain in left knee Status: Acute (23) Hemochromatosis associated with mutation in HFE gene: Code(s): E83.110 - Hereditary hemochromatosis Status: Acute (24) Diverticulitis: Onset Date: 05/2020 Code(s): K57.92 - Diverticulitis of intestine, part unspecified, without perforation or abscess without bleeding Status: Acute (25) Acute hyperglycemia: Code(s): R73.9 - Hyperglycemia, unspecified Status: Acute (26) Generalized edema due to fluid overload: Code(s): E87.70 - Fluid overload, unspecified; R60.1 - Generalized edema Status: Acute (27) Thrombocytopenia: Code(s): D69.6 - Thrombocytopenia, unspecified Status: Acute (28) H/O: HTN (hypertension): Code(s): Z86.79 - Personal history of other diseases of the circulatory system Status: Chronic Additional Plan Continue IV vancomycin and Zosyn for sepsis secondary to septic arthritis Patient may require long-term antibiotics and further workup for repeated septic arthritis In keeping with the above-mentioned reasons an echo was performed that did not reveal any concerning findings o
[2020-11-23] MEDS: SERTRALINE HCL 25 MG TABLET PO (20:31)
[2020-11-23] MEDS: HYDROcodone/acetaminophen (*CRX) 5-325 MG TABLET 1 TAB PO (20:31)
[2020-11-23 21:48] LABS: Glucose Synovial Fluid 55 mg/dL
[2020-11-24] VITALS (9 sets, daily range): BP systolic 141–149; BP diastolic 71–76; PULSE 95–110; RESP 18–22; TEMP 36.2–38; O2SAT 95–100
[2020-11-24] MEDS: MORPHINE SULFATE (*CRX) 2 MG/ML INJ 0.5 MG IV PUSH ×2 (01:15→23:23)
[2020-11-24] MEDS: SODIUM CHLORIDE 0.9% IV 1,000 ML 125 ML IV CONT (03:02)
[2020-11-24] MEDS: methocarbamoL 750 MG TABLET PO ×2 (06:32→12:36)
[2020-11-24] MEDS: HYDROcodone/acetaminophen (*CRX) 5-325 MG TABLET 1 TAB PO ×2 (06:36→18:09)
[2020-11-24 07:40] LABS: Basophils Percent Auto 0.4 % (0.2-1.2); Eosinophils Absolute Auto 0.1 K/mm3 (0-0.3); Eosinophils Percent Auto 0.9 % (0-4.4); Hematocrit 22.8 % (42.0-52.0); Hemoglobin 7.3 g/dL (14.0-18.0); Immature Granulocyte Absolute 0.04 K/mm3 (0.00-0.031); Immature Granulocyte Percent A 0.5 % (0-0.5); Lymphocytes Percent Auto 18.5 % (18.3-44.2); Mean Corpuscular Hemoglobin 27.4 pg (26-34); Mean Corpuscular Volume 85.7 fl (80-100); Mean Platelet Volume 9.3 fl (7.4-10.4); Monocytes Absolute Auto 0.8 K/mm3 (0.1-0.6); Monocytes Percent Auto 10.2 % (2.6-8.5); Neutrophils Absolute Auto 5.6 K/mm3 (1.3-6.7); Neutrophils Percent Auto 69.5 % (45.5-73.1); Platelet Count Result 184 k/mm3 (150-375); Red Blood Count 2.66 M/mm3 (4.6-6.20); White Blood Count 8.1 K/mm3 (4.5-10.0)
[2020-11-24 08:07] LABS: Alanine Aminotransferase 18 U/L (4-50); Albumin Level 2.3 g/dL (3.5-5.1); Alkaline Phosphatase 325 U/L (38-126); Anion Gap 8 mmol/L (8-16); Aspartate Amino Transferase 51 U/L (17-59); Bilirubin,Total 1.3 mg/dL (0.2-1.3); Blood Urea Nitrogen 2 mg/dL (9-20); Calcium 7.6 mg/dL (8.4-10.2); Carbon Dioxide 25 mmol/L (22-30); Chloride 96 mmol/L (98-107); Estimated CRCL calculation 189 ml/min; Estimated Glomerular Filt Rate > 60; Glucose 107 mg/dL (65-110); Potassium 3.2 mmol/L (3.4-5.0); Sodium 129 mmol/L (137-145)
[2020-11-24] MEDS: NICOTINE (*PBKC) 14 MG PATCH 1 PATCH TRANSDERM (08:18)
[2020-11-24] MEDS: PANTOPRAZOLE 40 MG TABLET PO (08:18)
[2020-11-24] MEDS: POTASSIUM/PHOSPHORUS/SODIUM 1.5 GM PACKET 2 PACKET PO (08:19)
--- NOTE | 2020-11-24 09:39 | PCOTNOTE ---
Attempted OT evaluation, per RN advised to not wake patient up due to reported irritability , will follow and attempt at later time.
[2020-11-24] MEDS: CHOLESTYRAMINE LIGHT 4 GM POWD.PACK PO ×2 (11:12→17:58)
[2020-11-24] MEDS: ENOXAPARIN 30 MG/0.3 ML SYRINGE SUB-Q (11:12)
--- NOTE | 2020-11-24 12:59 | WPDGIPROGNO ---
Progress Note: A&P Assessment and Plan (1) Autoimmune hemolytic anemia: Code(s): D59.10 - Autoimmune hemolytic anemia, unspecified Status: Acute Assessment and Plan: hb stable but low, he has been receiving ivig. No steroids given ongoing infection no signs of gib (2) Diarrhea: Code(s): R19.7 - Diarrhea, unspecified Status: Acute Assessment and Plan: probably from use of antibiotics just started on questran bid and will add also probiotics he has good appetite and denies abdominal pain (3) Severe sepsis: Code(s): A41.9 - Sepsis, unspecified organism; R65.20 - Severe sepsis without septic shock Status: Acute (4) Septic joint: Qualifiers: Laterality: right Septic arthritis location: hip Septic arthritis organism: due to unspecified organism Qualified Code(s): M00.9 - Pyogenic arthritis, unspecified Code(s): M00.9 - Pyogenic arthritis, unspecified Status: Acute Assessment and Plan: he has been [facility], on iv antibiotics (5) Diverticulitis: Code(s): K57.92 - Diverticulitis of intestine, part unspecified, without perforation or abscess without bleeding Status: Acute Assessment and Plan: clinically resolved, had colonoscopy several days ago and no acute findings (6) Cirrhosis, alcoholic: Qualifiers: Ascites presence: with ascites Qualified Code(s): K70.31 - Alcoholic cirrhosis of liver with ascites Code(s): K70.30 - Alcoholic cirrhosis of liver without ascites Status: Acute Assessment and Plan: no acute issues. Subjective Date/time seen: 11/24/20 12:59 Interval history: still with diarrhea, just started using questran. Good appetite and no abdominal pain Review of Systems Review of Systems: All systems reviewed & are unremarkable except as noted in HPI and below Exam Const: General: no acute distress and ill appearing chronically HENMT: General nose exam: Normal nares present Eyes: Sclera: sclerae normal Neck: Neck: supple Resp: Auscultation: clear to auscultation bilaterally Cardio: Rate: regular rate GI: Inspection: non-distended GI Palp: Yes Soft to palpation, No Tenderness to palpation present (GI) and No Guarding due to palpation present (GI) Auscultation: normal bowel sounds Skin: General skin exam: no rashes or lesions noted Neuro: Speech: normal speech Motor exam (neuro): Normal motor muscle tone present throughout Extrem: Other: pain right hip and knee Objective Data Vital Signs Vital Signs: Vital Signs - 24 hr 11/23/20 14:00 11/23/20 16:00 11/23/20 20:00 Temperature 100.1 F H Pulse Rate 95 98 100 Respiratory Rate 18 Blood Pressure 123/51 L Pulse Oximetry 99 11/23/20 21:22 11/23/20 22:00 11/24/20 00:00 Temperature 98.8 F Pulse Rate 99 104 H Respiratory Rate 18 Blood Pressure 152/83 H Pulse Oximetry 98 100 11/24/20 04:00 11/24/20 06:00 11/24/20 08:00 Temperature 100.4 F H Pulse Rate 104 H 96 110 H Respiratory Rate 18 Blood Pressure 145/74 H Pulse Oximetry 100 11/24/20 12:00 Temperature Pulse Rate 95 Respiratory Rate Blood Pressure Pulse Oximetry Intake/Output Intake/Output: Intake & Output 11/21/20 11/22/20 11/23/20 11/24/20 23:59 23:59 23:59 23:59 Intake Total 2430 3130 2839 1550 Output Total 600 1370 Balance 2430 2530 1469 1550 Meds/Results Medications: Active Medications Generic Name Dose Route Start Last Admin Trade Name Freq PRN Reason Stop Dose Admin Acetaminophen 650 mg 11/19/20 16:21 11/23/20 19:06 Acetaminophen 325 Mg Tablet PO 650 mg Q4H PRN Administration Mild Pain (1-3) or Fever Hydrocodone Bitart/Acetaminophen 1 tab 11/19/20 19:47 11/24/20 06:36 Hydrocodone/Acetaminophen (*Crx) 5-325 Mg Tablet PO 1 tab Q8H PRN Administration Pain Rated 7 Or Greater Albuterol 2 puff 11/19/20 20:00 11/24/20 09:56 Albuterol Sulfate (*
[2020-11-24] MEDS: SACCHAROMYCES BOULARDII 250 MG CAPSULE PO (17:58)
[2020-11-24] MEDS: SERTRALINE HCL 25 MG TABLET PO (20:13)
[2020-11-24 23:16] LABS: Vancomycin Trough 6.9 ug/mL (10.0-20.0)
[2020-11-25] VITALS (10 sets, daily range): BP systolic 152–179; BP diastolic 76–77; PULSE 95–110; RESP 18; TEMP 36.3–37.2; O2SAT 95–100
[2020-11-25] MEDS: SODIUM CHLORIDE 0.9% IV 1,000 ML 125 ML IV CONT ×3 (01:44→23:22)
[2020-11-25] MEDS: HYDROcodone/acetaminophen (*CRX) 5-325 MG TABLET 1 TAB PO ×2 (06:34→16:38)
[2020-11-25] MEDS: methocarbamoL 750 MG TABLET PO (06:35)
[2020-11-25 07:19] LABS: Basophils Percent Auto 0.3 % (0.2-1.2); Eosinophils Absolute Auto 0.1 K/mm3 (0-0.3); Eosinophils Percent Auto 1.4 % (0-4.4); Hemoglobin 7.5 g/dL (14.0-18.0); Immature Granulocyte Absolute 0.05 K/mm3 (0.00-0.031); Immature Granulocyte Percent A 0.7 % (0-0.5); Lymphocytes Absolute Auto 1.53 K/mm3 (0.9-3.2); Mean Corpuscular HGB Conc 31.3 g/dl (32-36); Mean Corpuscular Hemoglobin 27.8 pg (26-34); Mean Corpuscular Volume 88.9 fl (80-100); Mean Platelet Volume 9.5 fl (7.4-10.4); Monocytes Absolute Auto 0.8 K/mm3 (0.1-0.6); Monocytes Percent Auto 10.1 % (2.6-8.5); Neutrophils Absolute Auto 5.2 K/mm3 (1.3-6.7); Neutrophils Percent Auto 67.5 % (45.5-73.1); Platelet Count Result 199 k/mm3 (150-375); White Blood Count 7.7 K/mm3 (4.5-10.0)
[2020-11-25 07:28] LABS: Alanine Aminotransferase 17 U/L (4-50); Albumin Level 2.3 g/dL (3.5-5.1); Alkaline Phosphatase 281 U/L (38-126); Anion Gap 3 mmol/L (8-16); Aspartate Amino Transferase 39 U/L (17-59); Bilirubin,Total 1.3 mg/dL (0.2-1.3); Calcium 7.7 mg/dL (8.4-10.2); Carbon Dioxide 23 mmol/L (22-30); Chloride 104 mmol/L (98-107); Estimated CRCL calculation 189 ml/min; Estimated Glomerular Filt Rate > 60; Glucose 93 mg/dL (65-110); Magnesium 1.3 mg/dL (1.6-2.3); Phosphorus 3.5 mg/dL (2.5-4.5); Potassium 3.1 mmol/L (3.4-5.0); Sodium 130 mmol/L (137-145)
[2020-11-25 07:30] LABS: Blood Urea Nitrogen < 2 mg/dL (9-20)
[2020-11-25] MEDS: SACCHAROMYCES BOULARDII 250 MG CAPSULE PO ×2 (09:26→16:30)
[2020-11-25] MEDS: NICOTINE (*PBKC) 14 MG PATCH 1 PATCH TRANSDERM (09:26)
[2020-11-25] MEDS: POTASSIUM/PHOSPHORUS/SODIUM 1.5 GM PACKET 2 PACKET PO (09:26)
[2020-11-25] MEDS: PANTOPRAZOLE 40 MG TABLET PO (09:26)
[2020-11-25] MEDS: CHOLESTYRAMINE LIGHT 4 GM POWD.PACK PO ×2 (09:26→17:35)
[2020-11-25] MEDS: ENOXAPARIN 30 MG/0.3 ML SYRINGE SUB-Q (10:57)
--- NOTE | 2020-11-25 11:16 | WPDGIPROGNO ---
Progress Note: A&P Assessment and Plan (1) Diarrhea: Code(s): R19.7 - Diarrhea, unspecified Status: Acute Assessment and Plan: probably from use of antibiotics continue with questran bid, probiotics and will add banatrol plus he has good appetite and denies abdominal pain (2) Autoimmune hemolytic anemia: Code(s): D59.10 - Autoimmune hemolytic anemia, unspecified Status: Acute Assessment and Plan: hb stable but low, s/p ivig. No steroids given ongoing infection no signs of gib (3) Severe sepsis: Code(s): A41.9 - Sepsis, unspecified organism; R65.20 - Severe sepsis without septic shock Status: Acute (4) Septic joint: Qualifiers: Laterality: right Septic arthritis location: hip Septic arthritis organism: due to unspecified organism Qualified Code(s): M00.9 - Pyogenic arthritis, unspecified Code(s): M00.9 - Pyogenic arthritis, unspecified Status: Acute Assessment and Plan: on iv antibiotics (5) Diverticulitis: Code(s): K57.92 - Diverticulitis of intestine, part unspecified, without perforation or abscess without bleeding Status: Acute Assessment and Plan: clinically resolved, had recent colonoscopy without acute findings (6) Cirrhosis, alcoholic: Qualifiers: Ascites presence: with ascites Qualified Code(s): K70.31 - Alcoholic cirrhosis of liver with ascites Code(s): K70.30 - Alcoholic cirrhosis of liver without ascites Status: Acute Assessment and Plan: no acute issues. Subjective Date/time seen: 11/25/20 11:16 Interval history: no changes other than still with diarrhea Review of Systems Review of Systems: All systems reviewed & are unremarkable except as noted in HPI and below Exam Const: General: no acute distress and ill appearing chronically HENMT: General nose exam: Normal nares present Eyes: Sclera: sclerae normal Neck: Neck: supple Resp: Auscultation: clear to auscultation bilaterally Cardio: Rate: regular rate GI: Inspection: non-distended GI Palp: Yes Soft to palpation, No Tenderness to palpation present (GI) and No Guarding due to palpation present (GI) Auscultation: normal bowel sounds Skin: General skin exam: no rashes or lesions noted Neuro: Speech: normal speech Motor exam (neuro): Normal motor muscle tone present throughout Extrem: Other: pain right hip and knee Objective Data Vital Signs Vital Signs: Vital Signs - 24 hr 11/24/20 12:00 11/24/20 14:00 11/24/20 16:00 Temperature 97.2 F L Pulse Rate 95 100 100 Respiratory Rate 18 Blood Pressure 141/76 H Pulse Oximetry 100 11/24/20 20:00 11/24/20 21:16 11/25/20 00:00 Temperature 97.4 F L Pulse Rate 97 96 101 H Respiratory Rate 22 H Blood Pressure 149/71 H Pulse Oximetry 95 11/25/20 04:00 11/25/20 04:30 Temperature 97.6 F Pulse Rate 109 H 110 H Respiratory Rate 18 Blood Pressure 152/76 H Pulse Oximetry 95 Intake/Output Intake/Output: Intake & Output 11/22/20 11/23/20 11/24/20 11/25/20 23:59 23:59 23:59 23:59 Intake Total 3130 2839 3730 1590 Output Total 600 1370 650 400 Balance 2530 1469 3080 1190 Meds/Results Medications: Active Medications Generic Name Dose Route Start Last Admin Trade Name Freq PRN Reason Stop Dose Admin Acetaminophen 650 mg 11/19/20 16:21 11/23/20 19:06 Acetaminophen 325 Mg Tablet PO 650 mg Q4H PRN Administration Mild Pain (1-3) or Fever Hydrocodone Bitart/Acetaminophen 1 tab 11/19/20 19:47 11/25/20 06:34 Hydrocodone/Acetaminophen (*Crx) 5-325 Mg Tablet PO 1 tab Q8H PRN Administration Pain Rated 7 Or Greater Albuterol 2 puff 11/19/20 20:00 11/24/20 09:56 Albuterol Sulfate (*Sp) Aerosol 1 Puff INHALATION Not Given Q12HRT SINDI Albuterol 2.5 mg 11/20/20 10:57 Albuterol Sulfate Neb 2.5 Mg/0.5 Ml Inh INHALATION Q6HRT PRN Shortness Of Breath Cholestyramine Res
--- NOTE | 2020-11-25 11:32 | PCRCNOTE ---
Window of time for administration has passed. See next scheduled administration.
--- NOTE | 2020-11-25 13:02 | PCPTNOTE ---
Attempted physical therapy treatment, pt declined stating he has only woken up today to puke or go to the bathroom . Will attempt again tomorrow.
[2020-11-25] MEDS: ALBUTEROL SULFATE (*SP) AEROSOL 1 PUFF 2 PUFF INHALATION ×2 (14:30→22:39)
[2020-11-25] MEDS: FLUTICASONE PROP 44 MCG (*SP) 10.6 GM 2 PUFF INHALATION ×2 (14:30→22:39)
[2020-11-25] MEDS: POTASSIUM CHLORIDE 20 MEQ PACKET (FOR LIQUID) 40 MEQ PO (16:30)
[2020-11-25] MEDS: SERTRALINE HCL 25 MG TABLET PO (21:51)
[2020-11-25] MEDS: MORPHINE SULFATE (*CRX) 2 MG/ML INJ 0.5 MG IV PUSH (23:17)
[2020-11-26] VITALS: PULSE 105
[2020-11-26 04:00] VITALS: PULSE 109
[2020-11-26 06:00] VITALS: BP 145/64; PULSE 107; RESP 18; TEMP 36.2; O2SAT 95
[2020-11-26 07:38] LABS: Basophils Percent Auto 0.5 % (0.2-1.2); Eosinophils Absolute Auto 0.1 K/mm3 (0-0.3); Eosinophils Percent Auto 1.4 % (0-4.4); Hemoglobin 8.5 g/dL (14.0-18.0); Immature Granulocyte Absolute 0.03 K/mm3 (0.00-0.031); Immature Granulocyte Percent A 0.4 % (0-0.5); Lymphocytes Absolute Auto 1.78 K/mm3 (0.9-3.2); Lymphocytes Percent Auto 22.2 % (18.3-44.2); Mean Corpuscular HGB Conc 30.4 g/dl (32-36); Mean Corpuscular Hemoglobin 27.5 pg (26-34); Mean Corpuscular Volume 90.6 fl (80-100); Monocytes Absolute Auto 0.7 K/mm3 (0.1-0.6); Monocytes Percent Auto 8.8 % (2.6-8.5); Neutrophils Absolute Auto 5.4 K/mm3 (1.3-6.7); Neutrophils Percent Auto 66.7 % (45.5-73.1); Platelet Count Result 241 k/mm3 (150-375); Red Blood Count 3.09 M/mm3 (4.6-6.20); Red Cell Distribution Width 19.5 % (11.5-14.5)
[2020-11-26 08:53] LABS: Alanine Aminotransferase 14 U/L (4-50); Albumin Level 2.5 g/dL (3.5-5.1); Alkaline Phosphatase 292 U/L (38-126); Anion Gap 6 mmol/L (8-16); Aspartate Amino Transferase 37 U/L (17-59); Bilirubin,Total 1.5 mg/dL (0.2-1.3); Calcium 8.1 mg/dL (8.4-10.2); Carbon Dioxide 19 mmol/L (22-30); Chloride 106 mmol/L (98-107); Estimated CRCL calculation 189 ml/min; Estimated Glomerular Filt Rate > 60; Glucose 94 mg/dL (65-110); Magnesium 1.4 mg/dL (1.6-2.3); Phosphorus 4.3 mg/dL (2.5-4.5); Potassium 3.4 mmol/L (3.4-5.0); Sodium 131 mmol/L (137-145)
[2020-11-26 09:56] LABS: Blood Urea Nitrogen < 2 mg/dL (9-20)
[2020-11-26] MEDS: ALBUTEROL SULFATE (*SP) AEROSOL 1 PUFF 2 PUFF INHALATION ×2 (10:08→21:20)
[2020-11-26] MEDS: FLUTICASONE PROP 44 MCG (*SP) 10.6 GM 2 PUFF INHALATION ×2 (10:08→21:21)
[2020-11-26] MEDS: SODIUM CHLORIDE 0.9% IV 1,000 ML 125 ML IV CONT ×2 (10:43→23:37)
[2020-11-26] MEDS: NICOTINE (*PBKC) 14 MG PATCH 1 PATCH TRANSDERM (10:46)
[2020-11-26] MEDS: CHOLESTYRAMINE LIGHT 4 GM POWD.PACK PO (10:46)
[2020-11-26] MEDS: PANTOPRAZOLE 40 MG TABLET PO (10:46)
[2020-11-26] MEDS: SACCHAROMYCES BOULARDII 250 MG CAPSULE PO (10:46)
[2020-11-26] MEDS: POTASSIUM/PHOSPHORUS/SODIUM 1.5 GM PACKET 2 PACKET PO (10:47)
[2020-11-26] MEDS: ENOXAPARIN 30 MG/0.3 ML SYRINGE SUB-Q (10:55)
[2020-11-26] MEDS: ONDANSETRON INJ 4 MG/2 ML VIAL IV PUSH (11:33)
[2020-11-26 11:36] LABS: Vancomycin Trough 8.6 ug/mL (10.0-20.0)
--- NOTE | 2020-11-26 11:57 | PCPTNOTE ---
Attempted to see patient, however patient with nursing and unable to be seen at this time. PT will continue to follow per plan of care.
[2020-11-26 14:00] VITALS: BP 149/52; PULSE 98; RESP 16; TEMP 36.7; O2SAT 95
--- NOTE | 2020-11-26 17:08 | WPDGIPROGNO ---
Progress Note: A&P Assessment and Plan (1) Diarrhea: Code(s): R19.7 - Diarrhea, unspecified Status: Acute Assessment and Plan: probably from use of antibiotics continue with questran bid, probiotics and banatrol plus will add imodium to take as needed he has good appetite and denies abdominal pain (2) Autoimmune hemolytic anemia: Code(s): D59.10 - Autoimmune hemolytic anemia, unspecified Status: Acute Assessment and Plan: hb stable but low, s/p ivig no overt gib (3) Severe sepsis: Code(s): A41.9 - Sepsis, unspecified organism; R65.20 - Severe sepsis without septic shock Status: Acute (4) Septic joint: Qualifiers: Laterality: right Septic arthritis location: hip Septic arthritis organism: due to unspecified organism Qualified Code(s): M00.9 - Pyogenic arthritis, unspecified Code(s): M00.9 - Pyogenic arthritis, unspecified Status: Acute Assessment and Plan: on iv antibiotics (5) Diverticulitis: Code(s): K57.92 - Diverticulitis of intestine, part unspecified, without perforation or abscess without bleeding Status: Acute Assessment and Plan: clinically resolved, had recent colonoscopy without acute findings (6) Cirrhosis, alcoholic: Qualifiers: Ascites presence: with ascites Qualified Code(s): K70.31 - Alcoholic cirrhosis of liver with ascites Code(s): K70.30 - Alcoholic cirrhosis of liver without ascites Status: Acute Assessment and Plan: no acute issues. Subjective Date/time seen: 11/26/20 17:08 Interval history: no new events, eating salad for dinner, no abdominal pain. Still same diarrhea. Review of Systems Review of Systems: All systems reviewed & are unremarkable except as noted in HPI and below Exam Const: General: no acute distress and ill appearing chronically HENMT: General nose exam: Normal nares present Eyes: Sclera: sclerae normal Neck: Neck: supple Resp: Auscultation: clear to auscultation bilaterally Cardio: Rate: regular rate GI: Inspection: non-distended GI Palp: Yes Soft to palpation, No Tenderness to palpation present (GI) and No Guarding due to palpation present (GI) Auscultation: normal bowel sounds Skin: General skin exam: no rashes or lesions noted Neuro: Speech: normal speech Motor exam (neuro): Normal motor muscle tone present throughout Extrem: Other: pain right hip and knee Objective Data Vital Signs Vital Signs: Vital Signs - 24 hr 11/25/20 20:05 11/25/20 21:05 11/25/20 22:40 Temperature 97.3 F L Pulse Rate 102 H 97 102 H Respiratory Rate 18 18 Blood Pressure 179/77 H Pulse Oximetry 98 11/26/20 00:00 11/26/20 04:00 11/26/20 06:00 Temperature 97.2 F L Pulse Rate 105 H 109 H 107 H Respiratory Rate 18 Blood Pressure 145/64 H Pulse Oximetry 95 11/26/20 14:00 Temperature 98.0 F Pulse Rate 98 Respiratory Rate 16 Blood Pressure 149/52 H Pulse Oximetry 95 Intake/Output Intake/Output: Intake & Output 11/23/20 11/24/20 11/25/20 11/26/20 23:59 23:59 23:59 23:59 Intake Total 2839 3730 3720 2760 Output Total 4177 230 1677 Balance 1469 3080 1770 2760 Meds/Results Medications: Active Medications Generic Name Dose Route Start Last Admin Trade Name Freq PRN Reason Stop Dose Admin Acetaminophen 650 mg 11/19/20 16:21 11/23/20 19:06 Acetaminophen 325 Mg Tablet PO 650 mg Q4H PRN Administration Mild Pain (1-3) or Fever Hydrocodone Bitart/Acetaminophen 1 tab 11/19/20 19:47 11/25/20 16:38 Hydrocodone/Acetaminophen (*Crx) 5-325 Mg Tablet PO 1 tab Q8H PRN Administration Pain Rated 7 Or Greater Albuterol 2 puff 11/19/20 20:00 11/26/20 10:08 Albuterol Sulfate (*Sp) Aerosol 1 Puff INHALATION 2 puff Q12HRT SINDI Administration Albuterol 2.5 mg 11/20/20 10:57 Albuterol Sulfate Neb 2.5 Mg/0.5 Ml Inh INHALATION Q6HRT PRN Shortness Of Breath Cho
[2020-11-26 20:00] VITALS: PULSE 102
--- NOTE | 2020-11-26 21:21 | PCRCNOTE ---
Window of time for administration has passed. See next scheduled administration.
--- NOTE | 2020-11-26 21:22 | PCRCNOTE ---
Window of time for administration has passed. See next scheduled administration.
[2020-11-26 22:00] VITALS: BP 166/80; PULSE 100; RESP 20; TEMP 36.7; O2SAT 99
[2020-11-26] MEDS: LOPERAMIDE HCL 2 MG CAPSULE PO (23:05)
[2020-11-26] MEDS: SERTRALINE HCL 25 MG TABLET PO (23:05)
[2020-11-26] MEDS: MORPHINE SULFATE (*CRX) 2 MG/ML INJ 0.5 MG IV PUSH (23:13)
[2020-11-27] VITALS (7 sets, daily range): BP systolic 149–155; BP diastolic 67–73; PULSE 100–116; RESP 18–20; TEMP 36.7–36.8; O2SAT 93–98
[2020-11-27] MEDS: MAGNESIUM SULF 2 GM/WATER 50ML 2 GM/50 ML BAG IVPB (02:17)
[2020-11-27] MEDS: ONDANSETRON INJ 4 MG/2 ML VIAL IV PUSH ×2 (05:11→09:18)
[2020-11-27] MEDS: methocarbamoL 750 MG TABLET PO ×2 (05:12→17:53)
[2020-11-27 07:09] LABS: Basophils Percent Auto 0.3 % (0.2-1.2); Eosinophils Absolute Auto 0.1 K/mm3 (0-0.3); Eosinophils Percent Auto 1.5 % (0-4.4); Hematocrit 28.7 % (42.0-52.0); Hemoglobin 8.7 g/dL (14.0-18.0); Immature Granulocyte Absolute 0.05 K/mm3 (0.00-0.031); Immature Granulocyte Percent A 0.6 % (0-0.5); Lymphocytes Percent Auto 19.3 % (18.3-44.2); Mean Corpuscular HGB Conc 30.3 g/dl (32-36); Mean Corpuscular Hemoglobin 27.4 pg (26-34); Mean Corpuscular Volume 90.5 fl (80-100); Mean Platelet Volume 8.8 fl (7.4-10.4); Monocytes Absolute Auto 0.6 K/mm3 (0.1-0.6); Monocytes Percent Auto 7.9 % (2.6-8.5); Neutrophils Absolute Auto 5.5 K/mm3 (1.3-6.7); Neutrophils Percent Auto 70.4 % (45.5-73.1); Platelet Count Result 259 k/mm3 (150-375); Red Blood Count 3.17 M/mm3 (4.6-6.20); Red Cell Distribution Width 19.6 % (11.5-14.5); White Blood Count 7.8 K/mm3 (4.5-10.0)
[2020-11-27 07:36] LABS: Alanine Aminotransferase 16 U/L (4-50); Albumin Level 2.5 g/dL (3.5-5.1); Alkaline Phosphatase 297 U/L (38-126); Anion Gap 8 mmol/L (8-16); Aspartate Amino Transferase 40 U/L (17-59); Bilirubin,Total 1.2 mg/dL (0.2-1.3); Calcium 8.1 mg/dL (8.4-10.2); Carbon Dioxide 22 mmol/L (22-30); Chloride 105 mmol/L (98-107); Estimated CRCL calculation 189 ml/min; Estimated Glomerular Filt Rate > 60; Glucose 105 mg/dL (65-110); Magnesium 1.8 mg/dL (1.6-2.3); Phosphorus 4.1 mg/dL (2.5-4.5); Potassium 3.3 mmol/L (3.4-5.0); Sodium 135 mmol/L (137-145)
[2020-11-27] MEDS: NICOTINE (*PBKC) 14 MG PATCH 1 PATCH TRANSDERM (09:12)
[2020-11-27] MEDS: MAGNESIUM OXIDE 400 MG TABLET PO (09:12)
[2020-11-27] MEDS: POTASSIUM/PHOSPHORUS/SODIUM 1.5 GM PACKET 2 PACKET PO (09:13)
[2020-11-27] MEDS: SACCHAROMYCES BOULARDII 250 MG CAPSULE PO ×2 (09:14→17:47)
[2020-11-27] MEDS: PANTOPRAZOLE 40 MG TABLET PO (09:14)
[2020-11-27] MEDS: ALBUTEROL SULFATE (*SP) AEROSOL 1 PUFF 2 PUFF INHALATION ×2 (09:41→20:59)
[2020-11-27] MEDS: FLUTICASONE PROP 44 MCG (*SP) 10.6 GM 2 PUFF INHALATION ×2 (09:41→20:59)
[2020-11-27 09:54] LABS: Blood Urea Nitrogen < 2 mg/dL (9-20)
[2020-11-27] MEDS: ENOXAPARIN 40 MG/0.4 ML SYRINGE SUB-Q (11:37)
[2020-11-27] MEDS: SODIUM CHLORIDE 0.9% IV 1,000 ML 125 ML IV CONT (11:37)
[2020-11-27] MEDS: MORPHINE SULFATE (*CRX) 2 MG/ML INJ IV PUSH ×2 (13:06→23:14)
--- NOTE | 2020-11-27 13:57 | P.PNIM_ITS ---
Progress Note: A&P Assessment and Plan (1) Autoimmune hemolytic anemia: Code(s): D59.10 - Autoimmune hemolytic anemia, unspecified Status: Acute (2) Hyperbilirubinemia: Code(s): E80.6 - Other disorders of bilirubin metabolism Status: Acute (3) Lactic acidosis: Code(s): E87.2 - Acidosis Status: Acute (4) Elevated troponin: Code(s): R77.8 - Other specified abnormalities of plasma proteins Status: Acute Assessment and Plan: Secondary to profound anemia, cardiology consulted. echo pending (5) Dysphagia: Code(s): R13.10 - Dysphagia, unspecified Status: Acute (6) Severe sepsis: Code(s): A41.9 - Sepsis, unspecified organism; R65.20 - Severe sepsis without septic shock Status: Acute Assessment and Plan: Secondary to severe anemia, lactic acidosis likely from hypoperfusion from anemia (7) Electrolyte abnormality: Code(s): E87.8 - Other disorders of electrolyte and fluid balance, not elsewhere classified Status: Acute Assessment and Plan: Repleting magnesium, phosphorus, potassium (8) Diverticulitis: Code(s): K57.92 - Diverticulitis of intestine, part unspecified, without perforation or abscess without bleeding Status: Acute Assessment and Plan: Treatment broad-spectrum antibiotics vanc and Zosyn (9) Metabolic acidosis: Code(s): E87.2 - Acidosis Status: Acute Assessment and Plan: -Severe electrolyte abnormalities, replacing phosphorus, potassium, magnesium -nausea: Zofran (10) Profound anemia: Qualifiers: Anemia type: iron deficiency Iron deficiency 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 Zurita -hemolysis labs pending, bilirubin is normal unclear as to where blood loss is going -last acute colonoscopy which showed diverticulosis no active bleeding (11) Chronic obstructive pulmonary disease: Code(s): J44.9 - Chronic obstructive pulmonary disease, unspecified Status: Acute (12) Tobacco dependency: Code(s): F17.200 - Nicotine dependence, unspecified, uncomplicated Status: Acute (13) Hypertension: Code(s): I10 - Essential (primary) hypertension Status: Acute (14) Septic joint: Qualifiers: Laterality: right Septic arthritis location: hip Septic arthritis organism: due to unspecified organism Qualified Code(s): M00.9 - Pyogenic arthritis, unspecified Code(s): M00.9 - Pyogenic arthritis, unspecified Status: Acute Assessment and Plan: -Cultures pending, right hip arthrocentesis. G stain does not show any organisms. -Will continue broad-spectrum antibiotics vanc and Zosyn. -pain control: [place] -unclear etiology of infection, lab abnormalities may all be from profound anemia (15) Sepsis: Code(s): A41.9 - Sepsis, unspecified organism Status: Acute (16) Non-ST elevated myocardial infarction: Code(s): I21.4 - Non-ST elevation (NSTEMI) myocardial infarction Status: Acute (17) Acute hypokalemia: Code(s): E87.6 - Hypokalemia Status: Acute (18) Bacteremia: Code(s): R78.81 - Bacteremia Status: Acute (19) DVT prophylaxis: Code(s): Z29.9 - Encounter for prophylactic measures, unspecified Status:
--- NOTE | 2020-11-27 14:11 | WPDGIPROGNO ---
Progress Note: A&P Assessment and Plan (1) Diarrhea: Code(s): R19.7 - Diarrhea, unspecified Status: Acute Assessment and Plan: probably from use of antibiotics continue with probiotics and started imodium, finally says that better will discontinue questran no abdominal pain (2) Autoimmune hemolytic anemia: Code(s): D59.10 - Autoimmune hemolytic anemia, unspecified Status: Acute Assessment and Plan: hb stable but low, s/p ivig no overt gib (3) Septic joint: Qualifiers: Laterality: right Septic arthritis location: hip Septic arthritis organism: due to unspecified organism Qualified Code(s): M00.9 - Pyogenic arthritis, unspecified Code(s): M00.9 - Pyogenic arthritis, unspecified Status: Acute Assessment and Plan: on iv antibiotics (4) Diverticulitis: Code(s): K57.92 - Diverticulitis of intestine, part unspecified, without perforation or abscess without bleeding Status: Acute Assessment and Plan: clinically resolved, had recent colonoscopy without acute findings (5) Cirrhosis, alcoholic: Qualifiers: Ascites presence: with ascites Qualified Code(s): K70.31 - Alcoholic cirrhosis of liver with ascites Code(s): K70.30 - Alcoholic cirrhosis of liver without ascites Status: Acute Assessment and Plan: no acute issues. Subjective Date/time seen: 11/27/20 14:11 Interval history: diarrhea finally slowing down after used imodium, was nauseous yesterday main problem in pain in hip Review of Systems Review of Systems: All systems reviewed & are unremarkable except as noted in HPI and below Exam Const: General: no acute distress and ill appearing chronically HENMT: General nose exam: Normal nares present Eyes: Sclera: sclerae normal Neck: Neck: supple Resp: Auscultation: clear to auscultation bilaterally Cardio: Rate: regular rate GI: Inspection: non-distended GI Palp: Yes Soft to palpation, No Tenderness to palpation present (GI) and No Guarding due to palpation present (GI) Auscultation: normal bowel sounds Skin: General skin exam: no rashes or lesions noted Neuro: Speech: normal speech Motor exam (neuro): Normal motor muscle tone present throughout Extrem: Other: pain right hip and knee Objective Data Vital Signs Vital Signs: Vital Signs - 24 hr 11/26/20 20:00 11/26/20 22:00 11/27/20 00:00 Temperature 98.0 F Pulse Rate 102 H 100 103 H Respiratory Rate 20 Blood Pressure 166/80 H Pulse Oximetry 99 11/27/20 04:00 11/27/20 06:00 Temperature 98.0 F Pulse Rate 111 H 105 H Respiratory Rate 20 Blood Pressure 155/67 H Pulse Oximetry 97 Intake/Output Intake/Output: Intake & Output 11/24/20 11/25/20 11/26/20 11/27/20 23:59 23:59 23:59 23:59 Intake Total 3730 3720 3360 2089 Output Total 650 1950 900 Balance 3080 1770 2460 0 Meds/Results Medications: Active Medications Generic Name Dose Route Start Last Admin Trade Name Freq PRN Reason Stop Dose Admin Acetaminophen 650 mg 11/19/20 16:21 11/23/20 19:06 Acetaminophen 325 Mg Tablet PO 650 mg Q4H PRN Administration Mild Pain (1-3) or Fever Hydrocodone Bitart/Acetaminophen 1 tab 11/19/20 19:47 11/25/20 16:38 Hydrocodone/Acetaminophen (*Crx) 5-325 Mg Tablet PO 1 tab Q8H PRN Administration Pain Rated 4-6 Albuterol 2 puff 11/19/20 20:00 11/27/20 09:41 Albuterol Sulfate (*Sp) Aerosol 1 Puff INHALATION 2 puff Q12HRT SINDI Administration Albuterol 2.5 mg 11/20/20 10:57 Albuterol Sulfate Neb 2.5 Mg/0.5 Ml Inh INHALATION Q6HRT PRN Shortness Of Breath Enoxaparin Sodium 40 mg 11/27/20 09:00 11/27/20 11:37 Enoxaparin 40 Mg/0.4 Ml Syringe SUB-Q 40 mg DAILY SINDI Administration Fluticasone Propionate 2 puff 11/19/20 20:00 11/27/20 09:41 Fluticasone Prop 44 Mcg (*Sp) 10.6 Gm INHALATION 2 puff Q12HRT SINDI Administration Hydrocortiso
[2020-11-27] MEDS: SERTRALINE HCL 25 MG TABLET PO (21:20)
[2020-11-28] VITALS: PULSE 105
[2020-11-28 01:38] LABS: Vancomycin Trough 8.1 ug/mL (10.0-20.0)
[2020-11-28] MEDS: SODIUM CHLORIDE 0.9% IV 1,000 ML 125 ML IV CONT (02:08)
[2020-11-28 04:00] VITALS: PULSE 114
[2020-11-28] MEDS: MORPHINE SULFATE (*CRX) 2 MG/ML INJ IV PUSH ×3 (05:33→14:10)
[2020-11-28] MEDS: methocarbamoL 750 MG TABLET PO (05:34)
[2020-11-28 06:40] LABS: Basophils Percent Auto 0.4 % (0.2-1.2); Eosinophils Absolute Auto 0.1 K/mm3 (0-0.3); Eosinophils Percent Auto 1.7 % (0-4.4); Hematocrit 26.7 % (42.0-52.0); Hemoglobin 8.1 g/dL (14.0-18.0); Immature Granulocyte Absolute 0.05 K/mm3 (0.00-0.031); Immature Granulocyte Percent A 0.7 % (0-0.5); Lymphocytes Absolute Auto 1.42 K/mm3 (0.9-3.2); Lymphocytes Percent Auto 19.9 % (18.3-44.2); Mean Corpuscular HGB Conc 30.3 g/dl (32-36); Mean Corpuscular Hemoglobin 27.6 pg (26-34); Mean Corpuscular Volume 91.1 fl (80-100); Mean Platelet Volume 8.6 fl (7.4-10.4); Monocytes Absolute Auto 0.5 K/mm3 (0.1-0.6); Monocytes Percent Auto 7.2 % (2.6-8.5); Neutrophils Percent Auto 70.1 % (45.5-73.1); Platelet Count Result 245 k/mm3 (150-375); Red Blood Count 2.93 M/mm3 (4.6-6.20); Red Cell Distribution Width 19.5 % (11.5-14.5); White Blood Count 7.1 K/mm3 (4.5-10.0)
[2020-11-28 06:56] LABS: Anion Gap 6 mmol/L (8-16); Calcium 7.8 mg/dL (8.4-10.2); Carbon Dioxide 22 mmol/L (22-30); Chloride 106 mmol/L (98-107); Estimated CRCL calculation 217 ml/min; Estimated Glomerular Filt Rate > 60; Glucose 107 mg/dL (65-110); Potassium 3.2 mmol/L (3.4-5.0); Sodium 134 mmol/L (137-145)
[2020-11-28 07:33] LABS: Blood Urea Nitrogen < 2 mg/dL (9-20)
[2020-11-28 08:00] VITALS: PULSE 96
[2020-11-28 08:06] VITALS: PULSE 75; RESP 18; O2SAT 75
[2020-11-28] MEDS: MAGNESIUM OXIDE 400 MG TABLET PO (08:43)
[2020-11-28] MEDS: ENOXAPARIN 40 MG/0.4 ML SYRINGE SUB-Q (08:43)
[2020-11-28] MEDS: NICOTINE (*PBKC) 14 MG PATCH 1 PATCH TRANSDERM (08:43)
[2020-11-28] MEDS: PANTOPRAZOLE 40 MG TABLET PO (08:44)
[2020-11-28] MEDS: SACCHAROMYCES BOULARDII 250 MG CAPSULE PO (08:44)
[2020-11-28] MEDS: LOPERAMIDE HCL 2 MG CAPSULE PO (08:47)
--- NOTE | 2020-11-28 10:49 | PCNWS ---
Weekly nutritional screen. Patient is tolerating current diet with adequate intake. No weight loss reported. No nutritional needs at this time.
--- NOTE | 2020-11-28 11:14 | WPDGIPROGNO ---
Progress Note: A&P Assessment and Plan (1) Diarrhea: Code(s): R19.7 - Diarrhea, unspecified Status: Acute Assessment and Plan: probably from use of antibiotics continue with probiotics, ok to use imodium as needed he can go home by GI standpoint (2) Autoimmune hemolytic anemia: Code(s): D59.10 - Autoimmune hemolytic anemia, unspecified Status: Acute Assessment and Plan: hb stable but low, s/p ivig no overt gib (3) Septic joint: Qualifiers: Laterality: right Septic arthritis location: hip Septic arthritis organism: due to unspecified organism Qualified Code(s): M00.9 - Pyogenic arthritis, unspecified Code(s): M00.9 - Pyogenic arthritis, unspecified Status: Acute Assessment and Plan: on iv antibiotics and will need follow-up with his ortho (4) Diverticulitis: Code(s): K57.92 - Diverticulitis of intestine, part unspecified, without perforation or abscess without bleeding Status: Acute Assessment and Plan: clinically resolved, had recent colonoscopy without acute findings (5) Cirrhosis, alcoholic: Qualifiers: Ascites presence: with ascites Qualified Code(s): K70.31 - Alcoholic cirrhosis of liver with ascites Code(s): K70.30 - Alcoholic cirrhosis of liver without ascites Status: Acute Assessment and Plan: no acute issues. follow-up 3 months in office Subjective Date/time seen: 11/28/20 11:14 Interval history: more formed stool, good appetite. He probably is going home with more antibiotics ([facility] is not taking patients because COVID situation) Review of Systems Review of Systems: All systems reviewed & are unremarkable except as noted in HPI and below Exam Const: General: no acute distress and ill appearing chronically HENMT: General nose exam: Normal nares present Eyes: Sclera: sclerae normal Neck: Neck: supple Resp: Auscultation: clear to auscultation bilaterally Cardio: Rate: regular rate GI: Inspection: non-distended GI Palp: Yes Soft to palpation, No Tenderness to palpation present (GI) and No Guarding due to palpation present (GI) Auscultation: normal bowel sounds Skin: General skin exam: no rashes or lesions noted Neuro: Speech: normal speech Motor exam (neuro): Normal motor muscle tone present throughout Extrem: Other: pain right hip and knee Objective Data Vital Signs Vital Signs: Vital Signs - 24 hr 11/27/20 12:00 11/27/20 14:00 11/27/20 22:00 Temperature 98.3 F 98.0 F Pulse Rate 100 100 116 H Respiratory Rate 18 18 Blood Pressure 154/73 H 149/68 H Pulse Oximetry 98 93 11/28/20 00:00 11/28/20 04:00 11/28/20 08:00 Temperature Pulse Rate 105 H 114 H 96 Respiratory Rate Blood Pressure Pulse Oximetry 11/28/20 08:06 Temperature Pulse Rate 75 Respiratory Rate 18 Blood Pressure Pulse Oximetry 75 L Intake/Output Intake/Output: Intake & Output 11/25/20 11/26/20 11/27/20 11/28/20 23:59 23:59 23:59 23:59 Intake Total 3720 3360 5460 1250 Output Total 3913 671 9846 Balance 1770 2460 4260 1250 Meds/Results Medications: Active Medications Generic Name Dose Route Start Last Admin Trade Name Freq PRN Reason Stop Dose Admin Acetaminophen 650 mg 11/19/20 16:21 11/23/20 19:06 Acetaminophen 325 Mg Tablet PO 650 mg Q4H PRN Administration Mild Pain (1-3) or Fever Hydrocodone Bitart/Acetaminophen 1 tab 11/19/20 19:47 11/25/20 16:38 Hydrocodone/Acetaminophen (*Crx) 5-325 Mg Tablet PO 1 tab Q8H PRN Administration Pain Rated 4-6 Albuterol 2 puff 11/19/20 20:00 11/27/20 20:59 Albuterol Sulfate (*Sp) Aerosol 1 Puff INHALATION 2 puff Q12HRT [facility] Administration Albuterol 2.5 mg 11/20/20 10:57 Albuterol Sulfate Neb 2.5 Mg/0.5 Ml Inh INHALATION Q6HRT PRN Shortness Of Breath Cyclobenzaprine HCl 5 mg 11/28/20 14:00 Cyclobenzaprine Hcl 5 Mg Tablet PO Q8HR [facility] Enoxap
[2020-11-28 12:00] VITALS: PULSE 97
--- NOTE | 2020-11-28 12:46 | P.PNONC_ITS ---
Progress Note: A/P - Additional Plan Multifactorial anemia. Patient has a history of autoimmune hemolytic anemia. Presenting hemoglobin was 3.7. He received IV IgG with improvement in hemoglobin and now hovering around 8.1. Patient is not a candidate for steroid due to his septic arthritis. I plan to have his CBC done in 1 week at his primary care doctor's office and 3 weeks in my office. I would consider giving him Rituxan treatment once his infection improved and off antibiotics. Septic arthritis. MRI findings noted. Patient will be discharged home on oral antibiotics. I have instructed him to follow-up with his orthopedic surgeon at [facility]. - Time Spent With Patient Total time spent is greater than 50% in coordination of care (as documented) at patient's floor/unit and/or counseling patient: 15 - 25 minutes Subjective Interval history: Autoimmune hemolytic anemia Septic arthritis Review of Systems - Review of Systems Patient denies any fevers and chills. He has some tiredness and fatigue but not getting any worse. Denies any bleeding. He has right hip pain. No other new complaints. - Neurologic Reports hearing normal, Reports weakness, Denies confusion Exam Vital signs: Roger Hyman. Assessment of coma and impaired consciousness. A practical scale. Lancet 1974; 2:81-4. Narrative: Lungs are clear to auscultation bilaterally Cardiovascular regular rate rhythm no murmurs Abdomen soft nontender nondistended bowel sounds are positive Extremities no edema - Constitutional no acute distress PN: Objective Data - Labs CBC & Chem 7: 11/28/20 06:19 11/28/20 06:19 Labs: Laboratory Results - last 24 hr 11/28/20 11/28/20 11/28/20 00:48 06:19 06:19 WBC 7.1 RBC 2.93 L Hgb 8.1 L Hct 26.7 L MCV 91.1 MCH 27.6 MCHC 30.3 L RDW 19.5 H Plt Count 245 MPV 8.6 Immature Gran % (Auto) 0.7 H Neut % (Auto) 70.1 Lymph % (Auto) 19.9 [place] % (Auto) 7.2 Eos % (Auto) 1.7 Baso % (Auto) 0.4 Lymph # (Auto) 1.42 [place] # (Auto) 0.5 Eos # (Auto) 0.1 Baso # (Auto) 0.0 Abs Immat Gran (auto) 0.05 H Absolute Neuts (auto) 5.0 Absolute Nucleated RBC 0.0 Nucleated RBC % 0.0 Sodium 134 L Potassium 3.2 L Chloride 106 Carbon Dioxide 22 Anion Gap 6 L BUN < 2 L Creatinine 0.40 L Estim Creat Clear Calc 217 Estimated GFR > 60 Glucose 107 Calcium 7.8 L Vancomycin Trough 8.1 L
--- NOTE | 2020-11-28 13:22 | PM.DS ---
DS: Admitting Diagnosis Admitting Diagnosis Chest pain, shortness of breath, weakness. DS: Discharge Diagnosis Discharge Diagnosis (1) Autoimmune hemolytic anemia: Code(s): D59.10 - Autoimmune hemolytic anemia, unspecified Status: Acute (2) Hyperbilirubinemia: Code(s): E80.6 - Other disorders of bilirubin metabolism Status: Acute (3) Lactic acidosis: Code(s): E87.2 - Acidosis Status: Acute (4) Elevated troponin: Code(s): R77.8 - Other specified abnormalities of plasma proteins Status: Acute Assessment and Plan: Secondary to profound anemia, cardiology consulted. echo pending (5) Dysphagia: Code(s): R13.10 - Dysphagia, unspecified Status: Acute (6) Severe sepsis: Code(s): A41.9 - Sepsis, unspecified organism; R65.20 - Severe sepsis without septic shock Status: Acute Assessment and Plan: Secondary to severe anemia, lactic acidosis likely from hypoperfusion from anemia (7) Electrolyte abnormality: Code(s): E87.8 - Other disorders of electrolyte and fluid balance, not elsewhere classified Status: Acute Assessment and Plan: Repleting magnesium, phosphorus, potassium (8) Diverticulitis: Code(s): K57.92 - Diverticulitis of intestine, part unspecified, without perforation or abscess without bleeding Status: Acute Assessment and Plan: Treatment broad-spectrum antibiotics vanc and Zosyn (9) Metabolic acidosis: Code(s): E87.2 - Acidosis Status: Acute Assessment and Plan: -Severe electrolyte abnormalities, replacing phosphorus, potassium, magnesium -nausea: Zofran (10) Profound anemia: Qualifiers: Anemia type: iron deficiency Iron deficiency 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 Zurita -hemolysis labs pending, bilirubin is normal unclear as to where blood loss is going -last acute colonoscopy which showed diverticulosis no active bleeding (11) Chronic obstructive pulmonary disease: Code(s): J44.9 - Chronic obstructive pulmonary disease, unspecified Status: Acute (12) Tobacco dependency: Code(s): F17.200 - Nicotine dependence, unspecified, uncomplicated Status: Acute (13) Hypertension: Code(s): I10 - Essential (primary) hypertension Status: Acute (14) Septic joint: Qualifiers: Laterality: right Septic arthritis location: hip Septic arthritis organism: due to unspecified organism Qualified Code(s): M00.9 - Pyogenic arthritis, unspecified Code(s): M00.9 - Pyogenic arthritis, unspecified Status: Acute Assessment and Plan: -Cultures pending, right hip arthrocentesis. G stain does not show any organisms. -Will continue broad-spectrum antibiotics vanc and Zosyn. -pain control: [place] -unclear etiology of infection, lab abnormalities may all be from profound anemia (15) Sepsis: Code(s): A41.9 - Sepsis, unspecified organism Status: Acute (16) Non-ST elevated myocardial infarction: Code(s): I21.4 - Non-ST elevation (NSTEMI) myocardial infarction Status: Acute (17) Acute hypokalemia: Code(s): E87.6 - Hypokalemia Status: Acute (18) Bacteremia: Code(s): R78.81 - Bacteremia Status: Acute (19) DVT prophylaxis: Code(s): Z29.9 - Encounter for prophylactic measures, unspecified Status: Acute (20) Left knee pain: Code(s): M25.562 - Pain in left knee Status: Acute (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
[2020-11-28 23:31] LABS: Osmolality, Urine 383 mOsm/kg (50-1200)
== END 2020-11-28 14:15 | disposition home or self-care (01) | DRG 720 ==
LOC: ANHED 17:01 → ANHICU 18:00 → ANH3MEDSUR 11-20 18:16
PROVIDERS: Internal Medicine; Internal Medicine Hematology & Oncology; Admitting Provider Family Medicine; Emergency Provider Emergency Medicine; PCP Family Medicine; Visit Provider Physician Assistant
DX: A41.9 Sepsis, unspecified organism (principal); Z20.822 Contact with and (suspected) exposure to COVID-19; F17.210 Nicotine dependence, cigarettes, uncomplicated; I21.4 Non-ST elevation (NSTEMI) myocardial infarction; R65.20 Severe sepsis without septic shock; E87.6 Hypokalemia; E87.1 Hypo-osmolality and hyponatremia; K57.32 Diverticulitis of large intestine without perforation or abscess without bleeding; M00.9 Pyogenic arthritis, unspecified; M25.562 Pain in left knee; K70.31 Alcoholic cirrhosis of liver with ascites; F10.21 Alcohol dependence, in remission; G62.9 Polyneuropathy, unspecified; I10 Essential (primary) hypertension; J44.9 Chronic obstructive pulmonary disease, unspecified; D69.6 Thrombocytopenia, unspecified; E83.110 Hereditary hemochromatosis; D59.19 Other autoimmune hemolytic anemia; E80.6 Other disorders of bilirubin metabolism; D50.0 Iron deficiency anemia secondary to blood loss (chronic); E87.2 Acidosis; E87.8 Other disorders of electrolyte and fluid balance, not elsewhere classified; R73.9 Hyperglycemia, unspecified; R13.10 Dysphagia, unspecified; Z79.899 Other long term (current) drug therapy; Z88.8 Allergy status to other drugs, medicaments and biological substances
CPT/HCPCS: 20610; 36415; 36430; 36600; 71045; 73720; 74019; 74176; 77002; 80048; 80053; 80202; 81001; 82248; 82375; 82533; 82550; 82607; 82746; 82805; 82945; 83010; 83050; 83605; 83615; 83735; 83935; 84100; 84157; 84443; 84484; 85014; 85018; 85025; 85027; 85046; 85610; 85730; 86140; 86850; 86880; 86900; 86901; 86920; 87040; 87070; 87075; 87076; 87205; 87426; 88108; 88307; 89051; 89060; 93005; 93306; 94640; 96365; 96366; 96367; 96368; 96375; 96376; 97110; 97161; 97165; 97530; 99291; A9270; A9577; C9803; G0378; G0379; J1459; J1650; J2270; J2405; J2543; J3370; J3475; J3480; J7030; J7040; J7050; J7060; P9016; Q9966